=== PATIENT | female | born 1965 | race Caucasian/White ===

== ENCOUNTER 2021-03-10 02:05 | Inpatient (IN) | payer MEDICARE, MEDICAID, SELFPAY ==
[2021-03-10 02:11] VITALS: BP 147/102; PULSE 117; RESP 16; TEMP 36.8; O2SAT 97; BMI 32.8
[2021-03-10 03:00] LABS: Glucose Urine UA NEG (NEG); Leukocyte Esterase Urine NEG (NEG); Nitrite Urine NEG (NEG); Specific Gravity - Urine 1.025 (1.005-1.025); Urine Blood NEG (NEG); Urine Ketones NEG (NEG); Urine Protein NEG (NEG-TRACE)
[2021-03-10 03:03] LABS: Appearance Urine CLEAR; Color Urine YELLOW
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
[2021-03-10 03:09] LABS: Bacteria Urine 2+ /LPF; RBC Urine 0-2 /HPF (0); Squamous Epithelial Cell Urine 1+ /LPF; WBC Urine 0-2 /HPF (0-4)
[2021-03-10 03:16] LABS: COVID-19 Test Negative (Negative); IDNOW Serial# 9DD0AD1C
[2021-03-10 03:27] LABS: Amphetamine Screen Urine Not Detected (Not Detect); Barbiturates, Urine Not Detected (Not Detect); Benzodiazepines Screen Urine Not Detected (Not Detect); Cannabinoid Screen Urine Not Detected (Not Detect); Cocaine Screen Urine Not Detected (Not Detect); Opiate Screen Urine Not Detected (Not Detect); Phencyclidine Screen Urine Not Detected (Not Detect)
[2021-03-10 05:52] VITALS: BP 147/84; PULSE 117; RESP 16; TEMP 36.8; O2SAT 97
--- NOTE | 2021-03-10 06:13 | PC.NURSE ---
Patient is currently in bed appears sleeping, patient struggled to fall sleep, patient was unable to provide any information regarding her admission to [facility], patient used walker to ambulate, unsteady gait without walker, patient is on one to one observation for high fall risk, med rec completed, no distress observed/reported at this time, patient's plan is to assess by care team in the morning to see whether patient needs crises consult. Patient is in good behavioral control, pending labs, UA negative, will continue to monitor.
--- NOTE | 2021-03-10 07:06 | PC.NURSE ---
patient was awake upon arrival asking for hygiene products appropriately patient appears in no distress
[2021-03-10 07:59] LABS: Basophils Absolute Auto 0.1 X10*3/uL (0.0-0.2); Basophils Percent Auto 0.7 % (0-2); Eosinophils Absolute Auto 0.1 X10*3/uL (0.0-0.4); Eosinophils Percent Auto 0.9 % (0-4); Hematocrit 40.6 % (37-47); Hemoglobin 13.9 g/dl (12.0-16.0); Imm Gran Abs Auto 0.02 X10*3/uL (0.00-0.03); Imm Gran Pct Auto 0.3 % (0.0-0.4); Lymphocytes Absolute Auto 2.5 X10*3/uL (1.2-4.9); Lymphocytes Percent Auto 33.4 % (20-40); MANUAL DIFF FLAG NO; Mean Corpuscular HGB Conc 34.2 g/dl (31.0-35.0); Mean Corpuscular Hemoglobin 32.9 pg (27.0-33.0); Mean Platelet Volume 9.9 fL (9.4-12.3); Monocytes Absolute Auto 0.6 X10*3/uL (0.1-1.2); Monocytes Percent Auto 8.2 % (2-11); Neutrophils Absolute Auto 4.2 X10*3/uL (2.0-8.3); Neutrophils Percent Auto 56.5 % (45-73); Platelet Count 280 X10*3/uL (160-400); Red Blood Count 4.23 X10*6/uL (4.20-5.50); Red Cell Distribution Width 11.3 % (11.0-16.0); White Blood Count 7.4 X10*3/uL (4.8-10.8)
[2021-03-10 08:23] LABS: Ethanol < 10 mg/dL
[2021-03-10 08:26] LABS: Alanine Aminotransferase 36 U/L (0-31); Albumin Level 4.2 g/dL (3.5-5.0); Alkaline Phosphatase 94 U/L (39-117); Anion Gap 13 (12-20); Aspartate Amino Transferase 37 U/L (5-31); Bilirubin Total 0.9 mg/dL (0.0-1.0); Blood Urea Nitrogen 17 mg/dL (9-16); Carbon Dioxide 26 mmol/L (22-29); Chloride 104 mmol/L (96-108); Estimated Glomerular Filt Rate > 60; Glucose Random 97 mg/dL (60-115); Potassium 3.7 mmol/L (3.3-5.1); Sodium 139 mmol/L (135-145); Total Protein 7.8 g/dL (6.5-8.0)
[2021-03-10 08:46] VITALS: BP 175/94; PULSE 93; RESP 15; TEMP 37.6; O2SAT 96
[2021-03-10] MEDS: Omeprazole 20 MG CAPSULE.DR PO (09:38)
[2021-03-10] MEDS: ARIPiprazole 15 MG TABLET PO (09:38)
[2021-03-10] MEDS: Nicotine 21 MG PATCH.TD24 TRANSDERMA (09:38)
[2021-03-10] MEDS: Furosemide 20 MG TABLET PO (10:00)
[2021-03-10] MEDS: Ibuprofen 200 MG TABLET PO (11:10)
[2021-03-10] MEDS: LORazepam 1 MG TABLET 2 MG PO ×2 (11:40→19:17)
[2021-03-10] MEDS: Haloperidol Lactate 5 MG/ML VIAL IM (12:46)
[2021-03-10] MEDS: LORazepam 2 MG/ML VIAL IM (12:46)
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
--- NOTE | 2021-03-10 15:41 | PC.NURSE ---
care team came to speak with patient, attempted to wake patient to speak with her, pt sleeping/snoring, would not respond to care teams requests to talk
--- NOTE | 2021-03-10 15:52 | MHC.CARE ---
Pt has an ACCS Team through [facility]- Team B
[2021-03-10 16:25] VITALS: RESP 16
--- NOTE | 2021-03-10 17:14 | PC.NURSE ---
care team notified patient is now awake, patient ambulating to bathroom with walker and tech
[2021-03-10 19:14] VITALS: BP 123/75; PULSE 81; TEMP 36; O2SAT 97
[2021-03-10] MEDS: Ibuprofen 600 MG TABLET PO (19:17)
--- NOTE | 2021-03-10 19:17 | PC.NURSE ---
patient c/o generalized pain and anxiety requesting medications for both, notified provider and obtained order, pt medicated for pain and anxiety per order, pt currently in room watching tv, will continue to monitor.
[2021-03-10 23:45] VITALS: BP 120/80; PULSE 89; RESP 17; TEMP 36.7; O2SAT 96
--- NOTE | 2021-03-11 07:09 | PC.NURSE ---
Patient slept through the night, OOR x 2 for bathroom use and back, no behavioral concerns at this time, disposition section 12 inpatient bed search, will continue to monitor.
--- NOTE | 2021-03-11 07:17 | PC.NURSE ---
patient appears to remain at rest at present with even unlabored breaths patient appears in no distress
[2021-03-11] MEDS: Ibuprofen 200 MG TABLET PO (08:41)
[2021-03-11] MEDS: Nicotine 21 MG PATCH.TD24 TRANSDERMA (08:41)
[2021-03-11] MEDS: Furosemide 20 MG TABLET PO (08:41)
[2021-03-11] MEDS: Omeprazole 20 MG CAPSULE.DR PO (08:42)
[2021-03-11] MEDS: ARIPiprazole 15 MG TABLET PO (08:42)
[2021-03-11 09:04] VITALS: BP 126/98; PULSE 92; RESP 17; TEMP 36.5; O2SAT 100
[2021-03-11] MEDS: LORazepam 1 MG TABLET 2 MG PO (10:41)
--- NOTE | 2021-03-11 10:57 | MHC.CARE ---
Pts bed search is exhausted for the day. CARE Team attempting to obtain collateral information from [facility]- its reported Pt was discharged from [facility] on the .
--- NOTE | 2021-03-11 11:23 | PC.NURSE ---
patient had informed this freelance writer this morning that shes a client at a methadone program in [place] this freelance writer attempted to call habit opco times 2 so far this am
[2021-03-11 16:57] VITALS: BP 127/87; RESP 16; TEMP 36.5; O2SAT 97
[2021-03-11 22:34] VITALS: BP 116/82; PULSE 95; RESP 18; TEMP 36.2; O2SAT 97
[2021-03-12 01:19] VITALS: BP 117/80; PULSE 95; RESP 17; TEMP 36.5; O2SAT 96
--- NOTE | 2021-03-12 05:58 | PC.NURSE ---
Patient slept most part of the night, up few times for bathroom use and back, behavior appropriate, at time disorganized, no distress observed/reported, disposition section 12 inpatient bed search, VSS, med compliant, will continue to monitor.
--- NOTE | 2021-03-12 07:05 | PC.NURSE ---
patient appaears to remain at rest at present appears in no distress
[2021-03-12] MEDS: Nicotine 21 MG PATCH.TD24 TRANSDERMA (08:59)
[2021-03-12] MEDS: ARIPiprazole 15 MG TABLET PO (08:59)
[2021-03-12] MEDS: Omeprazole 20 MG CAPSULE.DR PO (08:59)
[2021-03-12] MEDS: Furosemide 20 MG TABLET PO (08:59)
[2021-03-12 09:19] VITALS: BP 143/74; PULSE 85; RESP 18; TEMP 36.1; O2SAT 95
[2021-03-12] MEDS: Nicotine Polacrilex 2 MG GUM BUCCAL ×2 (09:26→19:38)
[2021-03-12] MEDS: LORazepam 1 MG TABLET PO (10:20)
[2021-03-12] MEDS: Ibuprofen 400 MG TABLET PO (19:37)
--- NOTE | 2021-03-12 20:45 | MHC.CARE ---
Bedsearch Note: State wide search- 1 female bed available. Low acuity only.
[2021-03-13] MEDS: Acetaminophen 325 MG TABLET PO (02:26)
[2021-03-13 05:48] VITALS: BP 132/76; PULSE 88; RESP 16; TEMP 36.6; O2SAT 95
--- NOTE | 2021-03-13 06:37 | PC.NURSE ---
Patient slept through the night, no distress observed/reported, compliant with her medication, behavior appropriate, disposition is section 12 inpatient bed search, will continue to monitor.
--- NOTE | 2021-03-13 07:42 | PC.NURSE ---
pt sitting in community area eating breakfast and watching TV. No apparent distress noted. will continue to monitor
[2021-03-13 07:43] VITALS: BP 131/88; PULSE 88; RESP 15; TEMP 36.2; O2SAT 97
[2021-03-13] MEDS: Omeprazole 20 MG CAPSULE.DR PO (09:01)
[2021-03-13] MEDS: Nicotine 21 MG PATCH.TD24 TRANSDERMA (09:01)
[2021-03-13] MEDS: Furosemide 20 MG TABLET PO (09:01)
[2021-03-13] MEDS: ARIPiprazole 15 MG TABLET PO (09:01)
--- NOTE | 2021-03-13 17:52 | PC.NURSE ---
Patient escorted to m3 via nurse and security room number 308-2. This nurse unable to document admission worksheet at this time
[2021-03-13] MEDS: hydrOXYzine HCL 25 MG TABLET PO (19:41)
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
[2021-03-14] MEDS: traZODone HCL 50 MG TABLET PO (03:03)
[2021-03-14 06:00] VITALS: BP 128/72; PULSE 78; RESP 18; TEMP 36.6; O2SAT 97
[2021-03-14] MEDS: Ibuprofen 400 MG TABLET PO (06:56)
[2021-03-14] MEDS: Furosemide 20 MG TABLET PO (09:06)
[2021-03-14] MEDS: Omeprazole 20 MG CAPSULE.DR PO (09:06)
[2021-03-14] MEDS: Nicotine 21 MG PATCH.TD24 TRANSDERMA (09:06)
[2021-03-14] MEDS: ARIPiprazole 15 MG TABLET PO ×2 (09:06→16:14)
[2021-03-14 10:12] LABS: Estimated Average Glucose 100 mg/dL; Hemoglobin A1c % 5.1 %
[2021-03-14 10:16] LABS: Cholesterol 155 mg/dL; HDL Cholesterol 51 mg/dL; LDL Cholesterol Calculated 92 mg/dl; Triglycerides 63 mg/dL
[2021-03-14 10:37] LABS: Thyroid Stimulating Hormone 1.07 uIU/mL (0.32-4.0)
[2021-03-14] MEDS: Nicotine Polacrilex 2 MG GUM BUCCAL (14:43)
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
[2021-03-14 17:15] VITALS: BP 134/70; PULSE 74; RESP 18; TEMP 36.7; O2SAT 97
[2021-03-14] MEDS: hydrOXYzine HCL 25 MG TABLET PO (20:37)
[2021-03-14] MEDS: Acetaminophen 325 MG TABLET PO (20:37)
[2021-03-14 21:46] VITALS: BP 134/70; PULSE 74
[2021-03-14] MEDS: Prazosin HCL 1 MG CAPSULE PO (21:46)
[2021-03-15] MEDS: traZODone HCL 50 MG TABLET PO (01:46)
[2021-03-15] MEDS: Ibuprofen 400 MG TABLET PO ×2 (01:46→10:04)
[2021-03-15] MEDS: Acetaminophen 325 MG TABLET 650 MG PO (07:38)
[2021-03-15 08:30] VITALS: BP 123/79; PULSE 106; RESP 16; TEMP 35.9; O2SAT 97
[2021-03-15] MEDS: Omeprazole 20 MG CAPSULE.DR PO (08:33)
[2021-03-15] MEDS: ARIPiprazole 30 MG TABLET PO (08:33)
[2021-03-15] MEDS: Nicotine 21 MG PATCH.TD24 TRANSDERMA (08:34)
[2021-03-15] MEDS: Furosemide 20 MG TABLET PO (08:47)
[2021-03-15] MEDS: Nicotine Polacrilex 2 MG GUM BUCCAL (10:06)
--- NOTE | 2021-03-15 12:22 | P.PNPSI_ITS ---
Subjective Subjective Date of Service: 03/15/21 Reason For Visit: Gabriela Interim History: pt reports she did not sleep well, agreeable to increase prazosin. focused on getting PT consult and concerns about her housing. remains disorganized and mildly pressured. redirectable. per staff, afraid to go home. anx 6, dep 9. attending groups. suspicious, fearful. observed to have slept from 0130 on. had trazodone at 0130. BP 123/79 and P 106 this morning. Mental Status Exam Mental Status Exam Narrative: appropriately dressed and groomed, perhaps a tad disheveled. less PMA of rocking back and forth in her seat, some hand-wringing and fidgetiness. cooperative. speech nml in rate, increased in amount, nml in loudness, nml in tone, decreased in latency. thoughts a bit disorganized and tangential. delusions and paranoia not expressed. affect full range, normo-intense, min-la bile. no SI/HI/AVH expressed. Diagnostics Vital Signs (24Hr): Vital Signs - 24 hr 03/14/21 17:15 03/14/21 21:46 03/15/21 08:30 Temperature 98.1 F 96.7 F L Pulse Rate 74 74 106 H Respiratory Rate 18 16 Blood Pressure 134/70 134/70 123/79 Pulse Oximetry 97 97 Body Mass Index 32.8 Labs Results: 03/10/21 07:53 03/10/21 07:53 Labs: Laboratory Results - last 48 hr 03/14/21 03/14/21 09:39 09:39 Estimat Average Glucose 100 Hemoglobin A1c % 5.1 Triglycerides 63 Cholesterol 155 LDL Cholesterol, Calc 92 HDL Cholesterol 51 TSH 1.07 Medications Medications Current Medications Generic Name Dose Route Start Last Admin Trade Name Freq PRN Reason Stop Dose Admin Acetaminophen 325 mg 03/11/21 09:34 03/14/21 20:37 Acetaminophen 325 Mg Tablet PO 325 mg Q4H PRN Administration Pain, Mild (Pain Scale 1-3) Acetaminophen 650 mg 03/13/21 17:10 03/15/21 07:38 Acetaminophen 325 Mg Tablet PO 650 mg Q6H PRN Administration Headache/Pain Mild Scale (1-3) Al Hydroxide/Mg Hydroxide 30 ml 03/13/21 17:10 Magnesium Hydrox/Alum Hydrox 30 Ml Oral.Susp PO Q6H PRN Heartburn/Nausea Aripiprazole 30 mg 03/15/21 09:00 03/15/21 08:33 Aripiprazole 30 Mg Tablet PO 30 mg DAILY NIR Administration Furosemide 20 mg 03/10/21 09:30 03/15/21 08:47 Furosemide 20 Mg Tablet PO 20 mg DAILY NIR Administration Protocol Hydroxyzine HCl 25 mg 03/13/21 17:10 03/14/21 20:37 Hydroxyzine Hcl 25 Mg Tablet PO 25 mg BEDTIME PRN Administration Anxiety Ibuprofen 400 mg 03/11/21 09:34 03/15/21 10:04 Ibuprofen 400 Mg Tablet PO 400 mg Q8H PRN Administration pain Magnesium Hydroxide 30 ml 03/13/21 17:10 Milk Of Magnesia 30 Ml Oral.Susp PO DAILY PRN Constipation Methadone HCl 50 mg 03/11/21 12:30 03/15/21 08:34 Methadone Hcl 1 Mg/0.1 Ml Oral.Conc PO 50 mg DAILY NIR Administration Nicotine 21 mg 03/10/21 09:30 03/15/21 08:34 Nicotine 21 Mg Patch.Td24 TRANSDERMA 21 mg DAILY NIR Administration Nicotine Polacrilex 2 mg 03/12/21 09:11 03/15/21 10:06 Nicotine Polacrilex 2 Mg Gum BUCCAL 2 mg Q2H PRN Administration nicotine cravings Omeprazole 20 mg 03/10/21 09:30 03/15/21 08:33 Omeprazole 20 Mg Capsule.Dr PO 20 mg DAILY NIR Administration Trazodone HCl 50 mg 03/13/21 17:10 03/15/21 01:46 Trazodone Hcl 50 Mg Tablet PO 50 mg BEDTIME PRN Administration Insomnia Allergies Allergies Allergy/AdvReac Type Severity Reaction Status Date / Time amoxicillin [Amoxicillin] Allergy Mild RASH & Verified 03/13/21 05:35 DIZZINESS, Dizziness Assessment & Plan Assessment & Plan (1) Gabriela: Status: Acute Code(s): F30.9 - Manic episode, unspecified Assessment and Plan: increased abilify to 30 mg daily as of 03/14, per pt request. (2) PTSD (post-traumatic stress disorder): Status: Acute Code(s): F43.10 - Post-traumatic stress disorder, unspecified Assessment and Plan: started prazosin 1 mg at bedtime 03/15, increased to 2 mg QHS as of 03/15. BP WNL, mild tachycardia. follow VS. titrate as indicated. (3) Opioid use disorder: Status: Acute Code(s): F11.99 - Opioid use, unspecified with unspecified opioid-induced disorder Assessment and Plan: methadone 50 mg daily Greater than 50% of the session was spent on counseling and/or coordination of care Reason for contiued inpatient stay Substantial Risk for: harm to self, inability to function and rapid deco mpensation
[2021-03-15 14:10] VITALS: BP 123/79; PULSE 106; O2SAT 97
[2021-03-15 15:18] LABS: Folate 13.5 ng/mL (> or = 4.0); Vitamin B12 564 pg/mL (200-900)
[2021-03-15 18:00] VITALS: BP 109/69; PULSE 64; RESP 16; TEMP 36.5; O2SAT 96
[2021-03-15 20:25] VITALS: BP 124/95; PULSE 84
[2021-03-15] MEDS: Prazosin HCL 1 MG CAPSULE 2 MG PO (20:25)
[2021-03-16] MEDS: Ibuprofen 400 MG TABLET PO ×2 (03:31→15:21)
[2021-03-16] MEDS: traZODone HCL 50 MG TABLET PO (03:31)
[2021-03-16 06:00] VITALS: BP 131/79; PULSE 114; RESP 16; TEMP 35.7; O2SAT 97
[2021-03-16] MEDS: Furosemide 20 MG TABLET PO (08:35)
[2021-03-16] MEDS: ARIPiprazole 30 MG TABLET PO (08:35)
[2021-03-16] MEDS: Omeprazole 20 MG CAPSULE.DR PO (08:35)
[2021-03-16] MEDS: Nicotine 21 MG PATCH.TD24 TRANSDERMA (08:35)
--- NOTE | 2021-03-16 13:04 | HO.PSYCHPN ---
Subjective Subjective Date of Service: 03/16/21 Reason For Visit: Gabriela Interim History: pt reports she is feeling better more relaxed less scared and less anxious every day. asks for omeprazole, which she had been prescribed recently for GERD and stomach ulcers. still some difficulty sleeping, agrees to increase prazosin at HS to 3 mg. reports a flash of SI yesterday but nothing since. suggests the interview room has a camera in it (it does not), but less disorganized and pressured. per staff, disorganized. attending groups. believes showers have cameras. had trazodone for sleep last night. Mental Status Exam Mental Status Exam Narrative: appropriately dressed and groomed, perhaps a tad disheveled. no PMA/PMR. cooperative. speech nml in rate, increased in amount, nml in loudness, nml in tone, decreased in latency. thoughts a bit disorganized. paranoid delusion expressed. affect full range, hyper-intense, non-labile. no SI/HI/AVH expressed. Diagnostics Vital Signs (24Hr): Vital Signs - 24 hr 03/15/21 14:10 03/15/21 18:00 03/15/21 20:25 Temperature 97.7 F Pulse Rate 106 H 64 84 Respiratory Rate 16 Blood Pressure 123/79 109/69 124/95 H Pulse Oximetry 97 96 03/16/21 06:00 Temperature 96.3 F L Pulse Rate 114 H Respiratory Rate 16 Blood Pressure 131/79 Pulse Oximetry 97 Body Mass Index 32.8 Labs Results: 03/10/21 07:53 03/10/21 07:53 Labs: Laboratory Results - last 48 hr 03/14/21 09:39 Vitamin B12 564 Folate 13.5 Medications Medications Current Medications Generic Name Dose Route Start Last Admin Trade Name Freq PRN Reason Stop Dose Admin Acetaminophen 325 mg 03/11/21 09:34 03/14/21 20:37 Acetaminophen 325 Mg Tablet PO 325 mg Q4H PRN Administration Pain, Mild (Pain Scale 1-3) Acetaminophen 650 mg 03/13/21 17:10 03/15/21 07:38 Acetaminophen 325 Mg Tablet PO 650 mg Q6H PRN Administration Headache/Pain Mild Scale (1-3) Al Hydroxide/Mg Hydroxide 30 ml 03/13/21 17:10 Magnesium Hydrox/Alum Hydrox 30 Ml Oral.Susp PO Q6H PRN Heartburn/Nausea Aripiprazole 30 mg 03/15/21 09:00 03/16/21 08:35 Aripiprazole 30 Mg Tablet PO 30 mg DAILY NIR Administration Furosemide 20 mg 03/10/21 09:30 03/16/21 08:35 Furosemide 20 Mg Tablet PO 20 mg DAILY NIR Administration Protocol Hydroxyzine HCl 25 mg 03/13/21 17:10 03/14/21 20:37 Hydroxyzine Hcl 25 Mg Tablet PO 25 mg BEDTIME PRN Administration Anxiety Ibuprofen 400 mg 03/11/21 09:34 03/16/21 03:31 Ibuprofen 400 Mg Tablet PO 400 mg Q8H PRN Administration pain Magnesium Hydroxide 30 ml 03/13/21 17:10 Milk Of Magnesia 30 Ml Oral.Susp PO DAILY PRN Constipation Methadone HCl 50 mg 03/11/21 12:30 03/16/21 08:35 Methadone Hcl 1 Mg/0.1 Ml Oral.Conc PO 50 mg DAILY NIR Administration Nicotine 21 mg 03/10/21 09:30 03/16/21 08:35 Nicotine 21 Mg Patch.Td24 TRANSDERMA 21 mg DAILY NIR Administration Nicotine Polacrilex 2 mg 03/12/21 09:11 03/15/21 10:06 Nicotine Polacrilex 2 Mg Gum BUCCAL 2 mg Q2H PRN Administration nicotine cravings Omeprazole 20 mg 03/10/21 09:30 03/16/21 08:35 Omeprazole 20 Mg Capsule.Dr PO 20 mg DAILY NIR Administration Prazosin HCl 2 mg 03/15/21 21:00 03/15/21 20:25 Prazosin Hcl 1 Mg Capsule PO 2 mg BEDTIME NIR Administration Protocol Trazodone HCl 50 mg 03/13/21 17:10 03/16/21 03:31 Trazodone Hcl 50 Mg Tablet PO 50 mg BEDTIME PRN Administration Insomnia Allergies Allergies Allergy/AdvReac Type Severity Reaction Status Date / Time amoxicillin [Amoxicillin] Allergy Mild RASH & Verified 03/13/21 05:35 DIZZINESS, Dizziness Assessment & Plan Assessment & Plan (1) Gabriela: Status: Acute Code(s): F30.9 - Manic episode, unspecified Assessment and Plan: increased abilify to 30 mg daily as of 03/14, per pt request. (2) PTSD (post-traumatic stress disorder): Status: Acute Code(s): F43.10 - Post-traumatic stress disorder, unspecified Assessment and Plan: started prazosin 1 mg at bedtime 03/15, increased to 2 mg QHS as of 03/15, 3 mg as of 03/16. BP WNL, mild tachycardia. follow VS. titrate as indicated. (3) Opioid use disorder: Status: Acute Code(s): F11.99 - Opioid use, unspecified with unspecified opioid-induced disorder Assessment and Plan: methadone 50 mg daily (4) GERD (gastroesophageal reflux disease): Status: Acute Code(s): K21.9 - Gastro-esophageal reflux disease without esophagitis Assessment and Plan: start omeprazole per pt request Greater than 50% of the session was spent on counseling and/or coordination of care Reason for contiued inpatient stay Substantial Risk for: inability to function and rapid decompensation
[2021-03-16] MEDS: hydrOXYzine HCL 25 MG TABLET PO (16:01)
[2021-03-16 21:51] VITALS: BP 148/78; PULSE 89; TEMP 36.6; O2SAT 95
[2021-03-16 21:52] VITALS: BP 148/89; PULSE 89
[2021-03-16] MEDS: Prazosin HCL 1 MG CAPSULE 3 MG PO (21:52)
[2021-03-17] MEDS: traZODone HCL 50 MG TABLET PO ×2 (01:53→21:28)
[2021-03-17] MEDS: hydrOXYzine HCL 25 MG TABLET PO ×3 (01:53→21:28)
[2021-03-17 06:00] VITALS: BP 126/68; PULSE 85; RESP 16; TEMP 36.6; O2SAT 99
[2021-03-17] MEDS: Ibuprofen 400 MG TABLET PO ×2 (06:51→18:15)
[2021-03-17] MEDS: Furosemide 20 MG TABLET PO (08:55)
[2021-03-17] MEDS: Nicotine 21 MG PATCH.TD24 TRANSDERMA (08:55)
[2021-03-17] MEDS: ARIPiprazole 30 MG TABLET PO (08:55)
[2021-03-17] MEDS: Omeprazole 20 MG CAPSULE.DR PO (08:56)
--- NOTE | 2021-03-17 12:19 | P.PNPSI_ITS ---
Subjective Subjective Date of Service: 03/17/21 Reason For Visit: Gabriela Interim History: pt requesting to leave today, but MD convinces her she needs a bit more time. thoughts a bit more organized and speech a bit less pressured, but talks of her inability to remember which medications she is supposed to take when in a very concerning way. VNA may be necessary for any reasonable med co mpliance. describes her mood as a little bit anxious and angry. her h/o anger and violence when agitated is discussed, and the inadequacy of abilify to adequately control her gabriela entertained. she is agreeable to starting tegretol, which she stated she has been on in the past and felt worked for her. she declines VPA noting it made her gain weight. no other requests or complaints. per staff, isolative on eves, c/o worsened depression on eves. reported to staff she is sleeping well. Mental Status Exam Mental Status Exam Narrative: disheveled, in hospital [facility]. no PMA/PMR. cooperative. speech nml in rate, increased in amount, nml in loudness, nml in tone, decreased in latency. thoughts increasingly organized but I/J impaired. no paranoid delusions expressed. affect constricted, normo-intense, non-labile. no SI/HI/AVH expressed. Diagnostics Vital Signs (24Hr): Vital Signs - 24 hr 03/16/21 21:51 03/16/21 21:52 03/17/21 06:00 Temperature 97.8 F 97.9 F Pulse Rate 89 89 85 Respiratory Rate 16 Blood Pressure 148/78 H 148/89 H 126/68 Pulse Oximetry 95 99 Body Mass Index 32.8 Labs Results: 03/10/21 07:53 03/10/21 07:53 Labs: Laboratory Results - last 48 hr 03/14/21 09:39 Vitamin B12 564 Folate 13.5 Medications Medications Current Medications Generic Name Dose Route Start Last Admin Trade Name Freq PRN Reason Stop Dose Admin Acetaminophen 325 mg 03/11/21 09:34 03/14/21 20:37 Acetaminophen 325 Mg Tablet PO 325 mg Q4H PRN Administration Pain, Mild (Pain Scale 1-3) Acetaminophen 650 mg 03/13/21 17:10 03/15/21 07:38 Acetaminophen 325 Mg Tablet PO 650 mg Q6H PRN Administration Headache/Pain Mild Scale (1-3) Al Hydroxide/Mg Hydroxide 30 ml 03/13/21 17:10 Magnesium Hydrox/Alum Hydrox 30 Ml Oral.Susp PO Q6H PRN Heartburn/Nausea Aripiprazole 30 mg 03/15/21 09:00 03/17/21 08:55 Aripiprazole 30 Mg Tablet PO 30 mg DAILY NIR Administration Furosemide 20 mg 03/10/21 09:30 03/17/21 08:55 Furosemide 20 Mg Tablet PO 20 mg DAILY NIR Administration Protocol Hydroxyzine HCl 25 mg 03/13/21 17:10 03/17/21 01:53 Hydroxyzine Hcl 25 Mg Tablet PO 25 mg BEDTIME PRN Administration Anxiety Hydroxyzine HCl 25 mg 03/16/21 15:50 03/16/21 16:01 Hydroxyzine Hcl 25 Mg Tablet PO 25 mg Q4H PRN Administration Anxiety Ibuprofen 400 mg 03/11/21 09:34 03/17/21 06:51 Ibuprofen 400 Mg Tablet PO 400 mg Q8H PRN Administration pain Magnesium Hydroxide 30 ml 03/13/21 17:10 Milk Of Magnesia 30 Ml Oral.Susp PO DAILY PRN Constipation Methadone HCl 50 mg 03/11/21 12:30 03/17/21 08:55 Methadone Hcl 1 Mg/0.1 Ml Oral.Conc PO 50 mg DAILY NIR Administration Nicotine 21 mg 03/10/21 09:30 03/17/21 08:55 Nicotine 21 Mg Patch.Td24 TRANSDERMA 21 mg DAILY COUNTS INCLUDE 234 BEDS AT THE [facility] Administration Nicotine Polacrilex 2 mg 03/12/21 09:11 03/15/21 10:06 Nicotine Polacrilex 2 Mg Gum BUCCAL 2 mg Q2H PRN Administration nicotine cravings Nystatin 1 appl 03/17/21 10:45 Nystatin Powder 15 Gm Bottle TOPICAL BID COUNTS INCLUDE 234 BEDS AT THE [facility] Protocol Omeprazole 20 mg 03/10/21 09:30 03/17/21 08:56 Omeprazole 20 Mg Capsule.Dr PO 20 mg DAILY NIR Administration Trazodone HCl 50 mg 03/13/21 17:10 03/17/21 01:53 Trazodone Hcl 50 Mg Tablet PO 50 mg BEDTIME PRN Administration Insomnia Allergies Allergies Allergy/AdvReac Type Severity Reaction Status Date / Time amoxicillin [Amoxicillin] Allergy Mild RASH & Verified 03/13/21 05:35 DIZZINESS, Dizziness Assessment & Plan Assessment & Plan (1) Gabriela: Status: Acute Code(s): F30.9 - Manic episode, unspecified Assessment and Plan: increased abilify to 30 mg daily as of 03/14, per pt request. started tegretol 200 mg BID as of 03/17 for inadequate resolution of manic Sx with abilify monotherapy. (2) PTSD (post-traumatic stress disorder): Status: Acute Code(s): F43.10 - Post-traumatic stress disorder, unspecified Assessment and Plan: started prazosin 1 mg at bedtime 03/15, increased to 2 mg QHS as of 03/15, 3 mg as of 03/16, 4 mg as of 03/17. BP WNL, mild tachycardia. follow VS. titrate as indicated. (3) Opioid use disorder: Status: Acute Code(s): F11.99 - Opioid use, unspecified with unspecified opioid-induced disorder Assessment and Plan: methadone 50 mg daily (4) GERD (gastroesophageal reflux disease): Status: Acute Code(s): K21.9 - Gastro-esophageal reflux disease without esophagitis Assessment and Plan: started omeprazole per pt request Greater than 50% of the session was spent on counseling and/or coordination of care Reason for contiued inpatient stay Substantial Risk for: inability to function and rapid decompensation
[2021-03-17] MEDS: carBAMazepine ER 200 MG TAB.ER.12H PO ×2 (13:02→21:28)
[2021-03-17] MEDS: Nicotine Polacrilex 2 MG GUM BUCCAL (14:26)
[2021-03-17] MEDS: Nystatin Powder 15 GM BOTTLE 1 APPL TOPICAL (18:34)
[2021-03-17] MEDS: Magnesium Hydrox/Alum Hydrox 30 ML ORAL.SUSP PO (18:34)
[2021-03-17 21:28] VITALS: BP 127/71; PULSE 84
[2021-03-17] MEDS: Prazosin HCL 1 MG CAPSULE 4 MG PO (21:28)
[2021-03-17] MEDS: Acetaminophen 325 MG TABLET 650 MG PO (21:28)
[2021-03-17 21:32] VITALS: TEMP 36.4
--- NOTE | 2021-03-18 04:37 | HO.PSYCHPN ---
Subjective Subjective Date of Service: 03/20/21 Reason For Visit: Gabriela Interim History: Pt pleasant on approach. She reports feeling somewhat anxious. She reports feeling better. She is hyper verbal but conversation mostly appropriate. She reports sleeping and eating well. 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 She is taking medications as prescribed. No behavioral concerns. Review of Systems Review of Systems Pertinent positives and negatives as stated in HPI 10 point review of systems is otherwise negative. 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 Diagnostics Vital Signs (24Hr): Vital Signs - 24 hr 03/19/21 06:00 03/19/21 21:53 03/19/21 21:56 Temperature 97.2 F 97.6 F Pulse Rate 84 86 86 Respiratory Rate 16 16 Blood Pressure 123/87 123/64 123/64 Pulse Oximetry 96 97 Body Mass Index 32.8 Labs Results: 03/10/21 07:53 03/10/21 07:53 Medications Medications Current Medications Generic Name Dose Route Start Last Admin Trade Name Freq PRN Reason Stop Dose Admin Acetaminophen 325 mg 03/11/21 09:34 03/14/21 20:37 Acetaminophen 325 Mg Tablet PO 325 mg Q4H PRN Administration Pain, Mild (Pain Scale 1-3) Acetaminophen 650 mg 03/13/21 17:10 03/19/21 03:59 Acetaminophen 325 Mg Tablet PO 650 mg Q6H PRN Administration Headache/Pain Mild Scale (1-3) Al Hydroxide/Mg Hydroxide 30 ml 03/13/21 17:10 03/17/21 18:34 Magnesium Hydrox/Alum Hydrox 30 Ml Oral.Susp PO 30 ml Q6H PRN Administration Heartburn/Nausea Aripiprazole 30 mg 03/15/21 09:00 03/19/21 08:31 Aripiprazole 30 Mg Tablet PO 30 mg DAILY NIR Administration Carbamazepine 200 mg 03/17/21 12:30 03/19/21 21:56 Carbamazepine Er 200 Mg Tab.Er.12h PO 200 mg BID NIR Administration Furosemide 20 mg 03/10/21 09:30 03/19/21 08:31 Furosemide 20 Mg Tablet PO 20 mg DAILY NIR Administration Protocol Hydroxyzine HCl 25 mg 03/13/21 17:10 03/19/21 21:57 Hydroxyzine Hcl 25 Mg Tablet PO 25 mg BEDTIME PRN Administration Anxiety Hydroxyzine HCl 25 mg 03/16/21 15:50 03/20/21 04:13 Hydroxyzine Hcl 25 Mg Tablet PO 25 mg Q4H PRN Administration Anxiety Ibuprofen 400 mg 03/11/21 09:34 03/20/21 04:13 Ibuprofen 400 Mg Tablet PO 400 mg Q8H PRN Administration pain Magnesium Hydroxide 30 ml 03/13/21 17:10 Milk Of Magnesia 30 Ml Oral.Susp PO DAILY PRN Constipation Methadone HCl 50 mg 03/11/21 12:30 03/19/21 08:30 Methadone Hcl 1 Mg/0.1 Ml Oral.Conc PO 50 mg DAILY NIR Administration Nicotine 21 mg 03/10/21 09:30 03/19/21 08:30 Nicotine 21 Mg Patch.Td24 TRANSDERMA 21 mg DAILY NIR Administration Nicotine Polacrilex 2 mg 03/12/21 09:11 03/19/21 14:38 Nicotine Polacrilex 2 Mg Gum BUCCAL 2 mg Q2H PRN Administration nicotine cravings Nystatin 1 appl 03/17/21 10:45 03/19/21 22:01 Nystatin Powder 15 Gm Bottle TOPICAL 1 appl BID NIR Administration Protocol Omeprazole 20 mg 03/10/21 09:30 03/19/21 08:32 Omeprazole 20 Mg Capsule.Dr PO 20 mg DAILY NIR Administration Prazosin HCl 4 mg 03/17/21 21:00 03/19/21 21:56 Prazosin Hcl 1 Mg Capsule PO 4 mg BEDTIME NIR Administration Protocol Trazodone HCl 50 mg 03/13/21 17:10 03/19/21 21:57 Trazodone Hcl 50 Mg Tablet PO 50 mg BEDTIME PRN Administration Insomnia Allergies Allergies Allergy/AdvReac Type Severity Reaction Status Date / Time amoxicillin [Amoxicillin] Allergy Mild RASH & Verified 03/13/21 05:35 DIZZINESS, Dizziness Assessment & Plan Assessment & Plan (1) Gabriela: Status: Acute Code(s): F30.9 - Manic episode, unspecified Assessment and Plan: increased abilify to 30 mg daily as of 03/14, per pt request. started tegretol 200 mg BID as of 03/17 for inadequate resolution of manic Sx with abilify monotherapy. (2) PTSD (post-traumatic stress disorder): Status: Acute Code(s): F43.10 - Post-traumatic stress disorder, unspecified Assessment and Plan: started prazosin 1 mg at bedtime 03/15, increased to 2 mg QHS as of 03/15, 3 mg as of 03/16, 4 mg as of 03/17. BP WNL, mild tachycardia. follow VS. titrate as indicated. (3) Opioid use disorder: Status: Acute Code(s): F11.99 - Opioid use, unspecified with unspecified opioid-induced disorder Assessment and Plan: methadone 50 mg daily (4) GERD (gastroesophageal reflux disease): Status: Acute Code(s): K21.9 - Gastro-esophageal reflux disease without esophagitis Assessment and Plan: started omeprazole per pt request Greater than 50% of the session was spent on counseling and/or coordination of care Reason for contiued inpatient stay Substantial Risk for: inability to function
[2021-03-18 06:00] VITALS: BP 140/77; PULSE 81; RESP 20; TEMP 36.6; O2SAT 99
[2021-03-18] MEDS: Nicotine 21 MG PATCH.TD24 TRANSDERMA (09:07)
[2021-03-18] MEDS: Furosemide 20 MG TABLET PO (09:08)
[2021-03-18] MEDS: Omeprazole 20 MG CAPSULE.DR PO (09:08)
[2021-03-18] MEDS: ARIPiprazole 30 MG TABLET PO (09:08)
[2021-03-18] MEDS: carBAMazepine ER 200 MG TAB.ER.12H PO ×2 (09:08→22:41)
[2021-03-18] MEDS: Nystatin Powder 15 GM BOTTLE 1 APPL TOPICAL (11:32)
[2021-03-18] MEDS: hydrOXYzine HCL 25 MG TABLET PO ×2 (16:47→22:40)
[2021-03-18] MEDS: Ibuprofen 400 MG TABLET PO (22:40)
[2021-03-18 22:41] VITALS: BP 131/69; PULSE 77
[2021-03-18] MEDS: traZODone HCL 50 MG TABLET PO (22:41)
[2021-03-18] MEDS: Prazosin HCL 1 MG CAPSULE 4 MG PO (22:41)
[2021-03-18 22:45] VITALS: TEMP 36.3
[2021-03-19] MEDS: Acetaminophen 325 MG TABLET 650 MG PO (03:59)
[2021-03-19] MEDS: hydrOXYzine HCL 25 MG TABLET PO ×2 (03:59→21:57)
[2021-03-19 06:00] VITALS: BP 123/87; PULSE 84; RESP 16; TEMP 36.2; O2SAT 96
[2021-03-19] MEDS: Nicotine 21 MG PATCH.TD24 TRANSDERMA (08:30)
[2021-03-19] MEDS: Furosemide 20 MG TABLET PO (08:31)
[2021-03-19] MEDS: carBAMazepine ER 200 MG TAB.ER.12H PO ×2 (08:31→21:56)
[2021-03-19] MEDS: ARIPiprazole 30 MG TABLET PO (08:31)
[2021-03-19] MEDS: Omeprazole 20 MG CAPSULE.DR PO (08:32)
[2021-03-19] MEDS: Nystatin Powder 15 GM BOTTLE 1 APPL TOPICAL ×2 (11:47→22:01)
[2021-03-19] MEDS: Nicotine Polacrilex 2 MG GUM BUCCAL (14:38)
[2021-03-19] MEDS: Ibuprofen 400 MG TABLET PO (16:57)
[2021-03-19 21:53] VITALS: BP 123/64; PULSE 86; RESP 16; TEMP 36.4; O2SAT 97
[2021-03-19 21:56] VITALS: BP 123/64; PULSE 86
[2021-03-19] MEDS: Prazosin HCL 1 MG CAPSULE 4 MG PO (21:56)
[2021-03-19] MEDS: traZODone HCL 50 MG TABLET PO (21:57)
[2021-03-20] MEDS: Ibuprofen 400 MG TABLET PO ×2 (04:13→16:56)
[2021-03-20] MEDS: hydrOXYzine HCL 25 MG TABLET PO ×2 (04:13→15:51)
[2021-03-20 06:00] VITALS: BP 129/80; PULSE 81; RESP 20; TEMP 36.7; O2SAT 100
[2021-03-20] MEDS: Omeprazole 20 MG CAPSULE.DR PO (08:09)
[2021-03-20] MEDS: ARIPiprazole 30 MG TABLET PO (08:09)
[2021-03-20] MEDS: carBAMazepine ER 200 MG TAB.ER.12H PO (08:09)
[2021-03-20] MEDS: Furosemide 20 MG TABLET PO (08:09)
[2021-03-20] MEDS: Nystatin Powder 15 GM BOTTLE 1 APPL TOPICAL ×2 (08:35→22:23)
[2021-03-20] MEDS: Nicotine 21 MG PATCH.TD24 TRANSDERMA (08:35)
--- NOTE | 2021-03-20 11:04 | HO.PSYCHPN ---
Subjective Subjective Date of Service: 03/20/21 Reason For Visit: Gabriela Interim History: pt reports she is feeling more herself and would like discharge. she is informed perhaps tomorrow as VNA and outpt appointments need to be arranged. states she was so messed up when she came in here that she thought the TV and radio were talking to her. she then becomes quite teary describing being given a cup of coffee by covering provider over the weekend. she c/o feeling as if lice were crawling on her scalp and body and asks for shampoo for it. also states she continues to not sleep very well at night. MD expresses concern about her state and that perhaps she is trying to leave too early again. MD suggests increasing tegretol, to which patient agrees, and she is open to MD's assertion that she has a bipolar disorder and remains in a hypomanic state. nevertheless, she continues to want to discharge tomorrow. agrees to take it one day at a time for the moment. per staff, pt was visible on the unit, tending to ADLs, social, attending groups over the weekend. expressing anxiety about what her family thinks about her. asking for klonopin - upset her roommate gets it but she doesn't. Mental Status Exam Mental Status Exam Narrative: appropriately dressed and groomed. no PMA/PMR. cooperative. speech incr in rate, increased in amount, nml in loudness, nml in tone, decreased in latency. thoughts increasingly organized but I/J impaired. likely delusions of lice. affect full range, normo-intense, non-labile. no SI/HI/AVH expressed. possibly formication. Diagnostics Vital Signs (24Hr): Vital Signs - 24 hr 03/19/21 21:53 03/19/21 21:56 03/20/21 06:00 Temperature 97.6 F 98.1 F Pulse Rate 86 86 81 Respiratory Rate 16 20 Blood Pressure 123/64 123/64 129/80 Pulse Oximetry 97 100 Body Mass Index 32.8 Labs Results: 03/10/21 07:53 03/10/21 07:53 Medications Medications Current Medications Generic Name Dose Route Start Last Admin Trade Name Freq PRN Reason Stop Dose Admin Acetaminophen 325 mg 03/11/21 09:34 03/14/21 20:37 Acetaminophen 325 Mg Tablet PO 325 mg Q4H PRN Administration Pain, Mild (Pain Scale 1-3) Acetaminophen 650 mg 03/13/21 17:10 03/19/21 03:59 Acetaminophen 325 Mg Tablet PO 650 mg Q6H PRN Administration Headache/Pain Mild Scale (1-3) Al Hydroxide/Mg Hydroxide 30 ml 03/13/21 17:10 03/17/21 18:34 Magnesium Hydrox/Alum Hydrox 30 Ml Oral.Susp PO 30 ml Q6H PRN Administration Heartburn/Nausea Aripiprazole 30 mg 03/15/21 09:00 03/20/21 08:09 Aripiprazole 30 Mg Tablet PO 30 mg DAILY NIR Administration Carbamazepine 300 mg 03/20/21 21:00 Carbamazepine Er 100 Mg Tab.Er.12h PO BID NIR Furosemide 20 mg 03/10/21 09:30 03/20/21 08:09 Furosemide 20 Mg Tablet PO 20 mg DAILY NIR Administration Protocol Hydroxyzine HCl 25 mg 03/13/21 17:10 03/19/21 21:57 Hydroxyzine Hcl 25 Mg Tablet PO 25 mg BEDTIME PRN Administration Anxiety Hydroxyzine HCl 25 mg 03/16/21 15:50 03/20/21 04:13 Hydroxyzine Hcl 25 Mg Tablet PO 25 mg Q4H PRN Administration Anxiety Ibuprofen 400 mg 03/11/21 09:34 03/20/21 04:13 Ibuprofen 400 Mg Tablet PO 400 mg Q8H PRN Administration pain Magnesium Hydroxide 30 ml 03/13/21 17:10 Milk Of Magnesia 30 Ml Oral.Susp PO DAILY PRN Constipation Methadone HCl 50 mg 03/11/21 12:30 03/20/21 08:09 Methadone Hcl 1 Mg/0.1 Ml Oral.Conc PO 50 mg DAILY NIR Administration Nicotine 21 mg 03/10/21 09:30 03/20/21 08:35 Nicotine 21 Mg Patch.Td24 TRANSDERMA 21 mg DAILY NIR Administration Nicotine Polacrilex 2 mg 03/12/21 09:11 03/19/21 14:38 Nicotine Polacrilex 2 Mg Gum BUCCAL 2 mg Q2H PRN Administration nicotine cravings Nystatin 1 appl 03/17/21 10:45 03/20/21 08:35 Nystatin Powder 15 Gm Bottle TOPICAL 1 appl BID NIR Administration Protocol Omeprazole 20 mg 03/10/21 09:30 03/20/21 08:09 Omeprazole 20 Mg Capsule.Dr PO 20 mg DAILY NRI Administration Prazosin HCl 4 mg 03/17/21 21:00 03/19/21 21:56 Prazosin Hcl 1 Mg Capsule PO 4 mg BEDTIME NIR Administration Protocol Trazodone HCl 50 mg 03/13/21 17:10 03/19/21 21:57 Trazodone Hcl 50 Mg Tablet PO 50 mg BEDTIME PRN Administration Insomnia Allergies Allergies Allergy/AdvReac Type Severity Reaction Status Date / Time amoxicillin [Amoxicillin] Allergy Mild RASH & Verified 03/13/21 05:35 DIZZINESS, Dizziness Assessment & Plan Assessment & Plan (1) Gabriela: Status: Acute Code(s): F30.9 - Manic episode, unspecified Assessment and Plan: increased abilify to 30 mg daily as of 03/14, per pt request. started tegretol 200 mg BID as of 03/17 for inadequate resolution of manic Sx with abilify monotherapy. tegretol dosing increased to 300 BID as of 03/20 due to continued manic Sx. (2) PTSD (post-traumatic stress disorder): Status: Acute Code(s): F43.10 - Post-traumatic stress disorder, unspecified Assessment and Plan: started prazosin 1 mg at bedtime 03/15, increased to 2 mg QHS as of 03/15, 3 mg as of 03/16, 4 mg as of 03/17, 5 mg as of 03/20. BP/P WNL. follow VS. titrate as indicated. (3) Opioid use disorder: Status: Acute Code(s): F11.99 - Opioid use, unspecified with unspecified opioid-induced disorder Assessment and Plan: methadone 50 mg daily (4) GERD (gastroesophageal reflux disease): Status: Acute Code(s): K21.9 - Gastro-esophageal reflux disease without esophagitis Assessment and Plan: started omeprazole per pt request Greater than 50% of the session was spent on counseling and/or coordination of care Reason for contiued inpatient stay Substantial Risk for: inability to function and rapid decompensation
[2021-03-20] MEDS: carBAMazepine ER 100 MG TAB.ER.12H PO (11:13)
[2021-03-20] MEDS: Nicotine Polacrilex 2 MG GUM BUCCAL (16:57)
[2021-03-20 18:00] VITALS: BP 139/68; PULSE 77; RESP 18; TEMP 36.6; O2SAT 98
[2021-03-20] MEDS: Magnesium Hydrox/Alum Hydrox 30 ML ORAL.SUSP PO (18:21)
[2021-03-20 22:22] VITALS: BP 106/58; PULSE 64
[2021-03-20] MEDS: carBAMazepine ER 100 MG TAB.ER.12H 300 MG PO (22:22)
[2021-03-20] MEDS: traZODone HCL 50 MG TABLET PO (22:22)
[2021-03-20] MEDS: Prazosin HCL 1 MG CAPSULE 5 MG PO (22:22)
[2021-03-21] MEDS: Ibuprofen 400 MG TABLET PO (00:56)
[2021-03-21] MEDS: traZODone HCL 50 MG TABLET PO (00:56)
[2021-03-21 06:00] VITALS: BP 114/70; PULSE 105; RESP 16; TEMP 36.5; O2SAT 99
[2021-03-21] MEDS: Omeprazole 20 MG CAPSULE.DR PO (08:20)
[2021-03-21] MEDS: carBAMazepine ER 100 MG TAB.ER.12H 300 MG PO (08:21)
[2021-03-21] MEDS: Furosemide 20 MG TABLET PO (08:21)
[2021-03-21] MEDS: ARIPiprazole 30 MG TABLET PO (08:21)
[2021-03-21] MEDS: Nystatin Powder 15 GM BOTTLE 1 APPL TOPICAL (08:27)
[2021-03-21 09:04] LABS: MANUAL DIFF FLAG NO
[2021-03-21 09:08] LABS: Basophils Percent Auto 0.6 % (0-2); Eosinophils Absolute Auto 0.1 X10*3/uL (0.0-0.4); Eosinophils Percent Auto 1.6 % (0-4); Hematocrit 40.4 % (37-47); Hemoglobin 14.2 g/dl (12.0-16.0); Imm Gran Abs Auto 0.08 X10*3/uL (0.00-0.03); Imm Gran Pct Auto 1.1 % (0.0-0.4); Lymphocytes Absolute Auto 2.1 X10*3/uL (1.2-4.9); Lymphocytes Percent Auto 30.4 % (20-40); Mean Corpuscular HGB Conc 35.1 g/dl (31.0-35.0); Mean Corpuscular Hemoglobin 32.7 pg (27.0-33.0); Mean Corpuscular Volume 93.1 fL (80-98); Mean Platelet Volume 10.7 fL (9.4-12.3); Monocytes Absolute Auto 0.5 X10*3/uL (0.1-1.2); Monocytes Percent Auto 7.7 % (2-11); Neutrophils Absolute Auto 4.1 X10*3/uL (2.0-8.3); Neutrophils Percent Auto 58.6 % (45-73); Platelet Count 258 X10*3/uL (160-400); Red Blood Count 4.34 X10*6/uL (4.20-5.50); Red Cell Distribution Width 10.8 % (11.0-16.0); White Blood Count 7.1 X10*3/uL (4.8-10.8)
[2021-03-21 09:40] LABS: Alanine Aminotransferase 33 U/L (0-31); Albumin Level 3.8 g/dL (3.5-5.0); Alkaline Phosphatase 92 U/L (39-117); Anion Gap 17 (12-20); Aspartate Amino Transferase 35 U/L (5-31); Bilirubin Direct < 0.2 mg/dL (0.0-0.5); Bilirubin Total 0.2 mg/dL (0.0-1.0); Blood Urea Nitrogen 21 mg/dL (9-16); Calcium 9.5 mg/dL (8.4-10.2); Carbon Dioxide 22 mmol/L (22-29); Chloride 102 mmol/L (96-108); Creatinine Clr Calc Pharmacy 110.8; Estimated Glomerular Filt Rate > 60; Glucose Random 104 mg/dL (60-115); Sodium 136 mmol/L (135-145); Total Protein 7.4 g/dL (6.5-8.0)
[2021-03-21 09:45] LABS: Carbamazepine Tegretol 7.5 mcg/mL (5.0-12.0)
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
[2021-03-21] MEDS: Nicotine 21 MG PATCH.TD24 TRANSDERMA (11:27)
== END 2021-03-21 13:05 | disposition home or self-care (01) | DRG 885 ==
LOC: HO.ED 03-13 16:17 → HO.PADLT16 03-13 17:23
PROVIDERS: Social Worker; Admitting Provider Psychiatry & Neurology Psychiatry; Emergency Provider Student in an Organized Health Care Education/Training Program; Visit Provider Psychiatry & Neurology Psychiatry
DX: F30.9 Manic episode, unspecified (principal); R45.851 Suicidal ideations; F11.20 Opioid dependence, uncomplicated; F43.10 Post-traumatic stress disorder, unspecified; K21.9 Gastro-esophageal reflux disease without esophagitis; F17.210 Nicotine dependence, cigarettes, uncomplicated; Z71.6 Tobacco abuse counseling; Z20.822 Contact with and (suspected) exposure to COVID-19; Z88.0 Allergy status to penicillin; Z79.1 Long term (current) use of non-steroidal anti-inflammatories (NSAID); Z79.899 Other long term (current) drug therapy
CPT/HCPCS: 36415; 80048; 80053; 80061; 80076; 80156; 80307; 81001; 82077; 82607; 82746; 83036; 84443; 85025; 87635; 97161; 99285; J2060

== ENCOUNTER 2021-06-02 08:56 | Outpatient (REF) | payer MEDICARE, MEDICAID, SELFPAY ==
--- NOTE | ~2021-06-02 | XR_ITS ---
EXAMINATION: XR PELVIS CLINICAL INFORMATION: Hip pain. COMPARISON: AP pelvis 12/26/2017 TECHNIQUE: AP view of the pelvis. FINDINGS: There is normal symmetry of bilateral SI joints. There is loss of left hip joint with erosion of the left supralateral femoral head and the adjacent acetabulum from degenerative osteoarthritis. Underlying AVN is not excluded. The right hip joint space is normal. No fracture or dislocation. XR/XR pelvis 1-2V IMPRESSION: Severe degenerative arthritic changes with erosive changes of the superolateral femoral head and the adjoining acetabulum.
== END 2021-06-02 08:57 | disposition home or self-care (01) ==
LOC: HO.HOSX 08:56
PROVIDERS: Visit Provider Orthopaedic Surgery
DX: M16.12 Unilateral primary osteoarthritis, left hip (principal); F17.210 Nicotine dependence, cigarettes, uncomplicated; Z79.899 Other long term (current) drug therapy
CPT/HCPCS: 72170; 99212

== ENCOUNTER → 2021-11-03 11:42 | Outpatient (BNVA) | payer MEDICARE, MEDICAID, SELFPAY | PROVIDERS: Visit Provider Orthopaedic Surgery | DX: M16.52 Unilateral post-traumatic osteoarthritis, left hip (principal) | CPT/HCPCS: 99212 ==

== ENCOUNTER → 2022-05-10 10:34 | Outpatient (BNVA) | payer MEDICARE, MEDICAID, SELFPAY | PROVIDERS: PCP Internal Medicine; Visit Provider Orthopaedic Surgery | DX: M16.52 Unilateral post-traumatic osteoarthritis, left hip (principal); M79.89 Other specified soft tissue disorders | CPT/HCPCS: 99212 ==

== ENCOUNTER 2022-05-25 23:30 | Emergency (ER) | payer MEDICARE, MEDICAID, SELFPAY ==
[2022-05-25 23:32] VITALS: BP 150/92; PULSE 104; O2SAT 100
[2022-05-26 00:43] VITALS: BP 125/78; PULSE 95; RESP 18; TEMP 36.6; O2SAT 100; BMI 31.3
[2022-05-26 02:08] VITALS: BP 147/83; PULSE 95; RESP 14; TEMP 36.5; O2SAT 97
--- NOTE | 2022-05-26 02:19 | PC.NURSE ---
Patient arrives to ED room 2 and care assumed now. Patient presents endorsing bilateral lower leg/foot pain in the setting of worsening edema. She refuses to change into a hospital gown for full assessment, but states edema has been increasing over the past two weeks. +redness and 3+ pitting edema to bilateral legs noted. Patient also falling asleep mid-sentence and states it's because she hasn't slept in days. Patient denies taking any diuretic at home and states she's too tired to state her full medical history at this time.
--- OUTSIDE RECORDS SUMMARY | 2022-05-26 02:29 | XMS_ITS | Continuity of Care Document ---
:1965 Author Organization [facility] Address [address] [place] [address]- Care Team Providers Name Role Phone Raj Ramírez DO Primary Care Physician [phone] Encounter [facility] Date(s): 03/02/21 - 05/06/21 [facility] [address] [place], [place] [address] Attending Physician: Moon Santana MD Admitting Physician: Esther SALEEM, Moon Referring Physician: Raj Ramírez DO Allergies, Adverse Reactions, Alerts Substance Reaction Severity Status Amoxil Active cloNIDine Active Immunizations Not Given Vaccine Date Status Refusal Reason tetanus/diphtheria/pertussis, acel(Tdap) 03/02/18 Not Giv en Patient Refuses Medications Abilify 15 mg oral tablet 15 mg, 1, tablet, By Mouth, Daily, # 30 tablet, Refills 0, Tot. Refills 0, Maintenance, 03/08/21 7:38:00 EDT, Route to Pharmacy Electronically, [id number], Partial fill upon patient request if the prescription is for a schedule II opi... Start Date: 03/08/21 Status: Orderedfurosemide 20 mg oral tablet 20 mg, 1, tablet, By Mouth, Daily, Refills 0, Maintenance, 03/02/21 16:10:00 EDT, Partial fill upon patient request if the prescription is for a schedule II opioid drug. Start Date: 03/02/21 Status: Orderedmethadone 10 mg oral tablet 5 tablet = 50 mg, By Mouth, Daily, 0 Refills, Maintenance, 03/08/21 7:39:00 EDT, Tablet, Partial fill upon patient request if the prescription is for a schedule II opioid drug. Start Date: 03/08/21 Status: Orderednicotine 21 mg/24 hr transdermal film, extended release 1 patch, Topically, Daily, # 30 patch, 0 Refills, Maintenance, 03/08/21 10:02:00 EDT, Patch, [id number], Partial fill upon patient request if the prescription is for a schedule II opioid drug., 1 patch Topically Daily, 170.8, cm, 02/23... Start Date: 03/08/21 Status: Ordered Problem List Condition Effective Dates Status Health Status Informant Alcohol dependence(Confirmed) Active Bipolar disorder(Confirmed) Active Cellulitis of hand, left(Confirmed) Active Cocaine abuse(Confirmed) Active Dissociative disorder(Confirmed) Active Hepatitis C(Confirmed) Active Nicotine dependence(Confirmed) Active Opiate dependence(Confirmed) Active Social History Social History Type Response Smoking Status Current every day smoker; Ty pe: Cigarettes; Previous treatment: Nicotine replacement; Interested in cessation: No; Tobacco use times per day: 1 pack a day; Number of years: 38; entered on: 05/06/14 Sex
--- OUTSIDE RECORDS SUMMARY | 2022-05-26 02:29 | XMS_ITS | Continuity of Care Document ---
:1965 Author Organization [facility] Address [address] [place] [address]- Care Team Providers Name Role Phone Shanita SALEEM, Williams Primary Care Physician Encounter [facility] Date(s): 02/14/20 - 02/14/[address] [address]- [facility] Discharge Disposition: A-D/C Walkout Attending Physician: Not on Staff, Attending MD Admitting Physician: Not on Staff, Admitting MD Referring Physician: Not on Staff, Referring MD Allergies, Adverse Reactions, Alerts Substance Reaction Severity Status Amoxil Active cloNIDine Active Immunizations Not Given Vaccine Date Status Refusal Reason tetanus/diphtheria/pertussis, acel(Tdap) 03/02/18 Not Giv en Patient Refuses Medications Compression Stockings See Instructions, # 1 pair, Maintenance, surgical, calf length 20-30 mm Hg, 03/02/18 9:45:06 EDT, Compound Start Date: 03/02/18 Status: Orderedgabapentin 300 mg oral capsule 300 mg, 1, capsule, By Mouth, 3 times a day, for mood, # 90 capsule, Refills 0, Tot. Refills 0, Maintenance, 01/14/18 14:54:28 EDT, Route to Pharmacy Electronically, [id number], [facility]/pharmacy #[id number] Start Date: 01/14/18 Stop Date: 02/13/18 Status: Orderedomeprazole 20 mg oral enteric coated capsule 1 capsule = 20 mg, By Mouth, Daily, # 30 capsule, 0 Refills, Maintenance, 12/18/17 11:27:38 EDT, EC Capsule Start Date: 12/18/17 Stop Date: 01/17/18 Status: OrderedtraZODone 100 mg oral tablet 100 mg, 1, tablet, By Mouth, Daily at bedtime, PRN, for insomnia, # 30 tablet, Refills 0, Tot. Refills 0, Maintenance, Sleep, 01/14/18 14:54:39 EDT, Route to Pharmacy Electronically, [id number], [facility]/pharmacy #[id number] Start Date: 01/14/18 Stop Date: 02/13/18 Status: OrderedTrileptal 300 mg oral tablet 300 mg, 1, tablet, By Mouth, 2 times a day, Refills 0, Maintenance, 03/02/18 3:33:47 EDT Start Date: 03/02/18 Status: OrderedTrileptal 600 mg oral tablet 1 tablet = 600 mg, By Mouth, 2 times a day, # 180 tablet, 0 Refills, Maintenance, 03/02/18 3:33:33 EDT, Tablet Start Date: 03/02/18 Status: Ordered Problem List Condition Effective Dates Status Health Status Informant Alcohol dependence(Confirmed) Active Bipolar disorder(Confirmed) Active Cellulitis of hand, left(Confirmed) Active Cocaine abuse(Confirmed) Active Dissociative disorder(Confirmed) Active Hepatitis C(Confirmed) Active Nicotine dependence(Confirmed) Active Opiate dependence(Confirmed) Active Vital Signs Most recent to oldest [Reference Range]: 1 2 Weight 96.5 kg 96.5 kg (02/14/20 8:48 AM) (02/14/20 8:46 AM) Oxygen Saturation [94-100 %] 97 % 98 % (02/14/20 1:11 PM) (02/14/20 8:46 AM) Pulse Rate [55-90 bpm] 66 bpm 85 bpm (02/14/20 1:11 PM) (02/14/20 8:46 AM) Blood Pressure [90-138/55-84 mm Hg] 116/66 mm Hg 108/ 64 mm Hg (02/14/20 1:11 PM) (02/14/20 8:46 AM) Respiratory Rate [16-30 br/min] 18 br/min 17 br/mi n (02/14/20 1:11 PM) (02/14/20 8:46 AM) Temperature [96.8-100.4 DegF] 97.9 DegF 97.5 DegF (02/14/20 1:11 PM) (02/14/20 8:46 AM) Mode of Delivery (Oxygen) Room air room air (02/14/20 1:11 PM) (02/14/20 8:46 AM) Blood pressure sites Arm, right Arm, right (02/14/20 1:11 PM) (02/14/20 8:46 AM) Temperature Route Oral Oral (02/14/20 1:11 PM) (02/14/20 8:46 AM) Dry Weight 96.5 kg (02/14/20 8:46 AM) Weight Obtained Via Patient/family stated (02/14/20 8:48 AM) Social History Social History Type Response Smoking Status Current every day smoker; Ty pe: Cigarettes; Previous treatment: Nicotine replacement; Interested in cessation: No; Tobacco use times per day: 1 pack a day; Number of years: 38; entered on: 05/06/14 Sex
--- OUTSIDE RECORDS SUMMARY | 2022-05-26 02:29 | XMS_ITS | Continuity of Care Document ---
:1965 Author Organization [facility] Address [address] [place] [address]- Care Team Providers Name Role Phone Shanita SALEEM, Williams Primary Care Physician Encounter [facility] Date(s): 02/11/20 - 02/12/[address] [address]- [facility] Discharge Disposition: A-D/C Walkout Attending Physician: Not on Staff, Attending MD Admitting Physician: Not on Staff, Admitting MD Referring Physician: Not on Staff, Referring MD Allergies, Adverse Reactions, Alerts Substance Reaction Severity Status cloNIDine Active Immunizations Not Given Vaccine Date [...] 01/14/18 14:54:28 EDT, Route to Pharmacy Electronically, [id number], [facility]/pharmacy #[id number] Start Date: 01/14/18 Stop Date: [...] 01/14/18 14:54:39 EDT, Route to Pharmacy Electronically, [id number], [facility]/pharmacy #[id number] Start Date: 01/14/18 Stop Date: [...] Most recent to oldest [Reference Range]: 1 Weight 96.3 kg (02/11/20 8:49 PM) Oxygen Saturation [94-100 %] 97 % (02/11/20 8:49 PM) Pulse Rate [55-90 bpm] 95 bpm *H* (02/11/20 8:49 PM) Blood Pressure [90-138/55-84 mm Hg] 104/61 mm Hg (02/11/20 8:49 PM) Respiratory Rate [16-30 br/min] 22 br/min (02/11/20 8:49 PM) Temperature [96.8-100.4 DegF] 98.4 DegF (02/11/20 8:49 PM) Mode of Delivery (Oxygen) Room air (02/11/20 8:49 PM) Temperature Route Oral (02/11/20 8:49 PM) Dry Weight 96.3 kg (02/11/20 8:49 PM) Social History Social History Type Response Smoking Status Current every day smoker; Ty pe: Cigarettes; Previous treatment: Nicotine replacement; Interested in cessation: No; Tobacco use times per day: 1 pack a day; Number of years: 38; entered on: 05/06/14 Sex
--- OUTSIDE RECORDS SUMMARY | 2022-05-26 02:29 | XMS_ITS | Continuity of Care Document ---
:1965 Author Organization [facility] Address [address] [place] [address]- Care Team Providers Name Role Phone Raj Ramírez DO Primary Care Physician Encounter [facility] Date(s): 04/12/21 - 05/12/21 [facility] [address] [place], [place] [address] Attending Physician: Becki Valenzuela Admitting Physician: AdmtrBecki Referring Physician: Admtr, Ar8 Allergies, Adverse Reactions, Alerts Substance Reaction Severity Status Amoxil Active cloNIDine Active Immunizations Not Given Vaccine Date Status Refusal Reason tetanus/diphtheria/pertussis, acel(Tdap) 03/02/18 Not Giv en Patient Refuses Medications Abilify 15 mg oral tablet 15 mg, 1, tablet, By Mouth, Daily, # 30 tablet, Refills 0, Tot. Refills 0, Maintenance, 03/08/21 7:38:00 EDT, Route to Pharmacy Electronically, [facility] #[id number], Partial fill upon patient request if the [...] 0 Refills, Maintenance, 03/08/21 10:02:00 EDT, Patch, [facility] #[id number], Partial fill upon patient request if the [...]
--- OUTSIDE RECORDS SUMMARY | 2022-05-26 02:29 | XMS_ITS | Continuity of Care Document ---
:1965 Author Organization [facility] Address [address] [place] [address]- Care Team Providers Name Role Phone Shanita SALEEM, Williams Primary Care Physician Encounter [facility] Date(s): 10/12/19 - 10/12/[address] [address]- [facility] Encounter Diagnosis Cocaine abuse (Final) - 10/12/19 Heroin abuse (Final) - 10/12/19 Discharge Disposition: A-D/C Home Attending Physician: Vincenzo Wei MD Admitting Physician: Vincenzo Wei MD Referring Physician: Not on Staff, Referring [...] 01/14/18 14:54:28 EDT, Route to Pharmacy Electronically, [id number], [facility]/pharmacy #[id number] Start Date: 01/14/18 Stop Date: [...] 01/14/18 14:54:39 EDT, Route to Pharmacy Electronically, [id number], [facility]/pharmacy #[id number] Start Date: 01/14/18 Stop Date: [...] recent to oldest [Reference Range]: 1 2 Oxygen Saturation [94-100 %] 98 % 97 % (10/12/19 10:55 AM) (10/12/19 9:20 AM) Pulse Rate [55-90 bpm] 90 bpm 106 bpm (10/12/19 10:55 AM) *H* (10/12/19 9:20 AM) Blood Pressure [90-138/55-84 mm Hg] 120/67 mm Hg 124/ 71 mm Hg (10/12/19 10:55 AM) (10/12/19 9:20 AM) Respiratory Rate [16-30 br/min] 18 br/min 17 br/mi n (10/12/19 10:55 AM) (10/12/19 9:20 AM) Temperature [96.8-100.4 DegF] 98.4 DegF (10/12/19 9:20 AM) Mode of Delivery (Oxygen) Room air 106 (10/12/19 10:55 AM) (10/12/19 9:20 AM) Temperature Route Oral (10/12/19 9:20 AM) Social History Social History Type Response Smoking Status Current every day smoker; Ty pe: Cigarettes; Previous treatment: Nicotine replacement; Interested in cessation: No; Tobacco use times per day: 1 pack a day; Number of years: 38; entered on: 05/06/14 Sex
--- OUTSIDE RECORDS SUMMARY | 2022-05-26 02:29 | XMS_ITS | Continuity of Care Document ---
:1965 Author Organization [facility] Address [address] [place] [id number]- Care Team Providers Name Role Phone Shanita SALEEM, Williams Primary Care Physician Encounter [facility] [place] Date(s): 02/13/20 - 02/13/[address] [address]- [facility] Discharge Disposition: A-D/C Walkout Attending [...] 01/14/18 14:54:28 EDT, Route to Pharmacy Electronically, [id number], [facility]/pharmacy #[id number] Start Date: 01/14/18 Stop Date: 02/13/18 [...] 01/14/18 14:54:39 EDT, Route to Pharmacy Electronically, [id number], [facility]/pharmacy #[id number] Start Date: 01/14/18 Stop Date: 02/13/18 [...] recent to oldest [Reference Range]: 1 2 Height 170 cm (02/13/20 10:30 AM) Weight 96.5 kg (02/13/20 10:30 AM) Oxygen Saturation [94-100 %] 99 % 98 % (02/13/20 10:30 AM) (02/13/20 10:24 AM) Pulse Rate [55-90 bpm] 75 bpm 88 bpm (02/13/20 10:30 AM) (02/13/20 10:24 AM) Body Mass Index [18.5-24.99] 33.39 *>HHI* (02/13/20 10:30 AM) Blood Pressure [90-138/55-84 mm Hg] 123/81 mm Hg (02/13/20 10:30 AM) Respiratory Rate [16-30 br/min] 18 br/min (02/13/20 10:30 AM) Temperature [96.8-100.4 DegF] 97.9 DegF (02/13/20 10:30 AM) Mode of Delivery (Oxygen) Room air Room air (02/13/20 10:30 AM) (02/13/20 10:24 AM) Blood pressure sites Arm, right (02/13/20 10:30 AM) Temperature Route Oral (02/13/20 10:30 AM) Dry Weight 96.5 kg (02/13/20 10:30 AM) Weight Obtained Via Patient/family stated (02/13/20 10:30 AM) Dry Weight Obtained Via Patient/family stated (02/13/20 10:30 AM) Social History Social History Type Response Smoking Status Current every day smoker; Ty pe: Cigarettes; Previous treatment: Nicotine replacement; Interested in cessation: No; Tobacco use times per day: 1 pack a day; Number of years: 38; entered on: 05/06/14 Sex
--- OUTSIDE RECORDS SUMMARY | 2022-05-26 02:29 | XMS_ITS | Continuity of Care Document ---
:1965 Author Organization [facility] Address [address] [place] [address]- Care Team Providers Name Role Phone Raj Ramírez DO Primary Care Physician Encounter [facility] Date(s): 03/03/22 - 03/03/[address] [address]- Encounter Diagnosis Leg swelling (Final) - 03/03/22 Heroin use (Final) - 03/03/22 Discharge Disposition: A-D/C Home Attending Physician: Brian Clarke MD Admitting Physician: Brian Clarke MD Referring Physician: Not on Staff, Referring [...] 03/08/21 7:38:00 EDT, Route to Pharmacy Electronically, [facility] #[id number], Partial fill upon patient request if the [...] 0 Refills, Maintenance, 03/08/21 10:02:00 EDT, Patch, [facility] #[id number], Partial fill upon patient request if the prescription is for a schedule II opioid drug., 1 patch Topically Daily, 170.8, cm, 02/23... Start Date: 03/08/21 Status: Ordered Problem List Condition Effective Dates Status Health Status Informant Alcohol dependence(Confirmed) Active Bipolar disorder(Confirmed) Active Cellulitis of hand, left(Confirmed) Active Cocaine abuse(Confirmed) Active Dissociative disorder(Confirmed) Active Hepatitis C(Confirmed) Active Nicotine dependence(Confirmed) Active Opiate dependence(Confirmed) Active Results Radiology Reports Exam Date Time Procedure Performing Provider Status 03/03/22 7:33 PM Chest 2 Views Frontal and Lat Kirstin Alvarado; Auth (Verified) Notes:(Chest 2 Views Frontal and Lat) Reason For Exam: Shortness of Breath RESULT: Chest 2 Views Frontal and Lat Examination: Chest performed on 03/03/2022. History: Weakness and edema. Shortness of breath. Findings: Frontal and lateral views of the chest are compared to a prior study dated 03/02/2018. The cardiac and mediastinal silhouettes are within normal limits. The lungs are clear. The osseous and soft tissue structures are unremarkable. Impression: There is no acute cardiopulmonary disease. WSN: [id number] Ordering Physician: Tessa Rodrigez Dictated By: Soumya Quiroz MD Dictated Date/Time: 03/03/22 7:39 pm Reviewed By: Soumya Quiroz MD Signed By: Soumya Quiroz MD Signed Date/Time: 03/03/22 7:39 pm Transcribed By: ROMAN Transcribed Date/Time: 03/03/22 7:39 pm Vital Signs Most recent to oldest [Reference Range]: 1 Oxygen Saturation [94-100 %] 93 % *L* (03/03/22 5:25 PM) Pulse Rate [55-90 bpm] 100 bpm *H* (03/03/22 5:25 PM) Blood Pressure [90-138/55-84 mm Hg] 122/86 mm Hg (03/03/22 5:25 PM) Respiratory Rate [16-30 br/min] 15 br/min *L* (03/03/22 5:25 PM) Temperature [96.8-100.4 DegF] 98.1 DegF (03/03/22 5:25 PM) Mode of Delivery (Oxygen) Room air (03/03/22 5:25 PM) Temperature Route Oral (03/03/22 5:25 PM) Social History Social History Type Response Smoking Status Current every day smoker; Ty pe: Cigarettes; Previous treatment: Nicotine replacement; Interested in cessation: No; Tobacco use times per day: 1 pack a day; Number of years: 38; entered on: 05/06/14 Sex
--- OUTSIDE RECORDS SUMMARY | 2022-05-26 02:29 | XMS_ITS | Continuity of Care Document ---
:1965 Author Organization [facility] Address [address] [place] [address]- Care Team Providers Name Role Phone Shanita SALEEM, Williams Primary Care Physician Encounter [facility] [place] Date(s): 02/13/20 - 02/13/[address] [address]- [facility] Discharge Disposition: A-D/C Walkout Attending Physician: [...] 01/14/18 14:54:28 EDT, Route to Pharmacy Electronically, [id number], [facility]/pharmacy #[id number] Start Date: 01/14/18 Stop Date: 02/13/18 [...] 01/14/18 14:54:39 EDT, Route to Pharmacy Electronically, [id number], [facility]/pharmacy #[id number] Start Date: 01/14/18 Stop Date: 02/13/18 [...]
--- OUTSIDE RECORDS SUMMARY | 2022-05-26 02:29 | XMS_ITS | Continuity of Care Document ---
:1965 Author Organization [facility] Address [address] [place] [address]- Care Team Providers Name Role Phone Raj Ramírez DO Primary Care Physician [phone] Encounter [facility] [place] Date(s): 04/07/21 - 05/07/21 [facility] [address] [place], [place] [address] Allergies, Adverse Reactions, Alerts Substance Reaction Severity Status Amoxil Active cloNIDine Active Immunizations Not Given Vaccine Date Status Refusal Reason tetanus/diphtheria/pertussis, acel(Tdap) 03/02/18 Not Giv en Patient Refuses Medications Abilify 15 mg oral tablet 15 mg, 1, tablet, By Mouth, Daily, # 30 tablet, Refills 0, Tot. Refills 0, Maintenance, 03/08/21 7:38:00 EDT, Route to Pharmacy Electronically, [facility] #[id number], Partial fill upon patient request if the [...] 0 Refills, Maintenance, 03/08/21 10:02:00 EDT, Patch, [facility] #[id number], Partial fill upon patient request if the [...]
--- OUTSIDE RECORDS SUMMARY | 2022-05-26 02:29 | XMS_ITS | Continuity of Care Document ---
:1965 Author Organization [facility] Address [address] [place] [address]- Care Team Providers Name Role Phone Shanita SALEEM, Williams Primary Care Physician Encounter [facility] [place] Date(s): 01/24/20 - 01/27/[address] [address]- [facility] Discharge Disposition: Transfer to [facility] Attending Physician: Jamie Man MD Admitting Physician: Jamie Man MD Referring Physician: Not on Staff, Referring [...] 01/14/18 14:54:28 EDT, Route to Pharmacy Electronically, [id number], [facility]/pharmacy #[id number] Start Date: 01/14/18 Stop Date: [...] 01/14/18 14:54:39 EDT, Route to Pharmacy Electronically, [id number], [facility]/pharmacy #[id number] Start Date: 01/14/18 Stop Date: [...] Vital Signs Most recent to oldest [Reference 1 2 3 Range]: Oxygen Saturation [94-100 %] 99 % 97 % 98 % (01/27/20 2:13 PM) (01/27/20 5:59 AM) (01/26/20 9:50 P M) Pulse Rate [55-90 bpm] 87 bpm 105 bpm 82 bpm (01/27/20 2:13 PM) *H* (01/26/20 9:50 PM ) (01/27/20 5:59 AM) Blood Pressure [90-138/55-84 mm 120/89 mm Hg 134/96 mm Hg 136/82 mm Hg Hg] (01/27/20 2:13 PM) (01/27/20 5:59 AM) (01/26/20 9:50 P M) Respiratory Rate [16-30 br/min] 20 br/min 16 br/min 20 br/min (01/27/20 2:48 PM) (01/27/20 2:13 PM) (01/27/20 11:24 AM) Temperature [96.8-100.4 DegF] 98.5 DegF 98.0 DegF 98 .3 DegF (01/27/20 2:13 PM) (01/27/20 5:59 AM) (01/26/20 9:50 P M) Mode of Delivery (Oxygen) Room air Room air Room a ir (01/27/20 2:13 PM) (01/27/20 5:59 AM) (01/26/20 9:50 P M) Blood pressure sites Arm, right Arm, right Arm, right (01/27/20 2:13 PM) (01/27/20 5:59 AM) (01/26/20 9:50 P M) Temperature Route Oral Oral Oral (01/27/20 2:13 PM) (01/27/20 5:59 AM) (01/26/20 9:50 P M) Social History Social History Type Response Smoking Status Current every day smoker; Ty pe: Cigarettes; Previous treatment: Nicotine replacement; Interested in cessation: No; Tobacco use times per day: 1 pack a day; Number of years: 38; entered on: 05/06/14 Sex
[2022-05-26 02:42] LABS: MANUAL DIFF FLAG NO
[2022-05-26 02:44] LABS: Basophils Absolute Auto 0.1 X10*3/uL (0.0-0.2); Basophils Percent Auto 0.8 % (0-2); Eosinophils Absolute Auto 0.2 X10*3/uL (0.0-0.4); Hematocrit 40.1 % (37.0-47.0); Hemoglobin 13.6 g/dl (12.0-16.0); Imm Gran Abs Auto 0.01 X10*3/uL (0.00-0.03); Imm Gran Pct Auto 0.2 % (0.0-0.4); Lymphocytes Absolute Auto 1.7 X10*3/uL (1.2-4.9); Lymphocytes Percent Auto 27.1 % (20-40); Mean Corpuscular HGB Conc 33.9 g/dl (31.0-35.0); Mean Corpuscular Hemoglobin 33.3 pg (27.0-33.0); Mean Corpuscular Volume 98.3 fL (80.0-98.0); Mean Platelet Volume 9.6 fL (9.4-12.3); Monocytes Absolute Auto 0.6 X10*3/uL (0.1-1.2); Monocytes Percent Auto 10.3 % (2-11); Neutrophils Absolute Auto 3.7 x10*3/uL (2.0-8.3); Neutrophils Percent Auto 58.6 % (45-73); Platelet Count 215 X10*3/uL (160-400); Red Blood Count 4.08 X10*6/uL (4.20-5.50); Red Cell Distribution Width 12.6 % (11.0-16.0); White Blood Count 6.2 X10*3/uL (4.8-10.8)
[2022-05-26 03:06] LABS: Alanine Aminotransferase 49 U/L (0-31); Albumin Level 3.5 g/dL (3.5-5.0); Alkaline Phosphatase 93 U/L (39-117); Anion Gap 17 (12-20); Aspartate Amino Transferase 107 U/L (5-31); B Type Natriuretic Peptide 24 pg/mL (<100); Bilirubin Total 0.7 mg/dL (0.0-1.0); Blood Urea Nitrogen 13 mg/dL (9-16); Calcium 9.4 mg/dL (8.4-10.2); Carbon Dioxide 25 mmol/L (22-29); Chloride 99 mmol/L (96-108); Creatinine Clr Calc Pharmacy 100.8; Estimated Glomerular Filt Rate > 60; Glucose Random 99 mg/dL (60-115); Potassium 4.1 mmol/L (3.3-5.1); Sodium 137 mmol/L (135-145); Total Protein 7.6 g/dL (6.5-8.0)
--- NOTE | 2022-05-26 04:01 | ED.EXTPRO ---
HPI - Extremity Problem General Chief complaint: Extremity Problem Stated complaint: bilat leg swelling Time Seen by Provider: 05/26/22 04:01 Source: patient Mode of arrival: ambulatory History of Present Illness HPI Narrative: 57-year-old female with history of IVDA presents with worsening swelling in bilateral lower extremities with associated redness and pain. Patient was seen at the healthcare clinic today and has been prescribed some Lasix. She denies any fevers or chills. Related Data Home Medications Medication Instructions Recorded Confirmed furosemide 20 mg tablet 1 tab PO DAILY 03/10/21 03/10/21 ibuprofen 200 mg tablet (IBU-200) 1 tab PO Q8H PRN pain 03/10/21 03/10/21 nicotine 21 mg/24 hr daily 1 patch topical DAILY 03/10/21 03/10/21 transdermal patch omeprazole 20 mg capsule,delayed 1 cap PO DAILY 03/10/21 03/10/21 release Previous Rx's Medication Instructions Recorded aripiprazole 30 mg tablet (Abilify) 30 mg PO DAILY 30 days #30 tabs 03/21/21 carbamazepine 100 mg 300 mg PO BID 30 days #180 tabs 03/21/21 tablet,extended release,12 hr (Tegretol XR) methadone 10 mg/mL oral 50 mg (5 mL) PO DAILY #30 mL 03/21/21 concentrate (Methadose) nicotine (polacrilex) 2 mg gum 2 mg buccal Q2H PRN nicotine 03/21/21 cravings 30 days #396 ea prazosin 1 mg capsule 5 mg PO BEDTIME 30 days #150 caps 03/21/21 sock aid #1 ea 05/10/22 cefdinir 300 mg capsule 300 mg PO BID 7 days #14 caps 05/26/22 doxycycline hyclate 100 mg tablet 100 mg PO BID 7 days #14 tabs 05/26/22 Allergies Allergy/AdvReac Type Severity Reaction Status Date / Time amoxicillin [Amoxicillin] Allergy Mild RASH & Verified 05/10/22 10:46 DIZZINESS, Dizziness Review of Systems Review of Systems: Pertinent positives and negatives as stated in HPI 10 point review of systems is otherwise negative. PMFSH Past Medical History Source: nursing notes reviewed Medical History Acute post-traumatic stress disorder Social History Social History Unable to assess alcohol history related to: Unknown Alcohol intake: never Patient Tobacco Use Status: Current everyday Tobacco user Tobacco use type: Cigarette e-Cigarette/Vaping Use: Currently Using Second Hand Smoke Exposure: No Advance Directives: No Advance Directives Information Provided: Yes service: No Sexual orientation: Don't Know Physical Exam Vital Signs: Vital Signs: Last Vital Signs Temp 97.7 F 05/26/22 02:08 Pulse 95 05/26/22 02:08 Resp 14 05/26/22 02:08 BP 147/83 H 05/26/22 02:08 Pulse Ox 97 05/26/22 02:08 O2 Del Method 05/26/22 02:08 BMI result Body Mass Index 31.3 VITAL SIGNS: Reviewed. GENERAL: Well developed, well nourished, in no acute distress. HEAD: Normocephalic/atraumatic EYES: PERRLA, EOMI EARS: Ext canals without abnormality NOSE: Nares patent bilateral OROPHARYNX: no oral lesions noted, posterior pharynx clear NECK: Supple, no adenopathy LUNGS: Normal breath sounds. No adventitious sounds or accessory muscle use. SpO2<97> CARDIOVASCULAR: Regular rate and rhythm without noted murmurs, no JVD but significant bilateral lower edema that is nonpitting ABDOMEN: Soft, non-tender, non-distended with bowel sounds. MUSCULOSKELETAL: No tenderness, deformities, or effusions noted on gross inspection. EXTREMITIES: No cyanosis, clubbing or edema; BILATERAL LOWER EXTREMITIES: Significant swelling, erythema and warmth on tactile evaluation. SKIN: Inspection of the skin reveals no rashes NEUROLOGIC: Alert and oriented x 4. Strength and sensation to light touch were grossly intact x 4. Course Course Course Narrative: 57-year-old female with history and clinical presentation consistent with chronic IVDA use, legs appear to have mild cellulitis and patient is refusing to stay any longer and on review of lab work there is no evidence of leukocytosis or left shift. Patient received initial antibiotics here in the emergency room as well as having Pancho wraps applied to bilateral lower extremities to help assist with some of the pain associated with pressure. Patient states that she is feeling much better and understands that antibiotics will be sent to her pharmacy and she should start these in the morning. MDM - Extremity (Nontraumatic) Lab Data Result diagrams: 05/26/22 02:36 05/26/22 02:36 Labs: Lab Results 05/26/22 05/26/22 05/26/22 Range/Units 02:36 02:36 02:36 WBC 6.2 (4.8-10.8) X10*3/uL RBC 4.08 L (4.20-5.50) X10*6/uL Hgb 13.6 (12.0-16.0) g/dl Hct 40.1 (37.0-47.0) % MCV 98.3 H (80.0-98.0) fL MCH 33.3 H (27.0-33.0) pg MCHC 33.9 (31.0-35.0) g/dl RDW 12.6 (11.0-16.0) % Plt Count 215 (160-400) X10*3/uL MPV 9.6 (9.4-12.3) fL Immature Gran % (Auto) 0.2 (0.0-0.4) % Neut % (Auto) 58.6 (45-73) % Lymph % (Auto) 27.1 (20-40) % Armstrong % (Auto) 10.3 (2-11) % Eos % (Auto) 3.0 (0-4) % Baso % (Auto) 0.8 (0-2) % Lymph # (Auto) 1.7 (1.2-4.9) X10*3/uL Armstrong # (Auto) 0.6 (0.1-1.2) X10*3/uL Eos # (Auto) 0.2 (0.0-0.4) X10*3/uL Baso # (Auto) 0.1 (0.0-0.2) X10*3/uL Abs Immat Gran (auto) 0.01 (0.00-0.03) X10*3/uL Absolute Neuts (auto) 3.7 (2.0-8.3) x10*3/uL Absolute Nucleated RBC 0.000 (0.0-0.012) X10*3/uL Nucleated RBC % (auto) 0.0 (0.0-0.2) /100WBC Sodium 137 (135-145) mmol/L Potassium 4.1 (3.3-5.1) mmol/L Chloride 99 (96-108) mmol/L Carbon Dioxide 25 (22-29) mmol/L Anion Gap 17 (12-20) BUN 13 (9-16) mg/dL Creatinine 0.72 (0.5-1.4) mg/dL Estim Creat Clear Calc 100.8 Estimated GFR > 60 Random Glucose 99 (60-115) mg/dL Calcium 9.4 (8.4-10.2) mg/dL Total Bilirubin 0.7 (0.0-1.0) mg/dL AST 107 H (5-31) U/L ALT 49 H (0-31) U/L Alkaline Phosphatase 93 (39-117) U/L B-Natriuretic Peptide 24 (<100) pg/mL Total Protein 7.6 (6.5-8.0) g/dL Albumin 3.5 (3.5-5.0) g/dL Discharge Plan Discharge Clinical Impression: Cellulitis Patient Disposition: Home, Self-Care Instructions: Cellulitis (ED) Additional Instructions: 1. Resume all home medications as prescribed 2. Complete the entire course of antibiotics. Keep both lower legs elevated when possible. Keep Pancho wraps in place for 24 hours and then reapply each day prior to getting up and walking. 3. Please follow-up with primary care provider in the next 1-2 days. Return to the ER for worsening symptoms. Prescriptions: New doxycycline hyclate 100 mg tablet 100 mg PO BID 7 Days Qty: 14 0RF cefdinir 300 mg capsule 300 mg PO BID 7 Days Qty: 14 0RF No Action nicotine 21 mg/24 hr patch 24 hour 1 patch topical DAILY ibuprofen [IBU-200] 200 mg tablet 1 tab PO Q8H PRN (Reason: pain) omeprazole 20 mg capsule,delayed release(DR/EC) 1 cap PO DAILY furosemide 20 mg tablet 1 tab PO DAILY nicotine (polacrilex) 2 mg Gum 2 mg buccal Q2H PRN (Reason: nicotine cravings) 30 Days Qty: 396 0RF prazosin 1 mg Capsule 5 mg PO BEDTIME 30 Days Qty: 150 0RF Protocol: Hold for SBP< HOLD for SBP < : 90 aripiprazole [Abilify] 30 mg Tablet 30 mg PO DAILY 30 Days Qty: 30 0RF carbamazepine [Tegretol XR] 100 mg Tablet Extended Release 12 Hr 300 mg PO BID 30 Days Qty: 180 0RF methadone [Methadose] 10 mg/mL Concentrate 50 mg PO DAILY Qty: 30 0RF (DME) sock aid See Rx Instructions .Route .MEDSUPPLY Qty: 1 0RF Rx Instructions: As directed
== END 2022-05-26 04:10 | disposition home or self-care (01) ==
PROVIDERS: Emergency Provider Student in an Organized Health Care Education/Training Program
DX: L03.116 Cellulitis of left lower limb (principal); L03.115 Cellulitis of right lower limb; R60.0 Localized edema; F19.10 Other psychoactive substance abuse, uncomplicated; M79.605 Pain in left leg; M79.604 Pain in right leg; F11.20 Opioid dependence, uncomplicated; F17.210 Nicotine dependence, cigarettes, uncomplicated; Z71.6 Tobacco abuse counseling
CPT/HCPCS: 36415; 80053; 83880; 85025; 99283; 99284

== ENCOUNTER 2022-09-10 08:38 | Inpatient (IN) | payer MEDICARE, MEDICAID, SELFPAY ==
--- NOTE | ~2022-09-10 | US_ITS ---
EXAMINATION: US VENOUS ULTRASOUND WITH DOPPLER LOWER EXTREMITY, BILATERAL CLINICAL INFORMATION: Edema and pain COMPARISON: None TECHNIQUE: Ultrasound of the deep veins is performed from the hip to the calf with compression sonography and color and pulse Doppler assessment. Spectral analysis with color-flow imaging is performed. FINDINGS: RIGHT: There is normal venous compression and respiratory variation and augmented flow. The visualized common femoral vein, superficial femoral vein, profunda femoral vein, popliteal vein, and the trifurcation region shows no evidence of deep venous thrombosis. There is no significant popliteal fossa cyst. Subcutaneous edema. LEFT: There is normal venous compression and respiratory variation and augmented flow. The visualized common femoral vein, superficial femoral vein, profunda femoral vein, popliteal vein, and the trifurcation region shows no evidence of deep venous thrombosis. There is no significant popliteal fossa cyst. Subcutaneous edema. If the patient's symptoms persist, followup ultrasound in 5 days 7 days might be of value to exclude proximal propagation from a non-visualized calf vein. US/US venous duplex LE BI IMPRESSION: No DVT demonstrated in the bilateral lower extremity.
[2022-09-10 08:52] VITALS: BP 137/88; BP 146/90; PULSE 70; PULSE 93; RESP 20; TEMP 36.9; O2SAT 97; BMI 31.3
[2022-09-10 09:25] LABS: Appearance Urine Clear; Color Urine Yellow; Glucose Urine UA Negative (Negative); Leukocyte Esterase Urine Negative (Negative); Nitrite Urine Negative (Negative); PH 5.5 (5.0-9.0); Urine Blood Negative (Negative); Urine Ketones Negative (Negative); Urine Protein Negative (Neg-Trace)
[2022-09-10 09:35] LABS: Amphetamine Screen Urine Not Detected (Not Detect); Barbiturates, Urine Not Detected (Not Detect); Benzodiazepines Screen Urine POSITIVE (Not Detect); Cannabinoid Screen Urine Not Detected (Not Detect); Cocaine Screen Urine Not Detected (Not Detect); Fentanyl, urine POSITIVE (Not Detect); Opiate Screen Urine Not Detected (Not Detect); Phencyclidine Screen Urine Not Detected (Not Detect)
--- NOTE | 2022-09-10 09:35 | ED.GENADULT ---
HPI - General Adult General Chief complaint: Altered Mental Status Stated complaint: AMS PER EMS Time Seen by Provider: 09/10/22 09:00 Source: patient, EMS and old records reviewed Mode of arrival: ambulatory Limitations: no limitations History of Present Illness HPI narrative: 57-year-old female brought in by EMS after patient found to be wandering and driving to [place] [employer] patient stated that she lives home alone painting her house and felt like she wanted to drive to the [employer] for no good reason, patient declined using any recreational drugs only took her 60 mg of methadone that she is scheduled for it daily, patient had similar presentation in the past require inpatient mental hospitalization. Patient declined any SI or HI, no auditory hallucination at the moment. No headache, no fever, no chills, no sore throat, no CP, no SOB, no coughing, no abdominal pain, no nausea, no vomiting. Related Data Home Medications Medication Instructions Recorded Confirmed furosemide 20 mg tablet 1 tab PO DAILY 03/10/21 03/10/21 ibuprofen 200 mg tablet (IBU-200) 1 tab PO Q8H PRN pain 03/10/21 03/10/21 nicotine 21 mg/24 hr daily 1 patch topical DAILY 03/10/21 03/10/21 transdermal patch omeprazole 20 mg capsule,delayed 1 cap PO DAILY 03/10/21 03/10/21 release Previous Rx's Medication Instructions Recorded aripiprazole 30 mg tablet (Abilify) 30 mg PO DAILY 30 days #30 tabs 03/21/21 carbamazepine 100 mg 300 mg PO BID 30 days #180 tabs 03/21/21 tablet,extended release,12 hr (Tegretol XR) methadone 10 mg/mL oral 50 mg (5 mL) PO DAILY #30 mL 03/21/21 concentrate (Methadose) nicotine (polacrilex) 2 mg gum 2 mg buccal Q2H PRN nicotine 03/21/21 cravings 30 days #396 ea prazosin 1 mg capsule 5 mg PO BEDTIME 30 days #150 caps 03/21/21 sock aid #1 ea 05/10/22 cefdinir 300 mg capsule 300 mg PO BID 7 days #14 caps 05/26/22 doxycycline hyclate 100 mg tablet 100 mg PO BID 7 days #14 tabs 05/26/22 Allergies Allergy/AdvReac Type Severity Reaction Status Date / Time amoxicillin [Amoxicillin] Allergy Mild RASH & Verified 05/10/22 10:46 DIZZINESS, Dizziness Review of Systems Review of Systems: All other systems are reviewed and are negative Constitutional: Reports as per HPI and Reports no additional constitutional complaints Eyes: Reports as per HPI and Reports no additional eye complaints Reports system reviewed and no additional complaints, except as documented Cardiovascular: Reports as per HPI and Reports no additional cardiovascular complaints Respiratory: Reports as per HPI and Reports no additional respiratory complaints Gastrointestinal: Reports as per HPI and Reports no additional gastrointestinal complaints Genitourinary: Reports no additional female genitourinary complaints Musculoskeletal: Reports no additional musculoskeletal complaints Skin/Breast: Reports system reviewed and no additional complaints, except as docu Psychiatric: Reports no additional psychiatric complaints Endocrine: Reports no additional endocrine complaints Hematologic/Lymphatic: Reports no additional hematologic/lymphatic complaints Allergic/Immunologic: Reports no additional allergic/immunologic complaints Reports system reviewed and no additional complaints, except as documented and Reports Abnormal speech present [facility] Past Medical History Medical History Acute post-traumatic stress disorder Social History Social History Unable to assess alcohol history related to: Unknown Alcohol intake: never Patient Tobacco Use Status: Current everyday Tobacco user Tobacco use type: Cigarette Smoked in Last 30 Days: No e-Cigarette/Vaping Use: Currently Using Second Hand Smoke Exposure: No Use of substances other than those prescribed or required for medical reasons: Refusing to respond Advance Directives: No Advance Directives Information Provided: No Patient : No service: No Sexual orientation: Don't Know Physical Exam ED Vital Signs: Vital Signs - 24 hr 09/10/22 08:52 09/10/22 12:44 Temperature 98.4 F 98.5 F Pulse Rate 93 85 Respiratory Rate 20 18 Blood Pressure 137/88 136/93 H Pulse Oximetry 97 98 Oxygen Delivery Method Room Air Room Air BMI result Body Mass Index 31.3 All other systems are reviewed and are negative Constitutional: Reports as per HPI and Reports no additional constitutional complaints Eyes: Reports as per HPI and Reports no additional eye complaints Reports system reviewed and no additional complaints, except as documented Cardiovascular: Reports as per HPI and Reports no additional cardiovascular complaints Respiratory: Reports as per HPI and Reports no additional respiratory complaints Gastrointestinal: Reports as per HPI and Reports no additional gastrointestinal complaints Genitourinary: Reports no additional female genitourinary complaints Musculoskeletal: Reports no additional musculoskeletal complaints Skin/Breast: Reports system reviewed and no additional complaints, except as docu Psychiatric: Reports no additional psychiatric complaints Endocrine: Reports no additional endocrine complaints Hematologic/Lymphatic: Reports no additional hematologic/lymphatic complaints Allergic/Immunologic: Reports no additional allergic/immunologic complaints Reports system reviewed and no additional complaints, except as documented and Reports Abnormal speech present Patient Orientation: Person, Place, Time and Situation, okay hygiene and grooming. Fair eye contact, attentive, no tics or tremors. Level of Consciousness: Awake, Appropriate and Alert Patient Behavior: Appropriate, Guarded, Cooperative and Anxious Mood Description: Constricted, Blunted and Apprehensive Affect Description: Constricted, Blunted and Apprehensive Patient Cognition Impaired: No Ability to Follow Directions: Excellent Speech Pattern: Clear, Appropriate and Spontaneous Speech, nonpressured, spontaneous with regular rate and rhythm, normal volume and prosody. No dysarthria. Memory Description: Intact, Immediate Intact and Short Term Intact Hallucinations: None Delusions: Not Present Thought Process: Intact Thought Content: positive for Intact, positive for Logical, denies Suicidal Ideation and denies Homicidal Ideation. Depressive Symptoms: Not present. Judgement and Insight: Limited but adequate. Course Reevaluation(s) Reevaluation #1: 57-year-old female brought in after patient showed an erratic behavior and possible priscila. Will start the patient on physician observation awaiting for care team evaluation. Time: 11:10 Reevaluation #2: Patient witnessed by ED staff ripping the blanket and rolling ropes, when was confronted patient stated that it is for her privacy which she thought to be a strange answer. patient was placed under Section 12 until further evaluation, one-to-one observation was ordered.. When patient was asked are you planning to hang yourself patient still declined SI. Time: 13:50 Medications Administered Discontinued Medications Generic Name Dose Route Start Last Admin Trade Name Freq PRN Reason Stop Dose Admin Ibuprofen 600 mg 09/10/22 15:10 09/10/22 15:33 Ibuprofen 600 Mg Tablet PO 09/10/22 15:11 600 mg ONCE ONE Administration Medical Decision Making Differential Diagnosis Differential Diagnoses: The differential diagnosis associated with the presentation includes (Delusional disorder, acute psychosis, substance abuse, metabolic encephalopathy.) Lab Data 09/10/22 10:03 09/10/22 10:03 Labs: Lab Results 09/10/22 09/10/22 09/10/22 Range/Units 09:15 09:15 10:03 WBC 6.6 (4.8-10.8) X10*3/uL RBC 4.05 L (4.20-5.50) X10*6/uL Hgb 13.1 (12.0-16.0) g/dl Hct 37.7 (37.0-47.0) % MCV 93.1 (80.0-98.0) fL MCH 32.3 (27.0-33.0) pg MCHC 34.7 (31.0-35.0) g/dl RDW 12.5 (11.0-16.0) % Plt Count 230 (160-400) X10*3/uL MPV 9.9 (9.4-12.3) fL Immature Gran % (Auto) 0.3 (0.0-0.4) % Neut % (Auto) 62.4 (45-73) % Lymph % (Auto) 26.3 (20-40) % [place] % (Auto) 8.4 (2-11) % Eos % (Auto) 2.0 (0-4) % Baso % (Auto) 0.6 (0-2) % Lymph # (Auto) 1.7 (1.2-4.9) X10*3/uL [place] # (Auto) 0.6 (0.1-1.2) X10*3/uL Eos # (Auto) 0.1 (0.0-0.4) X10*3/uL Baso # (Auto) 0.0 (0.0-0.2) X10*3/uL Abs Immat Gran (auto) 0.02 (0.00-0.03) X10*3/uL Absolute Neuts (auto) 4.1 (2.0-8.3) x10*3/uL Absolute Nucleated RBC 0.000 (0.0-0.012) X10*3/uL Nucleated RBC % (auto) 0.0 (0.0-0.2) /100WBC Sodium (135-145) mmol/L Potassium (3.3-5.1) mmol/L Chloride (96-108) mmol/L Carbon Dioxide (22-29) mmol/L Anion Gap (12-20) BUN (9-16) mg/dL Creatinine (0.5-1.4) mg/dL Estim Creat Clear Calc Estimated GFR Random Glucose (60-115) mg/dL Calcium (8.4-10.2) mg/dL Total Bilirubin (0.0-1.0) mg/dL Direct Bilirubin (0.0-0.5) mg/dL AST (5-31) U/L ALT (0-31) U/L Alkaline Phosphatase (39-117) U/L Total Protein (6.5-8.0) g/dL Albumin (3.5-5.0) g/dL Lipase (8-78) U/L TSH (0.32-4.0) uIU/mL Urine Color Yellow Urine Appearance Clear Urine pH 5.5 (5.0-9.0) Ur Specific Bim 1.020 (1.005-1.025) Urine Protein Negative (Neg-Trace) mg/dL Urine Glucose (UA) Negative (Negative) mg/dL Urine Ketones Negative (Negative) mg/dL Urine Blood Negative (Negative) Urine Nitrite Negative (Negative) Ur Leukocyte Esterase Negative (Negative) Urine Opiates Screen Not Detected (Not Detect) Urine Fentanyl Screen POSITIVE H (Not Detect) Ur Barbiturates Screen Not Detected (Not Detect) Ur Phencyclidine Scrn Not Detected (Not Detect) Ur Amphetamines Screen Not Detected (Not Detect) U Benzodiazepines Scrn POSITIVE H (Not Detect) Urine Cocaine Screen Not Detected (Not Detect) U Marijuana (THC) Screen Not Detected (Not Detect) 09/10/22 Range/Units 10:03 WBC (4.8-10.8) X10*3/uL RBC (4.20-5.50) X10*6/uL Hgb (12.0-16.0) g/dl Hct (37.0-47.0) % MCV (80.0-98.0) fL MCH (27.0-33.0) pg MCHC (31.0-35.0) g/dl RDW (11.0-16.0) % Plt Count (160-400) X10*3/uL MPV (9.4-12.3) fL Immature Gran % (Auto) (0.0-0.4) % Neut % (Auto) (45-73) % Lymph % (Auto) (20-40) % [place] % (Auto) (2-11) % Eos % (Auto) (0-4) % Baso % (Auto) (0-2) % Lymph # (Auto) (1.2-4.9) X10*3/uL [place] # (Auto) (0.1-1.2) X10*3/uL Eos # (Auto) (0.0-0.4) X10*3/uL Baso # (Auto) (0.0-0.2) X10*3/uL Abs Immat Gran (auto) (0.00-0.03) X10*3/uL Absolute Neuts (auto) (2.0-8.3) x10*3/uL Absolute Nucleated RBC (0.0-0.012) X10*3/uL Nucleated RBC % (auto) (0.0-0.2) /100WBC Sodium 135 (135-145) mmol/L Potassium 3.8 (3.3-5.1) mmol/L Chloride 102 (96-108) mmol/L Carbon Dioxide 25 (22-29) mmol/L Anion Gap 12 (12-20) BUN 23 H (9-16) mg/dL Creatinine 0.85 (0.5-1.4) mg/dL Estim Creat Clear Calc 85.4 Estimated GFR > 60 Random Glucose 91 (60-115) mg/dL Calcium 9.8 (8.4-10.2) mg/dL Total Bilirubin 0.8 (0.0-1.0) mg/dL Direct Bilirubin 0.4 (0.0-0.5) mg/dL AST 52 H (5-31) U/L ALT 29 (0-31) U/L Alkaline Phosphatase 91 (39-117) U/L Total Protein 8.1 H (6.5-8.0) g/dL Albumin 4.1 (3.5-5.0) g/dL Lipase 20 (8-78) U/L TSH 1.40 (0.32-4.0) uIU/mL Urine Color Urine Appearance Urine pH (5.0-9.0) Ur Specific Bim (1.005-1.025) Urine Protein (Neg-Trace) mg/dL Urine Glucose (UA) (Negative) mg/dL Urine Ketones (Negative) mg/dL Urine Blood (Negative) Urine Nitrite (Negative) Ur Leukocyte Esterase (Negative) Urine Opiates Screen (Not Detect) Urine Fentanyl Screen (Not Detect) Ur Barbiturates Screen (Not Detect) Ur Phencyclidine Scrn (Not Detect) Ur Amphetamines Screen (Not Detect) U Benzodiazepines Scrn (Not Detect) Urine Cocaine Screen (Not Detect) U Marijuana (THC) Screen (Not Detect) Discharge Plan Discharge Clinical Impression: Altered mental status, Acute psychosis Patient Disposition: Admitted As Inpatient
[2022-09-10 10:16] LABS: MANUAL DIFF FLAG NO
[2022-09-10 10:18] LABS: Basophils Percent Auto 0.6 % (0-2); Eosinophils Absolute Auto 0.1 X10*3/uL (0.0-0.4); Hematocrit 37.7 % (37.0-47.0); Hemoglobin 13.1 g/dl (12.0-16.0); Imm Gran Abs Auto 0.02 X10*3/uL (0.00-0.03); Imm Gran Pct Auto 0.3 % (0.0-0.4); Lymphocytes Absolute Auto 1.7 X10*3/uL (1.2-4.9); Lymphocytes Percent Auto 26.3 % (20-40); Mean Corpuscular HGB Conc 34.7 g/dl (31.0-35.0); Mean Corpuscular Hemoglobin 32.3 pg (27.0-33.0); Mean Corpuscular Volume 93.1 fL (80.0-98.0); Mean Platelet Volume 9.9 fL (9.4-12.3); Monocytes Absolute Auto 0.6 X10*3/uL (0.1-1.2); Monocytes Percent Auto 8.4 % (2-11); Neutrophils Absolute Auto 4.1 x10*3/uL (2.0-8.3); Neutrophils Percent Auto 62.4 % (45-73); Platelet Count 230 X10*3/uL (160-400); Red Blood Count 4.05 X10*6/uL (4.20-5.50); Red Cell Distribution Width 12.5 % (11.0-16.0); White Blood Count 6.6 X10*3/uL (4.8-10.8)
[2022-09-10 10:41] LABS: Alanine Aminotransferase 29 U/L (0-31); Albumin Level 4.1 g/dL (3.5-5.0); Alkaline Phosphatase 91 U/L (39-117); Anion Gap 12 (12-20); Aspartate Amino Transferase 52 U/L (5-31); Bilirubin Direct 0.4 mg/dL (0.0-0.5); Bilirubin Total 0.8 mg/dL (0.0-1.0); Blood Urea Nitrogen 23 mg/dL (9-16); Calcium 9.8 mg/dL (8.4-10.2); Carbon Dioxide 25 mmol/L (22-29); Chloride 102 mmol/L (96-108); Creatinine Clr Calc Pharmacy 85.4; Estimated Glomerular Filt Rate > 60; Glucose Random 91 mg/dL (60-115); Lipase 20 U/L (8-78); Potassium 3.8 mmol/L (3.3-5.1); Sodium 135 mmol/L (135-145); Total Protein 8.1 g/dL (6.5-8.0)
--- NOTE | 2022-09-10 12:19 | PC.NURSE ---
pt requesting food at this time. offered jello, pudding and string cheese. pt reported just no crackers, string cheese please . when t/w brought pt the string cheese she stated oh honey I dont want that I dont like string cheese . pt at this time requesting crackers.
[2022-09-10 12:44] VITALS: BP 136/93; PULSE 85; RESP 18; TEMP 36.9; O2SAT 98
--- NOTE | 2022-09-10 13:29 | MHC.EDTECH ---
Pt was talking a lap around the ED. Staff walked into the pt's room and found 3 pieces of a blanket ripped and rolled up. Provider and nurse notified. linens were removed due to ligature risk.
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
--- NOTE | 2022-09-10 14:12 | PC.NURSE ---
Pt received to the pod from the main ED. Pending crisis eval at this time. Sitter with pt due to her having a walker.
[2022-09-10] MEDS: Ibuprofen 600 MG TABLET PO (15:33)
--- NOTE | 2022-09-10 16:32 | PC.NURSE ---
Pt refusing EKG at this time, will re-attempt shortly.
[2022-09-10 17:07] LABS: Influenza A PCR NEGATIVE (Negative); Influenza B PCR NEGATIVE (Negative); Resp Syncy Virus RNA Qual PCR NEGATIVE (Negative); SARS COV2 PCR INHOUSE NEGATIVE (Negative)
--- NOTE | 2022-09-10 17:37 | PC.NURSE ---
Pt continues to refuse EKG at this time, states she does not want anyone touching her, irritable, asking for sleep meds.
[2022-09-10 20:00] VITALS: BP 111/66; PULSE 75; TEMP 36.3
[2022-09-10] MEDS: Acetaminophen 325 MG TABLET 650 MG PO (20:19)
[2022-09-10] MEDS: Acamprosate Calcium 333 MG TABLET.DR 666 MG PO (20:20)
[2022-09-10] MEDS: risperiDONE 2 MG TABLET PO (20:20)
[2022-09-10] MEDS: traZODone HCL 100 MG TABLET PO (20:20)
[2022-09-10] MEDS: Propranolol HCL 10 MG TABLET PO (20:21)
[2022-09-10] MEDS: OLANZapine 10 MG VIAL IM (23:50)
[2022-09-10] MEDS: LORazepam 2 MG/ML VIAL IM (23:51)
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
[2022-09-11] MEDS: Omeprazole 20 MG CAPSULE.DR PO (07:06)
[2022-09-11] MEDS: Acamprosate Calcium 333 MG TABLET.DR 666 MG PO ×3 (08:23→21:46)
--- NOTE | 2022-09-11 09:00 | ECG_ITS ---
Test Reason : substance use Blood Pressure : / mmHG Vent. Rate : 069 BPM Atrial Rate : 069 BPM P-R Int : 126 ms QRS Dur : 078 ms QT Int : 440 ms P-R-T Axes : 059 063 042 degrees QTc Int : 471 ms Normal sinus rhythm Normal ECG When compared with ECG of 19-MAY-2010 13:57, No significant change was found Referred By: Katt Roca Electronically Signed By:WILFREDO GOMEZ MD
[2022-09-11 09:55] VITALS: BP 132/87; PULSE 77; RESP 16; TEMP 36.2; O2SAT 98
[2022-09-11] MEDS: LORazepam 1 MG TABLET PO (11:30)
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
--- NOTE | 2022-09-11 15:48 | HE.PHANOTE ---
RE: methadone Called [facility] verified last dose of 60mg on 09/10/22 @[id number]
[2022-09-11] MEDS: methADONE HCl 20 MG/2 ML ORAL.CONC 60 MG PO (17:08)
[2022-09-11 18:00] VITALS: BP 128/63; PULSE 91; TEMP 36.5; O2SAT 97
[2022-09-11] MEDS: Furosemide 40 MG TABLET PO (18:37)
[2022-09-11] MEDS: Acetaminophen 325 MG TABLET 650 MG PO (21:46)
[2022-09-11] MEDS: Ibuprofen 600 MG TABLET PO (21:46)
[2022-09-11] MEDS: traZODone HCL 100 MG TABLET PO (21:46)
[2022-09-11] MEDS: carBAMazepine ER 100 MG TAB.ER.12H 300 MG PO (21:47)
[2022-09-11] MEDS: Propranolol HCL 10 MG TABLET PO (21:47)
[2022-09-11] MEDS: Gabapentin 100 MG CAPSULE PO (21:47)
[2022-09-11] MEDS: OLANZapine 7.5 MG TABLET 15 MG PO (21:47)
[2022-09-12 09:40] VITALS: BP 115/68; PULSE 76; RESP 16; TEMP 36.9; O2SAT 99
[2022-09-12] MEDS: Acamprosate Calcium 333 MG TABLET.DR 666 MG PO ×3 (09:40→21:16)
[2022-09-12] MEDS: Omeprazole 20 MG CAPSULE.DR PO (09:41)
[2022-09-12] MEDS: hydrOXYzine HCL 25 MG TABLET PO ×2 (09:41→15:52)
[2022-09-12] MEDS: methADONE HCl 20 MG/2 ML ORAL.CONC 60 MG PO (09:41)
[2022-09-12] MEDS: Furosemide 40 MG TABLET PO ×2 (09:41→17:21)
[2022-09-12] MEDS: carBAMazepine ER 100 MG TAB.ER.12H 300 MG PO (09:41)
[2022-09-12] MEDS: Gabapentin 100 MG CAPSULE PO (09:41)
[2022-09-12] MEDS: Ibuprofen 600 MG TABLET PO (09:41)
[2022-09-12 17:20] VITALS: BP 146/69; PULSE 77
[2022-09-12 18:00] VITALS: BP 133/84; PULSE 87; TEMP 36.4; O2SAT 98
--- NOTE | 2022-09-12 18:35 | HO.PSYCHPN ---
Subjective Subjective Date of Service: 09/12/22 Reason For Visit: Bipolar w/ psychosis, PTSD, Polysubstance use d/o Subjective Notes: Conditional Voluntary Healthcare Proxy: No Guardianship: No Medical Problems Affecting Mental Status: No Interim History: Tolerating Olanzapine. Call to [facility]-we are still attempting to get pt's med list from recent discharge. Met with pt and Dajuan DIAZ. Pt discussed losses, anger, DID diagnosis and resulting sx. Uncomfortable with the anger she feels at times-gave an example of this occurring last evening. Discussion of services that could be put in place to assist her in transition and stability in community. Medication Compliance: Yes Side effects from medications: No Attending Groups: Yes Review of Systems Acute medical concerns: No Medical Review of Systems: unchanged Mental Status Exam Mental Status Exam Patient Appearance: Fatigued and Appropriate Patient Orientation: Person, Place, Time and Situation Level of Consciousness: Alert Patient Behavior: Appropriate, Talkative, Cooperative and Good Eye Contact Mood Description: Apprehensive Affect Description: Anxious Patient Cognition Impaired: No Ability to Follow Directions: Good Speech Pattern: Clear, Perseverating, Appropriate, Spontaneous Speech and Pressured (mild pressure) Memory Description: Episodic Impaired Hallucinations: None Delusions: Paranoid Ideation Thought Process: Racing (intermittent, mild), Rumination and Goal Oriented Thought Content: positive for Racing (mild), positive for Suicidal Ideation (denies) and positive for Homicidal Ideation (denies) Depressive Symptoms: Increased Anxiety, Diff. Making Decisions, Increased Irritability, Thoughts of /Suicide (denies) and Difficulty Concentrating Judgement: Fair Diagnostics Vital Signs (24Hr): Vital Signs - 24 hr 09/12/22 09:40 09/12/22 17:20 Temperature 98.4 F Pulse Rate 76 77 Respiratory Rate 16 Blood Pressure 115/68 146/69 H Pulse Oximetry 99 Oxygen Delivery Method Room Air BMI result Body Mass Index 31.3 Labs 09/10/22 10:03 09/10/22 10:03 Medications Medications Current Medications Acamprosate (Acamprosate Calcium 333 Mg Tablet.) 666 mg PO TID [facility] Last Admin: 09/12/22 15:46 Dose: 666 mg Acetaminophen (Acetaminophen 325 Mg Tablet) 650 mg PO Q6H PRN PRN Reason: Headache/Pain Mild Scale (1-3) Last Admin: 09/11/22 21:46 Dose: 650 mg Al Hydroxide/Mg Hydroxide (Magnesium Hydrox/Alum Hydrox 30 Ml Oral.Susp) 30 ml PO Q6H PRN PRN Reason: Heartburn/Nausea Carbamazepine (Carbamazepine Er 100 Mg Tab.Er.12h) 300 mg PO BID [facility] Last Admin: 09/12/22 09:41 Dose: 300 mg Furosemide (Furosemide 40 Mg Tablet) 40 mg PO BID@0900,1800 [facility]; Protocol Last Admin: 09/12/22 17:21 Dose: 40 mg Hydroxyzine HCl (Hydroxyzine Hcl 25 Mg Tablet) 25 mg PO Q6H PRN PRN Reason: Anxiety Last Admin: 09/12/22 15:52 Dose: 25 mg Ibuprofen (Ibuprofen 600 Mg Tablet) 600 mg PO DAILY PRN PRN Reason: Pain, Mild (Pain Scale 1-3) Last Admin: 09/12/22 09:41 Dose: 600 mg Magnesium Hydroxide (Milk Of Magnesia 30 Ml Oral.Susp) 30 ml PO DAILY PRN PRN Reason: Constipation Methadone HCl (Methadone Hcl 20 Mg/2 Ml Oral.Conc) 60 mg PO DAILY [facility] Last Admin: 09/12/22 09:41 Dose: 60 mg Nicotine (Nicotine 21 Mg Patch.Td24) 21 mg TRANSDERMA DAILY [facility] Last Admin: 09/12/22 15:55 Dose: Not Given Nicotine Polacrilex (Nicotine Polacrilex 2 Mg Gum) 2 mg BUCCAL Q2H PRN PRN Reason: Nicotine Cravings Olanzapine (Olanzapine 7.5 Mg Tablet) 15 mg PO BEDTIME [facility] Last Admin: 09/11/22 21:47 Dose: 15 mg Omeprazole (Omeprazole 20 Mg Capsule.Dr) 20 mg PO DAILY@0630 [facility] Last Admin: 09/12/22 09:41 Dose: 20 mg Propranolol HCl (Propranolol Hcl 10 Mg Tablet) 10 mg PO BEDTIME [facility]; Protocol Last Admin: 09/11/22 21:47 Dose: 10 mg Trazodone HCl (Trazodone Hcl 100 Mg Tablet) 100 mg PO BEDTIME [facility] Last Admin: 09/11/22 21:46 Dose: 100 mg Allergies Allergies Allergy/AdvReac Type Severity Reaction Status Date / Time amoxicillin [Amoxicillin] Allergy Mild RASH & Verified 05/10/22 10:46 DIZZINESS, Dizziness Assessment & Plan Assessment & Plan (1) Bipolar I disorder with priscila: Status: Acute Code(s): F31.10 - Bipolar disorder, current episode manic without psychotic features, unspecified (2) Acute psychosis: Status: Acute Code(s): F23 - Brief psychotic disorder (3) PTSD (post-traumatic stress disorder): Status: Acute Code(s): F43.10 - Post-traumatic stress disorder, unspecified (4) Opioid use disorder: Status: Acute Code(s): F11.99 - Opioid use, unspecified with unspecified opioid-induced disorder (5) Polysubstance use disorder: Status: Acute Code(s): F19.90 - Other psychoactive substance use, unspecified, uncomplicated Plan 57 yo female, recent discharge from [facility], hx of Bipolar disorder, manic, opiate and polysubstance use disorders, PTSD. Pt found driving at [place], telling team she felt unsafe and [place] [employer] [place]. Agitated and aggressive on admission, pt requesting IM medications which she took and were helpful. Presentation appears manic. Plan: Med reconcilliation with [facility] Collateral contact as needed Continue Olanzapine Discontinue Risperdal Labs when pt will allow. Discharge planning. 09/12/22: PT consult for wheelchair affirms need. One to one ordered. AFO for R Foot Drop-[facility] does not have a supply of these for pt use Wheelchair gloves, [employer] [facility] does not have a supply of these for pt use Continue current regime Await input from [facility] med list from recent admit Continues to report she prefers Olanzapine. Patient educated on: therapeutic strategies Informed Consent: further education needed Reason for contiued inpatient stay Substantial Risk for: inability to function and rapid decompensation Time Spent With Patient Time: Total time managing care of this patient today __25__ minutes.
[2022-09-12] MEDS: Acetaminophen 325 MG TABLET 650 MG PO (21:16)
[2022-09-12] MEDS: Propranolol HCL 10 MG TABLET PO (21:16)
[2022-09-13] MEDS: Acetaminophen 325 MG TABLET 650 MG PO (02:57)
[2022-09-13 08:45] VITALS: BP 108/55; PULSE 86; RESP 16; TEMP 36.4; O2SAT 99
[2022-09-13] MEDS: methADONE HCl 20 MG/2 ML ORAL.CONC 60 MG PO (08:46)
[2022-09-13] MEDS: Furosemide 40 MG TABLET PO ×2 (08:46→19:05)
[2022-09-13] MEDS: Omeprazole 20 MG CAPSULE.DR PO (08:46)
[2022-09-13] MEDS: carBAMazepine ER 100 MG TAB.ER.12H 300 MG PO (08:46)
[2022-09-13] MEDS: Acamprosate Calcium 333 MG TABLET.DR 666 MG PO ×3 (08:46→22:28)
[2022-09-13] MEDS: Ibuprofen 600 MG TABLET PO (14:40)
[2022-09-13] MEDS: hydrOXYzine HCL 25 MG TABLET PO (14:49)
--- NOTE | 2022-09-13 17:00 | HO.PSYCHPN ---
Subjective Subjective Date of Service: 09/13/22 Reason For Visit: Bipolar w/ psychosis, PTSD, Polysubstance use d/o Subjective Notes: Conditional Voluntary Healthcare Proxy: No Guardianship: No Medical Problems Affecting Mental Status: No Interim History: Pt reports feeling ready to return home. She reports all services are in place and [facility]. Tolerating medications, without SE. Still no communication from [facility] regarding regime so we will keep Olanzapine in place as pt stabilized quickly and mood is much less labile at this time. Pt not feeling continued in patient admission will have any further benefit. She is forward thinking, planning, problem solving regarding return of her vehicle and upcoming appointments and tasks ahead with her VNA for her medical issues. Plans hip surgery with Dr. Renee, fitting for ACO splint with VNA for foot drop to improve ambulation-she is organizing responsibilities. Medication Compliance: Yes Side effects from medications: No Attending Groups: Yes Review of Systems Acute medical concerns: No Medical Review of Systems: unchanged Mental Status Exam Mental Status Exam Patient Appearance: Appropriate (experiencing hip pain) Patient Orientation: Person, Place, Time and Situation Level of Consciousness: Alert Patient Behavior: Appropriate, Talkative and Cooperative Mood Description: Appropriate Affect Description: Appropriate Patient Cognition Impaired: No Ability to Follow Directions: Good Speech Pattern: Spontaneous Speech Memory Description: Intact Hallucinations: None Delusions: Not Present Thought Process: Intact and Goal Oriented Thought Content: positive for Intact, positive for Goal Oriented and positive for Suicidal Ideation (denies) Depressive Symptoms: Increased Anxiety Abnormal Motor Activity Signs and Symptoms: Restlessness Judgement: Good Diagnostics Vital Signs (24Hr): Vital Signs - 24 hr 09/12/22 17:20 09/12/22 18:00 09/13/22 08:45 Temperature 97.6 F 97.6 F Pulse Rate 77 87 86 Respiratory Rate 16 Blood Pressure 146/69 H 133/84 108/55 L Pulse Oximetry 98 99 Oxygen Delivery Method Room Air Room Air BMI result Body Mass Index 31.3 Labs 09/10/22 10:03 09/10/22 10:03 Medications Medications Current Medications Acamprosate (Acamprosate Calcium 333 Mg Tablet.) 666 mg PO TID [facility] Last Admin: 09/13/22 14:41 Dose: 666 mg Acetaminophen (Acetaminophen 325 Mg Tablet) 650 mg PO Q6H PRN PRN Reason: Headache/Pain Mild Scale (1-3) Last Admin: 09/13/22 02:57 Dose: 650 mg Al Hydroxide/Mg Hydroxide (Magnesium Hydrox/Alum Hydrox 30 Ml Oral.Susp) 30 ml PO Q6H PRN PRN Reason: Heartburn/Nausea Carbamazepine (Carbamazepine Er 100 Mg Tab.Er.12h) 300 mg PO BID [facility] Last Admin: 09/13/22 08:46 Dose: 300 mg Furosemide (Furosemide 40 Mg Tablet) 40 mg PO BID@0900,1800 [facility]; Protocol Last Admin: 09/13/22 08:46 Dose: 40 mg Hydroxyzine HCl (Hydroxyzine Hcl 25 Mg Tablet) 25 mg PO Q6H PRN PRN Reason: Anxiety Last Admin: 09/13/22 14:49 Dose: 25 mg Ibuprofen (Ibuprofen 600 Mg Tablet) 600 mg PO DAILY PRN PRN Reason: Pain, Mild (Pain Scale 1-3) Last Admin: 09/13/22 14:40 Dose: 600 mg Magnesium Hydroxide (Milk Of Magnesia 30 Ml Oral.Susp) 30 ml PO DAILY PRN PRN Reason: Constipation Methadone HCl (Methadone Hcl 20 Mg/2 Ml Oral.Conc) 60 mg PO DAILY [facility] Last Admin: 09/13/22 08:46 Dose: 60 mg Nicotine (Nicotine 21 Mg Patch.Td24) 21 mg TRANSDERMA DAILY [facility] Last Admin: 09/13/22 10:45 Dose: Not Given Nicotine Polacrilex (Nicotine Polacrilex 2 Mg Gum) 2 mg BUCCAL Q2H PRN PRN Reason: Nicotine Cravings Olanzapine (Olanzapine 7.5 Mg Tablet) 15 mg PO BEDTIME [facility] Last Admin: 09/12/22 21:19 Dose: Not Given Omeprazole (Omeprazole 20 Mg Capsule.Dr) 20 mg PO DAILY@0630 [facility] Last Admin: 09/13/22 08:46 Dose: 20 mg Propranolol HCl (Propranolol Hcl 10 Mg Tablet) 10 mg PO BEDTIME [facility]; Protocol Last Admin: 09/12/22 21:16 Dose: 10 mg Trazodone HCl (Trazodone Hcl 100 Mg Tablet) 100 mg PO BEDTIME [facility] Last Admin: 09/13/22 00:00 Dose: 100 mg Allergies Allergies Allergy/AdvReac Type Severity Reaction Status Date / Time amoxicillin [Amoxicillin] Allergy Mild RASH & Verified 05/10/22 10:46 DIZZINESS, Dizziness Assessment & Plan Assessment & Plan (1) Bipolar I disorder with priscila: Status: Acute Code(s): F31.10 - Bipolar disorder, current episode manic without psychotic features, unspecified (2) Acute psychosis: Status: Acute Code(s): F23 - Brief psychotic disorder (3) PTSD (post-traumatic stress disorder): Status: Acute Code(s): F43.10 - Post-traumatic stress disorder, unspecified (4) Opioid use disorder: Status: Acute Code(s): F11.99 - Opioid use, unspecified with unspecified opioid-induced disorder (5) Polysubstance use disorder: Status: Acute Code(s): F19.90 - Other psychoactive substance use, unspecified, uncomplicated Plan 57 yo female, recent discharge from [facility], hx of Bipolar disorder, manic, opiate and polysubstance use disorders, PTSD. Pt found driving at [place], telling team she felt unsafe and [place] [employer] [place]. Agitated and aggressive on admission, pt requesting IM medications which she took and were helpful. Presentation appears manic. Plan: Med reconcilliation with [facility] Collateral contact as needed Continue Olanzapine Discontinue Risperdal Labs when pt will allow. Discharge planning. 09/12/22: PT consult for wheelchair affirms need. One to one ordered. AFO for R Foot Drop-[facility] does not have a supply of these for pt use Wheelchair gloves, [employer] [facility] does not have a supply of these for pt use Continue current regime Await input from [facility] med list from recent admit Continues to report she prefers Olanzapine. 09/13/22 Discharge 09/14/22 to return to out patient supports. Patient educated on: medication risk/benefits and therapeutic strategies Informed Consent: understands Reason for contiued inpatient stay Substantial Risk for: med/psych decompensation Time Spent With Patient Time: Total time managing care of this patient today __40__ minutes.
[2022-09-13 18:00] VITALS: BP 116/62; PULSE 80; TEMP 36.4; O2SAT 99
[2022-09-13] MEDS: LORazepam 1 MG TABLET PO (22:27)
[2022-09-13] MEDS: Propranolol HCL 10 MG TABLET PO (22:28)
[2022-09-13] MEDS: traZODone HCL 100 MG TABLET PO ×2 (22:28)
[2022-09-14] MEDS: hydrOXYzine HCL 25 MG TABLET PO ×2 (00:05→06:15)
[2022-09-14] MEDS: Ibuprofen 600 MG TABLET PO (01:45)
[2022-09-14] MEDS: Acetaminophen 325 MG TABLET 650 MG PO (04:26)
[2022-09-14] MEDS: methADONE HCl 20 MG/2 ML ORAL.CONC 60 MG PO (06:15)
[2022-09-14] MEDS: Furosemide 40 MG TABLET PO (06:15)
[2022-09-14] MEDS: Omeprazole 20 MG CAPSULE.DR PO (06:26)
[2022-09-14] MEDS: Nicotine 21 MG PATCH.TD24 TRANSDERMA (08:12)
[2022-09-14] MEDS: carBAMazepine ER 100 MG TAB.ER.12H 300 MG PO (08:12)
[2022-09-14] MEDS: Acamprosate Calcium 333 MG TABLET.DR 666 MG PO (08:12)
[2022-09-14 08:16] VITALS: BP 131/68; PULSE 76; RESP 18; TEMP 36.8; O2SAT 97
--- NOTE | 2022-09-14 14:59 | P.DS_ITS ---
DS: Providers Provider Date of Service: 09/14/22 Date of admission: 09/10/22 17:50 Date of discharge: 09/14/22 Primary care physician: Unknown Physician Admitting clinician: Katt Roca Attending physician on admission: Toi Hazel Attending physician on discharge: Toi Hazel Discharging clinician: Katt Roca DS: Diagnosis Discharge Diagnosis (1) Bipolar I disorder with priscila: Status: Acute (2) Acute psychosis: Status: Acute (3) PTSD (post-traumatic stress disorder): Status: Acute (4) Opioid use disorder: Status: Acute (5) Polysubstance use disorder: Status: Acute DS: Medications Discharge Medications Home Medications: Home Medications Medication Instructions Recorded Confirmed ibuprofen 200 mg tablet (IBU-200) 1 tab PO Q8H PRN pain 03/10/21 09/10/22 nicotine 21 mg/24 hr daily 1 patch topical DAILY 03/10/21 03/10/21 transdermal patch omeprazole 20 mg capsule,delayed 1 cap PO DAILY 03/10/21 09/10/22 release acamprosate 333 mg tablet,delayed 2 tab PO TID 09/10/22 09/10/22 release propranolol 10 mg tablet 1 tab PO BEDTIME 09/10/22 09/10/22 trazodone 100 mg tablet 1 tab PO BEDTIME 09/10/22 09/10/22 Previous Rx's Medication Instructions Recorded nicotine (polacrilex) 2 mg gum 2 mg buccal Q2H PRN nicotine 03/21/21 cravings 30 days #396 ea sock aid #1 ea 05/10/22 acetaminophen 325 mg tablet 650 mg PO Q6H PRN Headache/Pain 09/13/22 Mild Scale (1-3) #0 tabs carbamazepine 100 mg 300 mg PO DAILY #15 tabs 09/13/22 tablet,extended release,12 hr (Tegretol XR) furosemide 40 mg tablet 40 mg PO BID@0900,1800 #0 tabs 09/13/22 olanzapine 15 mg tablet 15 mg PO BEDTIME #30 tabs 09/13/22 Mental Status Exam Mental Status Exam Patient Appearance: Appropriate (experiencing hip pain) Patient Orientation: Person, Place, Time and Situation Level of Consciousness: Alert Patient Behavior: Appropriate, Talkative and Cooperative Mood Description: Appropriate Affect Description: Appropriate Patient Cognition Impaired: No Ability to Follow Directions: Good Speech Pattern: Spontaneous Speech Memory Description: Intact Hallucinations: None Delusions: Not Present Thought Process: Intact and Goal Oriented Thought Content: positive for Intact, positive for Goal Oriented and positive for Suicidal Ideation (denies) Depressive Symptoms: Increased Anxiety Abnormal Motor Activity Signs and Symptoms: Restlessness Judgement: Good Data Data Completed and Pending Completed studies during hospitalization [Text1]: 09/10/22 09/10/22 09/10/22 09:15 09:15 10:03 WBC 6.6 RBC 4.05 L Hgb 13.1 Hct 37.7 MCV 93.1 MCH 32.3 MCHC 34.7 RDW 12.5 Plt Count 230 MPV 9.9 Immature Gran % (Auto) 0.3 Neut % (Auto) 62.4 Lymph % (Auto) 26.3 [place] % (Auto) 8.4 Eos % (Auto) 2.0 Baso % (Auto) 0.6 Lymph # (Auto) 1.7 [place] # (Auto) 0.6 Eos # (Auto) 0.1 Baso # (Auto) 0.0 Abs Immat Gran (auto) 0.02 Absolute Neuts (auto) 4.1 Absolute Nucleated RBC 0.000 Nucleated RBC % (auto) 0.0 Sodium Potassium Chloride Carbon Dioxide Anion Gap BUN Creatinine Estim Creat Clear Calc Estimated GFR Random Glucose Calcium Total Bilirubin Direct Bilirubin AST ALT Alkaline Phosphatase Total Protein Albumin Lipase TSH Urine Color Yellow Urine Appearance Clear Urine pH 5.5 Ur Specific [place] 1.020 Urine Protein Negative Urine Glucose (UA) Negative Urine Ketones Negative Urine Blood Negative Urine Nitrite Negative Ur Leukocyte Esterase Negative Urine Opiates Screen Not Detected Urine Fentanyl Screen POSITIVE H Ur Barbiturates Screen Not Detected Ur Phencyclidine Scrn Not Detected Ur Amphetamines Screen Not Detected U Benzodiazepines Scrn POSITIVE H Urine Cocaine Screen Not Detected U Marijuana (THC) Screen Not Detected Influenza Type A (PCR) Influenza Type B (PCR) RSV RNA Qual (PCR) SARS-CoV-2 RNA (RT-PCR) 09/10/22 09/10/22 10:03 16:11 WBC RBC Hgb Hct MCV MCH MCHC RDW Plt Count MPV Immature Gran % (Auto) Neut % (Auto) Lymph % (Auto) [place] % (Auto) Eos % (Auto) Baso % (Auto) Lymph # (Auto) [place] # (Auto) Eos # (Auto) Baso # (Auto) Abs Immat Gran (auto) Absolute Neuts (auto) Absolute Nucleated RBC Nucleated RBC % (auto) Sodium 135 Potassium 3.8 Chloride 102 Carbon Dioxide 25 Anion Gap 12 BUN 23 H Creatinine 0.85 Estim Creat Clear Calc 85.4 Estimated GFR > 60 Random Glucose 91 Calcium 9.8 Total Bilirubin 0.8 Direct Bilirubin 0.4 AST 52 H ALT 29 Alkaline Phosphatase 91 Total Protein 8.1 H Albumin 4.1 Lipase 20 TSH 1.40 Urine Color Urine Appearance Urine pH Ur Specific [place] Urine Protein Urine Glucose (UA) Urine Ketones Urine Blood Urine Nitrite Ur Leukocyte Esterase Urine Opiates Screen Urine Fentanyl Screen Ur Barbiturates Screen Ur Phencyclidine Scrn Ur Amphetamines Screen U Benzodiazepines Scrn Urine Cocaine Screen U Marijuana (THC) Screen Influenza Type A (PCR) NEGATIVE Influenza Type B (PCR) NEGATIVE RSV RNA Qual (PCR) NEGATIVE SARS-CoV-2 RNA (RT-PCR) NEGATIVE Imaging Diagnostic Imaging Impressions Venous Duplex 09/13/22 19:50 IMPRESSION: No DVT demonstrated in the bilateral lower extremity. DS: Summary Hospital Course Hospital Course: Admission to adult psychiatry for exacerbation of symptoms of bipolar disorder, PTSD, polysubstance use disorder. Risperdal was discontinued. Olanzapine was initiated. Pt reported a recent discharge from [facility], however we were unable to retrieve any information from them due to lack of response from their medical r ecord department. Pt recompensated quickly and will return to begin [facility] IOP which was scheduled during her [facility] admission. Time spent discussing smoking cessation with patient: 3 to 10 minutes Status at Discharge Functional status at discharge: uses cane/walker Overall status at discharge: patient is progressing back to baseline Time Spent with Patient Time attestation: Total time managing care of this patient today ___40_ minutes. Time spent: Greater than 30 minutes Discharge Plan Discharge Anticipated Discharge Date/Time: 09/14/22 11:36 Patient Disposition: Home, Self-Care Discharge Diagnosis: Bipolar Disorder PTSD Opioid Use Disorder-Methadone Maintenance Polysubstance use disorder Referrals: [facility] [Other] - 1 Week (fax- [phone] [facility] services to resume at D/C/ ) [facility] [Other] - 1 Week (LEFT MESSAGE FOR A CALL BACK FOR A D/C F/U) [facility] Intensive Outpatient Program (IOP) [Other] - Tomorrow (Intensive Outpatient Patient Program for substance abuse treatment Check your email tomorrow after discharge for communication of when to begin IOP program. Should you have any questions reach out to [facility] and speak with your clinician, Delfina.) Discharge Medications: New acetaminophen 325 mg Tablet 650 mg PO Q6H PRN (Reason: Headache/Pain Mild Scale (1-3)) Qty: 0 0RF furosemide 40 mg Tablet 40 mg PO BID@0900,1800 Qty: 0 0RF Protocol: Hold for SBP< HOLD for SBP < : 90 olanzapine 15 mg tablet 15 mg PO BEDTIME Qty: 30 0RF carbamazepine [Tegretol XR] 100 mg tablet extended release 12 hr 300 mg PO DAILY Qty: 15 0RF Rx Instructions: Take 3 tabs daily for 5 days then discontinue. Continued nicotine 21 mg/24 hr patch 24 hour 1 patch topical DAILY ibuprofen [IBU-200] 200 mg tablet 1 tab PO Q8H PRN (Reason: pain) omeprazole 20 mg capsule,delayed release(DR/EC) 1 cap PO DAILY nicotine (polacrilex) 2 mg Gum 2 mg buccal Q2H PRN (Reason: nicotine cravings) 30 Days Qty: 396 0RF propranolol 10 mg tablet 1 tab PO BEDTIME trazodone 100 mg tablet 1 tab PO BEDTIME acamprosate 333 mg tablet,delayed release (DR/EC) 2 tab PO TID Discontinued prazosin 1 mg Capsule 5 mg PO BEDTIME 30 Days Qty: 150 0RF Protocol: Hold for SBP< HOLD for SBP < : 90 carbamazepine [Tegretol XR] 100 mg Tablet Extended Release 12 Hr 300 mg PO BID 30 Days Qty: 180 0RF methadone [Methadose] 10 mg/mL Concentrate 50 mg PO DAILY Qty: 30 0RF risperidone 2 mg tablet 1 tab PO BEDTIME No Action (DME) sock aid See Rx Instructions .Route .MEDSUPPLY Qty: 1 0RF Rx Instructions: As directed Discharge Orders: Discharge Order (Routine); Ordered 09/14/22 Ordered By: Katt Roca Diet: Advance to usual diet Activity on Discharge: As tolerated Stand Alone Forms: Patient Portal Discharge page, Community Support Care Plan Goals: Maintain mood and safe behaviors Take medications as directed Health Concerns: Stable mood and behaviors Plan of Treatment: Connect with out patient providers Take medications as directed Call/Return as needed Assessment: non manic non psychotic non suicidal non homicidal Discharge Date/Time: 09/14/22 11:29
== END 2022-09-14 11:29 | disposition home or self-care (01) | DRG 885 ==
LOC: HO.ED 15:40 → HO.PM5 17:53
PROVIDERS: Admitting Provider Psychiatry & Neurology Psychiatry; Emergency Provider Emergency Medicine; Visit Provider Clinical Nurse Specialist Psychiatric/Mental Health, Adult
DX: F31.10 Bipolar disorder, current episode manic without psychotic features, unspecified (principal); F11.20 Opioid dependence, uncomplicated; F43.10 Post-traumatic stress disorder, unspecified; F17.210 Nicotine dependence, cigarettes, uncomplicated; Z20.822 Contact with and (suspected) exposure to COVID-19; Z71.6 Tobacco abuse counseling; Z88.0 Allergy status to penicillin; Z79.899 Other long term (current) drug therapy
CPT/HCPCS: 0241U; 36415; 80048; 80076; 80307; 81003; 83690; 84443; 85025; 93005; 93970; 97162; 99285; J2060

== ENCOUNTER 2022-12-12 06:08 | Inpatient (IN) | payer MEDICARE, MEDICAID, SELFPAY ==
--- NOTE | 2022-12-12 06:12 | ECG_ITS ---
Test Reason : med clearance Blood Pressure : / mmHG Vent. Rate : 072 BPM Atrial Rate : 072 BPM P-R Int : 142 ms QRS Dur : 084 ms QT Int : 402 ms P-R-T Axes : 076 077 054 degrees QTc Int : 440 ms Artifact in tracing Normal sinus rhythm Normal ECG When compared with ECG of 11-SEP-2022 10:12, No significant change was found Referred By: Katy Sepulveda Electronically Signed By:HOWARD SORTO
[2022-12-12 06:18] VITALS: BP 144/97; PULSE 80; RESP 17; TEMP 37; O2SAT 98; BMI 28.1
--- NOTE | 2022-12-12 06:22 | ED.PSYCH ---
HPI - Psych General Chief Complaint: Psychiatric Symptoms Stated Complaint: AMS Time Seen by Provider: 12/12/22 06:22 Source: patient and EMS Mode of arrival: EMS History of Present Illness HPI Narrative: 57F with a history of Bipolar, substance use, brought in by EMS for being found outside with erratic behavior and disorganized thoughts. Related Data Home Medications Medication Instructions Recorded Confirmed nicotine 21 mg/24 hr daily 1 patch topical DAILY 03/10/21 12/12/22 transdermal patch folic acid 1 mg tablet 1 mg PO DAILY 12/12/22 12/12/22 gabapentin 100 mg capsule 100 mg PO TID 12/12/22 12/12/22 hydroxyzine HCl 50 mg tablet 50 mg PO BID 12/12/22 12/12/22 omeprazole 20 mg capsule,delayed 20 mg PO DAILY 12/12/22 12/12/22 release trazodone 50 mg tablet 100 mg PO BEDTIME 12/12/22 12/12/22 Previous Rx's Medication Instructions Recorded acetaminophen 325 mg tablet 650 mg PO Q6H PRN Headache/Pain 09/13/22 Mild Scale (1-3) #0 tabs furosemide 40 mg tablet 40 mg PO BID@0900,1800 #0 tabs 09/13/22 olanzapine 15 mg tablet 15 mg PO BEDTIME #30 tabs 09/13/22 Allergies Allergy/AdvReac Type Severity Reaction Status Date / Time amoxicillin [Amoxicillin] Allergy Mild RASH & Verified 05/10/22 10:46 DIZZINESS, Dizziness Review of Systems Review of Systems: Pertinent positives and negatives as stated in the HPI PMFSH Past Medical History Source: nursing notes reviewed Medical History Acute post-traumatic stress disorder Bipolar I disorder with priscila Polysubstance use disorder Social History Social History Household Members: Unknown / Unable to assess Housing: Unknown / Unable to assess Do you presently have visiting nurse or other home services: No (Unknown. Pt unable to participate due to mental status.) Unable to assess alcohol history related to: Unknown Alcohol intake: never Patient Tobacco Use Status: Current everyday Tobacco user Tobacco use type: Cigarette e-Cigarette/Vaping Use: Currently Using Substance Use Type: Opiates and Other service: No Sexual orientation: Straight/Heterosexual Physical Exam Vital Signs: Vital Signs: Last Vital Signs Temp 98.6 F 12/12/22 06:18 Pulse 80 12/12/22 06:18 Resp 17 12/12/22 06:18 BP 144/97 H 12/12/22 06:18 Pulse Ox 98 12/12/22 06:18 O2 Del Method Room Air 12/12/22 06:18 BMI result Body Mass Index 28.1 VITAL SIGNS: Reviewed. GENERAL: Well developed, well nourished, in no acute distress. HEAD: Normocephalic/atraumatic EYES: PERRLA, EOMI EARS: Ext canals without abnormality OROPHARYNX: no oral lesions noted, posterior pharynx clear LUNGS: Normal breath sounds. No adventitious sounds or accessory muscle use. CARDIOVASCULAR: Regular rate and rhythm without noted murmurs ABDOMEN: Soft, non-tender, non-distended with bowel sounds. MUSCULOSKELETAL: No tenderness, deformities, or effusions noted on gross inspection. EXTREMITIES: No cyanosis, clubbing or edema. SKIN: Inspection of the skin reveals no rashes NEUROLOGIC: Alert and oriented x 3. Strength and sensation to light touch were grossly intact x 4, cranial nerves 2-12 are grossly intact. Medical Decision Making Medical Decision Making MDM Narrative: 57-year-old female with questionable psychosis/altered mental status but also has very strong history of acute psychosis as well as substance use disorder. - labs, UDS, BAL, UA Signed out to Dr Henderson Lab Data Labs: Lab Results 12/12/22 Range/Units 06:44 COVID-19 ([facility]EN) Negative (Negative) COVID-19 Clin Com See Note Discharge Plan Discharge Clinical Impression: Behavior concern in adult, Polysubstance use disorder Patient Disposition: Still a Patient Prescriptions: No Action nicotine 21 mg/24 hr patch 24 hour 1 patch topical DAILY acetaminophen 325 mg Tablet 650 mg PO Q6H PRN (Reason: Headache/Pain Mild Scale (1-3)) Qty: 0 0RF furosemide 40 mg Tablet 40 mg PO BID@0900,1800 Qty: 0 0RF Protocol: Hold for SBP< HOLD for SBP < : 90 olanzapine 15 mg tablet 15 mg PO BEDTIME Qty: 30 0RF trazodone 50 mg tablet 100 mg PO BEDTIME hydroxyzine HCl 50 mg tablet 50 mg PO BID omeprazole 20 mg capsule,delayed release(DR/EC) 20 mg PO DAILY gabapentin 100 mg capsule 100 mg PO TID folic acid 1 mg tablet 1 mg PO DAILY Interventions: [place]-Suicide Risk Severity Scale Last Done: 12/12/22 06:22
[2022-12-12 07:15] LABS: COVID-19 Test Negative (Negative); IDNOW Serial# 08D9AD1C
--- NOTE | 2022-12-12 09:35 | PC.NURSE ---
MHT reports Pt with hyper-sexual behaviors trying to get into another room.
--- NOTE | 2022-12-12 10:28 | PC.NURSE ---
Spoke with Pt. Pt dosed today at [facility]. She reports, I need more . Denies SI,HI,AH,VH. Wants to go home.
[2022-12-12 12:04] LABS: MANUAL DIFF FLAG NO
[2022-12-12 12:05] LABS: Basophils Percent Auto 0.6 % (0-2); Eosinophils Absolute Auto 0.1 X10*3/uL (0.0-0.4); Eosinophils Percent Auto 1.2 % (0-4); Hemoglobin 13.5 g/dl (12.0-16.0); Imm Gran Abs Auto 0.02 X10*3/uL (0.00-0.03); Imm Gran Pct Auto 0.3 % (0.0-0.4); Lymphocytes Absolute Auto 2.4 X10*3/uL (1.2-4.9); Lymphocytes Percent Auto 34.7 % (20-40); Mean Corpuscular HGB Conc 35.5 g/dl (31.0-35.0); Mean Corpuscular Hemoglobin 31.5 pg (27.0-33.0); Mean Corpuscular Volume 88.6 fL (80.0-98.0); Monocytes Absolute Auto 0.4 X10*3/uL (0.1-1.2); Monocytes Percent Auto 6.1 % (2-11); Neutrophils Absolute Auto 3.9 x10*3/uL (2.0-8.3); Neutrophils Percent Auto 57.1 % (45-73); Platelet Count 224 X10*3/uL (160-400); Red Blood Count 4.29 X10*6/uL (4.20-5.50); Red Cell Distribution Width 12.2 % (11.0-16.0); White Blood Count 6.9 X10*3/uL (4.8-10.8)
[2022-12-12 12:25] LABS: Alanine Aminotransferase 25 U/L (0-31); Albumin Level 4.2 g/dL (3.5-5.0); Alkaline Phosphatase 100 U/L (39-117); Anion Gap 11 (12-20); Aspartate Amino Transferase 40 U/L (5-31); Bilirubin Total 1.3 mg/dL (0.0-1.0); Blood Urea Nitrogen 14 mg/dL (9-16); Carbon Dioxide 27 mmol/L (22-29); Chloride 102 mmol/L (96-108); Creatinine Clr Calc Pharmacy 93.2; Estimated Glomerular Filt Rate > 60; Ethanol < 10 mg/dL; Glucose Random 107 mg/dL (60-115); Potassium 3.4 mmol/L (3.3-5.1); Sodium 137 mmol/L (135-145); Total Protein 7.6 g/dL (6.5-8.0)
--- NOTE | 2022-12-12 12:33 | PC.NURSE ---
Pt refusing to sign a release of information to obtain Methadone dosing.
[2022-12-12] MEDS: Folic Acid 1 MG TABLET PO (12:44)
[2022-12-12] MEDS: Omeprazole 20 MG CAPSULE.DR PO (12:44)
[2022-12-12] MEDS: hydrOXYzine HCL 50 MG TABLET PO ×2 (12:44→22:10)
[2022-12-12] MEDS: Gabapentin 100 MG CAPSULE PO ×2 (15:21→22:10)
--- NOTE | 2022-12-12 16:26 | MHC.CARE ---
CARE Team unable to reach disposition for patient today, waiting for call back from collateral contacts, she be reassessed tomorrow. ED provider Dr. Henderson and paperhanger supervisor Nelda Resendiz [facility] updated with plan of care.
[2022-12-12] MEDS: Furosemide 40 MG TABLET PO (18:06)
[2022-12-12 18:14] VITALS: BP 131/87; PULSE 69; RESP 18; O2SAT 98
--- NOTE | 2022-12-12 18:54 | MHC.EDTECH ---
pt refusing EKG, RN MADE AWARE
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
[2022-12-12] MEDS: OLANZapine 7.5 MG TABLET 15 MG PO (22:10)
[2022-12-12] MEDS: traZODone HCL 100 MG TABLET PO (22:10)
[2022-12-13] VITALS (8 sets, daily range): BP systolic 123–130; BP diastolic 76–84; PULSE 64–90; RESP 16–20; TEMP 36.4–37.1; O2SAT 96–99
[2022-12-13] MEDS: LORazepam 1 MG TABLET 2 MG PO (01:48)
[2022-12-13] MEDS: Acetaminophen 325 MG TABLET 975 MG PO (03:48)
[2022-12-13] MEDS: LORazepam 2 MG/ML VIAL IM (04:40)
[2022-12-13] MEDS: diphenhydrAMINE HCL 50 MG/ML VIAL IM (04:40)
[2022-12-13] MEDS: OLANZapine 10 MG VIAL 5 MG IM (04:40)
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
[2022-12-13] MEDS: Omeprazole 20 MG CAPSULE.DR PO (05:07)
[2022-12-13 05:24] LABS: Appearance Urine Clear; Color Urine Yellow; Glucose Urine UA Negative (Negative); Leukocyte Esterase Urine Negative (Negative); Nitrite Urine Negative (Negative); PH 5.5 (5.0-9.0); Specific Gravity - Urine <= 1.005 (1.005-1.025); Urine Blood Negative (Negative); Urine Ketones Negative (Negative); Urine Protein Negative (Neg-Trace)
[2022-12-13 05:39] LABS: Amphetamine Screen Urine Not Detected (Not Detect); Barbiturates, Urine Not Detected (Not Detect); Benzodiazepines Screen Urine Not Detected (Not Detect); Cannabinoid Screen Urine POSITIVE (Not Detect); Cocaine Screen Urine Not Detected (Not Detect); Fentanyl, urine POSITIVE (Not Detect); Opiate Screen Urine Not Detected (Not Detect); Phencyclidine Screen Urine Not Detected (Not Detect)
--- NOTE | 2022-12-13 06:35 | HE.PHANOTE ---
METHADONE CONFIRMATION FORM RECEIVED 65 MG LAST RECEIVED 12/11
[2022-12-13] MEDS: methADONE HCl 20 MG/2 ML ORAL.CONC 65 MG PO (06:45)
--- NOTE | 2022-12-13 06:45 | PC.NURSE ---
Methadone dose verified/approved by the provider/verification completed foam faxed to pharmacy/65 mg administered as ordered, continue to monitor the patient.
--- NOTE | 2022-12-13 09:12 | PC.NURSE ---
patient sleeping, respirations equal and unlabored. no signs of distress noted. will CTM
--- NOTE | 2022-12-13 12:52 | PC.NURSE ---
patient confused, not answering questions appropriately. having erratic behaviors. verbally redirectable at this time. will CTM
[2022-12-13] MEDS: Gabapentin 100 MG CAPSULE PO ×2 (16:43→23:14)
[2022-12-13] MEDS: Furosemide 40 MG TABLET PO (16:43)
--- NOTE | 2022-12-13 18:24 | PC.NURSE ---
Patient arrived to the unit, using walker to ambulate. Patient irritable on arrival, declined tour of unit, declined to have weight obtained. Patient stated 'if they had just left me alone, instead of watching me and following me around I could have stayed sober. But they didn't, and now I don't think I will.
--- NOTE | 2022-12-13 18:56 | PC.NURSE ---
Patient arrived from [facility] [place] [place] on a CV with a diagnosis of Bipolar Disorder, PTSD, Opiate use disorder. On arrival, pt declined to participate in assessment, and chose instead to go to her room and go to bed. Per crisis assessment patient was brought to [facility] [place] via ambulance with report of 'erratic behavior and disorganized thoughts.' Per report, patient has had a hx multiple psychiatric inpatient hospitalized and was last on M5 in August of 2023. Pt ambulates with a walker. Was tangential, disorganized in the ED per report. Unable to assess patient further, patient requested to sleep.
[2022-12-13] MEDS: traZODone HCL 100 MG TABLET PO (23:14)
[2022-12-13] MEDS: Acetaminophen 325 MG TABLET 650 MG PO (23:14)
[2022-12-14] MEDS: Omeprazole 20 MG CAPSULE.DR PO (06:44)
[2022-12-14 08:10] VITALS: BP 121/84; PULSE 105; RESP 18; TEMP 36.7; O2SAT 98
[2022-12-14] MEDS: Folic Acid 1 MG TABLET PO (08:37)
[2022-12-14] MEDS: Gabapentin 100 MG CAPSULE PO ×3 (08:38→21:33)
[2022-12-14] MEDS: methADONE HCl 20 MG/2 ML ORAL.CONC 65 MG PO (08:39)
[2022-12-14] MEDS: Furosemide 40 MG TABLET PO ×2 (08:40→19:46)
[2022-12-14] MEDS: Nicotine 21 MG PATCH.TD24 TRANSDERMA (08:40)
[2022-12-14 09:02] LABS: Estimated Average Glucose 94 mg/dL; Hemoglobin A1c % 4.9 %
[2022-12-14 09:10] LABS: Cholesterol 163 mg/dL; HDL Cholesterol 41 mg/dL; LDL Cholesterol Calculated 111 mg/dl; Magnesium 1.6 mg/dL (1.6-2.6); Triglycerides 59 mg/dL
[2022-12-14 09:38] LABS: Folate 16.7 ng/mL (> or = 4.0); Free T4 (Free Thyroxine) 1.23 ng/dL (0.71-1.85); Thyroid Stimulating Hormone 1.87 uIU/mL (0.32-4.0); Vitamin B12 564 pg/mL (200-900)
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
[2022-12-14] MEDS: carBAMazepine 200 MG TABLET PO ×2 (12:32→21:33)
[2022-12-14] MEDS: Nicotine Polacrilex 2 MG GUM BUCCAL ×2 (14:23→21:33)
[2022-12-14] MEDS: Acetaminophen 325 MG TABLET 650 MG PO (18:59)
[2022-12-14 19:49] VITALS: BP 132/85; PULSE 95; RESP 16; TEMP 36.8; O2SAT 100
[2022-12-14] MEDS: traZODone HCL 100 MG TABLET PO (21:33)
[2022-12-14] MEDS: Magnesium Hydrox/Alum Hydrox 30 ML ORAL.SUSP PO (21:33)
[2022-12-14] MEDS: ARIPiprazole 10 MG TABLET PO (21:34)
[2022-12-15] MEDS: Omeprazole 20 MG CAPSULE.DR PO ×2 (05:14→06:15)
[2022-12-15] MEDS: Acetaminophen 325 MG TABLET 650 MG PO ×2 (05:14→23:24)
[2022-12-15 08:51] VITALS: BP 126/74; PULSE 120; RESP 18; TEMP 36.3; O2SAT 96
[2022-12-15] MEDS: Nicotine 21 MG PATCH.TD24 TRANSDERMA (09:02)
[2022-12-15] MEDS: methADONE HCl 20 MG/2 ML ORAL.CONC 65 MG PO (09:02)
[2022-12-15] MEDS: Gabapentin 100 MG CAPSULE PO ×3 (09:03→21:27)
[2022-12-15] MEDS: Folic Acid 1 MG TABLET PO (09:03)
[2022-12-15] MEDS: Furosemide 40 MG TABLET PO ×2 (09:03→17:13)
[2022-12-15] MEDS: carBAMazepine 200 MG TABLET PO ×2 (09:03→21:27)
--- NOTE | 2022-12-15 10:31 | PC.NURSE ---
Patient is alert and oriented to person, place, and date (month and year). Patient showered with her tank top on. This RN asked patient if she needed assistance in shower on multiple attempts patient refused. Patient appeared confused, grabbing at things that aren't there and wandering aimlessly in shower. Patient Placed towel over drain on the floor requiring redirection to remove.
--- NOTE | 2022-12-15 12:57 | P.PNPSI_ITS ---
Subjective Subjective Date of Service: 12/15/22 Reason For Visit: PTSD, bipolar d/o, priscila, opiate use d/o, polysub Subjective Notes: Conditional Voluntary Interim History: The nursing staff reported the patient had been confused, with racing thoughts, nonsensical at times. She had been fully compliant with treatment and at times she looks delirious. She slept poorly she woke up at 03:00 o'clock in the morning. On interview the patient was very irritable refused to engage in conversation and denied any symptoms at this moment. Mental Status Exam Mental Status Exam Patient Appearance: Well Grooomed and Appropriate Patient Orientation: Person and Situation Level of Consciousness: Awake and Appropriate Patient Behavior: Guarded and Passive Mood Description: Calm Affect Description: Constricted Patient Cognition Impaired: Yes Ability to Follow Directions: Good Speech Pattern: Clear Hallucinations: None Delusions: Not Present Thought Process: Distracted and Evasive Thought Content: positive for Cabins and positive for Poverty of Content Judgement: Fair Diagnostics Vital Signs (24Hr): Vital Signs - 24 hr 12/14/22 19:49 12/15/22 08:51 Temperature 98.2 F 97.4 F Pulse Rate 95 120 H Respiratory Rate 16 18 Blood Pressure 132/85 126/74 Pulse Oximetry 100 96 Oxygen Delivery Method Room Air Room Air BMI result Body Mass Index 28.1 Labs 12/12/22 11:59 12/12/22 11:59 Labs: Laboratory Results - last 48 hr 12/14/22 12/14/22 08:30 08:30 Estimat Average Glucose 94 Hemoglobin A1c % 4.9 Magnesium 1.6 Triglycerides 59 Cholesterol 163 LDL Cholesterol, Calc 111 HDL Cholesterol 41 Vitamin B12 564 Folate 16.7 TSH 1.87 Free T4 1.23 Medications Medications Current Medications Acetaminophen (Acetaminophen 325 Mg Tablet) 650 mg PO Q6H PRN PRN Reason: Headache/Pain Mild Scale (1-3) Last Admin: 12/15/22 05:14 Dose: 650 mg Al Hydroxide/Mg Hydroxide (Magnesium Hydrox/Alum Hydrox 30 Ml Oral.Susp) 30 ml PO Q6H PRN PRN Reason: Heartburn/Nausea Last Admin: 12/14/22 21:33 Dose: 30 ml Aripiprazole (Aripiprazole 10 Mg Tablet) 10 mg PO BEDTIME NIR Last Admin: 12/14/22 21:34 Dose: 10 mg Carbamazepine (Carbamazepine 200 Mg Tablet) 200 mg PO BID NIR Last Admin: 12/15/22 09:03 Dose: 200 mg Folic Acid (Folic Acid 1 Mg Tablet) 1 mg PO DAILY [facility] Last Admin: 12/15/22 09:03 Dose: 1 mg Furosemide (Furosemide 40 Mg Tablet) 40 mg PO BID@0900,1800 [facility]; Protocol Last Admin: 12/15/22 09:03 Dose: 40 mg Gabapentin (Gabapentin 100 Mg Capsule) 100 mg PO TID [facility] Last Admin: 12/15/22 09:03 Dose: 100 mg Hydroxyzine HCl (Hydroxyzine Hcl 25 Mg Tablet) 25 mg PO Q6H PRN PRN Reason: Anxiety Hydroxyzine HCl (Hydroxyzine Hcl 50 Mg Tablet) 50 mg PO BID PRN PRN Reason: anxiety Magnesium Hydroxide (Milk Of Magnesia 30 Ml Oral.Susp) 30 ml PO DAILY PRN PRN Reason: Constipation Methadone HCl (Methadone Hcl 20 Mg/2 Ml Oral.Conc) 65 mg PO DAILY [facility] Last Admin: 12/15/22 09:02 Dose: 65 mg Nicotine (Nicotine 21 Mg Patch.Td24) 21 mg TRANSDERMA DAILY [facility] Last Admin: 12/15/22 09:02 Dose: 21 mg Nicotine Polacrilex (Nicotine Polacrilex 2 Mg Gum) 2 mg BUCCAL Q2H PRN PRN Reason: Nicotine Cravings Last Admin: 12/14/22 21:33 Dose: 2 mg Olanzapine (Olanzapine Odt 10 Mg Tab.Rapdis) 10 mg TRANSLINGU Q6H PRN PRN Reason: agitation Omeprazole (Omeprazole 20 Mg Capsule.Dr) 20 mg PO DAILY@0600 [facility] Last Admin: 12/15/22 06:15 Dose: 20 mg Trazodone HCl (Trazodone Hcl 100 Mg Tablet) 100 mg PO BEDTIME [facility] Last Admin: 12/14/22 21:33 Dose: 100 mg Allergies Allergies Allergy/AdvReac Type Severity Reaction Status Date / Time amoxicillin [Amoxicillin] Allergy Mild RASH & Verified 05/10/22 10:46 DIZZINESS, Dizziness Assessment & Plan Assessment & Plan (1) Bipolar I disorder with priscila: Status: Acute Code(s): F31.10 - Bipolar disorder, current episode manic without psychotic features, unspecified Plan Mrs. Larsen is a 57 year-old woman with hx of Bipolar Disorder who was brought on a sect 12 by [employer] police due to erratic and disorganized behaviors (not clear extend of situation). However, in the ED, pt presents with paranoid delusions, avoiding to answer questions and disorganized speech which is not her baseline. Utox positive for cannabinoids and fentanyl. Pt reports started to use cannabinoids for severe hip pain- which is well documented by ortho as severe osteo arthritis pending surgery. PLAN 1. Admit to M3, CV, 15 minutes checks for safety. 2. Pt agrees to restart carbamazepine (note that it can decrease methadone level s as it induces its metabolism), abilify. 3. obtain collateral information 4. Aftercare planning. Reason for continued inpatient stay Substantial Risk for: inability to function, rapid decompensation and med/psych decompensation Time Spent With Patient Time: Total time managing care of this patient today _20___ minutes.
[2022-12-15 17:12] VITALS: BP 127/68; PULSE 86
[2022-12-15] MEDS: traZODone HCL 100 MG TABLET PO (21:27)
[2022-12-15] MEDS: ARIPiprazole 10 MG TABLET PO (21:28)
[2022-12-15 21:35] VITALS: BP 103/62; PULSE 91; TEMP 36.4; O2SAT 97
[2022-12-15] MEDS: hydrOXYzine HCL 50 MG TABLET PO (23:24)
[2022-12-16] MEDS: OLANZapine ODT 10 MG TAB.RAPDIS TRANSLINGU (06:55)
[2022-12-16] MEDS: Acetaminophen 325 MG TABLET 650 MG PO ×3 (06:55→20:56)
[2022-12-16] MEDS: methADONE HCl 20 MG/2 ML ORAL.CONC 65 MG PO (08:39)
[2022-12-16] MEDS: Nicotine 21 MG PATCH.TD24 TRANSDERMA (08:39)
[2022-12-16 08:40] VITALS: BP 170/91; PULSE 130; RESP 18; TEMP 36.2; O2SAT 98
[2022-12-16] MEDS: Gabapentin 100 MG CAPSULE PO ×3 (08:40→20:55)
[2022-12-16] MEDS: Furosemide 40 MG TABLET PO (08:40)
[2022-12-16] MEDS: Folic Acid 1 MG TABLET PO (08:40)
[2022-12-16] MEDS: Omeprazole 20 MG CAPSULE.DR PO (08:41)
--- NOTE | 2022-12-16 10:45 | HO.PSYCHPN ---
Subjective Subjective Date of Service: 12/16/22 Reason For Visit: PTSD, bipolar d/o, priscila, opiate use d/o, polysub Subjective Notes: Conditional Voluntary Interim History: Nursing staff reported the patient had been compliant with treatment she had poor sleep woke up in the night. On interview the patient denies new symptoms she looks disengaged Mental Status Exam Mental Status Exam Patient Appearance: Appropriate Patient Orientation: Person and Situation Level of Consciousness: Awake Patient Behavior: Guarded and Passive Mood Description: Withdrawn Affect Description: Constricted Patient Cognition Impaired: Yes Ability to Follow Directions: Fair Speech Pattern: Clear Hallucinations: None Delusions: Paranoid Ideation Thought Process: Distracted and Evasive Thought Content: positive for Mason and positive for Circumstantial Judgement: Poor Diagnostics Vital Signs (24Hr): Vital Signs - 24 hr 12/15/22 17:12 12/15/22 21:35 12/16/22 08:40 Temperature 97.6 F 97.2 F Pulse Rate 86 91 130 H Respiratory Rate 18 Blood Pressure 127/68 103/62 170/91 H Pulse Oximetry 97 98 Oxygen Delivery Method Room Air Room Air BMI result Body Mass Index 28.1 Labs 12/12/22 11:59 12/12/22 11:59 Medications Medications Current Medications Acetaminophen (Acetaminophen 325 Mg Tablet) 650 mg PO Q6H PRN PRN Reason: Headache/Pain Mild Scale (1-3) Last Admin: 12/16/22 06:55 Dose: 650 mg Al Hydroxide/Mg Hydroxide (Magnesium Hydrox/Alum Hydrox 30 Ml Oral.Susp) 30 ml PO Q6H PRN PRN Reason: Heartburn/Nausea Last Admin: 12/14/22 21:33 Dose: 30 ml Aripiprazole (Aripiprazole 10 Mg Tablet) 10 mg PO BEDTIME [facility] Last Admin: 12/15/22 21:28 Dose: 10 mg Carbamazepine (Carbamazepine 200 Mg Tablet) 200 mg PO BID [facility] Last Admin: 12/16/22 08:43 Dose: Not Given Folic Acid (Folic Acid 1 Mg Tablet) 1 mg PO DAILY [facility] Last Admin: 12/16/22 08:40 Dose: 1 mg Furosemide (Furosemide 40 Mg Tablet) 40 mg PO BID@0900,1800 [facility]; Protocol Last Admin: 12/16/22 08:40 Dose: 40 mg Gabapentin (Gabapentin 100 Mg Capsule) 100 mg PO TID [facility] Last Admin: 12/16/22 08:40 Dose: 100 mg Hydroxyzine HCl (Hydroxyzine Hcl 25 Mg Tablet) 25 mg PO Q6H PRN PRN Reason: Anxiety Hydroxyzine HCl (Hydroxyzine Hcl 50 Mg Tablet) 50 mg PO BID PRN PRN Reason: anxiety Last Admin: 12/15/22 23:24 Dose: 50 mg Magnesium Hydroxide (Milk Of Magnesia 30 Ml Oral.Susp) 30 ml PO DAILY PRN PRN Reason: Constipation Methadone HCl (Methadone Hcl 20 Mg/2 Ml Oral.Conc) 65 mg PO DAILY [facility] Last Admin: 12/16/22 08:39 Dose: 65 mg Nicotine (Nicotine 21 Mg Patch.Td24) 21 mg TRANSDERMA DAILY [facility] Last Admin: 12/16/22 08:39 Dose: 21 mg Nicotine Polacrilex (Nicotine Polacrilex 2 Mg Gum) 2 mg BUCCAL Q2H PRN PRN Reason: Nicotine Cravings Last Admin: 12/14/22 21:33 Dose: 2 mg Olanzapine (Olanzapine Odt 10 Mg Tab.Rapdis) 10 mg TRANSLINGU Q6H PRN PRN Reason: agitation Last Admin: 12/16/22 06:55 Dose: 10 mg Omeprazole (Omeprazole 20 Mg Capsule.Dr) 20 mg PO DAILY@0600 [facility] Last Admin: 12/16/22 08:41 Dose: 20 mg Trazodone HCl (Trazodone Hcl 100 Mg Tablet) 100 mg PO BEDTIME [facility] Last Admin: 12/15/22 21:27 Dose: 100 mg Allergies Allergies Allergy/AdvReac Type Severity Reaction Status Date / Time amoxicillin [Amoxicillin] Allergy Mild RASH & Verified 05/10/22 10:46 DIZZINESS, Dizziness Assessment & Plan Assessment & Plan (1) Bipolar I disorder with priscila: Status: Acute Code(s): F31.10 - Bipolar disorder, current episode manic without psychotic features, unspecified Plan Mrs. Larsen is a 57 year-old woman with hx of Bipolar Disorder who was brought on a sect 12 by [employer] police due to erratic and disorganized behaviors (not clear extend of situation). However, in the ED, pt presents with paranoid delusions, avoiding to answer questions and disorganized speech which is not her baseline. Utox positive for cannabinoids and fentanyl. Pt reports started to use cannabinoids for severe hip pain- which is well documented by ortho as severe osteo arthritis pending surgery. PLAN 1. Admit to M3, CV, 15 minutes checks for safety. 2. Pt agrees to restart carbamazepine (note that it can decrease methadone levels as it induces its metabolism), abilify. 3. obtain collateral information 4. Aftercare planning. Reason for continued inpatient stay Substantial Risk for: inability to function, rapid decompensation and med/psych decompensation Time Spent With Patient Time: Total time managing care of this patient today __20__ minutes.
[2022-12-16 20:20] VITALS: BP 114/56; PULSE 75; RESP 18; TEMP 36.7; O2SAT 97
[2022-12-16] MEDS: ARIPiprazole 10 MG TABLET PO (20:55)
[2022-12-16] MEDS: traZODone HCL 100 MG TABLET PO (20:55)
--- NOTE | 2022-12-16 22:03 | PC.NURSE ---
Pt was not administered scheduled 1800 lasix 40 mg by previous shift. Per pharmacy, pt able to take dose late with HS meds if she chose to. Pt declined to take lasix with HS meds, as it could cause increased urination throughout the night.
[2022-12-17] MEDS: hydrOXYzine HCL 50 MG TABLET PO ×2 (04:36→18:35)
[2022-12-17 06:00] VITALS: BP 110/72; PULSE 80; O2SAT 97
[2022-12-17] MEDS: methADONE HCl 20 MG/2 ML ORAL.CONC 65 MG PO (08:33)
[2022-12-17] MEDS: Gabapentin 100 MG CAPSULE PO ×3 (08:35→20:16)
[2022-12-17] MEDS: Furosemide 40 MG TABLET PO ×2 (08:35→18:35)
[2022-12-17] MEDS: Folic Acid 1 MG TABLET PO (08:35)
[2022-12-17] MEDS: Omeprazole 20 MG CAPSULE.DR PO (08:36)
--- NOTE | 2022-12-17 13:26 | PC.NURSE ---
pt is a smoker, nicotine replacement & smoking cessation consult ordered
[2022-12-17] MEDS: Nicotine 21 MG PATCH.TD24 TRANSDERMA (14:26)
--- NOTE | 2022-12-17 14:48 | P.PNPSI_ITS ---
Subjective Subjective Date of Service: 12/17/22 Reason For Visit: PTSD, bipolar d/o, priscila, opiate use d/o, polysub Subjective Notes: Conditional Voluntary Interim History: Pt presents as paranoid and suspicious. She does note that she is not sure who she can trust. At times pt states why they do that to people, why are they hurting them? When asked who she was referring to pt, declines to elaborate. She states I don't know if I can trust you. She denies SI/HI. She does state that she is not well and not safe to return home. She reports jerk-like moveme nt of upper extremities with carbamazepine. She agrees to increase abilify. Per nursing, pt did not sleep well last night. Medication Compliance: Yes Mental Status Exam Mental Status Exam Narrative: Appearance: casually clothing, fair hygiene, in NAD Behavior: pt recognizes this card writer hand, calmer after PSychomotor: no agitation or retardation noted Speech: clear, some delayed at times, spontaneous TP: disorganized, difficult to follow TC: paranoid ideas of people (not sure who) trying to take her apartment Mood: upset Affect: somewhat guarded SI: denies HI: none VH/AH: appears internally preoccupied Delusions: paranoid ideas Insight/judgment: limited x 2. Memory/cog: alert, oriented x 3. not fully to situation Diagnostics Vital Signs (24Hr): Vital Signs - 24 hr 12/16/22 20:20 12/17/22 06:00 Temperature 98.1 F Pulse Rate 75 80 Respiratory Rate 18 Blood Pressure 114/56 L 110/72 Pulse Oximetry 97 97 Oxygen Delivery Method Room Air BMI result Body Mass Index 28.1 Labs 12/12/22 11:59 12/12/22 11:59 Medications Medications Current Medications Acetaminophen (Acetaminophen 325 Mg Tablet) 650 mg PO Q6H PRN PRN Reason: Headache/Pain Mild Scale (1-3) Last Admin: 12/16/22 20:56 Dose: 650 mg Al Hydroxide/Mg Hydroxide (Magnesium Hydrox/Alum Hydrox 30 Ml Oral.Susp) 30 ml PO Q6H PRN PRN Reason: Heartburn/Nausea Last Admin: 12/14/22 21:33 Dose: 30 ml Aripiprazole (Aripiprazole 20 Mg Tablet) 20 mg PO BEDTIME NIR Folic Acid (Folic Acid 1 Mg Tablet) 1 mg PO DAILY INR Last Admin: 12/17/22 08:35 Dose: 1 mg Furosemide (Furosemide 40 Mg Tablet) 40 mg PO BID@0900,1800 [facility]; Protocol Last Admin: 12/17/22 08:35 Dose: 40 mg Gabapentin (Gabapentin 100 Mg Capsule) 100 mg PO TID [facility] Last Admin: 12/17/22 14:25 Dose: 100 mg Hydroxyzine HCl (Hydroxyzine Hcl 25 Mg Tablet) 25 mg PO Q6H PRN PRN Reason: Anxiety Hydroxyzine HCl (Hydroxyzine Hcl 50 Mg Tablet) 50 mg PO BID PRN PRN Reason: anxiety Last Admin: 12/17/22 04:36 Dose: 50 mg Magnesium Hydroxide (Milk Of Magnesia 30 Ml Oral.Susp) 30 ml PO DAILY PRN PRN Reason: Constipation Methadone HCl (Methadone Hcl 20 Mg/2 Ml Oral.Conc) 65 mg PO DAILY [facility] Last Admin: 12/17/22 08:33 Dose: 65 mg Nicotine (Nicotine 21 Mg Patch.Td24) 21 mg TRANSDERMA DAILY [facility] Last Admin: 12/17/22 14:26 Dose: 21 mg Nicotine Polacrilex (Nicotine Polacrilex 2 Mg Gum) 2 mg BUCCAL Q2H PRN PRN Reason: Nicotine Cravings Last Admin: 12/14/22 21:33 Dose: 2 mg Olanzapine (Olanzapine Odt 10 Mg Tab.Rapdis) 10 mg TRANSLINGU Q6H PRN PRN Reason: agitation Last Admin: 12/16/22 06:55 Dose: 10 mg Omeprazole (Omeprazole 20 Mg Capsule.Dr) 20 mg PO DAILY@0600 [facility] Last Admin: 12/17/22 08:36 Dose: 20 mg Trazodone HCl (Trazodone Hcl 100 Mg Tablet) 100 mg PO BEDTIME [facility] Last Admin: 12/16/22 20:55 Dose: 100 mg Allergies Allergies Allergy/AdvReac Type Severity Reaction Status Date / Time amoxicillin [Amoxicillin] Allergy Mild RASH & Verified 05/10/22 10:46 DIZZINESS, Dizziness Assessment & Plan Assessment & Plan (1) Bipolar I disorder with priscila: Status: Acute Code(s): F31.10 - Bipolar disorder, current episode manic without psychotic features, unspecified Plan Mrs. Larsen is a 57 year-old woman with hx of Bipolar Disorder who was brought on a sect 12 by [employer] police due to erratic and disorganized behaviors (not clear extend of situation). However, in the ED, pt presents with paranoid delusions, avoiding to answer questions and disorganized speech which is not her baseline. Utox positive for cannabinoids and fentanyl. Pt reports started to use cannabinoids for severe hip pain- which is well documented by ortho as severe osteo arthritis pending surgery. PLAN 1. Admit to M3, CV, 15 minutes checks for safety. 12/17 d/c carbamazepine per pt request (reports jerk-like movement of upper extremities), increase abilify 20mg po qhs. Reason for continued inpatient stay Substantial Risk for: inability to function Time Spent With Patient Time: Total time managing care of this patient today ____ minutes.
[2022-12-17] MEDS: Nicotine Polacrilex 2 MG GUM BUCCAL ×2 (15:33→18:39)
[2022-12-17] MEDS: LORazepam 0.5 MG TABLET PO (15:34)
[2022-12-17 18:00] VITALS: BP 123/63; PULSE 94
[2022-12-17] MEDS: Acetaminophen 325 MG TABLET 650 MG PO (20:14)
[2022-12-17] MEDS: ARIPiprazole 20 MG TABLET PO (20:15)
[2022-12-17] MEDS: traZODone HCL 50 MG TABLET 150 MG PO (21:25)
[2022-12-18] MEDS: Acetaminophen 325 MG TABLET 650 MG PO (05:58)
[2022-12-18] MEDS: Omeprazole 20 MG CAPSULE.DR PO (05:58)
[2022-12-18] MEDS: hydrOXYzine HCL 50 MG TABLET PO ×2 (05:58→20:08)
[2022-12-18 08:00] VITALS: BP 140/82; PULSE 84; RESP 18; TEMP 36.6; O2SAT 98
[2022-12-18] MEDS: Furosemide 40 MG TABLET PO ×2 (09:21→17:57)
[2022-12-18] MEDS: Folic Acid 1 MG TABLET PO (09:21)
[2022-12-18] MEDS: Nicotine 21 MG PATCH.TD24 TRANSDERMA (09:22)
[2022-12-18] MEDS: Gabapentin 100 MG CAPSULE PO ×3 (09:22→21:32)
[2022-12-18] MEDS: methADONE HCl 20 MG/2 ML ORAL.CONC 65 MG PO (09:23)
--- NOTE | 2022-12-18 15:08 | P.PNPSI_ITS ---
Subjective Subjective Date of Service: 12/18/22 Reason For Visit: PTSD, bipolar d/o, priscila, opiate use d/o, polysub Subjective Notes: Conditional Voluntary Interim History: Pt continues to present as confused at times. She is supicious and states she does not know who she can trust or not. She has been more visible on the unit. She denies SI/HI. She slept through the night. No behavioral concerns. Medication Compliance: Yes Side effects from medications: No Review of Systems Review of Systems Hip pain Left, uses walker No SOB, no cough No chest pain No diarrhea, no constipation Mental Status Exam Mental Status Exam Narrative: Appearance: casually clothing, fair hygiene, in NAD Behavior: pt recognizes this music writer, calmer after PSychomotor: no agitation or retardation noted Speech: clear, some delayed at times, spontaneous TP: disorganized, difficult to follow TC: paranoid ideas of people (not sure who) trying to take her apartment Mood: upset Affect: somewhat guarded SI: denies HI: none VH/AH: appears internally preoccupied Delusions: paranoid ideas Insight/judgment: limited x 2. Memory/cog: alert, oriented x 3. not fully to situation Diagnostics Vital Signs (24Hr): Vital Signs - 24 hr 12/17/22 18:00 12/18/22 08:00 Temperature 97.9 F Pulse Rate 94 84 Respiratory Rate 18 Blood Pressure 123/63 140/82 H Pulse Oximetry 98 Oxygen Delivery Method Room Air BMI result Body Mass Index 28.1 Labs 12/12/22 11:59 12/12/22 11:59 Medications Medications Current Medications Acetaminophen (Acetaminophen 325 Mg Tablet) 650 mg PO Q6H PRN PRN Reason: Headache/Pain Mild Scale (1-3) Last Admin: 12/18/22 05:58 Dose: 650 mg Al Hydroxide/Mg Hydroxide (Magnesium Hydrox/Alum Hydrox 30 Ml Oral.Susp) 30 ml PO Q6H PRN PRN Reason: Heartburn/Nausea Last Admin: 12/14/22 21:33 Dose: 30 ml Aripiprazole (Aripiprazole 20 Mg Tablet) 20 mg PO BEDTIME NIR Last Admin: 12/17/22 20:15 Dose: 20 mg Folic Acid (Folic Acid 1 Mg Tablet) 1 mg PO DAILY NIR Last Admin: 12/18/22 09:21 Dose: 1 mg Furosemide (Furosemide 40 Mg Tablet) 40 mg PO BID@0900,1800 [facility]; Protocol Last Admin: 12/18/22 09:21 Dose: 40 mg Gabapentin (Gabapentin 100 Mg Capsule) 100 mg PO TID [facility] Last Admin: 12/18/22 14:34 Dose: 100 mg Hydroxyzine HCl (Hydroxyzine Hcl 25 Mg Tablet) 25 mg PO Q6H PRN PRN Reason: Anxiety Hydroxyzine HCl (Hydroxyzine Hcl 50 Mg Tablet) 50 mg PO BID PRN PRN Reason: anxiety Last Admin: 12/18/22 05:58 Dose: 50 mg Ibuprofen (Ibuprofen 800 Mg Tablet) 800 mg PO TIDWM [facility] Magnesium Hydroxide (Milk Of Magnesia 30 Ml Oral.Susp) 30 ml PO DAILY PRN PRN Reason: Constipation Methadone HCl (Methadone Hcl 20 Mg/2 Ml Oral.Conc) 65 mg PO DAILY [facility] Last Admin: 12/18/22 09:23 Dose: 65 mg Nicotine (Nicotine 21 Mg Patch.Td24) 21 mg TRANSDERMA DAILY [facility] Last Admin: 12/18/22 09:22 Dose: 21 mg Nicotine Polacrilex (Nicotine Polacrilex 2 Mg Gum) 2 mg BUCCAL Q2H PRN PRN Reason: Nicotine Cravings Last Admin: 12/17/22 18:39 Dose: 2 mg Olanzapine (Olanzapine Odt 10 Mg Tab.Rapdis) 10 mg TRANSLINGU Q6H PRN PRN Reason: agitation Last Admin: 12/16/22 06:55 Dose: 10 mg Omeprazole (Omeprazole 20 Mg Capsule.Dr) 20 mg PO DAILY@0600 [facility] Last Admin: 12/18/22 05:58 Dose: 20 mg Trazodone HCl (Trazodone Hcl 50 Mg Tablet) 150 mg PO BEDTIME [facility] Last Admin: 12/17/22 21:25 Dose: 150 mg Allergies Allergies Allergy/AdvReac Type Severity Reaction Status Date / Time amoxicillin [Amoxicillin] Allergy Mild RASH & Verified 05/10/22 10:46 DIZZINESS, Dizziness Assessment & Plan Assessment & Plan (1) Bipolar I disorder with priscila: Status: Acute Code(s): F31.10 - Bipolar disorder, current episode manic without psychotic features, unspecified Plan Mrs. Larsen is a 57 year-old woman with hx of Bipolar Disorder who was brought on a sect 12 by [employer] police due to erratic and disorganized behaviors (not clear extend of situation). However, in the ED, pt presents with paranoid delusions, avoiding to answer questions and disorganized speech which is not her baseline. Utox positive for cannabinoids and fentanyl. Pt reports started to use cannabinoids for severe hip pain- which is well documented by ortho as severe osteo arthritis pending surgery. PLAN 1. Admit to M3, CV, 15 minutes checks for safety. 12/17 d/c carbamazepine per pt request (reports jerk-like movement of upper extremities), increase abilify 20mg po qhs. 12/18 continue tx. Reason for continued inpatient stay Substantial Risk for: inability to function Time Spent With Patient Time: Total time managing care of this patient today ____ minutes.
[2022-12-18 18:00] VITALS: BP 140/79; PULSE 92; RESP 20; O2SAT 98
[2022-12-18] MEDS: Ibuprofen 800 MG TABLET PO (18:00)
[2022-12-18] MEDS: traZODone HCL 50 MG TABLET 150 MG PO (21:32)
[2022-12-18] MEDS: ARIPiprazole 20 MG TABLET PO (21:32)
[2022-12-19] MEDS: Acetaminophen 325 MG TABLET 650 MG PO (03:25)
[2022-12-19] MEDS: hydrOXYzine HCL 50 MG TABLET PO (03:25)
[2022-12-19] MEDS: OLANZapine ODT 10 MG TAB.RAPDIS TRANSLINGU (03:25)
--- NOTE | 2022-12-19 03:28 | PC.NURSE ---
Pt approached nurse's station at 0315 and stated I'm in withdrawal . When asked to elaborate pt stated she was withdrawing from heroin, which she uses IV, but has not used since right before admission. Utox +fentanyl but no detox protocol has been followed thus far. Pt was given prns for anxiety and body aches. Will notify provider in AM.
[2022-12-19 07:58] VITALS: BP 133/73; PULSE 92; TEMP 36.8; O2SAT 100
[2022-12-19] MEDS: methADONE HCl 20 MG/2 ML ORAL.CONC 65 MG PO (08:12)
[2022-12-19] MEDS: Furosemide 40 MG TABLET PO (08:14)
[2022-12-19] MEDS: Folic Acid 1 MG TABLET PO (08:15)
[2022-12-19] MEDS: Gabapentin 100 MG CAPSULE PO ×3 (08:16→22:51)
[2022-12-19] MEDS: Ibuprofen 800 MG TABLET PO ×3 (08:16→16:43)
[2022-12-19] MEDS: Omeprazole 20 MG CAPSULE.DR PO (08:17)
[2022-12-19] MEDS: methADONE HCl 20 MG/2 ML ORAL.CONC 5 MG PO (11:37)
[2022-12-19] MEDS: Multivitamin TABLET 1 TAB PO (11:38)
[2022-12-19] MEDS: Nicotine Polacrilex 2 MG GUM BUCCAL (14:35)
--- NOTE | 2022-12-19 14:46 | HO.PSYCHPN ---
Subjective Subjective Date of Service: 12/19/22 Reason For Visit: PTSD, bipolar d/o, priscila, opiate use d/o, polysub Interim History: pt calm and cooperative. asking for campral to be restarted, states she was taking it prior to admission. also asks for MVI, folate, and methadone increase. pt appears to have impaired concentration/attention, impairing her memory. quite a redundant and circular conversation, but the upshot is that MVI was started, campral was started, and methadone was increased to 70 mg daily. per staff, Q5 min checks. pleasant, using walker. paranoid, poor memory. at 0300 up and c/o heroin withdrawal, asking for more methadone. Mental Status Exam Mental Status Exam Narrative: Appearance: hospital clothing, fair hygiene, in NAD Behavior: calm, cooperative PSychomotor: no agitation or retardation noted Speech: clear, some delayed at times, spontaneous TP: disorganized, difficult to follow TC: on meds she needs Mood: not assessed Affect: somewhat guarded, irritable, min-labile SI: none expressed HI: none expressed VH/AH: none expressed Insight/judgment: limited x 2. Memory/cog: alert, oriented x 3. not fully to situation Diagnostics Vital Signs (24Hr): Vital Signs - 24 hr 12/18/22 18:00 12/19/22 07:58 Temperature 98.2 F Pulse Rate 92 92 Respiratory Rate 20 Blood Pressure 140/79 H 133/73 Pulse Oximetry 98 100 Oxygen Delivery Method Room Air Room Air BMI result Body Mass Index 28.1 Labs 12/12/22 11:59 12/12/22 11:59 Medications Medications Current Medications Acamprosate (Acamprosate Calcium 333 Mg Tablet.) 666 mg PO TID [facility] Acetaminophen (Acetaminophen 325 Mg Tablet) 650 mg PO Q6H PRN PRN Reason: Headache/Pain Mild Scale (1-3) Last Admin: 12/19/22 03:25 Dose: 650 mg Al Hydroxide/Mg Hydroxide (Magnesium Hydrox/Alum Hydrox 30 Ml Oral.Susp) 30 ml PO Q6H PRN PRN Reason: Heartburn/Nausea Last Admin: 12/14/22 21:33 Dose: 30 ml Aripiprazole (Aripiprazole 20 Mg Tablet) 20 mg PO BEDTIME NIR Last Admin: 12/18/22 21:32 Dose: 20 mg Folic Acid (Folic Acid 1 Mg Tablet) 1 mg PO DAILY [facility] Last Admin: 12/19/22 08:15 Dose: 1 mg Furosemide (Furosemide 40 Mg Tablet) 40 mg PO BID@0900,1800 [facility]; Protocol Last Admin: 12/19/22 08:14 Dose: 40 mg Gabapentin (Gabapentin 100 Mg Capsule) 100 mg PO TID [facility] Last Admin: 12/19/22 08:16 Dose: 100 mg Hydroxyzine HCl (Hydroxyzine Hcl 25 Mg Tablet) 25 mg PO Q6H PRN PRN Reason: Anxiety Hydroxyzine HCl (Hydroxyzine Hcl 50 Mg Tablet) 50 mg PO BID PRN PRN Reason: anxiety Last Admin: 12/19/22 03:25 Dose: 50 mg Ibuprofen (Ibuprofen 800 Mg Tablet) 800 mg PO TIDWM [facility] Last Admin: 12/19/22 12:47 Dose: 800 mg Magnesium Hydroxide (Milk Of Magnesia 30 Ml Oral.Susp) 30 ml PO DAILY PRN PRN Reason: Constipation Methadone HCl (Methadone Hcl 20 Mg/2 Ml Oral.Conc) 70 mg PO DAILY [facility] Multivitamins/Vitamin C (Multivitamin Tablet) 1 tab PO DAILY [facility] Last Admin: 12/19/22 11:38 Dose: 1 tab Nicotine (Nicotine 21 Mg Patch.Td24) 21 mg TRANSDERMA DAILY [facility] Last Admin: 12/19/22 10:52 Dose: Not Given Nicotine Polacrilex (Nicotine Polacrilex 2 Mg Gum) 2 mg BUCCAL Q2H PRN PRN Reason: Nicotine Cravings Last Admin: 12/19/22 14:35 Dose: 2 mg Olanzapine (Olanzapine Odt 10 Mg Tab.Rapdis) 10 mg TRANSLINGU Q6H PRN PRN Reason: agitation Last Admin: 12/19/22 03:25 Dose: 10 mg Omeprazole (Omeprazole 20 Mg Capsule.Dr) 20 mg PO DAILY@0600 [facility] Last Admin: 12/19/22 08:17 Dose: 20 mg Trazodone HCl (Trazodone Hcl 50 Mg Tablet) 150 mg PO BEDTIME [facility] Last Admin: 12/18/22 21:32 Dose: 150 mg Allergies Allergies Allergy/AdvReac Type Severity Reaction Status Date / Time amoxicillin [Amoxicillin] Allergy Mild RASH & Verified 05/10/22 10:46 DIZZINESS, Dizziness Assessment & Plan Assessment & Plan (1) Bipolar I disorder with priscila: Status: Acute Code(s): F31.10 - Bipolar disorder, current episode manic without psychotic features, unspecified Plan Mrs. Larsen is a 57 year-old woman with hx of Bipolar Disorder who was brought on a sect 12 by [employer] police due to erratic and disorganized behaviors (not clear extend of situation). However, in the ED, pt presents with paranoid delusions, avoiding to answer questions and disorganized speech which is not her baseline. Utox positive for cannabinoids and fentanyl. Pt reports started to use cannabinoids for severe hip pain- which is well documented by ortho as severe osteo arthritis pending surgery. PLAN 1. Admit to M3, CV, 15 minutes checks for safety. 12/17 d/c carbamazepine per pt request (reports jerk-like movement of upper extremities), increase abilify 20mg po qhs. 12/18 continue tx. 12/19: restart campral, MVI. increase methadone to 70 mg daily per pt request and c/o withdrawal. Reason for continued inpatient stay Substantial Risk for: inability to function and rapid decompensation Time Spent With Patient Time: Total time managing care of this patient today __25__ minutes.
[2022-12-19] MEDS: Acamprosate Calcium 333 MG TABLET.DR 666 MG PO ×2 (16:41→22:50)
[2022-12-19 18:00] VITALS: BP 102/58; PULSE 99; O2SAT 100
[2022-12-19 20:10] VITALS: BP 104/62; PULSE 91; RESP 18; TEMP 36.2; O2SAT 96
[2022-12-19] MEDS: ARIPiprazole 20 MG TABLET PO (22:50)
[2022-12-19] MEDS: traZODone HCL 50 MG TABLET 150 MG PO (22:51)
--- NOTE | 2022-12-20 00:34 | PC.NURSE ---
Cristina was noted to be visible in the day room throughout the evening. she was alert and oriented X'4, ambulating with her walker c/o pain 5/10 but stateds that this is her baseline pain level and did not request pain medication. she endorses moderate depression and anxiety but denies all other psychiatric symptoms. monitor for safety, continue Plan of Care
[2022-12-20] MEDS: Acetaminophen 325 MG TABLET 650 MG PO ×2 (03:09→20:33)
[2022-12-20] MEDS: OLANZapine ODT 10 MG TAB.RAPDIS TRANSLINGU (03:33)
[2022-12-20] MEDS: Omeprazole 20 MG CAPSULE.DR PO (06:26)
[2022-12-20 07:00] VITALS: BMI 31.0
[2022-12-20 08:00] VITALS: BP 118/69; PULSE 91; RESP 18; TEMP 36.6; O2SAT 98
[2022-12-20] MEDS: Acamprosate Calcium 333 MG TABLET.DR 666 MG PO ×3 (08:35→22:50)
[2022-12-20] MEDS: Folic Acid 1 MG TABLET PO (08:35)
[2022-12-20] MEDS: Ibuprofen 800 MG TABLET PO ×3 (08:36→16:59)
[2022-12-20] MEDS: Nicotine 21 MG PATCH.TD24 TRANSDERMA (08:36)
[2022-12-20] MEDS: methADONE HCl 20 MG/2 ML ORAL.CONC 70 MG PO (08:38)
[2022-12-20] MEDS: Gabapentin 100 MG CAPSULE PO ×3 (08:40→22:51)
[2022-12-20] MEDS: Multivitamin TABLET 1 TAB PO (08:40)
[2022-12-20] MEDS: Furosemide 40 MG TABLET PO ×2 (08:40→16:59)
[2022-12-20 18:00] VITALS: BP 120/66; PULSE 92; RESP 18; TEMP 36.6; O2SAT 97
--- NOTE | 2022-12-20 22:11 | P.PNPSI_ITS ---
Subjective Subjective Date of Service: 12/20/22 Reason For Visit: PTSD, bipolar d/o, priscila, opiate use d/o, polysub Subjective Notes: Conditional Voluntary Interim History: Pt reports hip pain getting worse due to mattress and fact that her room is too cold. Pt continues to present with some paranoia, and suspiciousness. She reports she is willing to stay until Saturday when 3 day is up but not longer. She denies SI/HI. She reports poor sleep- up to 3 hrs last night which was confirmed with nurisng. Medication Compliance: Yes Diagnostics Vital Signs (24Hr): Vital Signs - 24 hr 12/20/22 08:00 12/20/22 18:00 Temperature 97.9 F 97.8 F Pulse Rate 91 92 Respiratory Rate 18 18 Blood Pressure 118/69 120/66 Pulse Oximetry 98 97 Oxygen Delivery Method Room Air Room Air BMI result Body Mass Index 31.0 Labs 12/12/22 11:59 12/12/22 11:59 Medications Medications Current Medications Acamprosate (Acamprosate Calcium 333 Mg Tablet.) 666 mg PO TID [facility] Last Admin: 12/20/22 14:33 Dose: 666 mg Acetaminophen (Acetaminophen 325 Mg Tablet) 650 mg PO Q6H PRN PRN Reason: Headache/Pain Mild Scale (1-3) Last Admin: 12/20/22 20:33 Dose: 650 mg Al Hydroxide/Mg Hydroxide (Magnesium Hydrox/Alum Hydrox 30 Ml Oral.Susp) 30 ml PO Q6H PRN PRN Reason: Heartburn/Nausea Last Admin: 12/14/22 21:33 Dose: 30 ml Aripiprazole (Aripiprazole 20 Mg Tablet) 20 mg PO BEDTIME [facility] Last Admin: 12/19/22 22:50 Dose: 20 mg Folic Acid (Folic Acid 1 Mg Tablet) 1 mg PO DAILY [facility] Last Admin: 12/20/22 08:35 Dose: 1 mg Furosemide (Furosemide 40 Mg Tablet) 40 mg PO BID@0900,1800 [facility]; Protocol Last Admin: 12/20/22 16:59 Dose: 40 mg Gabapentin (Gabapentin 100 Mg Capsule) 100 mg PO TID [facility] Last Admin: 12/20/22 14:34 Dose: 100 mg Hydroxyzine HCl (Hydroxyzine Hcl 25 Mg Tablet) 25 mg PO Q6H PRN PRN Reason: Anxiety Hydroxyzine HCl (Hydroxyzine Hcl 50 Mg Tablet) 50 mg PO BID PRN PRN Reason: anxiety Last Admin: 12/19/22 03:25 Dose: 50 mg Ibuprofen (Ibuprofen 800 Mg Tablet) 800 mg PO TIDWM [facility] Last Admin: 12/20/22 16:59 Dose: 800 mg Magnesium Hydroxide (Milk Of Magnesia 30 Ml Oral.Susp) 30 ml PO DAILY PRN PRN Reason: Constipation Methadone HCl (Methadone Hcl 20 Mg/2 Ml Oral.Conc) 70 mg PO DAILY [facility] Last Admin: 12/20/22 08:38 Dose: 70 mg Multivitamins/Vitamin C (Multivitamin Tablet) 1 tab PO DAILY [facility] Last Admin: 12/20/22 08:40 Dose: 1 tab Nicotine (Nicotine 21 Mg Patch.Td24) 21 mg TRANSDERMA DAILY [facility] Last Admin: 12/20/22 08:36 Dose: 21 mg Nicotine Polacrilex (Nicotine Polacrilex 2 Mg Gum) 2 mg BUCCAL Q2H PRN PRN Reason: Nicotine Cravings Last Admin: 12/19/22 14:35 Dose: 2 mg Olanzapine (Olanzapine Odt 10 Mg Tab.Rapdis) 10 mg TRANSLINGU Q6H PRN PRN Reason: agitation Last Admin: 12/20/22 03:33 Dose: 10 mg Omeprazole (Omeprazole 20 Mg Capsule.Dr) 20 mg PO DAILY@0600 [facility] Last Admin: 12/20/22 06:26 Dose: 20 mg Trazodone HCl (Trazodone Hcl 50 Mg Tablet) 150 mg PO BEDTIME [facility] Last Admin: 12/19/22 22:51 Dose: 150 mg Allergies Allergies Allergy/AdvReac Type Severity Reaction Status Date / Time amoxicillin [Amoxicillin] Allergy Mild RASH & Verified 05/10/22 10:46 DIZZINESS, Dizziness Assessment & Plan Assessment & Plan (1) Bipolar I disorder with priscila: Status: Acute Code(s): F31.10 - Bipolar disorder, current episode manic without psychotic features, unspecified Plan Mrs. Larsen is a 57 year-old woman with hx of Bipolar Disorder who was brought on a sect 12 by [employer] police due to erratic and disorganized behaviors (not clear extend of situation). However, in the ED, pt presents with paranoid delusions, avoiding to answer questions and disorganized speech which is not her baseline. Utox positive for cannabinoids and fentanyl. Pt reports started to use cannabinoids for severe hip pain- which is well documented by ortho as severe osteo arthritis pending surgery. PLAN 1. Admit to M3, CV, 15 minutes checks for safety. 12/17 d/c carbamazepine per pt request (reports jerk-like movement of upper extremities), increase abilify 20mg po qhs. 12/18 continue tx. 12/19: restart campral, MVI. increase methadone to 70 mg daily per pt request and c/o withdrawal. 12/20 continue tx. Reason for continued inpatient stay Substantial Risk for: inability to function Time Spent With Patient Time: Total time managing care of this patient today ____ minutes.
--- NOTE | 2022-12-20 22:38 | PC.NURSE ---
Cristina is noted to be alert and oriented with this literary writer, no periods of confusion noted thus far this evening. c/o pain 10/10 positive effect from PRN Tylenol. no behavioral concerns, monitor for safety, continue Plan of Care
[2022-12-20] MEDS: ARIPiprazole 20 MG TABLET PO (22:50)
[2022-12-20] MEDS: traZODone HCL 50 MG TABLET 150 MG PO (22:51)
[2022-12-21] MEDS: Acetaminophen 325 MG TABLET 650 MG PO (04:20)
[2022-12-21] MEDS: hydrOXYzine HCL 50 MG TABLET PO (04:24)
--- NOTE | 2022-12-21 06:02 | PC.NURSE ---
Cristina awoke at 0345 demanding her Methadone, she was yelling and swearing at staff. she was verbally aggressive with peer KT she intruded on his personal space make derogatory comments about him but did not assault him. she threw her walker across the day room. she took her Tylenol and Atarax but refused Zyprexa. she went back to bed by 0530
[2022-12-21] MEDS: Omeprazole 20 MG CAPSULE.DR PO (06:36)
[2022-12-21 08:00] VITALS: BP 136/61; PULSE 96; TEMP 36.6; O2SAT 98
[2022-12-21] MEDS: Acamprosate Calcium 333 MG TABLET.DR 666 MG PO ×3 (08:11→22:06)
[2022-12-21] MEDS: Ibuprofen 800 MG TABLET PO ×3 (08:11→17:32)
[2022-12-21] MEDS: Folic Acid 1 MG TABLET PO (08:12)
[2022-12-21] MEDS: Multivitamin TABLET 1 TAB PO (08:13)
[2022-12-21] MEDS: Furosemide 40 MG TABLET PO ×2 (08:13→17:33)
[2022-12-21] MEDS: Gabapentin 100 MG CAPSULE PO ×2 (08:13→14:04)
[2022-12-21] MEDS: methADONE HCl 20 MG/2 ML ORAL.CONC 70 MG PO (08:14)
[2022-12-21] MEDS: Nicotine 21 MG PATCH.TD24 TRANSDERMA (08:14)
[2022-12-21] MEDS: Nicotine Polacrilex 2 MG GUM BUCCAL ×2 (14:05→19:36)
[2022-12-21] MEDS: LORazepam 1 MG TABLET PO (15:39)
[2022-12-21] MEDS: Gabapentin 300 MG CAPSULE PO ×2 (15:39→22:06)
[2022-12-21 20:05] VITALS: BP 110/70; PULSE 97; RESP 18; TEMP 36.6; O2SAT 97
--- NOTE | 2022-12-21 21:06 | P.PNPSI_ITS ---
Subjective Subjective Date of Service: 12/21/22 Reason For Visit: PTSD, bipolar d/o, priscila, opiate use d/o, polysub Subjective Notes: Conditional Voluntary and 3 Day Interim History: Pt presents with some paranoia, less than when she first came in. Her speech is more linear and logical. But she does continue to present with some confusion- in that she is not able at times to remember which one is her room. She still reports not feeling able to trust as she worries someone may be trying to hurt her. No behavioral concerns. Sleep continues to be problematic, increase gabapentin and trazodone. Continue abilify- monitor for akathisia. Medication Compliance: Yes Review of Systems Review of Systems Hip pain Left, uses walker No SOB, no cough No chest pain No diarrhea, no constipation Mental Status Exam Mental Status Exam Narrative: Appearance: hospital clothing, fair hygiene, in NAD Behavior: calm, cooperative PSychomotor: no agitation or retardation noted Speech: clear, some delayed at times, spontaneous TP: disorganized, difficult to follow TC: on meds she needs Mood: not assessed Affect: somewhat guarded, irritable, min-labile SI: none expressed HI: none expressed VH/AH: none expressed Insight/judgment: limited x 2. Memory/cog: alert, oriented x 3. not fully to situation Diagnostics Vital Signs (24Hr): Vital Signs - 24 hr 12/21/22 08:00 Temperature 97.8 F Pulse Rate 96 Blood Pressure 136/61 Pulse Oximetry 98 Oxygen Delivery Method Room Air BMI result Body Mass Index 31.0 Labs 12/12/22 11:59 12/12/22 11:59 Medications Medications Current Medications Acamprosate (Acamprosate Calcium 333 Mg Tablet.) 666 mg PO TID [facility] Last Admin: 12/21/22 14:04 Dose: 666 mg Acetaminophen (Acetaminophen 325 Mg Tablet) 650 mg PO Q6H PRN PRN Reason: Headache/Pain Mild Scale (1-3) Last Admin: 12/21/22 04:20 Dose: 650 mg Al Hydroxide/Mg Hydroxide (Magnesium Hydrox/Alum Hydrox 30 Ml Oral.Susp) 30 ml PO Q6H PRN PRN Reason: Heartburn/Nausea Last Admin: 12/14/22 21:33 Dose: 30 ml Aripiprazole (Aripiprazole 20 Mg Tablet) 20 mg PO BEDTIME [facility] Last Admin: 12/20/22 22:50 Dose: 20 mg Folic Acid (Folic Acid 1 Mg Tablet) 1 mg PO DAILY [facility] Last Admin: 12/21/22 08:12 Dose: 1 mg Furosemide (Furosemide 40 Mg Tablet) 40 mg PO BID@0900,1800 [facility]; Protocol Last Admin: 12/21/22 17:33 Dose: 40 mg Gabapentin (Gabapentin 300 Mg Capsule) 300 mg PO TID [facility] Last Admin: 12/21/22 15:39 Dose: 300 mg Hydroxyzine HCl (Hydroxyzine Hcl 25 Mg Tablet) 25 mg PO Q6H PRN PRN Reason: Anxiety Hydroxyzine HCl (Hydroxyzine Hcl 50 Mg Tablet) 50 mg PO BID PRN PRN Reason: anxiety Last Admin: 12/21/22 04:24 Dose: 50 mg Ibuprofen (Ibuprofen 800 Mg Tablet) 800 mg PO TIDWM [facility] Last Admin: 12/21/22 17:32 Dose: 800 mg Magnesium Hydroxide (Milk Of Magnesia 30 Ml Oral.Susp) 30 ml PO DAILY PRN PRN Reason: Constipation Methadone HCl (Methadone Hcl 20 Mg/2 Ml Oral.Conc) 70 mg PO DAILY [facility] Last Admin: 12/21/22 08:14 Dose: 70 mg Multivitamins/Vitamin C (Multivitamin Tablet) 1 tab PO DAILY [facility] Last Admin: 12/21/22 08:13 Dose: 1 tab Nicotine (Nicotine 21 Mg Patch.Td24) 21 mg TRANSDERMA DAILY [facility] Last Admin: 12/21/22 08:14 Dose: 21 mg Nicotine Polacrilex (Nicotine Polacrilex 2 Mg Gum) 2 mg BUCCAL Q2H PRN PRN Reason: Nicotine Cravings Last Admin: 12/21/22 19:36 Dose: 2 mg Olanzapine (Olanzapine Odt 10 Mg Tab.Rapdis) 10 mg TRANSLINGU Q6H PRN PRN Reason: agitation Last Admin: 12/20/22 03:33 Dose: 10 mg Omeprazole (Omeprazole 20 Mg Capsule.Dr) 20 mg PO DAILY@0600 [facility] Last Admin: 12/21/22 06:36 Dose: 20 mg Trazodone HCl (Trazodone Hcl 50 Mg Tablet) 150 mg PO BEDTIME [facility] Last Admin: 12/20/22 22:51 Dose: 150 mg Allergies Allergies Allergy/AdvReac Type Severity Reaction Status Date / Time amoxicillin [Amoxicillin] Allergy Mild RASH & Verified 05/10/22 10:46 DIZZINESS, Dizziness Assessment & Plan Assessment & Plan (1) Bipolar I disorder with priscila: Status: Acute Code(s): F31.10 - Bipolar disorder, current episode manic without psychotic features, unspecified Plan Mrs. Larsen is a 57 year-old woman with hx of Bipolar Disorder who was brought on a sect 12 by [employer] [place] police due to erratic and disorganized behaviors (not clear extend of situation). However, in the ED, pt presents with paranoid d elusions, avoiding to answer questions and disorganized speech which is not her baseline. Utox positive for cannabinoids and fentanyl. Pt reports started to use cannabinoids for severe hip pain- which is well documented by ortho as severe osteo arthritis pending surgery. PLAN 1. Admit to M3, CV, 15 minutes checks for safety. 12/17 d/c carbamazepine per pt request (reports jerk-like movement of upper extremities), increase abilify 20mg po qhs. 12/18 continue tx. 12/19: restart campral, MVI. increase methadone to 70 mg daily per pt request and c/o withdrawal. 12/20 continue tx. 12/21 increase gabapentin to 300mg po TID increase trazodone to 200mg po qhs. Reason for continued inpatient stay Substantial Risk for: inability to function Time Spent With Patient Time: Total time managing care of this patient today ____ minutes.
[2022-12-21] MEDS: traZODone HCL 50 MG TABLET 150 MG PO (22:05)
[2022-12-21] MEDS: ARIPiprazole 20 MG TABLET PO (22:06)
[2022-12-22 06:00] VITALS: BP 122/78; PULSE 96; RESP 18; TEMP 36.4; O2SAT 98
[2022-12-22] MEDS: Omeprazole 20 MG CAPSULE.DR PO (06:41)
[2022-12-22] MEDS: Acetaminophen 325 MG TABLET 650 MG PO ×2 (06:47→15:21)
[2022-12-22] MEDS: Magnesium Hydrox/Alum Hydrox 30 ML ORAL.SUSP PO ×2 (08:56→17:03)
[2022-12-22] MEDS: Nicotine 21 MG PATCH.TD24 TRANSDERMA (08:56)
[2022-12-22] MEDS: Ibuprofen 800 MG TABLET PO ×3 (08:57→17:03)
[2022-12-22] MEDS: Folic Acid 1 MG TABLET PO (08:57)
[2022-12-22] MEDS: Multivitamin TABLET 1 TAB PO (08:57)
[2022-12-22] MEDS: Acamprosate Calcium 333 MG TABLET.DR 666 MG PO ×3 (08:57→21:24)
[2022-12-22] MEDS: methADONE HCl 20 MG/2 ML ORAL.CONC 70 MG PO (08:58)
[2022-12-22] MEDS: Gabapentin 300 MG CAPSULE PO ×3 (08:58→21:25)
[2022-12-22] MEDS: Furosemide 40 MG TABLET PO ×2 (08:58→17:03)
[2022-12-22] MEDS: Nicotine Polacrilex 2 MG GUM BUCCAL ×2 (11:15→15:21)
--- NOTE | 2022-12-22 16:57 | HO.PSYCHPN ---
Subjective Subjective Date of Service: 12/22/22 Reason For Visit: PTSD, bipolar d/o, priscila, opiate use d/o, polysub Interim History: pt comes to interview room and declines to sit but rather stands near the door. she states, i don't need anything, turns, and exits the room. per staff, 3-day notice up 12/24. slept about 6 hours. less irritable today. moments of confusion. med and meal compliant. anx/dep 10. states sleep is poor. guarded. safe. Mental Status Exam Mental Status Exam Narrative: Appearance: hospital clothing, fair hygiene, in NAD Behavior: calm, cooperative PSychomotor: no agitation or retardation noted Speech: clear, some delayed at times, spontaneous TP: disorganized, difficult to follow TC: on meds she needs Mood: not assessed Affect: somewhat guarded, irritable, min-labile SI: none expressed HI: none expressed VH/AH: none expressed Insight/judgment: limited x 2. Memory/cog: alert, oriented x 3. not fully to situation Diagnostics Vital Signs (24Hr): Vital Signs - 24 hr 12/21/22 20:05 12/22/22 06:00 Temperature 97.8 F 97.6 F Pulse Rate 97 96 Respiratory Rate 18 18 Blood Pressure 110/70 122/78 Pulse Oximetry 97 98 Oxygen Delivery Method Room Air Room Air BMI result Body Mass Index 31.0 Labs 12/12/22 11:59 12/12/22 11:59 Medications Medications Current Medications Acamprosate (Acamprosate Calcium 333 Mg Tablet.) 666 mg PO TID [facility] Last Admin: 12/22/22 15:21 Dose: 666 mg Acetaminophen (Acetaminophen 325 Mg Tablet) 650 mg PO Q6H PRN PRN Reason: Headache/Pain Mild Scale (1-3) Last Admin: 12/22/22 15:21 Dose: 650 mg Al Hydroxide/Mg Hydroxide (Magnesium Hydrox/Alum Hydrox 30 Ml Oral.Susp) 30 ml PO Q6H PRN PRN Reason: Heartburn/Nausea Last Admin: 12/22/22 08:56 Dose: 30 ml Aripiprazole (Aripiprazole 20 Mg Tablet) 20 mg PO BEDTIME [facility] Last Admin: 12/21/22 22:06 Dose: 20 mg Folic Acid (Folic Acid 1 Mg Tablet) 1 mg PO DAILY [facility] Last Admin: 12/22/22 08:57 Dose: 1 mg Furosemide (Furosemide 40 Mg Tablet) 40 mg PO BID@0900,1800 [facility]; Protocol Last Admin: 12/22/22 08:58 Dose: 40 mg Gabapentin (Gabapentin 300 Mg Capsule) 300 mg PO TID [facility] Last Admin: 12/22/22 15:21 Dose: 300 mg Hydroxyzine HCl (Hydroxyzine Hcl 25 Mg Tablet) 25 mg PO Q6H PRN PRN Reason: Anxiety Hydroxyzine HCl (Hydroxyzine Hcl 50 Mg Tablet) 50 mg PO BID PRN PRN Reason: anxiety Last Admin: 12/21/22 04:24 Dose: 50 mg Ibuprofen (Ibuprofen 800 Mg Tablet) 800 mg PO TIDWM [facility] Last Admin: 12/22/22 11:15 Dose: 800 mg Magnesium Hydroxide (Milk Of Magnesia 30 Ml Oral.Susp) 30 ml PO DAILY PRN PRN Reason: Constipation Methadone HCl (Methadone Hcl 20 Mg/2 Ml Oral.Conc) 70 mg PO DAILY [facility] Last Admin: 12/22/22 08:58 Dose: 70 mg Multivitamins/Vitamin C (Multivitamin Tablet) 1 tab PO DAILY [facility] Last Admin: 12/22/22 08:57 Dose: 1 tab Nicotine (Nicotine 21 Mg Patch.Td24) 21 mg TRANSDERMA DAILY [facility] Last Admin: 12/22/22 08:56 Dose: 21 mg Nicotine Polacrilex (Nicotine Polacrilex 2 Mg Gum) 2 mg BUCCAL Q2H PRN PRN Reason: Nicotine Cravings Last Admin: 12/22/22 15:21 Dose: 2 mg Olanzapine (Olanzapine Odt 10 Mg Tab.Rapdis) 10 mg TRANSLINGU Q6H PRN PRN Reason: agitation Last Admin: 12/20/22 03:33 Dose: 10 mg Omeprazole (Omeprazole 20 Mg Capsule.Dr) 20 mg PO DAILY@0600 [facility] Last Admin: 12/22/22 06:41 Dose: 20 mg Trazodone HCl (Trazodone Hcl 50 Mg Tablet) 150 mg PO BEDTIME [facility] Last Admin: 12/21/22 22:05 Dose: 150 mg Allergies Allergies Allergy/AdvReac Type Severity Reaction Status Date / Time amoxicillin [Amoxicillin] Allergy Mild RASH & Verified 05/10/22 10:46 DIZZINESS, Dizziness Assessment & Plan Assessment & Plan (1) Bipolar I disorder with priscila: Status: Acute Code(s): F31.10 - Bipolar disorder, current episode manic without psychotic features, unspecified Plan Mrs. Larsen is a 57 year-old woman with hx of Bipolar Disorder who was brought on a sect 12 by [employer] police due to erratic and disorganized behaviors (not clear extend of situation). However, in the ED, pt presents with paranoid delusions, avoiding to answer questions and disorganized speech which is not her baseline. Utox positive for cannabinoids and fentanyl. Pt reports started to use cannabinoids for severe hip pain- which is well documented by ortho as severe osteo arthritis pending surgery. PLAN 1. Admit to M3, CV, 15 minutes checks for safety. 12/17 d/c carbamazepine per pt request (reports jerk-like movement of upper extremities), increase abilify 20mg po qhs. 12/18 continue tx. 12/19: restart campral, MVI. increase methadone to 70 mg daily per pt request and c/o withdrawal. 12/20 continue tx. 12/21 increase gabapentin to 300mg po TID increase trazodone to 200mg po qhs. 12/22: continue current mgmt. eli villnaueva presentation. Reason for continued inpatient stay Substantial Risk for: inability to function and rapid decompensation Time Spent With Patient Time: Total time managing care of this patient today ____ minutes.
[2022-12-22 18:00] VITALS: BP 124/70; PULSE 89; RESP 14; TEMP 36.3; O2SAT 96
[2022-12-22 21:00] VITALS: BP 123/70; PULSE 96
[2022-12-23] MEDS: traZODone HCL 50 MG TABLET 150 MG PO ×2 (00:04→23:01)
[2022-12-23] MEDS: Acetaminophen 325 MG TABLET 650 MG PO ×3 (00:06→15:49)
[2022-12-23] MEDS: ARIPiprazole 20 MG TABLET PO ×2 (00:06→23:01)
[2022-12-23 06:00] VITALS: BP 122/62; PULSE 90; RESP 16; TEMP 36.7; O2SAT 97
[2022-12-23] MEDS: Ibuprofen 800 MG TABLET PO ×3 (06:11→17:25)
[2022-12-23] MEDS: Omeprazole 20 MG CAPSULE.DR PO (06:15)
[2022-12-23] MEDS: Nicotine 21 MG PATCH.TD24 TRANSDERMA (08:13)
[2022-12-23] MEDS: Acamprosate Calcium 333 MG TABLET.DR 666 MG PO ×3 (08:14→23:01)
[2022-12-23] MEDS: Multivitamin TABLET 1 TAB PO (08:14)
[2022-12-23] MEDS: Folic Acid 1 MG TABLET PO (08:15)
[2022-12-23] MEDS: Gabapentin 300 MG CAPSULE PO ×3 (08:15→23:02)
[2022-12-23] MEDS: Furosemide 40 MG TABLET PO ×2 (08:15→17:25)
[2022-12-23] MEDS: methADONE HCl 20 MG/2 ML ORAL.CONC 70 MG PO (08:15)
[2022-12-23] MEDS: Nicotine Polacrilex 2 MG GUM BUCCAL (12:30)
[2022-12-23] MEDS: Magnesium Hydrox/Alum Hydrox 30 ML ORAL.SUSP PO (15:49)
[2022-12-23] MEDS: carBAMazepine ER 200 MG TAB.ER.12H PO ×2 (15:49→23:02)
--- NOTE | 2022-12-23 16:53 | P.PNPSI_ITS ---
Subjective Subjective Date of Service: 12/23/22 Reason For Visit: PTSD, bipolar d/o, priscila, opiate use d/o, polysub Interim History: pt asking for lamictal for racing thoughts and buspar for anxiety. educates pt about 3 evidence-based carly stabilizers. pt stats she has been on tegretol in the past and it seemed to work OK, asks to restart it. counseled to await tegretol results prior to adding anything for anxiety to see how tegretol changes anxiety. pt state she intends to take edibles after she leaves for her anxiety, anyway. planning to discharge tomorrow. per staff, 3-day up tomorrow. irritable late afternoon, eves. less confused in the afternoon. angry, isolat lavinia eves. slept about 3 hours overnight. Mental Status Exam Mental Status Exam Narrative: Appearance: hospital clothing, fair hygiene, in NAD Behavior: calm, cooperative PSychomotor: no agitation or retardation noted Speech: clear, spontaneous TP: more organized, easier to follow TC: on meds she needs Mood: not assessed Affect: calm, non-labile SI: none expressed HI: none expressed VH/AH: none expressed Insight/judgment: limited x 2. Memory/cog: alert, oriented x 3. not fully to situation Diagnostics Vital Signs (24Hr): Vital Signs - 24 hr 12/22/22 18:00 12/22/22 21:00 12/23/22 06:00 Temperature 97.3 F 98.1 F Pulse Rate 89 96 90 Respiratory Rate 14 16 Blood Pressure 124/70 123/70 122/62 Pulse Oximetry 96 97 Oxygen Delivery Method Room Air Room Air BMI result Body Mass Index 31.0 Labs 12/12/22 11:59 12/12/22 11:59 Medications Medications Current Medications Acamprosate (Acamprosate Calcium 333 Mg Tablet.) 666 mg PO TID [facility] Last Admin: 12/23/22 15:49 Dose: 666 mg Acetaminophen (Acetaminophen 325 Mg Tablet) 650 mg PO Q6H PRN PRN Reason: Headache/Pain Mild Scale (1-3) Last Admin: 12/23/22 15:49 Dose: 650 mg Al Hydroxide/Mg Hydroxide (Magnesium Hydrox/Alum Hydrox 30 Ml Oral.Susp) 30 ml PO Q6H PRN PRN Reason: Heartburn/Nausea Last Admin: 12/23/22 15:49 Dose: 30 ml Aripiprazole (Aripiprazole 20 Mg Tablet) 20 mg PO BEDTIME [facility] Last Admin: 12/23/22 00:06 Dose: 20 mg Carbamazepine (Carbamazepine Er 200 Mg Tab.Er.12h) 200 mg PO BID [facility] Last Admin: 12/23/22 15:49 Dose: 200 mg Folic Acid (Folic Acid 1 Mg Tablet) 1 mg PO DAILY [facility] Last Admin: 12/23/22 08:15 Dose: 1 mg Furosemide (Furosemide 40 Mg Tablet) 40 mg PO BID@0900,1800 [facility]; Protocol Last Admin: 12/23/22 08:15 Dose: 40 mg Gabapentin (Gabapentin 300 Mg Capsule) 300 mg PO TID [facility] Last Admin: 12/23/22 15:49 Dose: 300 mg Hydroxyzine HCl (Hydroxyzine Hcl 25 Mg Tablet) 25 mg PO Q6H PRN PRN Reason: Anxiety Hydroxyzine HCl (Hydroxyzine Hcl 50 Mg Tablet) 50 mg PO BID PRN PRN Reason: anxiety Last Admin: 12/21/22 04:24 Dose: 50 mg Ibuprofen (Ibuprofen 800 Mg Tablet) 800 mg PO TIDWM [facility] Last Admin: 12/23/22 12:07 Dose: 800 mg Magnesium Hydroxide (Milk Of Magnesia 30 Ml Oral.Susp) 30 ml PO DAILY PRN PRN Reason: Constipation Methadone HCl (Methadone Hcl 20 Mg/2 Ml Oral.Conc) 70 mg PO DAILY [facility] Last Admin: 12/23/22 08:15 Dose: 70 mg Multivitamins/Vitamin C (Multivitamin Tablet) 1 tab PO DAILY [facility] Last Admin: 12/23/22 08:14 Dose: 1 tab Nicotine (Nicotine 21 Mg Patch.Td24) 21 mg TRANSDERMA DAILY [facility] Last Admin: 12/23/22 08:13 Dose: 21 mg Nicotine Polacrilex (Nicotine Polacrilex 2 Mg Gum) 2 mg BUCCAL Q2H PRN PRN Reason: Nicotine Cravings Last Admin: 12/23/22 12:30 Dose: 2 mg Olanzapine (Olanzapine Odt 10 Mg Tab.Rapdis) 10 mg TRANSLINGU Q6H PRN PRN Reason: agitation Last Admin: 12/20/22 03:33 Dose: 10 mg Omeprazole (Omeprazole 20 Mg Capsule.Dr) 20 mg PO DAILY@0600 [facility] Last Admin: 12/23/22 06:15 Dose: 20 mg Trazodone HCl (Trazodone Hcl 50 Mg Tablet) 150 mg PO BEDTIME [facility] Last Admin: 12/23/22 00:04 Dose: 150 mg Allergies Allergies Allergy/AdvReac Type Severity Reaction Status Date / Time amoxicillin [Amoxicillin] Allergy Mild RASH & Verified 05/10/22 10:46 DIZZINESS, Dizziness Assessment & Plan Assessment & Plan (1) Bipolar I disorder with priscila: Status: Acute Code(s): F31.10 - Bipolar disorder, current episode manic without psychotic features, unspecified Plan Mrs. Larsen is a 57 year-old woman with hx of Bipolar Disorder who was brought on a sect 12 by [employer] police due to erratic and disorganized behaviors (not clear extend of situation). However, in the ED, pt presents with paranoid delusions, avoiding to answer questions and disorganized speech which is not her baseline. Utox positive for cannabinoids and fentanyl. Pt reports started to use cannabinoids for severe hip pain- which is well documented by ortho as severe osteo arthritis pending surgery. PLAN 1. Admit to M3, CV, 15 minutes checks for safety. 12/17 d/c carbamazepine per pt request (reports jerk-like movement of upper e xtremities), increase abilify 20mg po qhs. 12/18 continue tx. 12/19: restart campral, MVI. increase methadone to 70 mg daily per pt request and c/o withdrawal. 12/20 continue tx. 12/21 increase gabapentin to 300mg po TID increase trazodone to 200mg po qhs. 12/22: continue current mgmt. eli villanueva presentation. 12/23: more agreeable, asks to start tegretol. started at 200 BID. still planning to DC tomorrow. Reason for continued inpatient stay Substantial Risk for: inability to function and rapid decompensation Time Spent With Patient Time: Total time managing care of this patient today ____ minutes.
[2022-12-23 20:25] VITALS: BP 128/85; PULSE 91; RESP 18; TEMP 36.6; O2SAT 98
[2022-12-24] MEDS: Acetaminophen 325 MG TABLET 650 MG PO (01:49)
[2022-12-24] MEDS: Omeprazole 20 MG CAPSULE.DR PO (06:21)
[2022-12-24] MEDS: Acamprosate Calcium 333 MG TABLET.DR 666 MG PO (08:11)
[2022-12-24] MEDS: Furosemide 40 MG TABLET PO (08:11)
[2022-12-24] MEDS: Multivitamin TABLET 1 TAB PO (08:12)
[2022-12-24] MEDS: carBAMazepine ER 200 MG TAB.ER.12H PO (08:12)
[2022-12-24] MEDS: Ibuprofen 800 MG TABLET PO ×2 (08:13→11:52)
[2022-12-24] MEDS: Gabapentin 300 MG CAPSULE PO (08:13)
[2022-12-24] MEDS: Folic Acid 1 MG TABLET PO (08:14)
[2022-12-24] MEDS: methADONE HCl 20 MG/2 ML ORAL.CONC 70 MG PO (08:15)
[2022-12-24] MEDS: Nicotine 21 MG PATCH.TD24 TRANSDERMA (08:17)
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
== END 2022-12-24 13:43 | disposition home or self-care (01) | DRG 885 ==
LOC: HO.ED 07:25 → HO.PADLT16 12-13 17:47
PROVIDERS: Clinical Nurse Specialist Psychiatric/Mental Health, Adult; Student in an Organized Health Care Education/Training Program; Admitting Provider Psychiatry & Neurology Psychiatry; Emergency Provider Emergency Medicine Emergency Medical Services; PCP Family Medicine; Visit Provider Social Worker
DX: F31.10 Bipolar disorder, current episode manic without psychotic features, unspecified (principal); F11.20 Opioid dependence, uncomplicated; Z20.822 Contact with and (suspected) exposure to COVID-19; Z91.52 Personal history of nonsuicidal self-harm; Z88.0 Allergy status to penicillin; Z79.899 Other long term (current) drug therapy
CPT/HCPCS: 36415; 80053; 80061; 80307; 81003; 82077; 82607; 82746; 83036; 83735; 84439; 84443; 85025; 87635; 93005; 99285; J1200; J2060; S9485

== ENCOUNTER 2023-01-02 19:50 | Inpatient (IN) | payer MEDICARE, MEDICAID, SELFPAY ==
--- NOTE | ~2023-01-02 | XR_ITS ---
EXAMINATION: XR RIBS, BILATERAL CLINICAL INFORMATION: Pain COMPARISON: None available. TECHNIQUE: 3 views of the bilateral ribs were obtained. FINDINGS: Lungs are clear. No consolidation, pneumothorax, or pleural effusion. The cardiomediastinal silhouette and pulmonary vasculature are normal. No acute fracture. Old left fifth and sixth rib fractures. Degenerative changes of the thoracic spine and mild curvature to the right. XR/XR ribs BI min 4V w CXR1V IMPRESSION: No evidence for acute disease in the chest. No acute rib fracture.
--- NOTE | ~2023-01-02 | XR_ITS ---
EXAMINATION: XR SHOULDER, RIGHT CLINICAL INFORMATION: Pain. COMPARISON: None available. TECHNIQUE: Three views of the right shoulder. The patient apparently was unable to lift arm at the time of the imaging. FINDINGS: The bony alignment is intact. Mild diffuse osteopenia is noted involving all the visualized bones. The cortices are intact. Mild osteoarthrosis of the acromioclavicular joint. The soft tissues are unremarkable. XR/XR shoulder RT min 2V IMPRESSION: 1. Mild diffuse osteopenia. 2. Mild osteoarthrosis of the right acromioclavicular joint. 3. No radiographic evidence of any acute fracture, subluxation or dislocation.
[2023-01-02 21:14] VITALS: BP 131/81; PULSE 81; RESP 16; TEMP 36.6; O2SAT 98
[2023-01-02] MEDS: traZODone HCL 50 MG TABLET PO (22:11)
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
[2023-01-03] MEDS: Acetaminophen 325 MG TABLET 650 MG PO ×3 (01:46→23:49)
[2023-01-03] MEDS: hydrOXYzine HCL 25 MG TABLET PO (01:47)
[2023-01-03] MEDS: OLANZapine 10 MG VIAL IM (02:25)
[2023-01-03] MEDS: LORazepam 2 MG/ML VIAL IM (02:25)
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
--- NOTE | 2023-01-03 06:47 | PC.NURSE ---
RN ATTEMPTED TO VERIFY METHADONE DOSE WITH [facility] IN [place] AT 0620. CLINIC REPORTED THAT PT HAS NOT BEEN DOSED THERE SINCE OCTOBER OF 2020. RN ASKED PT IF SHE HAS BEEN DOSED ANYWHERE ELSE AND PT TOLD RN TO FUCK HERSELF AND FIGURE IT OUT . PT WAS MADE AWARE THAT SHE NEEDED METHADONE VERIFIED. MD EDDY MADE AWARE.
[2023-01-03 07:00] VITALS: BMI 29.7
[2023-01-03 08:05] VITALS: BP 113/70; PULSE 73; RESP 18; TEMP 36.3; O2SAT 97
[2023-01-03 09:09] LABS: Estimated Average Glucose 100 mg/dL; Hemoglobin A1c % 5.1 %
[2023-01-03 09:31] LABS: Alanine Aminotransferase 30 U/L (0-31); Albumin Level 3.2 g/dL (3.5-5.0); Alkaline Phosphatase 94 U/L (39-117); Anion Gap 9 (12-20); Aspartate Amino Transferase 40 U/L (5-31); Bilirubin Total 0.4 mg/dL (0.0-1.0); Blood Urea Nitrogen 16 mg/dL (9-16); Calcium 8.9 mg/dL (8.4-10.2); Carbon Dioxide 27 mmol/L (22-29); Chloride 97 mmol/L (96-108); Cholesterol 125 mg/dL; Estimated Glomerular Filt Rate > 60; Glucose Fasting 84 mg/dL (60-99); HDL Cholesterol 42 mg/dL; LDL Cholesterol Calculated 70 mg/dl; Magnesium 1.7 mg/dL (1.6-2.6); Potassium 4.8 mmol/L (3.3-5.1); Sodium 128 mmol/L (135-145); Total Protein 6.1 g/dL (6.5-8.0); Triglycerides 67 mg/dL
[2023-01-03 10:00] LABS: Folate 15.8 ng/mL (> or = 4.0); Free T4 (Free Thyroxine) 1.01 ng/dL (0.71-1.85); Thyroid Stimulating Hormone 1.63 uIU/mL (0.32-4.0); Vitamin B12 456 pg/mL (200-900)
--- NOTE | 2023-01-03 11:34 | P.CONHOSP_ITS ---
History of Present Illness Data of Consult Service Date: 01/03/23 Primary Care Provider: Unknown Physician HPI Reason for consult: Admission H&P Pt is a 57-year-old female with a PMH significant for bipolar disorder, opioid use disorder in remission on methadone, and PTSD who is admitted to [facility] psychiatry unit for medication noncompliance and erratic behavior with SI with a plan to hang or cut herself. Medical consult for admission H&P. ?Pt seen in isolation d/t disruptive and assaultive behavior toward staff. Patient declines both interview and exam. Labs reviewed, significant for sodium of 128. Review of Systems Review of Systems: Patient refused interview [facility] Medical History Acute post-traumatic stress disorder Bipolar I disorder with priscila Osteoarthritis Polysubstance use disorder Social History Household Members: None Housing: House Do you presently have visiting nurse or other home services: No Unable to assess alcohol history related to: Refusing to respond Alcohol intake: never Patient Tobacco Use Status: Refuse Tobacco use screen Tobacco use type: Cigarette Cigarette Packs Per Day: 1 Cigarettes Per Day: 20.0 Smoked in Last 30 Days: Yes e-Cigarette/Vaping Use: Currently Using Patient Interested in Nicotine Replacement: Yes Patient Given Instructions on How to Stop Smoking: Yes Date Education Initiated: 01/02/23 Second Hand Smoke Exposure: No Use of substances other than those prescribed or required for medical reasons: Yes Substance Use Type: Marijuana Substance Use Frequency: Daily Last Used Substance: Days (ago) Currently Displaying Signs/Symptoms of Drug Intoxication Withdrawal: No Any prior treatment program specific to substance use: No Have you been hit, kicked, punched, or otherwise hurt by someone within the past year? If so, by whom?: No Do you feel safe in your current relationship?: No Current Relationship Is there a partner from a previous relationship who is making you feel unsafe now?: No Are you made to feel afraid or neglected: No Spiritual Healthcare Practices: N/A Temple Healthcare Practices: N/A Cultural Healthcare Practices: N/A Advance Directives: No Advance Directives Information Provided: Yes Do you have thoughts of harming others: None Do you have a plan to hurt others: No Plan Recently lost weight without trying: No How much weight loss: Not applicable Eating poorly because of decreased appetite: No Nutrition screen score: 0 Nutrition Risks: No Nutritional Risk Patient : No : No Poor oral hygiene: No service: No Sexual orientation: Don't Know Meds Allergies Allergy/AdvReac Type Severity Reaction Status Date / Time amoxicillin [Amoxicillin] Allergy Mild RASH & Verified 05/10/22 10:46 DIZZINESS, Dizziness Active Medications: Current Medications Acetaminophen (Acetaminophen 325 Mg Tablet) 650 mg PO Q6H PRN PRN Reason: Headache/Pain Mild Scale (1-3) Last Admin: 01/03/23 01:46 Dose: 650 mg Al Hydroxide/Mg Hydroxide (Magnesium Hydrox/Alum Hydrox 30 Ml Oral.Susp) 30 ml PO Q6H PRN PRN Reason: Heartburn/Nausea Hydroxyzine HCl (Hydroxyzine Hcl 25 Mg Tablet) 25 mg PO Q6H PRN PRN Reason: Anxiety Last Admin: 01/03/23 01:47 Dose: 25 mg Magnesium Hydroxide (Milk Of Magnesia 30 Ml Oral.Susp) 30 ml PO DAILY PRN PRN Reason: Constipation Melatonin (Melatonin 3 Mg Tablet) 6 mg PO BEDTIME NIR Nicotine Polacrilex (Nicotine Polacrilex 2 Mg Gum) 2 mg BUCCAL Q2H PRN PRN Reason: cravings Trazodone HCl (Trazodone Hcl 100 Mg Tablet) 100 mg PO BEDTIME MRX1 PRN PRN Reason: Insomnia Physical Exam Vital Signs and Narrative: Vital Signs: Last Vital Signs Temp 97.4 F 01/03/23 08:05 Pulse 73 01/03/23 08:05 Resp 18 01/03/23 08:05 BP 113/70 01/03/23 08:05 Pulse Ox 97 01/03/23 08:05 O2 Del Method Room Air 01/03/23 08:05 Patient refused exam Results Labs 01/03/23 08:14 Labs: Laboratory Results - last 24 hr 01/03/23 01/03/23 08:14 08:14 Anion Gap 9 L Estim Creat Clear Calc TNP Estimated GFR > 60 Fasting Glucose 84 Estimat Average Glucose 100 Hemoglobin A1c % 5.1 Calcium 8.9 D Magnesium 1.7 Total Bilirubin 0.4 AST 40 H ALT 30 Alkaline Phosphatase 94 Total Protein 6.1 L Albumin 3.2 L Triglycerides 67 Cholesterol 125 LDL Cholesterol, Calc 70 HDL Cholesterol 42 Vitamin B12 456 Folate 15.8 TSH 1.63 Free T4 1.01 Assessment and Plan (1) Routine history and physical examination of adult: Status: Acute Plan Pt is a 57-year-old female with a PMH significant for bipolar disorder, opioid use disorder in remission on methadone, and PTSD who is admitted to [facility] psychiatry unit for medication noncompliance and erratic behavior with SI with a plan to hang or cut herself. Medical consult for admission H&P. ?Pt seen in isolation d/t disruptive and assaultive behavior toward staff. Patient declines both interview and exam. Labs reviewed, significant for sodium of 128. Mood disorder Plan as per Psychiatry Hyponatremia Patient's sodium 128 at time of admission Unclear etiology: Patient refused to provide HPI or ROS or physical exam Patient likely too disruptive/combative for IV axis or IVF at this time Will redraw labs tomorrow a.m. Opioid use disorder Continue methadone Alcohol use disorder Continue acamprosate GERD Continue omeprazole Insomnia Continue trazodone Thank you for allowing us to participate in the care of this patient. Will continue to follow for now, pending labs. Please let us know if there are any acute complaints or questions. Time Spent With Patient Time: Total time managing care of this patient today ____ minutes.
[2023-01-03] MEDS: LORazepam 1 MG TABLET 2 MG PO (13:33)
[2023-01-03] MEDS: OLANZapine 10 MG TABLET PO (13:33)
--- NOTE | 2023-01-03 13:44 | PC.NURSE ---
Pt was seen throwing walker and threatening staff members. Pt got one time PO dose of 2mg Ativan and 10 mg Zyprexa for agitation and anxiety per INCIDENT RESPONSE LEAD Jasmin Santana. Pt gave a verbal release to call [facility] to verify current dose.
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
--- NOTE | 2023-01-03 13:58 | PC.NURSE ---
Pt methadone dose verified with [facility] by Darci (clinical resource nurse) with this RN. FABRICIO Santana made aware.
[2023-01-03] MEDS: Ibuprofen 800 MG TABLET PO (15:38)
[2023-01-03 16:45] VITALS: BP 133/79; PULSE 88; RESP 18; TEMP 36.8; O2SAT 95
--- NOTE | 2023-01-03 17:33 | HE.PHANOTE ---
re methadone patient gets 75 mg from [facility], last dosed 01/01. provider aware still wants 50mg mally
[2023-01-03] MEDS: ARIPiprazole 20 MG TABLET PO (19:46)
[2023-01-03] MEDS: methADONE HCl 20 MG/2 ML ORAL.CONC PO (20:57)
--- NOTE | 2023-01-03 22:16 | PC.NURSE ---
Pt refused to take night time meds, refuses to take vitals. jute bag cutting machine operator provider made aware.
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
[2023-01-04] MEDS: Acetaminophen 325 MG TABLET 650 MG PO ×2 (05:28→16:31)
[2023-01-04] MEDS: LORazepam 1 MG TABLET PO ×3 (05:28→20:28)
[2023-01-04 06:00] VITALS: RESP 16
[2023-01-04] MEDS: methADONE HCl 20 MG/2 ML ORAL.CONC 50 MG PO (08:12)
--- NOTE | 2023-01-04 08:29 | PC.NURSE ---
PT refused labs to be drawn this morning.
[2023-01-04] MEDS: Ibuprofen 800 MG TABLET PO ×2 (10:30→15:55)
[2023-01-04] MEDS: Gabapentin 300 MG CAPSULE PO ×3 (10:31→20:26)
--- NOTE | 2023-01-04 11:51 | PM.EVENT ---
Event Note Date of Service: 01/04/23 Event Note: F/U for pt with hyponatremia of 128. Pt refused to have labs drawn this morning. Will draw and check labs when pt is amenable. Time Spent With Patient Time: Total time managing care of this patient today ____ minutes.
[2023-01-04] MEDS: Nicotine Polacrilex 2 MG GUM BUCCAL (13:22)
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
--- NOTE | 2023-01-04 13:37 | PC.NURSE ---
PT refused labs for the second time today after verbally agreeing.
--- NOTE | 2023-01-04 16:51 | PM.EVENT ---
Event Note Date of Service: 01/04/23 Event Note: Call from team, pt with severe agitation. Olanzapine 10 mg, Lorazepam 1 mg ordered. Time Spent With Patient Time: Total time managing care of this patient today ____ minutes.
[2023-01-04] MEDS: LORazepam 2 MG/ML VIAL 1 MG IM (17:00)
[2023-01-04] MEDS: OLANZapine 10 MG VIAL IM (17:01)
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
[2023-01-04 18:00] VITALS: RESP 18
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
[2023-01-04] MEDS: Divalproex Sodium ER 250 MG TAB.ER.24H PO (20:26)
[2023-01-04] MEDS: Melatonin 3 MG TABLET 6 MG PO (20:26)
[2023-01-04] MEDS: ARIPiprazole 20 MG TABLET PO (20:26)
[2023-01-05] MEDS: LORazepam 1 MG TABLET PO ×2 (01:40→21:25)
[2023-01-05] MEDS: traZODone HCL 100 MG TABLET PO ×2 (02:37→21:26)
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
[2023-01-05 08:46] VITALS: BP 151/91; PULSE 89; RESP 16; TEMP 36.7; O2SAT 96
[2023-01-05] MEDS: Nicotine 21 MG PATCH.TD24 TRANSDERMA (08:49)
[2023-01-05] MEDS: Ibuprofen 800 MG TABLET PO ×3 (08:50→17:49)
[2023-01-05] MEDS: Gabapentin 300 MG CAPSULE PO ×3 (08:50→21:25)
[2023-01-05] MEDS: methADONE HCl 20 MG/2 ML ORAL.CONC 60 MG PO ×2 (08:50→08:59)
[2023-01-05] MEDS: Furosemide 40 MG TABLET PO ×2 (09:00→17:50)
[2023-01-05] MEDS: methADONE HCl 20 MG/2 ML ORAL.CONC 15 MG PO (11:31)
--- NOTE | 2023-01-05 11:40 | P.PNPSI_ITS ---
Subjective Subjective Date of Service: 01/05/23 Reason For Visit: Bipolar disorder, PTSD, Opioid use Interim History: Patient seen and discussed. She reported she was on Methadone 75 mg at the clinic (verified) and she was requesting an increase. She continues on 1:1. She was described by staff as being irritable. She has been somatically preoccupied saying her bones hurt all over and that Methadone helps with that. Patient denies SI/VH/AH at this time. Rib and chest x ray no evidence of fractures. Review of Systems Review of Systems Patient refused interview Constitutional: Reports as per HPI Eyes: Reports as per HPI Reports as per HPI Cardiovascular: Reports as per HPI Respiratory: Reports as per HPI Gastrointestinal: Reports as per HPI Musculoskeletal: Reports as per HPI Skin/Breast: Reports as per HPI Reports as per HPI Psychiatric: Reports as per HPI Endocrine: Reports as per HPI Hematologic/Lymphatic: Reports as per HPI Allergic/Immunologic: Reports as per HPI Mental Status Exam Mental Status Exam Narrative: Pt is alert and oriented; behavior is uncooperative and irritable; dressed in hospital gown with unkempt hair but adequate hygiene; mood is described as fine and affect congruent; eye contact appropriate; Speech is normal rate, volume loud;using profanity towards staff and T/W, no psychomotor agitation/retardation present; Patients insight and judgment appear poor. Diagnostics Vital Signs (24Hr): Vital Signs - 24 hr 01/04/23 18:00 01/05/23 08:46 Temperature 98.1 F Pulse Rate 89 Respiratory Rate 18 16 Blood Pressure 151/91 H Pulse Oximetry 96 Oxygen Delivery Method Room Air BMI result Body Mass Index 29.7 Labs 01/03/23 08:14 Imaging Radiology Impressions: ITS Impressions Ribs w/Chest X-Ray 01/04/23 18:32 IMPRESSION: No evidence for acute disease in the chest. No acute rib fracture. Medications Medications Current Medications Acetaminophen (Acetaminophen 325 Mg Tablet) 650 mg PO Q6H PRN PRN Reason: Headache/Pain Mild Scale (1-3) Last Admin: 01/04/23 16:31 Dose: 650 mg Al Hydroxide/Mg Hydroxide (Magnesium Hydrox/Alum Hydrox 30 Ml Oral.Susp) 30 ml PO Q6H PRN PRN Reason: Heartburn/Nausea Aripiprazole (Aripiprazole 20 Mg Tablet) 20 mg PO BEDTIME NIR Last Admin: 01/04/23 20:26 Dose: 20 mg Divalproex Sodium (Divalproex Sodium Er 250 Mg Tab.Er.24h) 250 mg PO BID [facility] Last Admin: 01/05/23 08:59 Dose: Not Given Furosemide (Furosemide 40 Mg Tablet) 40 mg PO BID@0900,1800 [facility]; Protocol Last Admin: 01/05/23 09:00 Dose: 40 mg Gabapentin (Gabapentin 300 Mg Capsule) 300 mg PO TID [facility] Last Admin: 01/05/23 08:50 Dose: 300 mg Hydroxyzine HCl (Hydroxyzine Hcl 25 Mg Tablet) 25 mg PO Q6H PRN PRN Reason: Anxiety Last Admin: 01/03/23 01:47 Dose: 25 mg Ibuprofen (Ibuprofen 800 Mg Tablet) 800 mg PO TIDWM [facility] Last Admin: 01/05/23 08:50 Dose: 800 mg Lorazepam (Lorazepam 1 Mg Tablet) 1 mg PO Q4H PRN PRN Reason: agitation Last Admin: 01/05/23 01:40 Dose: 1 mg Magnesium Hydroxide (Milk Of Magnesia 30 Ml Oral.Susp) 30 ml PO DAILY PRN PRN Reason: Constipation Melatonin (Melatonin 3 Mg Tablet) 6 mg PO BEDTIME [facility] Last Admin: 01/04/23 20:26 Dose: 6 mg Methadone HCl (Methadone Hcl 20 Mg/2 Ml Oral.Conc) 75 mg PO DAILY [facility] Nicotine (Nicotine 21 Mg Patch.Td24) 21 mg TRANSDERMA DAILY [facility] Last Admin: 01/05/23 08:49 Dose: 21 mg Nicotine Polacrilex (Nicotine Polacrilex 2 Mg Gum) 2 mg BUCCAL Q2H PRN PRN Reason: cravings Last Admin: 01/04/23 13:22 Dose: 2 mg Olanzapine (Olanzapine 5 Mg Tablet) 5 mg PO Q4H PRN PRN Reason: agitation Omeprazole (Omeprazole 20 Mg Capsule.Dr) 20 mg PO DAILY@0600 [facility] Last Admin: 01/05/23 08:54 Dose: Not Given Trazodone HCl (Trazodone Hcl 100 Mg Tablet) 100 mg PO BEDTIME MRX1 PRN PRN Reason: Insomnia Last Admin: 01/05/23 02:37 Dose: 100 mg Allergies Allergies Allergy/AdvReac Type Severity Reaction Status Date / Time amoxicillin [Amoxicillin] Allergy Mild RASH & Verified 05/10/22 10:46 DIZZINESS, Dizziness Assessment & Plan Assessment & Plan (1) Routine history and physical examination of adult: Status: Acute Code(s): Z00.00 - Encounter for general adult medical examination without abnormal findings Plan Patient is a 57 year-old woman with hx of Bipolar Disorder, opioid use disorder in remission on methadone who is [place] [facility] [place] and is currently admitted due to medication non-compliance. CV 1:1 safety checks d/t wheelchair Continue: Abilify 20mg PO bedtime Lasix 40mg PO BID Neurontin 300mg PO TID Motrin 800mg PO TID Melatonin 6mg PO bedtime Ativan 1mg Q4hr PO PRN for agitation Zyprexa 5mg Q4hr PO PRN for agitation Dose increase: Methadone 60mg PO daily (will titrate up to 75mg PO daily) Started: Depakote ER 250mg PO BID (patient agreed to starting medication) 01/04: Patient continues to scream and use profanity towards T/W and staff. Patient refused labs this morning but states she will consider allowing them to take her blood later. Hospitalist consult order d/t pt c/o of right shoulder pain from restraint that occurred a few nights ago. 01/05: Calmer today. Continue current tx plan. Reason for continued inpatient stay Substantial Risk for: inability to function and rapid decompensation Time Spent With Patient Time: Total time managing care of this patient today ____ minutes.
[2023-01-05] MEDS: Acetaminophen 325 MG TABLET 650 MG PO (14:34)
[2023-01-05 18:00] VITALS: BP 124/86; PULSE 83; RESP 18; TEMP 36.6; O2SAT 97
[2023-01-05] MEDS: Divalproex Sodium ER 250 MG TAB.ER.24H PO (21:25)
[2023-01-05] MEDS: ARIPiprazole 20 MG TABLET PO (21:26)
[2023-01-05] MEDS: Melatonin 3 MG TABLET 6 MG PO (21:26)
[2023-01-06] MEDS: Acetaminophen 325 MG TABLET 650 MG PO ×2 (05:58→22:02)
[2023-01-06] MEDS: Omeprazole 20 MG CAPSULE.DR PO (05:59)
[2023-01-06 08:45] VITALS: BP 127/70; PULSE 98; RESP 16; TEMP 36.6; O2SAT 96
[2023-01-06] MEDS: Furosemide 40 MG TABLET PO (08:48)
[2023-01-06] MEDS: Gabapentin 300 MG CAPSULE PO ×3 (08:48→21:58)
[2023-01-06] MEDS: Divalproex Sodium ER 250 MG TAB.ER.24H PO ×2 (08:48→21:58)
[2023-01-06] MEDS: Ibuprofen 800 MG TABLET PO ×3 (08:48→17:33)
[2023-01-06] MEDS: Nicotine 21 MG PATCH.TD24 TRANSDERMA (08:51)
[2023-01-06] MEDS: methADONE HCl 20 MG/2 ML ORAL.CONC 75 MG PO (08:51)
[2023-01-06] MEDS: Nicotine Polacrilex 2 MG GUM BUCCAL (10:12)
[2023-01-06] MEDS: Nicotine 14 MG PATCH.TD24 TRANSDERMA (10:12)
--- NOTE | 2023-01-06 10:23 | P.PNPSI_ITS ---
Subjective Subjective Date of Service: 01/06/23 Reason For Visit: Bipolar disorder, PTSD, Opioid use Interim History: Patient seen and discussed. Initially said she feels better since admission. Patient got confrontational with this examiner when medications were discussed. She started demanding this technical publications writer Do your homework! while talking about her previous hospitalizations and demanding to be started on Topamax. She was irritable and disrespectful. She continues on 1:1. Patient denies SI/VH/AH at this time. Review of Systems Review of Systems Patient refused interview Constitutional: Reports as per HPI Eyes: Reports as per HPI Reports as per HPI Cardiovascular: Reports as per HPI Respiratory: Reports as per HPI Gastrointestinal: Reports as per HPI Musculoskeletal: Reports as per HPI Skin/Breast: Reports as per HPI Reports as per HPI Psychiatric: Reports as per HPI Endocrine: Reports as per HPI Hematologic/Lymphatic: Reports as per HPI Allergic/Immunologic: Reports as per HPI Mental Status Exam Mental Status Exam Narrative: Pt is alert and oriented; behavior is uncooperative and irritable; dressed in hospital gown with unkempt hair but adequate hygiene; mood is described as fine and affect congruent; eye contact appropriate; Speech is normal rate, volume loud;using profanity towards staff and T/W, no psychomotor agitatio n/retardation present; Patients insight and judgment appear poor. Diagnostics Vital Signs (24Hr): Vital Signs - 24 hr 01/05/23 18:00 01/06/23 08:45 Temperature 98 F 97.9 F Pulse Rate 83 98 Respiratory Rate 18 16 Blood Pressure 124/86 127/70 Pulse Oximetry 97 96 Oxygen Delivery Method Room Air Room Air BMI result Body Mass Index 29.7 Labs 01/03/23 08:14 Imaging Radiology Impressions: ITS Impressions Ribs w/Chest X-Ray 01/04/23 18:32 IMPRESSION: No evidence for acute disease in the chest. No acute rib fracture. Shoulder X-Ray 01/05/23 20:05 IMPRESSION: 1. Mild diffuse osteopenia. 2. Mild osteoarthrosis of the right acromioclavicular joint. 3. No radiographic evidence of any acute fracture, subluxation or dislocation. Medications Medications Current Medications Acetaminophen (Acetaminophen 325 Mg Tablet) 650 mg PO Q6H PRN PRN Reason: Headache/Pain Mild Scale (1-3) Last Admin: 01/06/23 05:58 Dose: 650 mg Al Hydroxide/Mg Hydroxide (Magnesium Hydrox/Alum Hydrox 30 Ml Oral.Susp) 30 ml PO Q6H PRN PRN Reason: Heartburn/Nausea Aripiprazole (Aripiprazole 20 Mg Tablet) 20 mg PO BEDTIME [facility] Last Admin: 01/05/23 21:26 Dose: 20 mg Divalproex Sodium (Divalproex Sodium Er 250 Mg Tab.Er.24h) 250 mg PO BID [facility] Last Admin: 01/06/23 08:48 Dose: 250 mg Furosemide (Furosemide 40 Mg Tablet) 40 mg PO BID@0900,1800 [facility]; Protocol Last Admin: 01/06/23 08:48 Dose: 40 mg Gabapentin (Gabapentin 300 Mg Capsule) 300 mg PO TID [facility] Last Admin: 01/06/23 08:48 Dose: 300 mg Hydroxyzine HCl (Hydroxyzine Hcl 25 Mg Tablet) 25 mg PO Q6H PRN PRN Reason: Anxiety Last Admin: 01/03/23 01:47 Dose: 25 mg Ibuprofen (Ibuprofen 800 Mg Tablet) 800 mg PO TIDWM [facility] Last Admin: 01/06/23 08:48 Dose: 800 mg Lorazepam (Lorazepam 1 Mg Tablet) 1 mg PO Q4H PRN PRN Reason: agitation Last Admin: 01/05/23 21:25 Dose: 1 mg Magnesium Hydroxide (Milk Of Magnesia 30 Ml Oral.Susp) 30 ml PO DAILY PRN PRN Reason: Constipation Melatonin (Melatonin 3 Mg Tablet) 6 mg PO BEDTIME [facility] Last Admin: 01/05/23 21:26 Dose: 6 mg Methadone HCl (Methadone Hcl 20 Mg/2 Ml Oral.Conc) 75 mg PO DAILY [facility] Last Admin: 01/06/23 08:51 Dose: 75 mg Nicotine (Nicotine 14 Mg Patch.Td24) 14 mg TRANSDERMA DAILY [facility] Last Admin: 01/06/23 10:12 Dose: 14 mg Nicotine Polacrilex (Nicotine Polacrilex 2 Mg Gum) 2 mg BUCCAL Q2H PRN PRN Reason: cravings Last Admin: 01/06/23 10:12 Dose: 2 mg Olanzapine (Olanzapine 5 Mg Tablet) 5 mg PO Q4H PRN PRN Reason: agitation Omeprazole (Omeprazole 20 Mg Capsule.Dr) 20 mg PO DAILY@0600 [facility] Last Admin: 01/06/23 05:59 Dose: 20 mg Trazodone HCl (Trazodone Hcl 100 Mg Tablet) 100 mg PO BEDTIME MRX1 PRN PRN Reason: Insomnia Last Admin: 01/05/23 21:26 Dose: 100 mg Allergies Allergies Allergy/AdvReac Type Severity Reaction Status Date / Time amoxicillin [Amoxicillin] Allergy Mild RASH & Verified 05/10/22 10:46 DIZZINESS, Dizziness Assessment & Plan Assessment & Plan (1) Routine history and physical examination of adult: Status: Acute Code(s): Z00.00 - Encounter for general adult medical examination without abnormal findings Plan Patient is a 57 year-old woman with hx of Bipolar Disorder, opioid use disorder in remission on methadone who [place] [facility] [place] and is currently admitted due to medication non-compliance. CV 1:1 safety checks d/t wheelchair Continue: Abilify 20mg PO bedtime Lasix 40mg PO BID Neurontin 300mg PO TID Motrin 800mg PO TID Melatonin 6mg PO bedtime Ativan 1mg Q4hr PO PRN for agitation Zyprexa 5mg Q4hr PO PRN for agitation Dose increase: Methadone 60mg PO daily (will titrate up to 75mg PO daily) Started: Depakote ER 250mg PO BID (patient agreed to starting medication) 01/04: Patient continues to scream and use profanity towards T/W and staff. Patient refused labs this morning but states she will consider allowing them to take her blood later. Hospitalist consult order d/t pt c/o of right shoulder pain from restraint that occurred a few nights ago. 01/05: Calmer today. Continue current tx plan. 01/06: Continue current regimen. Depakote level ordered for tomorrow. Reason for continued inpatient stay Substantial Risk for: inability to function and rapid decompensation Time Spent With Patient Time: Total time managing care of this patient today ____ minutes.
[2023-01-06] MEDS: Magnesium Hydrox/Alum Hydrox 30 ML ORAL.SUSP PO (13:06)
[2023-01-06] MEDS: ARIPiprazole 20 MG TABLET PO (21:58)
[2023-01-06] MEDS: Melatonin 3 MG TABLET 6 MG PO (21:58)
[2023-01-07] MEDS: hydrOXYzine HCL 25 MG TABLET PO (01:22)
[2023-01-07] MEDS: traZODone HCL 100 MG TABLET PO (01:22)
[2023-01-07] MEDS: Divalproex Sodium ER 250 MG TAB.ER.24H PO (08:28)
[2023-01-07] MEDS: Ibuprofen 800 MG TABLET PO ×3 (08:28→17:02)
[2023-01-07] MEDS: Gabapentin 300 MG CAPSULE PO ×3 (08:29→20:58)
[2023-01-07] MEDS: methADONE HCl 20 MG/2 ML ORAL.CONC 75 MG PO (08:29)
[2023-01-07] MEDS: Omeprazole 20 MG CAPSULE.DR PO (08:29)
[2023-01-07 08:30] VITALS: BP 120/74; PULSE 81; RESP 16; TEMP 36.6
[2023-01-07] MEDS: Nicotine Polacrilex 2 MG GUM BUCCAL (09:15)
[2023-01-07 10:32] LABS: Valproate 20.5 mcg/mL (50.0-100.0)
[2023-01-07 12:42] LABS: Alanine Aminotransferase 34 U/L (0-31); Albumin Level 3.6 g/dL (3.5-5.0); Alkaline Phosphatase 117 U/L (39-117); Anion Gap 12 (12-20); Aspartate Amino Transferase 42 U/L (5-31); Bilirubin Direct 0.2 mg/dL (0.0-0.5); Bilirubin Total 0.4 mg/dL (0.0-1.0); Carbon Dioxide 26 mmol/L (22-29); Chloride 99 mmol/L (96-108); Potassium 4.7 mmol/L (3.3-5.1); Sodium 132 mmol/L (135-145); Total Protein 6.9 g/dL (6.5-8.0)
[2023-01-07 12:55] LABS: TSH reflex Free T4 1.41 uIU/mL (0.32-4.0)
[2023-01-07] MEDS: Baclofen 10 MG TABLET PO (13:35)
[2023-01-07] MEDS: LORazepam 1 MG TABLET PO (13:40)
[2023-01-07 13:52] LABS: MANUAL DIFF FLAG NO
[2023-01-07 13:53] LABS: Basophils Percent Auto 0.6 % (0-2); Eosinophils Absolute Auto 0.1 X10*3/uL (0.0-0.4); Eosinophils Percent Auto 1.3 % (0-4); Hematocrit 34.8 % (37.0-47.0); Hemoglobin 12.2 g/dl (12.0-16.0); Imm Gran Abs Auto 0.05 X10*3/uL (0.00-0.03); Imm Gran Pct Auto 0.7 % (0.0-0.4); Lymphocytes Absolute Auto 1.6 X10*3/uL (1.2-4.9); Lymphocytes Percent Auto 23.7 % (20-40); Mean Corpuscular HGB Conc 35.1 g/dl (31.0-35.0); Mean Corpuscular Hemoglobin 31.8 pg (27.0-33.0); Mean Corpuscular Volume 90.6 fL (80.0-98.0); Mean Platelet Volume 9.3 fL (9.4-12.3); Monocytes Absolute Auto 0.7 X10*3/uL (0.1-1.2); Monocytes Percent Auto 9.9 % (2-11); Neutrophils Absolute Auto 4.4 x10*3/uL (2.0-8.3); Neutrophils Percent Auto 63.8 % (45-73); Platelet Count 261 X10*3/uL (160-400); Red Blood Count 3.84 X10*6/uL (4.20-5.50); Red Cell Distribution Width 12.5 % (11.0-16.0); White Blood Count 6.9 X10*3/uL (4.8-10.8)
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
[2023-01-07 17:00] VITALS: BP 109/63; PULSE 86; TEMP 36.4
[2023-01-07] MEDS: Divalproex Sodium ER 500 MG TAB.ER.24H PO (20:58)
[2023-01-07] MEDS: Melatonin 3 MG TABLET 6 MG PO (20:58)
[2023-01-07] MEDS: ARIPiprazole 20 MG TABLET PO (20:58)
[2023-01-07] MEDS: Acetaminophen 325 MG TABLET 650 MG PO (20:58)
[2023-01-08] MEDS: Omeprazole 20 MG CAPSULE.DR PO (05:50)
[2023-01-08] MEDS: Acetaminophen 325 MG TABLET 650 MG PO ×2 (05:54→22:49)
[2023-01-08] MEDS: Baclofen 10 MG TABLET PO ×3 (05:55→23:13)
[2023-01-08 08:46] VITALS: BP 142/59; PULSE 82; RESP 16; TEMP 36.6; O2SAT 95
[2023-01-08] MEDS: Nicotine 14 MG PATCH.TD24 TRANSDERMA (08:51)
[2023-01-08] MEDS: Ibuprofen 800 MG TABLET PO ×3 (08:52→17:50)
[2023-01-08] MEDS: Furosemide 40 MG TABLET PO ×2 (08:52→17:51)
[2023-01-08] MEDS: methADONE HCl 20 MG/2 ML ORAL.CONC 75 MG PO (08:52)
[2023-01-08] MEDS: Gabapentin 300 MG CAPSULE PO ×3 (08:52→20:14)
--- NOTE | 2023-01-08 11:07 | HO.PSYCHPN ---
Subjective Subjective Date of Service: 01/08/23 Reason For Visit: Bipolar disorder, PTSD, Opioid use Subjective Notes: Conditional Voluntary Interim History: Reviewed in team. Patient presented irritable with disorganized thoughts. Patient focused on pain in her right rotator cuff. Patient stated, I don't care about my depression right now. I don't want to talk about that . Patient kept 1:1 brief. Patient denies SI/HI/VH/AH at this time. Medication Compliance: Yes Attending Groups: Yes Review of Systems Review of Systems Patient refused interview Constitutional: Reports as per HPI Eyes: Reports as per HPI Reports as per HPI Cardiovascular: Reports as per HPI Respiratory: Reports as per HPI Gastrointestinal: Reports as per HPI Musculoskeletal: Reports as per HPI Skin/Breast: Reports as per HPI Reports as per HPI Psychiatric: Reports as per HPI Endocrine: Reports as per HPI Hematologic/Lymphatic: Reports as per HPI Allergic/Immunologic: Reports as per HPI Mental Status Exam Mental Status Exam Narrative: Pt is alert and oriented; behavior is cooperative; patient is not in distress; dressed in casual attire; mood is described as fine and affect labile; presents with irritable edge; eye contact appropriate; Speech is normal rate, volume and prosody and not pressured; no psychomotor agitation/retardation present; thought process is disorganized; Thought content is paranoid; denies any SI/HI. There is no evidence of perceptual disturbance. Patients insight and judgment appear poor. Diagnostics Vital Signs (24Hr): Vital Signs - 24 hr 01/07/23 17:00 01/08/23 08:46 Temperature 97.5 F 97.9 F Pulse Rate 86 82 Respiratory Rate 16 Blood Pressure 109/63 142/59 H Pulse Oximetry 95 Oxygen Delivery Method Room Air BMI result Body Mass Index 29.7 Labs 01/07/23 13:43 01/07/23 11:37 Labs: Laboratory Results - last 48 hr 01/07/23 01/07/23 01/07/23 09:06 11:37 13:43 WBC 6.9 RBC 3.84 L Hgb 12.2 Hct 34.8 L MCV 90.6 MCH 31.8 MCHC 35.1 H RDW 12.5 Plt Count 261 MPV 9.3 L Immature Gran % (Auto) 0.7 H Neut % (Auto) 63.8 Lymph % (Auto) 23.7 [place] % (Auto) 9.9 Eos % (Auto) 1.3 Baso % (Auto) 0.6 Lymph # (Auto) 1.6 [place] # (Auto) 0.7 Eos # (Auto) 0.1 Baso # (Auto) 0.0 Abs Immat Gran (auto) 0.05 H Absolute Neuts (auto) 4.4 Absolute Nucleated RBC 0.000 Nucleated RBC % (auto) 0.0 Sodium 132 L Potassium 4.7 Chloride 99 Carbon Dioxide 26 Anion Gap 12 Total Bilirubin 0.4 Direct Bilirubin 0.2 AST 42 H ALT 34 H Alkaline Phosphatase 117 Total Protein 6.9 Albumin 3.6 TSH 1.41 Valproic Acid 20.5 L Imaging Radiology Impressions: ITS Impressions Ribs w/Chest X-Ray 01/04/23 18:32 IMPRESSION: No evidence for acute disease in the chest. No acute rib fracture. Shoulder X-Ray 01/05/23 20:05 IMPRESSION: 1. Mild diffuse osteopenia. 2. Mild osteoarthrosis of the right acromioclavicular joint. 3. No radiographic evidence of any acute fracture, subluxation or dislocation. Medications Medications Current Medications Acetaminophen (Acetaminophen 325 Mg Tablet) 650 mg PO Q6H PRN PRN Reason: Headache/Pain Mild Scale (1-3) Last Admin: 01/08/23 05:54 Dose: 650 mg Al Hydroxide/Mg Hydroxide (Magnesium Hydrox/Alum Hydrox 30 Ml Oral.Susp) 30 ml PO Q6H PRN PRN Reason: Heartburn/Nausea Last Admin: 01/06/23 13:06 Dose: 30 ml Aripiprazole (Aripiprazole 20 Mg Tablet) 20 mg PO BEDTIME NIR Last Admin: 01/07/23 20:58 Dose: 20 mg Baclofen (Baclofen 10 Mg Tablet) 10 mg PO TID PRN PRN Reason: muscle pain Last Admin: 01/08/23 05:55 Dose: 10 mg Divalproex Sodium (Divalproex Sodium Er 250 Mg Tab.Er.24h) 750 mg PO BEDTIME NIR Furosemide (Furosemide 40 Mg Tablet) 40 mg PO BID@0900,1800 NIR; Protocol Last Admin: 01/08/23 08:52 Dose: 40 mg Gabapentin (Gabapentin 300 Mg Capsule) 300 mg PO TID NIR Last Admin: 01/08/23 08:52 Dose: 300 mg Hydroxyzine HCl (Hydroxyzine Hcl 25 Mg Tablet) 25 mg PO Q6H PRN PRN Reason: Anxiety Last Admin: 01/07/23 01:22 Dose: 25 mg Ibuprofen (Ibuprofen 800 Mg Tablet) 800 mg PO TIDWM [facility] Last Admin: 01/08/23 08:52 Dose: 800 mg Lorazepam (Lorazepam 1 Mg Tablet) 1 mg PO Q4H PRN PRN Reason: agitation Last Admin: 01/07/23 13:40 Dose: 1 mg Magnesium Hydroxide (Milk Of Magnesia 30 Ml Oral.Susp) 30 ml PO DAILY PRN PRN Reason: Constipation Melatonin (Melatonin 3 Mg Tablet) 6 mg PO BEDTIME [facility] Last Admin: 01/07/23 20:58 Dose: 6 mg Methadone HCl (Methadone Hcl 20 Mg/2 Ml Oral.Conc) 75 mg PO DAILY [facility] Last Admin: 01/08/23 08:52 Dose: 75 mg Nicotine (Nicotine 14 Mg Patch.Td24) 14 mg TRANSDERMA DAILY [facility] Last Admin: 01/08/23 08:51 Dose: 14 mg Nicotine Polacrilex (Nicotine Polacrilex 2 Mg Gum) 2 mg BUCCAL Q2H PRN PRN Reason: cravings Last Admin: 01/07/23 09:15 Dose: 2 mg Olanzapine (Olanzapine 5 Mg Tablet) 5 mg PO Q4H PRN PRN Reason: agitation Omeprazole (Omeprazole 20 Mg Capsule.Dr) 20 mg PO DAILY@0600 [facility] Last Admin: 01/08/23 05:50 Dose: 20 mg Trazodone HCl (Trazodone Hcl 100 Mg Tablet) 100 mg PO BEDTIME MRX1 PRN PRN Reason: Insomnia Last Admin: 01/07/23 01:22 Dose: 100 mg Allergies Allergies Allergy/AdvReac Type Severity Reaction Status Date / Time amoxicillin [Amoxicillin] Allergy Mild RASH & Verified 05/10/22 10:46 DIZZINESS, Dizziness Assessment & Plan Assessment & Plan (1) Bipolar I disorder with priscila: Status: Acute Code(s): F31.10 - Bipolar disorder, current episode manic without psychotic features, unspecified (2) Opioid use disorder: Status: Acute Code(s): F11.99 - Opioid use, unspecified with unspecified opioid-induced disorder Plan Patient is a 57 year-old woman with hx of Bipolar Disorder, opioid use disorder in remission on methadone who [place] [facility] and is currently admitted due to medication non-compliance. PLAN: CV 1:1 safety checks d/t wheelchair Continue: Abilify 20mg PO bedtime Lasix 40mg PO BID Neurontin 300mg PO TID Motrin 800mg PO TID Melatonin 6mg PO bedtime Ativan 1mg Q4hr PO PRN for agitation Zyprexa 5mg Q4hr PO PRN for agitation Methadone 75mg PO daily Depakote ER 750mg PO bedtime Baclofen 10mg PO TID PRN PT consult put in to assess possible right rotator cuff injury. Hospital course: 01/04: Patient continues to scream and use profanity towards T/W and staff. Patient refused labs this morning but states she will consider allowing them to take her blood later. Hospitalist consult order d/t pt c/o of right shoulder pain from restraint that occurred a few nights ago. 01/05: Calmer today. Continue current tx plan. 01/06: Continue current regimen. Depakote level ordered for tomorrow. 01/07: Patient continues irritable, paranoid and disorganized. Valporic acid level 20.5, Depakote ER dose increased to 750mg PO bedtime. 01/08: Patient continues irritable. Focused on right rotator cuff pain. PT consult entered, to be assessed. Continue medications as ordered. Patient educated on: medication risk/benefits Informed Consent: further education needed Reason for continued inpatient stay Substantial Risk for: inability to function and med/psych decompensation Time Spent With Patient Time: Total time managing care of this patient today ____ minutes.
[2023-01-08] MEDS: LORazepam 1 MG TABLET PO (13:55)
[2023-01-08 18:00] VITALS: BP 127/77; PULSE 90; RESP 20; TEMP 36.6; O2SAT 97
[2023-01-08] MEDS: traZODone HCL 100 MG TABLET PO ×2 (20:13→23:13)
[2023-01-08] MEDS: ARIPiprazole 20 MG TABLET PO (20:14)
[2023-01-08] MEDS: Divalproex Sodium ER 250 MG TAB.ER.24H 750 MG PO (20:14)
[2023-01-08] MEDS: Melatonin 3 MG TABLET 6 MG PO (20:14)
[2023-01-09] MEDS: Omeprazole 20 MG CAPSULE.DR PO (06:17)
[2023-01-09 08:07] VITALS: BP 127/69; PULSE 83; RESP 16; TEMP 36.4; O2SAT 97
[2023-01-09] MEDS: Ibuprofen 800 MG TABLET PO ×3 (08:08→17:24)
[2023-01-09] MEDS: Nicotine 14 MG PATCH.TD24 TRANSDERMA (08:08)
[2023-01-09] MEDS: Furosemide 40 MG TABLET PO ×2 (08:09→20:06)
[2023-01-09] MEDS: Gabapentin 300 MG CAPSULE PO ×3 (08:09→21:42)
[2023-01-09] MEDS: methADONE HCl 20 MG/2 ML ORAL.CONC 75 MG PO (08:09)
--- NOTE | 2023-01-09 11:32 | P.PNPSI_ITS ---
Subjective Subjective Date of Service: 01/09/23 Reason For Visit: Bipolar disorder, PTSD, Opioid use Subjective Notes: Conditional Voluntary Interim History: Reviewed in team. Patient presents less labile today with organized thoughts. Patient was able to express concern over possible weight gain with Depakote. Patient suggested starting on lamictal while continuing Depakote and slowly titrating off of Depakote once lamictal is at a therapeutic dose. Risks and benefits were reviewed with patient. Patient stated that she understood and would still like to start on lamictal. Patient is hoping to be discharged by the end of the week. Patient denies SI/HI/VH/AH at this time. Medication Compliance: Yes Side effects from medications: No Attending Groups: Yes Review of Systems Medical Review of Systems: unchanged Review of Systems Review of Systems Patient refused interview Constitutional: Reports as per HPI Eyes: Reports as per HPI Reports as per HPI Cardiovascular: Reports as per HPI Respiratory: Reports as per HPI Gastrointestinal: Reports as per HPI Musculoskeletal: Reports as per HPI Skin/Breast: Reports as per HPI Reports as per HPI Psychiatric: Reports as per HPI Endocrine: Reports as per HPI Hematologic/Lymphatic: Reports as per HPI Allergic/Immunologic: Reports as per HPI Mental Status Exam Mental Status Exam Narrative: Pt is alert and oriented; behavior is cooperative; patient is not in distress; dressed in casual attire; mood is described as fine and affect labile; presents with irritable edge; eye contact appropriate; Speech is normal rate, volume and prosody and not pressured; no psychomotor agitation/retardation present; thought process is more organized; Thought content is on tx; denies any SI/HI. There is no evidence of perceptual disturbance. Patients insight and judgment appear to be improving. Diagnostics Vital Signs (24Hr): Vital Signs - 24 hr 01/08/23 18:00 01/09/23 08:07 Temperature 97.8 F 97.6 F Pulse Rate 90 83 Respiratory Rate 20 16 Blood Pressure 127/77 127/69 Pulse Oximetry 97 97 Oxygen Delivery Method Room Air Room Air BMI result Body Mass Index 29.7 Labs 01/07/23 13:43 01/07/23 11:37 Labs: Laboratory Results - last 48 hr 01/07/23 01/07/23 11:37 13:43 WBC 6.9 RBC 3.84 L Hgb 12.2 Hct 34.8 L MCV 90.6 MCH 31.8 MCHC 35.1 H RDW 12.5 Plt Count 261 MPV 9.3 L Immature Gran % (Auto) 0.7 H Neut % (Auto) 63.8 Lymph % (Auto) 23.7 [place] % (Auto) 9.9 Eos % (Auto) 1.3 Baso % (Auto) 0.6 Lymph # (Auto) 1.6 [place] # (Auto) 0.7 Eos # (Auto) 0.1 Baso # (Auto) 0.0 Abs Immat Gran (auto) 0.05 H Absolute Neuts (auto) 4.4 Absolute Nucleated RBC 0.000 Nucleated RBC % (auto) 0.0 Sodium 132 L Potassium 4.7 Chloride 99 Carbon Dioxide 26 Anion Gap 12 Total Bilirubin 0.4 Direct Bilirubin 0.2 AST 42 H ALT 34 H Alkaline Phosphatase 117 Total Protein 6.9 Albumin 3.6 TSH 1.41 Imaging Radiology Impressions: ITS Impressions Ribs w/Chest X-Ray 01/04/23 18:32 IMPRESSION: No evidence for acute disease in the chest. No acute rib fracture. Shoulder X-Ray 01/05/23 20:05 IMPRESSION: 1. Mild diffuse osteopenia. 2. Mild osteoarthrosis of the right acromioclavicular joint. 3. No radiographic evidence of any acute fracture, subluxation or dislocation. Medications Medications Current Medications Acetaminophen (Acetaminophen 325 Mg Tablet) 650 mg PO Q6H PRN PRN Reason: Headache/Pain Mild Scale (1-3) Last Admin: 01/08/23 22:49 Dose: 650 mg Al Hydroxide/Mg Hydroxide (Magnesium Hydrox/Alum Hydrox 30 Ml Oral.Susp) 30 ml PO Q6H PRN PRN Reason: Heartburn/Nausea Last Admin: 01/06/23 13:06 Dose: 30 ml Aripiprazole (Aripiprazole 20 Mg Tablet) 20 mg PO BEDTIME NIR Last Admin: 01/08/23 20:14 Dose: 20 mg Baclofen (Baclofen 10 Mg Tablet) 10 mg PO TID PRN PRN Reason: muscle pain Last Admin: 01/08/23 23:13 Dose: 10 mg Divalproex Sodium (Divalproex Sodium Er 250 Mg Tab.Er.24h) 750 mg PO BEDTIME NIR Last Admin: 01/08/23 20:14 Dose: 750 mg Furosemide (Furosemide 40 Mg Tablet) 40 mg PO BID@0900,1800 NIR; Protocol Last Admin: 01/09/23 08:09 Dose: 40 mg Gabapentin (Gabapentin 300 Mg Capsule) 300 mg PO TID [facility] Last Admin: 01/09/23 08:09 Dose: 300 mg Hydroxyzine HCl (Hydroxyzine Hcl 25 Mg Tablet) 25 mg PO Q6H PRN PRN Reason: Anxiety Last Admin: 01/07/23 01:22 Dose: 25 mg Ibuprofen (Ibuprofen 800 Mg Tablet) 800 mg PO TIDWM [facility] Last Admin: 01/09/23 08:08 Dose: 800 mg Lamotrigine (Lamotrigine 25 Mg Tablet) 25 mg PO DAILY [facility] Magnesium Hydroxide (Milk Of Magnesia 30 Ml Oral.Susp) 30 ml PO DAILY PRN PRN Reason: Constipation Melatonin (Melatonin 3 Mg Tablet) 6 mg PO BEDTIME [facility] Last Admin: 01/08/23 20:14 Dose: 6 mg Methadone HCl (Methadone Hcl 20 Mg/2 Ml Oral.Conc) 75 mg PO DAILY [facility] Last Admin: 01/09/23 08:09 Dose: 75 mg Nicotine (Nicotine 14 Mg Patch.Td24) 14 mg TRANSDERMA DAILY [facility] Last Admin: 01/09/23 08:08 Dose: 14 mg Nicotine Polacrilex (Nicotine Polacrilex 2 Mg Gum) 2 mg BUCCAL Q2H PRN PRN Reason: cravings Last Admin: 01/07/23 09:15 Dose: 2 mg Omeprazole (Omeprazole 20 Mg Capsule.Dr) 20 mg PO DAILY@0600 [facility] Last Admin: 01/09/23 06:17 Dose: 20 mg Trazodone HCl (Trazodone Hcl 100 Mg Tablet) 100 mg PO BEDTIME MRX1 PRN PRN Reason: Insomnia Last Admin: 01/08/23 23:13 Dose: 100 mg Allergies Allergies Allergy/AdvReac Type Severity Reaction Status Date / Time amoxicillin [Amoxicillin] Allergy Mild RASH & Verified 05/10/22 10:46 DIZZINESS, Dizziness Assessment & Plan Assessment & Plan (1) Bipolar I disorder with priscila: Status: Acute Code(s): F31.10 - Bipolar disorder, current episode manic without psychotic features, unspecified (2) Opioid use disorder: Status: Acute Code(s): F11.99 - Opioid use, unspecified with unspecified opioid-induced disorder Plan Patient is a 57 year-old woman with hx of Bipolar Disorder, opioid use disorder in remission on methadone who is known [place] [facility] [place] and is currently admitted due to medication non-compliance. PLAN: CV 1:1 safety checks d/t wheelchair Continue: Abilify 20mg PO bedtime Lasix 40mg PO BID Neurontin 300mg PO TID Motrin 800mg PO TID Melatonin 6mg PO bedtime Ativan 1mg Q4hr PO PRN for agitation Zyprexa 5mg Q4hr PO PRN for agitation Methadone 75mg PO daily Depakote ER 750mg PO bedtime Baclofen 10mg PO TID PRN Start: lamictal 25mg PO daily DC: Zyprexa 5mg PO q4hr PRN (pt does not want this medication) Labs ordered for tomorrow morning: valproic acid, liver panel and ammonia. Hospital course: 01/04: Patient continues to scream and use profanity towards T/W and staff. Patient refused labs this morning but states she will consider allowing them to take her blood later. Hospitalist consult order d/t pt c/o of right shoulder pain from restraint that occurred a few nights ago. 01/05: Calmer today. Continue current tx plan. 01/06: Continue current regimen. Depakote level ordered for tomorrow. 15: Patient continues irritable, paranoid and disorganized. Valproic acid level 20.5, Depakote ER dose increased to 750mg PO bedtime. 16: Patient continues irritable. Focused on right rotator cuff pain. PT consult entered, to be assessed. Continue medications as ordered. 5:17: Patient continues to be labile but with improvement. Presents more organized regarding treatment. Labs ordered for tomorrow morning. Patient is hoping for discharge by the end of the week. Was seen by PT yesterday (see PT note). Patient educated on: medication risk/benefits Informed Consent: understands and further education needed Reason for continued inpatient stay Substantial Risk for: med/psych decompensation Time Spent With Patient Time: Total time managing care of this patient today ____ minutes.
[2023-01-09] MEDS: Acetaminophen 325 MG TABLET 650 MG PO (17:24)
[2023-01-09 19:55] VITALS: BP 138/79; PULSE 75; TEMP 36; O2SAT 97
[2023-01-09] MEDS: Melatonin 3 MG TABLET 6 MG PO (19:56)
[2023-01-09] MEDS: Baclofen 10 MG TABLET PO (20:02)
[2023-01-09] MEDS: Divalproex Sodium ER 250 MG TAB.ER.24H 750 MG PO (20:07)
[2023-01-09] MEDS: ARIPiprazole 20 MG TABLET PO (20:07)
[2023-01-10] MEDS: traZODone HCL 100 MG TABLET PO ×2 (03:17→22:38)
[2023-01-10] MEDS: Acetaminophen 325 MG TABLET 650 MG PO ×2 (04:15→22:36)
[2023-01-10] MEDS: Omeprazole 20 MG CAPSULE.DR PO (06:25)
[2023-01-10 08:19] VITALS: BP 135/78; PULSE 79; RESP 16; TEMP 36.7; O2SAT 100
[2023-01-10] MEDS: methADONE HCl 20 MG/2 ML ORAL.CONC 75 MG PO (08:24)
[2023-01-10] MEDS: Ibuprofen 800 MG TABLET PO ×3 (08:24→17:17)
[2023-01-10] MEDS: Furosemide 40 MG TABLET PO ×2 (08:24→17:16)
[2023-01-10] MEDS: Nicotine 14 MG PATCH.TD24 TRANSDERMA (08:24)
[2023-01-10] MEDS: Gabapentin 300 MG CAPSULE PO (08:25)
[2023-01-10] MEDS: lamoTRIgine 25 MG TABLET PO (08:25)
[2023-01-10 09:47] LABS: Ammonia 44 umol/L (13-55)
--- NOTE | 2023-01-10 09:59 | HO.PSYCHPN ---
Subjective Subjective Date of Service: 01/10/23 Reason For Visit: Bipolar disorder, PTSD, Opioid use Interim History: Met with patient; discussed with team Patient more organized able to interact in a pleasant and appropriate way. She restart all remains with paranoid ideations and talked about how there are agents he in her basement that are spying on her, different organizations that watch her. However she says that she is used to it and tolerates it. Patient showed lower legs which are positive for bilateral lower limb edema; she says this is chronic but has worsened on the unit. Production Repairer discussed gabapentin as a possible cause and patient said she would like to have it discontinued especially since it can be abused with Red Bull and says I do not need that thought in my mind. She also agrees to Omid shi Discussed getting her walker back. Patient said she will not throw it or use it to harm and is apologetic for past behavior. Mental Status Exam Mental Status Exam Narrative: Pt is alert and oriented; behavior is cooperative, more calm, more friendly; patient is not in distress; dressed in hospital attire, adequate hygiene; mood is described as okay and affect congruent, more calm; eye contact appropriate; Speech is normal rate, volume and prosody and not pressured; no psychomotor agitation/retardation present; thought process is mostly goal oriented though can be circumstantial; Thought content is on tx, aftercare but also with residual paranoid delusional thoughts; denies any SI/HI. There is no evidence of perceptual disturbance. Patients insight and judgment appear to be improving. Not sure patient's baseline Diagnostics Vital Signs (24Hr): Vital Signs - 24 hr 01/09/23 19:55 01/10/23 08:19 Temperature 96.8 F 98.0 F Pulse Rate 75 79 Respiratory Rate 16 Blood Pressure 138/79 135/78 Pulse Oximetry 97 100 Oxygen Delivery Method Room Air Room Air BMI result Body Mass Index 29.7 Labs 01/07/23 13:43 01/07/23 11:37 Labs: Laboratory Results - last 48 hr 01/10/23 09:17 Ammonia 44 Imaging Radiology Impressions: ITS Impressions Ribs w/Chest X-Ray 01/04/23 18:32 IMPRESSION: No evidence for acute disease in the chest. No acute rib fracture. Shoulder X-Ray 01/05/23 20:05 IMPRESSION: 1. Mild diffuse osteopenia. 2. Mild osteoarthrosis of the right acromioclavicular joint. 3. No radiographic evidence of any acute fracture, subluxation or dislocation. Medications Medications Current Medications Acetaminophen (Acetaminophen 325 Mg Tablet) 650 mg PO Q6H PRN PRN Reason: Headache/Pain Mild Scale (1-3) Last Admin: 01/10/23 04:15 Dose: 650 mg Al Hydroxide/Mg Hydroxide (Magnesium Hydrox/Alum Hydrox 30 Ml Oral.Susp) 30 ml PO Q6H PRN PRN Reason: Heartburn/Nausea Last Admin: 01/06/23 13:06 Dose: 30 ml Aripiprazole (Aripiprazole 20 Mg Tablet) 20 mg PO BEDTIME [facility] Last Admin: 01/09/23 20:07 Dose: 20 mg Baclofen (Baclofen 10 Mg Tablet) 10 mg PO TID PRN PRN Reason: muscle pain Last Admin: 01/09/23 20:02 Dose: 10 mg Divalproex Sodium (Divalproex Sodium Er 250 Mg Tab.Er.24h) 750 mg PO BEDTIME [facility] Last Admin: 01/09/23 20:07 Dose: 750 mg Furosemide (Furosemide 40 Mg Tablet) 40 mg PO BID@0900,1800 [facility]; Protocol Last Admin: 01/10/23 08:24 Dose: 40 mg Gabapentin (Gabapentin 300 Mg Capsule) 300 mg PO TID [facility] Last Admin: 01/10/23 08:25 Dose: 300 mg Hydroxyzine HCl (Hydroxyzine Hcl 25 Mg Tablet) 25 mg PO Q6H PRN PRN Reason: Anxiety Last Admin: 01/07/23 01:22 Dose: 25 mg Ibuprofen (Ibuprofen 800 Mg Tablet) 800 mg PO TIDWM [facility] Last Admin: 01/10/23 08:24 Dose: 800 mg Lamotrigine (Lamotrigine 25 Mg Tablet) 25 mg PO DAILY [facility] Last Admin: 01/10/23 08:25 Dose: 25 mg Magnesium Hydroxide (Milk Of Magnesia 30 Ml Oral.Susp) 30 ml PO DAILY PRN PRN Reason: Constipation Melatonin (Melatonin 3 Mg Tablet) 6 mg PO BEDTIME [facility] Last Admin: 01/09/23 19:56 Dose: 6 mg Methadone HCl (Methadone Hcl 20 Mg/2 Ml Oral.Conc) 75 mg PO DAILY [facility] Last Admin: 01/10/23 08:24 Dose: 75 mg Nicotine (Nicotine 14 Mg Patch.Td24) 14 mg TRANSDERMA DAILY [facility] Last Admin: 01/10/23 08:24 Dose: 14 mg Nicotine Polacrilex (Nicotine Polacrilex 2 Mg Gum) 2 mg BUCCAL Q2H PRN PRN Reason: cravings Last Admin: 01/07/23 09:15 Dose: 2 mg Omeprazole (Omeprazole 20 Mg Capsule.Dr) 20 mg PO DAILY@0600 [facility] Last Admin: 01/10/23 06:25 Dose: 20 mg Trazodone HCl (Trazodone Hcl 100 Mg Tablet) 100 mg PO BEDTIME MRX1 PRN PRN Reason: Insomnia Last Admin: 01/10/23 03:17 Dose: 100 mg Allergies Allergies Allergy/AdvReac Type Severity Reaction Status Date / Time amoxicillin [Amoxicillin] Allergy Mild RASH & Verified 05/10/22 10:46 DIZZINESS, Dizziness Assessment & Plan Assessment & Plan (1) Bipolar I disorder with priscila: Status: Acute Code(s): F31.10 - Bipolar disorder, current episode manic without psychotic features, unspecified (2) Opioid use disorder: Status: Acute Code(s): F11.99 - Opioid use, unspecified with unspecified opioid-induced disorder Plan Patient is a 57 year-old woman with hx of Bipolar Disorder, opioid use disorder in remission on methadone, CHF who is known to [facility] [place] previous [place] and is currently admitted due to medication non-compliance. PLAN: CV Change to q15 Can use walker Medications: Continue Abilify 20mg PO bedtime Continue Lasix 40mg PO BID DISCONTINUE Neurontin 300mg PO TID; patient endorses worsening bilateral lower limb edema Motrin 800mg PO TID Melatonin 6mg PO bedtime Ativan 1mg Q4hr PO PRN for agitation Zyprexa 5mg Q4hr PO PRN for agitation Methadone 75mg PO daily Continue Depakote ER 750mg PO bedtime Continue Baclofen 10mg PO TID PRN Continue lamictal 25mg PO daily Motrin 800mg PO TID Melatonin 6mg PO bedtime Ativan 1mg Q4hr PO PRN for agitation Zyprexa 5mg Q4hr PO PRN for agitation Methadone 75mg PO daily DC: Zyprexa 5mg PO q4hr PRN (pt does not want this medication) Reviewed labs from 01/10: valproic acid low but within therapeutic range; LFTs very mildly elevated; ammonia WNL Hospital course: 01/04: Patient continues to scream and use profanity towards T/W and staff. Patient refused labs this morning but states she will consider allowing them to take her blood later. Hospitalist consult order d/t pt c/o of right shoulder pain from restraint that occurred a few nights ago. 01/05: Calmer today. Continue current tx plan. 01/06: Continue current regimen. Depakote level ordered for tomorrow. 01/07: Patient continues irritable, paranoid and disorganized. Valproic acid level 20.5, Depakote ER dose increased to 750mg PO bedtime. 01/08: Patient continues irritable. Focused on right rotator cuff pain. PT consult entered, to be assessed. Continue medications as ordered. : Patient continues to be labile but with improvement. Presents more organized regarding treatment. Labs ordered for tomorrow morning. Patient is hoping for discharge by the end of the week. Was seen by PT yesterday -no treatment indicated 01/10: Patient more organized behavior and speech, easier to interact with and less irritable. Still with paranoid delusional thinking however it is unclear if this is part of her baseline; will need more collateral. Will discontinue gabapentin given bilateral lower limb swelling which she says has worsened; there is room to go up on Depakote as level is low normal, however will hold at current dose for now since patient seems to be improving Patient educated on: diagnosis, medication risk/benefits, substance abuse and medical condition Informed Consent: understands and further education needed Reason for continued inpatient stay Substantial Risk for: rapid decompensation Time Spent With Patient Time: Total time managing care of this patient today ____ minutes.
[2023-01-10 10:03] LABS: Alanine Aminotransferase 38 U/L (0-31); Albumin Level 3.7 g/dL (3.5-5.0); Alkaline Phosphatase 122 U/L (39-117); Aspartate Amino Transferase 51 U/L (5-31); Bilirubin Direct 0.2 mg/dL (0.0-0.5); Bilirubin Total 0.6 mg/dL (0.0-1.0); Total Protein 7.2 g/dL (6.5-8.0)
[2023-01-10 10:17] LABS: Valproate 54.9 mcg/mL (50.0-100.0)
--- NOTE | 2023-01-10 13:20 | PC.NURSE ---
pt utilizing walker and on 15 minute checks. pt was pleased to have walker back. states her mood is more stable.
[2023-01-10 17:15] VITALS: BP 119/66; PULSE 87; TEMP 36
[2023-01-10] MEDS: ARIPiprazole 20 MG TABLET PO (22:30)
[2023-01-10] MEDS: Divalproex Sodium ER 250 MG TAB.ER.24H 750 MG PO (22:30)
[2023-01-10] MEDS: Baclofen 10 MG TABLET PO (22:37)
[2023-01-10] MEDS: Melatonin 3 MG TABLET 6 MG PO (22:37)
[2023-01-11] MEDS: Omeprazole 20 MG CAPSULE.DR PO (05:24)
[2023-01-11] MEDS: Acetaminophen 325 MG TABLET 650 MG PO ×2 (05:24→19:20)
[2023-01-11] MEDS: Furosemide 40 MG TABLET PO ×2 (08:07→16:59)
[2023-01-11] MEDS: Gabapentin 300 MG CAPSULE PO (08:07)
[2023-01-11] MEDS: Ibuprofen 800 MG TABLET PO ×3 (08:07→16:59)
[2023-01-11] MEDS: methADONE HCl 20 MG/2 ML ORAL.CONC 75 MG PO (08:08)
[2023-01-11] MEDS: lamoTRIgine 25 MG TABLET PO (08:08)
[2023-01-11 08:20] VITALS: BP 141/87; PULSE 88; RESP 16; TEMP 36.3; O2SAT 99
--- NOTE | 2023-01-11 10:02 | HO.PSYCHPN ---
Subjective Subjective Date of Service: 01/11/23 Reason For Visit: Bipolar disorder, PTSD, Opioid use Interim History: Met with patient; discussed with team Patient remains in good behavioral and impulse control, appropriate with peers and staff. Patient apologized for past behaviors on the unit. She Complains of shoulder pain and agrees to try Aspercreme. Patient talked about her efforts to quit smoking cigarettes and magazine writer discussed Wellbutrin however patient and magazine writer agree that it is probably best not to add a new medication at this time. Patient did however ask for a camper said to be restarted since she said it helped considerably with alcohol cravings. Pt sleeping well. Mental Status Exam Mental Status Exam Narrative: Pt is alert and oriented; behavior is cooperative, calm, friendly; patient is not in distress; dressed in hospital attire, using walker, adequate hygiene; mood is described as okay and affect congruent, more calm; eye contact appropriate; Speech is normal rate, volume and prosody and not pressured; no psychomotor agitation/retardation present; thought process is mostly goal oriented though can be circumstantial; Thought content is on tx, aftercare but also with residual paranoid delusional thoughts; denies any SI/HI. There is no evidence of perceptual disturbance. Patients insight and judgment impaired but significantly improved, adequate and at baseline. Diagnostics Vital Signs (24Hr): Vital Signs - 24 hr 01/10/23 17:15 01/11/23 08:20 Temperature 96.8 F 97.3 F Pulse Rate 87 88 Respiratory Rate 16 Blood Pressure 119/66 141/87 H Pulse Oximetry 99 Oxygen Delivery Method Room Air BMI result Body Mass Index 29.7 Labs 01/07/23 13:43 01/07/23 11:37 Labs: Laboratory Results - last 48 hr 01/10/23 01/10/23 01/10/23 09:17 09:17 09:17 Total Bilirubin 0.6 Direct Bilirubin 0.2 AST 51 H ALT 38 H Alkaline Phosphatase 122 H Ammonia 44 Total Protein 7.2 Albumin 3.7 Valproic Acid 54.9 Imaging Radiology Impressions: ITS Impressions Ribs w/Chest X-Ray 01/04/23 18:32 IMPRESSION: No evidence for acute disease in the chest. No acute rib fracture. Shoulder X-Ray 01/05/23 20:05 IMPRESSION: 1. Mild diffuse osteopenia. 2. Mild osteoarthrosis of the right acromioclavicular joint. 3. No radiographic evidence of any acute fracture, subluxation or dislocation. Medications Medications Current Medications Acetaminophen (Acetaminophen 325 Mg Tablet) 650 mg PO Q6H PRN PRN Reason: Headache/Pain Mild Scale (1-3) Last Admin: 01/11/23 05:24 Dose: 650 mg Al Hydroxide/Mg Hydroxide (Magnesium Hydrox/Alum Hydrox 30 Ml Oral.Susp) 30 ml PO Q6H PRN PRN Reason: Heartburn/Nausea Last Admin: 01/06/23 13:06 Dose: 30 ml Aripiprazole (Aripiprazole 20 Mg Tablet) 20 mg PO BEDTIME [facility] Last Admin: 01/10/23 22:30 Dose: 20 mg Baclofen (Baclofen 10 Mg Tablet) 10 mg PO TID PRN PRN Reason: muscle pain Last Admin: 01/10/23 22:37 Dose: 10 mg Divalproex Sodium (Divalproex Sodium Er 250 Mg Tab.Er.24h) 750 mg PO BEDTIME [facility] Last Admin: 01/10/23 22:30 Dose: 750 mg Furosemide (Furosemide 40 Mg Tablet) 40 mg PO BID@0900,1800 [facility]; Protocol Last Admin: 01/11/23 08:07 Dose: 40 mg Gabapentin (Gabapentin 300 Mg Capsule) 300 mg PO DAILY [facility] Stop: 01/11/23 23:50 Last Admin: 01/11/23 08:07 Dose: 300 mg Hydroxyzine HCl (Hydroxyzine Hcl 25 Mg Tablet) 25 mg PO Q6H PRN PRN Reason: Anxiety Last Admin: 01/07/23 01:22 Dose: 25 mg Ibuprofen (Ibuprofen 800 Mg Tablet) 800 mg PO TIDWM [facility] Last Admin: 01/11/23 08:07 Dose: 800 mg Lamotrigine (Lamotrigine 25 Mg Tablet) 25 mg PO DAILY [facility] Last Admin: 01/11/23 08:08 Dose: 25 mg Magnesium Hydroxide (Milk Of Magnesia 30 Ml Oral.Susp) 30 ml PO DAILY PRN PRN Reason: Constipation Melatonin (Melatonin 3 Mg Tablet) 6 mg PO BEDTIME [facility] Last Admin: 01/10/23 22:37 Dose: 6 mg Methadone HCl (Methadone Hcl 20 Mg/2 Ml Oral.Conc) 75 mg PO DAILY [facility] Last Admin: 01/11/23 08:08 Dose: 75 mg Nicotine (Nicotine 14 Mg Patch.Td24) 14 mg TRANSDERMA DAILY [facility] Last Admin: 01/10/23 08:24 Dose: 14 mg Nicotine Polacrilex (Nicotine Polacrilex 2 Mg Gum) 2 mg BUCCAL Q2H PRN PRN Reason: cravings Last Admin: 01/07/23 09:15 Dose: 2 mg Omeprazole (Omeprazole 20 Mg Capsule.Dr) 20 mg PO DAILY@0600 [facility] Last Admin: 01/11/23 05:24 Dose: 20 mg Trazodone HCl (Trazodone Hcl 100 Mg Tablet) 100 mg PO BEDTIME MRX1 PRN PRN Reason: Insomnia Last Admin: 01/10/23 22:38 Dose: 100 mg Allergies Allergies Allergy/AdvReac Type Severity Reaction Status Date / Time amoxicillin [Amoxicillin] Allergy Mild RASH & Verified 05/10/22 10:46 DIZZINESS, Dizziness Assessment & Plan Assessment & Plan (1) Bipolar I disorder with priscila: Status: Acute Code(s): F31.10 - Bipolar disorder, current episode manic without psychotic features, unspecified (2) Opioid use disorder: Status: Acute Code(s): F11.99 - Opioid use, unspecified with unspecified opioid-induced disorder Plan Patient is a 57 year-old woman with hx of Bipolar Disorder, opioid use disorder in remission on methadone, CHF who [place] [facility] [place] and is currently admitted due to medication non-compliance. PLAN: CV Change to q15 Can use walker Medications: Continue Abilify 20mg PO bedtime Continue Lasix 40mg PO BID DISCONTINUE Neurontin 300mg PO TID; patient endorses worsening bilateral lower limb edema Motrin 800mg PO TID Melatonin 6mg PO bedtime Ativan 1mg Q4hr PO PRN for agitation Zyprexa 5mg Q4hr PO PRN for agitation Methadone 75mg PO daily Continue Depakote ER 750mg PO bedtime Continue Baclofen 10mg PO TID PRN Continue lamictal 25mg PO daily Motrin 800mg PO TID Melatonin 6mg PO bedtime Ativan 1mg Q4hr PO PRN for agitation Zyprexa 5mg Q4hr PO PRN for agitation Methadone 75mg PO daily DC: Zyprexa 5mg PO q4hr PRN (pt does not want this medication) Reviewed labs from 01/10: valproic acid low but within therapeutic range; LFTs very mildly elevated; ammonia WNL Hospital course: 01/04: Patient continues to scream and use profanity towards T/W and staff. Patient refused labs this morning but states she will consider allowing them to take her blood later. Hospitalist consult order d/t pt c/o of right shoulder pain from restraint that occurred a few nights ago. 01/05: Calmer today. Continue current tx plan. 01/06: Continue current regimen. Depakote level ordered for tomorrow. 01/07: Patient continues irritable, paranoid and disorganized. Valproic acid level 20.5, Depakote ER dose increased to 750mg PO bedtime. 01/08: Patient continues irritable. Focused on right rotator cuff pain. PT consult entered, to be assessed. Continue medications as ordered. : Patient continues to be labile but with improvement. Presents more organized regarding treatment. Labs ordered for tomorrow morning. Patient is hoping for discharge by the end of the week. Was seen by PT yesterday -no treatment indicated 01/10: Patient more organized behavior and speech, easier to interact with and less irritable. Still with paranoid delusional thinking however it is unclear if this is part of her baseline; will need more collateral. Will discontinue gabapentin given bilateral lower limb swelling which she says has worsened; there is room to go up on Depakote as level is low normal, however will hold at current dose for now since patient seems to be improving 01/11: Patient remains much improved, organized in speech behavior and with appropriate behaviors. Still some residual paranoia which is baseline. Started Aspercreme for shoulder pain Patient educated on: diagnosis, medication risk/benefits and therapeutic strategies Informed Consent: understands Reason for continued inpatient stay Substantial Risk for: med/psych decompensation Time Spent With Patient Time: Total time managing care of this patient today ____ minutes.
[2023-01-11] MEDS: Baclofen 10 MG TABLET PO (12:40)
[2023-01-11] MEDS: Trolamine Salicylate 10 % Cream 85 GM TUBE 1 APPL TOPICAL ×2 (14:07→19:22)
[2023-01-11] MEDS: Nicotine Polacrilex 2 MG GUM BUCCAL (16:47)
[2023-01-11 16:56] VITALS: BP 111/77; PULSE 81; RESP 16; TEMP 36.6; O2SAT 99
[2023-01-11 20:46] VITALS: BP 106/57; PULSE 86; TEMP 36.6
[2023-01-11] MEDS: Acamprosate Calcium 333 MG TABLET.DR PO (21:51)
[2023-01-11] MEDS: ARIPiprazole 20 MG TABLET PO (21:51)
[2023-01-11] MEDS: traZODone HCL 100 MG TABLET PO (21:51)
[2023-01-11] MEDS: Divalproex Sodium ER 250 MG TAB.ER.24H 750 MG PO (21:51)
[2023-01-11] MEDS: Melatonin 3 MG TABLET 6 MG PO (21:51)
[2023-01-12] MEDS: Acetaminophen 325 MG TABLET 650 MG PO ×2 (02:01→15:10)
[2023-01-12] MEDS: Baclofen 10 MG TABLET PO ×2 (05:11→22:42)
[2023-01-12] MEDS: Omeprazole 20 MG CAPSULE.DR PO (05:11)
[2023-01-12] MEDS: Trolamine Salicylate 10 % Cream 85 GM TUBE 1 APPL TOPICAL ×2 (05:22→15:11)
[2023-01-12 08:10] VITALS: BP 142/74; PULSE 89; RESP 16; TEMP 36.5; O2SAT 97
[2023-01-12] MEDS: Nicotine Polacrilex 2 MG GUM BUCCAL ×3 (08:12→19:06)
[2023-01-12] MEDS: Acamprosate Calcium 333 MG TABLET.DR PO ×3 (08:19→22:41)
[2023-01-12] MEDS: Ibuprofen 800 MG TABLET PO ×3 (08:19→18:01)
[2023-01-12] MEDS: Furosemide 40 MG TABLET PO ×2 (08:20→18:03)
[2023-01-12] MEDS: lamoTRIgine 25 MG TABLET PO (08:20)
[2023-01-12] MEDS: methADONE HCl 20 MG/2 ML ORAL.CONC 75 MG PO (08:22)
--- NOTE | 2023-01-12 08:56 | HO.PSYCHPN ---
Subjective Subjective Date of Service: 01/12/23 Reason For Visit: Bipolar disorder, PTSD, Opioid use Interim History: Pt seen and reviewed in team. She reports feeling well. She asked questions today regarding Prazosin and Propranolol and the differences between the two agents. Well engaged in this discussion. Medication Compliance: Yes Mental Status Exam Mental Status Exam Patient Appearance: Appropriate Patient Orientation: Person, Place, Time and Situation Level of Consciousness: Alert Patient Behavior: Appropriate, Talkative, Cooperative and Good Eye Contact Mood Description: Appropriate Affect Description: Appropriate Patient Cognition Impaired: No Ability to Follow Directions: Good Speech Pattern: Spontaneous Speech Memory Description: Episodic Impaired Hallucinations: None Delusions: Not Present Perceptual Disturbances: Depersonalization Thought Process: Goal Oriented Thought Content: positive for Goal Oriented Depressive Symptoms: Low Self Esteem Judgement: Good Diagnostics Vital Signs (24Hr): Vital Signs - 24 hr 01/11/23 16:56 01/11/23 20:46 01/12/23 08:10 Temperature 97.8 F 97.9 F 97.7 F Pulse Rate 81 86 89 Respiratory Rate 16 16 Blood Pressure 111/77 106/57 L 142/74 H Pulse Oximetry 99 97 Oxygen Delivery Method Room Air Room Air BMI result Body Mass Index 29.7 Labs 01/07/23 13:43 01/07/23 11:37 Labs: Laboratory Results - last 48 hr 01/10/23 01/10/23 01/10/23 09:17 09:17 09:17 Total Bilirubin 0.6 Direct Bilirubin 0.2 AST 51 H ALT 38 H Alkaline Phosphatase 122 H Ammonia 44 Total Protein 7.2 Albumin 3.7 Valproic Acid 54.9 Imaging Radiology Impressions: ITS Impressions Ribs w/Chest X-Ray 01/04/23 18:32 IMPRESSION: No evidence for acute disease in the chest. No acute rib fracture. Shoulder X-Ray 01/05/23 20:05 IMPRESSION: 1. Mild diffuse osteopenia. 2. Mild osteoarthrosis of the right acromioclavicular joint. 3. No radiographic evidence of any acute fracture, subluxation or dislocation. Medications Medications Current Medications Acamprosate (Acamprosate Calcium 333 Mg Tablet.) 333 mg PO TID NIR Last Admin: 01/12/23 08:19 Dose: 333 mg Acetaminophen (Acetaminophen 325 Mg Tablet) 650 mg PO Q6H PRN PRN Reason: Headache/Pain Mild Scale (1-3) Last Admin: 01/12/23 02:01 Dose: 650 mg Al Hydroxide/Mg Hydroxide (Magnesium Hydrox/Alum Hydrox 30 Ml Oral.Susp) 30 ml PO Q6H PRN PRN Reason: Heartburn/Nausea Last Admin: 01/06/23 13:06 Dose: 30 ml Aripiprazole (Aripiprazole 20 Mg Tablet) 20 mg PO BEDTIME [facility] Last Admin: 01/11/23 21:51 Dose: 20 mg Baclofen (Baclofen 10 Mg Tablet) 10 mg PO TID PRN PRN Reason: muscle pain Last Admin: 01/12/23 05:11 Dose: 10 mg Divalproex Sodium (Divalproex Sodium Er 250 Mg Tab.Er.24h) 750 mg PO BEDTIME [facility] Last Admin: 01/11/23 21:51 Dose: 750 mg Furosemide (Furosemide 40 Mg Tablet) 40 mg PO BID@0900,1800 [facility]; Protocol Last Admin: 01/12/23 08:20 Dose: 40 mg Hydroxyzine HCl (Hydroxyzine Hcl 25 Mg Tablet) 25 mg PO Q6H PRN PRN Reason: Anxiety Last Admin: 01/07/23 01:22 Dose: 25 mg Ibuprofen (Ibuprofen 800 Mg Tablet) 800 mg PO TIDWM [facility] Last Admin: 01/12/23 08:19 Dose: 800 mg Lamotrigine (Lamotrigine 25 Mg Tablet) 25 mg PO DAILY [facility] Last Admin: 01/12/23 08:20 Dose: 25 mg Magnesium Hydroxide (Milk Of Magnesia 30 Ml Oral.Susp) 30 ml PO DAILY PRN PRN Reason: Constipation Melatonin (Melatonin 3 Mg Tablet) 6 mg PO BEDTIME [facility] Last Admin: 01/11/23 21:51 Dose: 6 mg Methadone HCl (Methadone Hcl 20 Mg/2 Ml Oral.Conc) 75 mg PO DAILY [facility] Last Admin: 01/12/23 08:22 Dose: 75 mg Nicotine (Nicotine 14 Mg Patch.Td24) 14 mg TRANSDERMA DAILY [facility] Last Admin: 01/11/23 09:00 Dose: Not Given Nicotine Polacrilex (Nicotine Polacrilex 2 Mg Gum) 2 mg BUCCAL Q2H PRN PRN Reason: cravings Last Admin: 01/12/23 08:12 Dose: 2 mg Omeprazole (Omeprazole 20 Mg Capsule.Dr) 20 mg PO DAILY@0600 [facility] Last Admin: 01/12/23 05:11 Dose: 20 mg Trazodone HCl (Trazodone Hcl 100 Mg Tablet) 100 mg PO BEDTIME MRX1 PRN PRN Reason: Insomnia Last Admin: 01/11/23 21:51 Dose: 100 mg Trolamine Salicylate (Trolamine Salicylate 10 % Cream 85 Gm Tube) 1 appl TOPICAL BID PRN; Protocol PRN Reason: Pain, Mild (Pain Scale 1-3) Last Admin: 01/12/23 05:22 Dose: 1 appl Allergies Allergies Allergy/AdvReac Type Severity Reaction Status Date / Time amoxicillin [Amoxicillin] Allergy Mild RASH & Verified 05/10/22 10:46 DIZZINESS, Dizziness Assessment & Plan Assessment & Plan (1) Bipolar I disorder with priscila: Status: Acute Code(s): F31.10 - Bipolar disorder, current episode manic without psychotic features, unspecified (2) Opioid use disorder: Status: Acute Code(s): F11.99 - Opioid use, unspecified with unspecified opioid-induced disorder Plan Patient is a 57 year-old woman with hx of Bipolar Disorder, opioid use disorder in remission on methadone, CHF who is known to [facility] [place] previous [place] and is currently admitted due to medication non-compliance. PLAN: CV Change to q15 Can use walker Medications: Continue Abilify 20mg PO bedtime Continue Lasix 40mg PO BID DISCONTINUE Neurontin 300mg PO TID; patient endorses worsening bilateral lower limb edema Motrin 800mg PO TID Melatonin 6mg PO bedtime Ativan 1mg Q4hr PO PRN for agitation Zyprexa 5mg Q4hr PO PRN for agitation Methadone 75mg PO daily Continue Depakote ER 750mg PO bedtime Continue Baclofen 10mg PO TID PRN Continue lamictal 25mg PO daily Motrin 800mg PO TID Melatonin 6mg PO bedtime Ativan 1mg Q4hr PO PRN for agitation Zyprexa 5mg Q4hr PO PRN for agitation Methadone 75mg PO daily DC: Zyprexa 5mg PO q4hr PRN (pt does not want this medication) Reviewed labs from 01/10: valproic acid low but within therapeutic range; LFTs very mildly elevated; ammonia WNL Hospital course: 01/04: Patient continues to scream and use profanity towards T/W and staff. Patient refused labs this morning but states she will consider allowing them to take her blood later. Hospitalist consult order d/t pt c/o of right shoulder pain from restraint that occurred a few nights ago. 01/05: Calmer today. Continue current tx plan. 01/06: Continue current regimen. Depakote level ordered for tomorrow. 01/07: Patient continues irritable, paranoid and disorganized. Valproic acid level 20.5, Depakote ER dose increased to 750mg PO bedtime. 01/08: Patient continues irritable. Focused on right rotator cuff pain. PT consult entered, to be assessed. Continue medications as ordered. 5:: Patient continues to be labile but with improvement. Presents more organized regarding treatment. Labs ordered for tomorrow morning. Patient is hoping for discharge by the end of the week. Was seen by PT yesterday -no treatment indicated 01/10: Patient more organized behavior and speech, easier to interact with and less irritable. Still with paranoid delusional thinking however it is unclear if this is part of her baseline; will need more collateral. Will discontinue gabapentin given bilateral lower limb swelling which she says has worsened; there is room to go up on Depakote as level is low normal, however will hold at current dose for now since patient seems to be improving 01/11: Patient remains much improved, organized in speech behavior and with appropriate behaviors. Still some residual paranoia which is baseline. Started Aspercreme for shoulder pain 01/12/23- continue current regime. Patient educated on: medication risk/benefits Informed Consent: understands and further education needed Reason for continued inpatient stay Substantial Risk for: rapid decompensation Time Spent With Patient Time: Total time managing care of this patient today ____ minutes.
[2023-01-12] MEDS: Nicotine 14 MG PATCH.TD24 TRANSDERMA (13:12)
[2023-01-12 18:00] VITALS: BP 136/72; PULSE 82; RESP 18; TEMP 36.6; O2SAT 99
[2023-01-12] MEDS: Divalproex Sodium ER 250 MG TAB.ER.24H 750 MG PO (22:41)
[2023-01-12] MEDS: ARIPiprazole 20 MG TABLET PO (22:42)
[2023-01-12] MEDS: Melatonin 3 MG TABLET 6 MG PO (22:42)
[2023-01-12] MEDS: traZODone HCL 100 MG TABLET PO (22:42)
[2023-01-13] MEDS: Acetaminophen 325 MG TABLET 650 MG PO ×2 (02:19→21:10)
[2023-01-13] MEDS: Omeprazole 20 MG CAPSULE.DR PO (06:30)
[2023-01-13 08:00] VITALS: BP 146/77; PULSE 85; RESP 16; TEMP 36.2; O2SAT 100
[2023-01-13] MEDS: Ibuprofen 800 MG TABLET PO ×3 (08:00→17:07)
[2023-01-13] MEDS: Furosemide 40 MG TABLET PO ×2 (08:01→17:07)
[2023-01-13] MEDS: Acamprosate Calcium 333 MG TABLET.DR PO ×3 (08:01→21:10)
[2023-01-13] MEDS: lamoTRIgine 25 MG TABLET PO (08:01)
[2023-01-13] MEDS: methADONE HCl 20 MG/2 ML ORAL.CONC 75 MG PO (08:02)
[2023-01-13] MEDS: Nicotine 14 MG PATCH.TD24 TRANSDERMA (08:03)
[2023-01-13] MEDS: Trolamine Salicylate 10 % Cream 85 GM TUBE 1 APPL TOPICAL (09:32)
--- NOTE | 2023-01-13 16:48 | P.PNPSI_ITS ---
Subjective Subjective Date of Service: 01/13/23 Reason For Visit: Bipolar disorder, PTSD, Opioid use Interim History: Preparing for discharge on 01/14/23. Reviewed with team, pt seen. She reports feeling positive and excited to discharge. Today she talked about the benefit she has had from cannabis. Discussed getting her medical marijuana card. Discussed risks with current sx and regime. She verbalized understanding and consideration. Mental Status Exam Mental Status Exam Patient Appearance: Appropriate Patient Orientation: Person, Place, Time and Situation Level of Consciousness: Alert Patient Behavior: Appropriate, Talkative, Cooperative and Good Eye Contact Mood Description: Appropriate Affect Description: Appropriate Patient Cognition Impaired: No Ability to Follow Directions: Good Speech Pattern: Spontaneous Speech Memory Description: Episodic Impaired Hallucinations: None Delusions: Not Present Perceptual Disturbances: Depersonalization Thought Process: Goal Oriented Thought Content: positive for Goal Oriented Depressive Symptoms: Low Self Esteem Judgement: Good Diagnostics Vital Signs (24Hr): Vital Signs - 24 hr 01/12/23 18:00 01/13/23 08:00 Temperature 98 F 97.1 F Pulse Rate 82 85 Respiratory Rate 18 16 Blood Pressure 136/72 146/77 H Pulse Oximetry 99 100 Oxygen Delivery Method Room Air Room Air BMI result Body Mass Index 29.7 Labs 01/07/23 13:43 01/07/23 11:37 Imaging Radiology Impressions: ITS Impressions Ribs w/Chest X-Ray 01/04/23 18:32 IMPRESSION: No evidence for acute disease in the chest. No acute rib fracture. Shoulder X-Ray 01/05/23 20:05 IMPRESSION: 1. Mild diffuse osteopenia. 2. Mild osteoarthrosis of the right acromioclavicular joint. 3. No radiographic evidence of any acute fracture, subluxation or dislocation. Medications Medications Current Medications Acamprosate (Acamprosate Calcium 333 Mg Tablet.Dr) 333 mg PO TID NIR Last Admin: 01/13/23 14:15 Dose: 333 mg Acetaminophen (Acetaminophen 325 Mg Tablet) 650 mg PO Q6H PRN PRN Reason: Headache/Pain Mild Scale (1-3) Last Admin: 01/13/23 02:19 Dose: 650 mg Al Hydroxide/Mg Hydroxide (Magnesium Hydrox/Alum Hydrox 30 Ml Oral.Susp) 30 ml PO Q6H PRN PRN Reason: Heartburn/Nausea Last Admin: 01/06/23 13:06 Dose: 30 ml Aripiprazole (Aripiprazole 20 Mg Tablet) 20 mg PO BEDTIME [facility] Last Admin: 01/12/23 22:42 Dose: 20 mg Baclofen (Baclofen 10 Mg Tablet) 10 mg PO TID PRN PRN Reason: muscle pain Last Admin: 01/12/23 22:42 Dose: 10 mg Divalproex Sodium (Divalproex Sodium Er 250 Mg Tab.Er.24h) 750 mg PO BEDTIME [facility] Last Admin: 01/12/23 22:41 Dose: 750 mg Furosemide (Furosemide 40 Mg Tablet) 40 mg PO BID@0900,1800 [facility]; Protocol Last Admin: 01/13/23 08:01 Dose: 40 mg Hydroxyzine HCl (Hydroxyzine Hcl 25 Mg Tablet) 25 mg PO Q6H PRN PRN Reason: Anxiety Last Admin: 01/07/23 01:22 Dose: 25 mg Ibuprofen (Ibuprofen 800 Mg Tablet) 800 mg PO TIDWM [facility] Last Admin: 01/13/23 12:00 Dose: 800 mg Lamotrigine (Lamotrigine 25 Mg Tablet) 25 mg PO DAILY [facility] Last Admin: 01/13/23 08:01 Dose: 25 mg Magnesium Hydroxide (Milk Of Magnesia 30 Ml Oral.Susp) 30 ml PO DAILY PRN PRN Reason: Constipation Melatonin (Melatonin 3 Mg Tablet) 6 mg PO BEDTIME [facility] Last Admin: 01/12/23 22:42 Dose: 6 mg Methadone HCl (Methadone Hcl 20 Mg/2 Ml Oral.Conc) 75 mg PO DAILY [facility] Last Admin: 01/13/23 08:02 Dose: 75 mg Nicotine (Nicotine 14 Mg Patch.Td24) 14 mg TRANSDERMA DAILY [facility] Last Admin: 01/13/23 08:03 Dose: 14 mg Nicotine Polacrilex (Nicotine Polacrilex 2 Mg Gum) 2 mg BUCCAL Q2H PRN PRN Reason: cravings Last Admin: 01/12/23 19:06 Dose: 2 mg Omeprazole (Omeprazole 20 Mg Capsule.Dr) 20 mg PO DAILY@0600 [facility] Last Admin: 01/13/23 06:30 Dose: 20 mg Trazodone HCl (Trazodone Hcl 100 Mg Tablet) 100 mg PO BEDTIME MRX1 PRN PRN Reason: Insomnia Last Admin: 01/12/23 22:42 Dose: 100 mg Trolamine Salicylate (Trolamine Salicylate 10 % Cream 85 Gm Tube) 1 appl TOPICAL BID PRN; Protocol PRN Reason: Pain, Mild (Pain Scale 1-3) Last Admin: 01/13/23 09:32 Dose: 1 appl Allergies Allergies Allergy/AdvReac Type Severity Reaction Status Date / Time amoxicillin [Amoxicillin] Allergy Mild RASH & Verified 05/10/22 10:46 DIZZINESS, Dizziness Assessment & Plan Assessment & Plan (1) Bipolar I disorder with priscila: Status: Acute Code(s): F31.10 - Bipolar disorder, current episode manic without psychotic features, unspecified (2) Opioid use disorder: Status: Acute Code(s): F11.99 - Opioid use, unspecified with unspecified opioid-induced disorder Plan Patient is a 57 year-old woman with hx of Bipolar Disorder, opioid use disorder in remission on methadone, CHF who is known [place] [facility] [place] previous [place] and is currently admitted due to medication non-compliance. PLAN: CV Change to q15 Can use walker Medications: Continue Abilify 20mg PO bedtime Continue Lasix 40mg PO BID DISCONTINUE Neurontin 300mg PO TID; patient endorses worsening bilateral lower limb edema Motrin 800mg PO TID Melatonin 6mg PO bedtime Ativan 1mg Q4hr PO PRN for agitation Zyprexa 5mg Q4hr PO PRN for agitation Methadone 75mg PO daily Continue Depakote ER 750mg PO bedtime Continue Baclofen 10mg PO TID PRN Continue lamictal 25mg PO daily Motrin 800mg PO TID Melatonin 6mg PO bedtime Ativan 1mg Q4hr PO PRN for agitation Zyprexa 5mg Q4hr PO PRN for agitation Methadone 75mg PO daily DC: Zyprexa 5mg PO q4hr PRN (pt does not want this medication) Reviewed labs from 01/10: valproic acid low but within therapeutic range; LFTs very mildly elevated; ammonia WNL Hospital course: 01/04: Patient continues to scream and use profanity towards T/W and staff. Patient refused labs this morning but states she will consider allowing them to take her blood later. Hospitalist consult order d/t pt c/o of right shoulder pain from restraint that occurred a few nights ago. 01/05: Calmer today. Continue current tx plan. 01/06: Continue current regimen. Depakote level ordered for tomorrow. 01/07: Patient continues irritable, paranoid and disorganized. Valproic acid level 20.5, Depakote ER dose increased to 750mg PO bedtime. 01/08: Patient continues irritable. Focused on right rotator cuff pain. PT co nsult entered, to be assessed. Continue medications as ordered. 5:17: Patient continues to be labile but with improvement. Presents more organized regarding treatment. Labs ordered for tomorrow morning. Patient is hoping for discharge by the end of the week. Was seen by PT yesterday -no treatment indicated 01/10: Patient more organized behavior and speech, easier to interact with and less irritable. Still with paranoid delusional thinking however it is unclear if this is part of her baseline; will need more collateral. Will discontinue gabapentin given bilateral lower limb swelling which she says has worsened; there is room to go up on Depakote as level is low normal, however will hold at current dose for now since patient seems to be improving 01/11: Patient remains much improved, organized in speech behavior and with appropriate behaviors. Still some residual paranoia which is baseline. Started Aspercreme for shoulder pain 01/12/23- continue current regime. 01/13/23- continue current regime planning discharge for 01/14/23. Informed Consent: understands Reason for continued inpatient stay Substantial Risk for: rapid decompensation Time Spent With Patient Time: Total time managing care of this patient today ____ minutes.
[2023-01-13] MEDS: Baclofen 10 MG TABLET PO (17:07)
[2023-01-13 18:00] VITALS: BP 143/75; PULSE 81; RESP 20; TEMP 35.9; O2SAT 98
[2023-01-13] MEDS: traZODone HCL 100 MG TABLET PO (21:09)
[2023-01-13] MEDS: Divalproex Sodium ER 250 MG TAB.ER.24H 750 MG PO (21:09)
[2023-01-13] MEDS: Melatonin 3 MG TABLET 6 MG PO (21:09)
[2023-01-13] MEDS: hydrOXYzine HCL 25 MG TABLET PO (21:09)
[2023-01-13] MEDS: ARIPiprazole 20 MG TABLET PO (21:10)
[2023-01-14] MEDS: Trolamine Salicylate 10 % Cream 85 GM TUBE 1 APPL TOPICAL (01:06)
[2023-01-14] MEDS: traZODone HCL 100 MG TABLET PO (01:06)
[2023-01-14] MEDS: Omeprazole 20 MG CAPSULE.DR PO (05:53)
[2023-01-14 08:18] VITALS: BP 138/84; PULSE 77; RESP 16; TEMP 36.6; O2SAT 100
[2023-01-14] MEDS: lamoTRIgine 25 MG TABLET PO (08:57)
[2023-01-14] MEDS: Ibuprofen 800 MG TABLET PO (08:57)
[2023-01-14] MEDS: Baclofen 10 MG TABLET PO (08:57)
[2023-01-14] MEDS: Acamprosate Calcium 333 MG TABLET.DR PO (08:57)
[2023-01-14] MEDS: Furosemide 40 MG TABLET PO (08:57)
[2023-01-14] MEDS: Nicotine 14 MG PATCH.TD24 TRANSDERMA (08:58)
[2023-01-14] MEDS: methADONE HCl 20 MG/2 ML ORAL.CONC 75 MG PO (08:58)
--- NOTE | 2023-01-14 09:44 | P.DS_ITS ---
DS: Providers Provider Date of Service: 01/14/23 Date of admission: 01/02/23 19:50 Date of discharge: 01/14/23 Primary care physician: Unknown Physician Admitting clinician: Jasmin Santana Consults: 01/02/23 15:08 Consult to Hospitalist Routine Comment: Consulting Provider: Hospitalist Reason For Exam: Transfer from [facility] 01/04/23 13:15 Consult to Hospitalist Routine Comment: Consulting Provider: Hospitalist Reason For Exam: R shoulder,pt worried its sprained from restraint DS: Diagnosis Discharge Diagnosis (1) Bipolar I disorder with priscila: Status: Acute (2) Opioid use disorder: Status: Acute DS: Medications Discharge Medications Home Medications: Previous Rx's Medication Instructions Recorded acetaminophen 325 mg tablet 650 mg PO Q6H PRN Headache/Pain 09/13/22 Mild Scale (1-3) #0 tabs ibuprofen 800 mg tablet 800 mg PO TIDWM #90 tabs 12/24/22 acamprosate 333 mg tablet,delayed 666 mg PO TID 30 days #180 tabs 01/14/23 release aripiprazole 20 mg tablet (Abilify) 20 mg PO BEDTIME 30 days #30 tabs 01/14/23 baclofen 10 mg tablet 10 mg PO TID PRN muscle pain 30 01/14/23 days #90 tabs divalproex 250 mg tablet,extended 750 mg PO BEDTIME 30 days #90 tabs 01/14/23 release 24 hr folic acid 1 mg tablet 1 mg PO DAILY 30 days #30 tabs 01/14/23 furosemide 40 mg tablet 40 mg PO BID@0900,1800 30 days #60 01/14/23 tabs hydroxyzine HCl 25 mg tablet 25 mg PO Q6H PRN Anxiety 3 days 01/14/23 #60 tabs lamotrigine 25 mg tablet 25 mg PO DAILY 30 days #30 tabs 01/14/23 melatonin 5 mg tablet 5 mg PO BEDTIME PRN sleep 30 days 01/14/23 #30 tabs methadone 10 mg/mL oral 75 mg (7.5 mL) PO DAILY #0 mL 01/14/23 concentrate (Methadose) multivitamin (Daily-Alexis tablet) 1 tab PO DAILY 30 days #30 tabs 01/14/23 nicotine (polacrilex) 2 mg gum 2 mg buccal Q2H PRN cravings 30 01/14/23 days #100 ea nicotine 21 mg/24 hr daily 21 mg transdermal DAILY PRN 01/14/23 transdermal patch smoking cessation 28 days #28 ea omeprazole 20 mg capsule,delayed 20 mg PO DAILY 30 days #30 caps 01/14/23 release trazodone 100 mg tablet 100 mg PO BEDTIME PRN Insomnia 30 01/14/23 days #30 tabs trolamine salicylate 10 % topical 1 appl topical BID PRN Pain, Mild 01/14/23 cream (Arthricream) (Pain Scale 1-3) 30 days #35.4 grams Mental Status Exam Mental Status Exam Narrative: Pt is alert and oriented; behavior is cooperative, calm, friendly; patient is not in distress; appropriately dressed, adequate hygiene; mood is described as okay and affect congruent, calm; eye contact appropriate; Speech is normal rate, volume and prosody and not pressured; no psychomotor agitation/retardation present; thought process is goal oriented and organized; Thought content is on tx, aftercare; no SI/HI. There is no evidence of perceptual disturbance. Patients insight and judgment impaired but significantly improved, adequate and at baseline. Data Data Completed and Pending Completed studies during hospitalization [Text1]: 01/07/23 01/07/23 01/07/23 09:06 11:37 13:43 WBC 6.9 RBC 3.84 L Hgb 12.2 Hct 34.8 L MCV 90.6 MCH 31.8 MCHC 35.1 H RDW 12.5 Plt Count 261 MPV 9.3 L Immature Gran % (Auto) 0.7 H Neut % (Auto) 63.8 Lymph % (Auto) 23.7 [place] % (Auto) 9.9 Eos % (Auto) 1.3 Baso % (Auto) 0.6 Lymph # (Auto) 1.6 [place] # (Auto) 0.7 Eos # (Auto) 0.1 Baso # (Auto) 0.0 Abs Immat Gran (auto) 0.05 H Absolute Neuts (auto) 4.4 Absolute Nucleated RBC 0.000 Nucleated RBC % (auto) 0.0 Sodium 132 L Potassium 4.7 Chloride 99 Carbon Dioxide 26 Anion Gap 12 Total Bilirubin 0.4 Direct Bilirubin 0.2 AST 42 H ALT 34 H Alkaline Phosphatase 117 Ammonia Total Protein 6.9 Albumin 3.6 TSH 1.41 Valproic Acid 20.5 L 05/18/23 05/18/23 05/18/23 09:17 09:17 09:17 WBC RBC Hgb Hct MCV MCH MCHC RDW Plt Count MPV Immature Gran % (Auto) Neut % (Auto) Lymph % (Auto) [place] % (Auto) Eos % (Auto) Baso % (Auto) Lymph # (Auto) [place] # (Auto) Eos # (Auto) Baso # (Auto) Abs Immat Gran (auto) Absolute Neuts (auto) Absolute Nucleated RBC Nucleated RBC % (auto) Sodium Potassium Chloride Carbon Dioxide Anion Gap Total Bilirubin 0.6 Direct Bilirubin 0.2 AST 51 H ALT 38 H Alkaline Phosphatase 122 H Ammonia 44 Total Protein 7.2 Albumin 3.7 TSH Valproic Acid 54.9 Imaging Diagnostic Imaging Impressions Ribs w/Chest X-Ray 01/04/23 18:32 IMPRESSION: No evidence for acute disease in the chest. No acute rib fracture. Shoulder X-Ray 01/05/23 20:05 IMPRESSION: 1. Mild diffuse osteopenia. 2. Mild osteoarthrosis of the right acromioclavicular joint. 3. No radiographic evidence of any acute fracture, subluxation or dislocation. DS: Summary Hospital Course Hospital Course: Patient is a 57 year-old woman with hx of Bipolar Disorder, opioid use disorder in remission on methadone, CHF who is known to [facility] through previous admission and is currently admitted due to medication non-compliance. Hospital course: On admission, patient manic, highly irritable, frequently yelling, swearing at staff, refusing labs. Patient threw her walker; patient at 1 point did need to be chemically and physically restrained. Patient eventually agreed to getting back on medications including Depakote and Abilify. Over the next several days patient's labile and aggressive behavior started to subside. Eventually patient stabilized, return to being in a good mood and was both cooperative and friendly. She remained with some residual paranoid, delusional ideations about being watched by agencies residing in her basement however outpatient workers reported this is baseline. Patient asked to get started on Lamictal since she was hoping longer term to switch over from Depakote to Lamictal since she was concerned about weight gain on Depakote. Due to chronic bilateral lower leg edema, patient's gabapentin was tapered and discontinued (she also did not want to be triggered by gabapentins abuse potential). Once stabilized, Patient remained in good behavioral and impulse control, in a good mood and future oriented. She was eager to discharge home. Patient was tolerating medications well. She was able to be set up with a VNA and continues to have several outpatient supports in place. While she remains vulnerable to relapse and mood dysregulation, these are chronic issues that would not resolve with longer stay on inpatient unit. Patient was back to her baseline and she was not in imminent risk of harm to self or others. Her request for discharge honored. Time spent discussing smoking cessation with patient: 3 to 10 minutes Status at Discharge Functional status at discharge: uses cane/walker Overall status at discharge: patient is back to baseline Time Spent with Patient Time attestation: Total time managing care of this patient today ____ minutes. Time spent: Less than 30 minutes Discharge Plan Discharge Anticipated Discharge Date/Time: 01/14/23 11:30 Patient Disposition: Home, Self-Care Discharge Diagnosis: Schizoaffective disorder, bipolar type Referrals: GINA PATTERSON VISITING RN [Other] - 01/15/23 (Visiting RN service will start on 01/15/23. Visiting RN will come between 9am and 11am. ) [facility] Intake for Psyche and Therapy w/ Lilia Garrison [Other] - 01/16/23 2:00 pm [facility] Intake [Other] - 01/15/23 7:00 am (Please come with your last dose letter and your discharge packet. If the time for the intake does not work you can call them and pick a different time. They can see you for the intake between 6 and 11:30 am. ) Nini [facility]en [facility] [employer] In-home Visit [Other] - 01/15/23 12:00 pm (Nini will come to you for an in-person visit at your home. Her cell [phone].) [employer] [Other] - 1 Week (Left message to follow up w/ pt for post discharge appt) Discharge Medications: New nicotine (polacrilex) 2 mg Gum 2 mg buccal Q2H PRN (Reason: cravings) 30 Days Qty: 100 0RF lamotrigine 25 mg Tablet 25 mg PO DAILY 30 Days Qty: 30 0RF methadone [Methadose] 10 mg/mL Concentrate 75 mg PO DAILY Qty: 0 0RF Rx Instructions: Partial Fill upon patient request. divalproex 250 mg Tablet Extended Release 24 Hr 750 mg PO BEDTIME 30 Days Qty: 90 0RF hydroxyzine HCl 25 mg Tablet 25 mg PO Q6H PRN (Reason: Anxiety) 3 Days Qty: 60 0RF trazodone 100 mg Tablet 100 mg PO BEDTIME PRN (Reason: Insomnia) 30 Days Qty: 30 0RF trolamine salicylate [Arthricream] 10 % Cream 1 appl topical BID PRN (Reason: Pain, Mild (Pain Scale 1-3)) 30 Days Qty: 35.4 0RF Protocol: Apply to: Apply to: shoulder Rx Instructions: apply small amount to shoulder bid as needed melatonin 5 mg tablet 5 mg PO BEDTIME PRN (Reason: sleep) 30 Days Qty: 30 0RF Continued acetaminophen 325 mg Tablet 650 mg PO Q6H PRN (Reason: Headache/Pain Mild Scale (1-3)) Qty: 0 0RF ibuprofen 800 mg Tablet 800 mg PO TIDWM Qty: 90 0RF multivitamin [Daily-Alexis] Tablet 1 tab PO DAILY 30 Days Qty: 30 0RF furosemide 40 mg Tablet 40 mg PO BID@0900,1800 30 Days Qty: 60 0RF Protocol: Hold for SBP< HOLD for SBP < : 90 baclofen 10 mg tablet 10 mg PO TID PRN (Reason: muscle pain) 30 Days Qty: 90 0RF folic acid 1 mg Tablet 1 mg PO DAILY 30 Days Qty: 30 0RF aripiprazole [Abilify] 20 mg Tablet 20 mg PO BEDTIME 30 Days Qty: 30 0RF acamprosate 333 mg Tablet,Delayed Release (Dr/Ec) 666 mg PO TID 30 Days Qty: 180 0RF Changed nicotine 21 mg/24 hr Patch 24 Hour 21 mg transdermal DAILY PRN (Reason: smoking cessation) 28 Days Qty: 28 0RF omeprazole 20 mg Capsule,Delayed Release(Dr/Ec) 20 mg PO DAILY 30 Days Qty: 30 0RF Discontinued hydroxyzine HCl 50 mg Tablet 50 mg PO BID PRN (Reason: anxiety) Qty: 60 0RF gabapentin 300 mg Capsule 300 mg PO TID Qty: 90 0RF methadone [Methadose] 10 mg/mL Concentrate 70 mg PO DAILY Qty: 0 0RF Rx Instructions: Partial Fill upon patient request. trazodone 150 mg tablet 150 mg PO BEDTIME Qty: 30 0RF carbamazepine 200 mg Tablet Extended Release 12 Hr 200 mg PO BID Qty: 60 0RF Discharge Orders: Discharge Order (Routine); Ordered 01/14/23 Ordered By: Sincere Romero Diet: Regular diet Activity on Discharge: As tolerated Stand Alone Forms: Patient Portal Discharge page, Community Support Care Plan Goals: Maintain mood and safe behaviors Take medications as prescribed Continue to pursue sobriety Practice coping skills Continue with outpatient providers and reach out to them as needed Health Concerns: Mood stability and behaviors Sobriety B/L lower limb edema Chronic pain Plan of Treatment: Follow up with your PCP, psychiatric provider and other outpatient providers regarding above concerns Take medications as prescribed Assessment: Risk assessment at time of discharge:? Patient was interviewed prior to discharge and found to be fully oriented and without any SI or HI. Patient has insight and demonstrates good judgment in terms of wanting to pursue treatment. Patient is not in imminent risk of harm to self or others and has a safety plan that includes presenting to the closest ER or calling 911 if feeling unsafe.? Patient has been observed closely by nursing and unit staff throughout admission; patient has not engaged in any behaviors that suggest dangerousness to self or others and has demonstrated appropriate behaviors and impulse control Discharge Date/Time: 01/14/23 11:27
== END 2023-01-14 11:27 | disposition home or self-care (01) | DRG 885 ==
PROVIDERS: Clinical Nurse Specialist Psychiatric/Mental Health, Adult; Psychiatry & Neurology Psychiatry; Admitting Provider Psychiatry & Neurology Psychiatry; Visit Provider Registered Nurse
DX: F31.2 Bipolar disorder, current episode manic severe with psychotic features (principal); F11.20 Opioid dependence, uncomplicated; E87.1 Hypo-osmolality and hyponatremia; F43.10 Post-traumatic stress disorder, unspecified; K21.9 Gastro-esophageal reflux disease without esophagitis; F10.10 Alcohol abuse, uncomplicated; G47.00 Insomnia, unspecified; F17.210 Nicotine dependence, cigarettes, uncomplicated; Z71.6 Tobacco abuse counseling; Z88.0 Allergy status to penicillin; Z79.899 Other long term (current) drug therapy
CPT/HCPCS: 36415; 71111; 73030; 80051; 80053; 80061; 80076; 80164; 82140; 82607; 82746; 83036; 83735; 84439; 84443; 85025; 97162; J2060

== ENCOUNTER 2023-01-28 17:24 | Inpatient (IN) | payer MEDICARE, MEDICAID, SELFPAY ==
--- NOTE | 2023-01-28 | ECG_ITS ---
Test Reason : MEDICAL CLEARANCE Blood Pressure : / mmHG Vent. Rate : 074 BPM Atrial Rate : 074 BPM P-R Int : 118 ms QRS Dur : 082 ms QT Int : 420 ms P-R-T Axes : -26 140 134 degrees QTc Int : 466 ms Normal sinus rhythm Left posterior fascicular block Abnormal ECG When compared with ECG of 12-DEC-2022 20:30, No significant change was found Referred By: Zeus Villatoro Electronically Signed By:Julio Cesar Zuniga
--- NOTE | 2023-01-28 17:38 | MHC.CARE ---
[facility] co-response called and stated that the pt was seen but not evaluated in the community. [facility] stated that the pt has destroyed her apt and was sleeping on a urine soaked mattress. [facility] stated that they could not tell if the pt was acting out due to psychosis or drug use. The pt did get her methadone dose this morning. [facility] stated that the pt is easily distracted and that she is a [facility] client with no other providers. Pt came into [facility] voluntarily and not on a section 12.
[2023-01-28 17:48] VITALS: BP 116/80; BP 128/70; PULSE 90; PULSE 92; RESP 18; TEMP 36.8; O2SAT 95; O2SAT 96; BMI 32.2
--- NOTE | 2023-01-28 18:19 | ED_ITS ---
HPI - Psych General Chief Complaint: ETOH/Substance Use Stated Complaint: crisis Time Seen by Provider: 01/28/23 17:45 Source: patient Mode of arrival: ambulatory Limitations: no limitations History of Present Illness HPI Narrative: 58 yold female with pmh of Schizophrenia, substance abuse, bipolar disorder presents to the ED for decompensation due to psych or substance abuse. AT [facility][NOTE 3] her place positive for being dirty not clean, and patient bed full of urine and feces. patient admits to drug use. Related Data Home Medications Medication Instructions Recorded Confirmed acamprosate 333 mg tablet,delayed 666 mg PO TID 01/28/23 01/28/23 release aripiprazole 20 mg tablet 20 mg PO BEDTIME 01/28/23 01/28/23 baclofen 10 mg tablet 10 mg PO TID 01/28/23 01/28/23 carbamazepine 200 mg 200 mg PO BID 01/28/23 01/28/23 tablet,extended release,12 hr divalproex 250 mg tablet,extended 750 mg PO DAILY 01/28/23 01/28/23 release 24 hr (Depakote ER) folic acid 1 mg tablet 1 mg PO DAILY 01/28/23 01/28/23 hydroxyzine HCl 50 mg tablet 50 mg PO BID PRN anxiety 01/28/23 01/28/23 ibuprofen 800 mg tablet 800 mg PO TID 01/28/23 01/28/23 lamotrigine 25 mg tablet 25 mg PO DAILY 01/28/23 01/28/23 methadone 40 mg soluble tablet 75 mg PO DAILY 01/28/23 multivitamin with folic acid 400 1 tab PO DAILY 01/28/23 01/28/23 mcg tablet (Daily-Alexis (with folic acid)) omeprazole 20 mg capsule,delayed 20 mg PO DAILY 01/28/23 01/28/23 release trazodone 150 mg tablet 150 mg PO BEDTIME 01/28/23 01/28/23 Allergies Allergy/AdvReac Type Severity Reaction Status Date / Time amoxicillin [Amoxicillin] Allergy Mild RASH & Verified 05/10/22 10:46 DIZZINESS, Dizziness Review of Systems Review of Systems: pysch decompensation Yes all other systems are reviewed and are negative PMFSH Past Medical History Medical History (Updated 01/29/23 @ 01:32 by PIPER Andrade) Acute post-traumatic stress disorder Bipolar I disorder with priscila Osteoarthritis Polysubstance use disorder Schizoaffective disorder, bipolar type Social History Social History Household Members: None Housing: House Do you presently have visiting nurse or other home services: No Unable to assess alcohol history related to: Refusing to respond Alcohol intake: never Patient Tobacco Use Status: Current everyday Tobacco user Tobacco use type: Cigarette Cigarette Packs Per Day: 1 Cigarettes Per Day: 20.0 e-Cigarette/Vaping Use: Currently Using Second Hand Smoke Exposure: No Substance Use Type: Marijuana Advance Directives: No Advance Directives Information Provided: Yes service: No Sexual orientation: Straight/Heterosexual Physical Exam Vital Signs: Vital Signs: Last Vital Signs Temp 98.6 F 01/29/23 00:10 Pulse 73 01/29/23 00:10 Resp 16 01/29/23 00:10 BP 137/68 01/29/23 00:10 Pulse Ox 98 01/29/23 00:10 O2 Del Method Room Air 01/29/23 00:10 BMI result Body Mass Index 32.2 Const: General: cooperative, healthy appearing, comfortable, no acute distress and well developed Orientation/consciousness: oriented to person, oriented to place and oriented to time HEENT: Head: Yes normal to inspection, Yes No palpable skull fracture present, Yes normocephalic, Yes atraumatic and No abrasion Eyes: Other: pupils fixed General: appearance normal, both eyes and all related structures Neck: Neck: Yes normal visual inspection, Yes full ROM, Yes no lymphadenopathy and Yes no meningeal signs Chest: Chest palpation & inspection: normal inspection of the chest and normal palpation of entire chest wall Resp: Effort & Inspection: normal respiratory effort and able to speak in complete sentences Auscultation: clear to auscultation bilaterally Cardio: Jugular venous distension: no JVD Heart sounds: S1 normal heart so und present and S2 normal heart sound present GI: Inspection: Yes normal to inspection and No abdominal wall ecchymosis Palpation (GI): Soft to palpation, not firm, nontender, no guarding and not rigid : General: No CVA tenderness and Yes no CVA tenderness Back/Spine/Pelvis: Back: no CVA tenderness, No CVA tenderness and No back tenderness Skin: General skin exam: no rashes or lesions noted and elasticity normal Neuro: General: oriented to person, oriented to place, oriented to time, gait normal, tone normal, moves all extremities, Normal light touch and pain sensation, no meningeal signs, no focal motor deficits, CN's II-XI intact bilaterally and normal sensation to monofilament Extrem: General: Yes normal to inspection and Yes full ROM Psych: Thought process: Flight of ideas present and Word salad present (speech) Course Course Course Narrative: Patient will have medical evaluation. Most likely patient decompensated due to psych. Manic or psychosis schizophrenia. Care team consult Reevaluation(s) Reevaluation #1: Patient labs at baseline. Slightly hypokalemic. Potassium p.o. ordered. Urine drug screen positive for fentanyl marijuana. Waiting care team evaluation Time: 01:30 Medications Administered Discontinued Medications Generic Name Dose Route Start Last Admin Trade Name Deepakq PRN Reason Stop Dose Admin Diphenhydramine HCl 50 mg 01/28/23 23:05 01/28/23 23:10 Diphenhydramine Hcl 50 Mg/Ml Vial IM 01/28/23 23:06 50 mg ONCE ONE Administration Haloperidol Lactate 5 mg 01/28/23 23:05 01/28/23 23:10 Haloperidol Lactate 5 Mg/Ml Vial IM 01/28/23 23:06 5 mg STAT STA Administration Lorazepam 2 mg 01/28/23 23:05 01/28/23 23:10 Lorazepam 2 Mg/Ml Vial IM 01/28/23 23:06 2 mg STAT STA Administration Medical Decision Making Medical Decision Making [facility] Narrative: 58-year-old female history of sweats or for any bipolar presents to ED for drug use and not taking care of herself. Patient place is dirty and her bed had urine fee she has. Patient positive for marijuana fentanyl. Patient awaiting care team evaluation. Differential Diagnosis Differential Diagnoses: The differential diagnosis associated with the presentation includes (Psychosis, manic, depression, suicidal, UTI, substance abuse, alcohol intoxication) Admission/Observation Consideration of admission/observation: Escalation of care including admission/observation considered Lab Data [facility] Lab Attestation statement: I reviewed the patient's lab results. 01/28/23 18:33 01/28/23 18:33 Labs: Lab Results 01/28/23 01/28/23 01/28/23 Range/Units 18:06 18:33 18:33 WBC 7.0 (4.8-10.8) X10*3/uL RBC 4.03 L (4.20-5.50) X10*6/uL Hgb 12.5 (12.0-16.0) g/dl Hct 36.9 L (37.0-47.0) % MCV 91.6 (80.0-98.0) fL MCH 31.0 (27.0-33.0) pg MCHC 33.9 (31.0-35.0) g/dl RDW 11.9 (11.0-16.0) % Plt Count 289 (160-400) X10*3/uL MPV 9.9 (9.4-12.3) fL Immature Gran % (Auto) 1.3 H (0.0-0.4) % Neut % (Auto) 55.1 (45-73) % Lymph % (Auto) 32.2 (20-40) % [place] % (Auto) 8.4 (2-11) % Eos % (Auto) 2.1 (0-4) % Baso % (Auto) 0.9 (0-2) % Lymph # (Auto) 2.3 (1.2-4.9) X10*3/uL [place] # (Auto) 0.6 (0.1-1.2) X10*3/uL Eos # (Auto) 0.2 (0.0-0.4) X10*3/uL Baso # (Auto) 0.1 (0.0-0.2) X10*3/uL Abs Immat Gran (auto) 0.09 H (0.00-0.03) X10*3/uL Absolute Neuts (auto) 3.9 (2.0-8.3) x10*3/uL Absolute Nucleated RBC 0.000 (0.0-0.012) X10*3/uL Nucleated RBC % (auto) 0.0 (0.0-0.2) /100WBC Sodium 140 (135-145) mmol/L Potassium 3.1 L D (3.3-5.1) mmol/L Chloride 99 (96-108) mmol/L Carbon Dioxide 31 H (22-29) mmol/L Anion Gap 13 (12-20) BUN 21 H (9-16) mg/dL Creatinine 0.79 (0.5-1.4) mg/dL Estim Creat Clear Calc 71.0 Estimated GFR > 60 Random Glucose 117 H (60-115) mg/dL Calcium 9.9 D (8.4-10.2) mg/dL Total Bilirubin 0.9 (0.0-1.0) mg/dL AST 72 H (5-31) U/L ALT 54 H (0-31) U/L Alkaline Phosphatase 143 H (39-117) U/L Total Protein 9.0 H (6.5-8.0) g/dL Albumin 4.4 (3.5-5.0) g/dL Urine Color Urine Appearance Urine pH (5.0-9.0) Ur Specific [place] (1.005-1.025) Urine Protein (Neg-Trace) mg/dL Urine Glucose (UA) (Negative) mg/dL Urine Ketones (Negative) mg/dL Urine Blood (Negative) Urine Nitrite (Negative) Ur Leukocyte Esterase (Negative) Salicylates < 5.0 L (15-30) mg/dL Urine Opiates Screen (Not Detect) Urine Fentanyl Screen (Not Detect) Acetaminophen < 17 (<30) mcg/mL Ur Barbiturates Screen (Not Detect) Valproic Acid (50.0-100.0) mcg/mL Ur Phencyclidine Scrn (Not Detect) Ur Amphetamines Screen (Not Detect) U Benzodiazepines Scrn (Not Detect) Urine Cocaine Screen (Not Detect) U Marijuana (THC) Screen (Not Detect) Ethyl Alcohol < 10 mg/dL COVID-19 (KADEN) Negative (Negative) COVID-19 Clin Com See Note 01/28/23 01/28/23 01/28/23 Range/Units 19:33 19:33 20:55 WBC (4.8-10.8) X10*3/uL RBC (4.20-5.50) X10*6/uL Hgb (12.0-16.0) g/dl Hct (37.0-47.0) % MCV (80.0-98.0) fL MCH (27.0-33.0) pg MCHC (31.0-35.0) g/dl RDW (11.0-16.0) % Plt Count (160-400) X10*3/uL MPV (9.4-12.3) fL Immature Gran % (Auto) (0.0-0.4) % Neut % (Auto) (45-73) % Lymph % (Auto) (20-40) % [place] % (Auto) (2-11) % Eos % (Auto) (0-4) % Baso % (Auto) (0-2) % Lymph # (Auto) (1.2-4.9) X10*3/uL [place] # (Auto) (0.1-1.2) X10*3/uL Eos # (Auto) (0.0-0.4) X10*3/uL Baso # (Auto) (0.0-0.2) X10*3/uL Abs Immat Gran (auto) (0.00-0.03) X10*3/uL Absolute Neuts (auto) (2.0-8.3) x10*3/uL Absolute Nucleated RBC (0.0-0.012) X10*3/uL Nucleated RBC % (auto) (0.0-0.2) /100WBC Sodium (135-145) mmol/L Potassium (3.3-5.1) mmol/L Chloride (96-108) mmol/L Carbon Dioxide (22-29) mmol/L Anion Gap (12-20) BUN (9-16) mg/dL Creatinine (0.5-1.4) mg/dL Estim Creat Clear Calc Estimated GFR Random Glucose (60-115) mg/dL Calcium (8.4-10.2) mg/dL Total Bilirubin (0.0-1.0) mg/dL AST (5-31) U/L ALT (0-31) U/L Alkaline Phosphatase (39-117) U/L Total Protein (6.5-8.0) g/dL Albumin (3.5-5.0) g/dL Urine Color Yellow Urine Appearance Clear Urine pH 6.0 (5.0-9.0) Ur Specific [place] 1.010 (1.005-1.025) Urine Protein Negative (Neg-Trace) mg/dL Urine Glucose (UA) Negative (Negative) mg/dL Urine Ketones Negative (Negative) mg/dL Urine Blood Negative (Negative) Urine Nitrite Negative (Negative) Ur Leukocyte Esterase Negative (Negative) Salicylates (15-30) mg/dL Urine Opiates Screen Not Detected (Not Detect) Urine Fentanyl Screen POSITIVE H (Not Detect) Acetaminophen (<30) mcg/mL Ur Barbiturates Screen Not Detected (Not Detect) Valproic Acid 67.8 (50.0-100.0) mcg/mL Ur Phencyclidine Scrn Not Detected (Not Detect) Ur Amphetamines Screen Not Detected (Not Detect) U Benzodiazepines Scrn Not Detected (Not Detect) Urine Cocaine Screen Not Detected (Not Detect) U Marijuana (THC) Screen POSITIVE H (Not Detect) Ethyl Alcohol mg/dL COVID-19 ([facility]ADEN) (Negative) COVID-19 Clin Com Discharge Plan Discharge Clinical Impression: Polysubstance use disorder, Bipolar I disorder with priscila, Schizoaffective disorder, bipolar type Patient Disposition: Still a Patient Instructions: Bipolar Disorder (ED), Polysubstance Abuse (ED) Prescriptions: No Action ibuprofen 800 mg tablet 800 mg PO TID hydroxyzine HCl 50 mg tablet 50 mg PO BID PRN (Reason: anxiety) carbamazepine 200 mg tablet extended release 12 hr 200 mg PO BID trazodone 150 mg tablet 150 mg PO BEDTIME folic acid 1 mg tablet 1 mg PO DAILY aripiprazole 20 mg tablet 20 mg PO BEDTIME acamprosate 333 mg tablet,delayed release (DR/EC) 666 mg PO TID multivitamin with folic acid [Daily-Alexis (with folic acid)] 400 mcg tablet 1 tab PO DAILY lamotrigine 25 mg Tablet 25 mg PO DAILY baclofen 10 mg Tablet 10 mg PO TID omeprazole 20 mg Capsule,Delayed Release(Dr/Ec) 20 mg PO DAILY divalproex [Depakote ER] 250 mg Tablet Extended Release 24 Hr 750 mg PO DAILY methadone 40 mg Tablet,Soluble 75 mg PO DAILY Interventions: [place]-Suicide Risk Severity Scale Last Done: 01/28/23 17:54
[2023-01-28 18:34] LABS: COVID-19 Test Negative (Negative); IDNOW Serial# 08D9AD1C
[2023-01-28 18:37] LABS: MANUAL DIFF FLAG NO
[2023-01-28 19:00] LABS: Basophils Absolute Auto 0.1 X10*3/uL (0.0-0.2); Basophils Percent Auto 0.9 % (0-2); Eosinophils Absolute Auto 0.2 X10*3/uL (0.0-0.4); Eosinophils Percent Auto 2.1 % (0-4); Hematocrit 36.9 % (37.0-47.0); Hemoglobin 12.5 g/dl (12.0-16.0); Imm Gran Abs Auto 0.09 X10*3/uL (0.00-0.03); Imm Gran Pct Auto 1.3 % (0.0-0.4); Lymphocytes Absolute Auto 2.3 X10*3/uL (1.2-4.9); Lymphocytes Percent Auto 32.2 % (20-40); Mean Corpuscular HGB Conc 33.9 g/dl (31.0-35.0); Mean Corpuscular Volume 91.6 fL (80.0-98.0); Mean Platelet Volume 9.9 fL (9.4-12.3); Monocytes Absolute Auto 0.6 X10*3/uL (0.1-1.2); Monocytes Percent Auto 8.4 % (2-11); Neutrophils Absolute Auto 3.9 x10*3/uL (2.0-8.3); Neutrophils Percent Auto 55.1 % (45-73); Platelet Count 289 X10*3/uL (160-400); Red Blood Count 4.03 X10*6/uL (4.20-5.50); Red Cell Distribution Width 11.9 % (11.0-16.0)
[2023-01-28 19:07] LABS: Alanine Aminotransferase 54 U/L (0-31); Albumin Level 4.4 g/dL (3.5-5.0); Alkaline Phosphatase 143 U/L (39-117); Anion Gap 13 (12-20); Aspartate Amino Transferase 72 U/L (5-31); Bilirubin Total 0.9 mg/dL (0.0-1.0); Blood Urea Nitrogen 21 mg/dL (9-16); Calcium 9.9 mg/dL (8.4-10.2); Carbon Dioxide 31 mmol/L (22-29); Chloride 99 mmol/L (96-108); Estimated Glomerular Filt Rate > 60; Ethanol < 10 mg/dL; Glucose Random 117 mg/dL (60-115); Potassium 3.1 mmol/L (3.3-5.1); Sodium 140 mmol/L (135-145)
[2023-01-28 19:16] LABS: Acetaminophen LAB < 17 mcg/mL (<30); Salicylate < 5.0 mg/dL (15-30)
[2023-01-28 19:41] LABS: Appearance Urine Clear; Color Urine Yellow; Glucose Urine UA Negative (Negative); Leukocyte Esterase Urine Negative (Negative); Nitrite Urine Negative (Negative); Urine Blood Negative (Negative); Urine Ketones Negative (Negative); Urine Protein Negative (Neg-Trace)
[2023-01-28 19:52] LABS: Amphetamine Screen Urine Not Detected (Not Detect); Barbiturates, Urine Not Detected (Not Detect); Benzodiazepines Screen Urine Not Detected (Not Detect); Cannabinoid Screen Urine POSITIVE (Not Detect); Cocaine Screen Urine Not Detected (Not Detect); Fentanyl, urine POSITIVE (Not Detect); Opiate Screen Urine Not Detected (Not Detect); Phencyclidine Screen Urine Not Detected (Not Detect)
--- NOTE | 2023-01-28 20:31 | MHC.CARE ---
CARE Team attempted to initiate assessment. Pt appears under the influence. She was nodding off and unable to be assessed. CARE Team will attempt at a laer time.
[2023-01-28 21:23] LABS: Valproate 67.8 mcg/mL (50.0-100.0)
[2023-01-28 23:10] VITALS: RESP 17
[2023-01-28] MEDS: LORazepam 2 MG/ML VIAL IM (23:10)
[2023-01-28] MEDS: diphenhydrAMINE HCL 50 MG/ML VIAL IM (23:10)
[2023-01-28] MEDS: Haloperidol Lactate 5 MG/ML VIAL IM (23:10)
[2023-01-28 23:25] VITALS: RESP 16
[2023-01-28 23:40] VITALS: RESP 16
[2023-01-28 23:55] VITALS: RESP 16
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
[2023-01-29 00:10] VITALS: BP 137/68; PULSE 73; RESP 16; TEMP 37; O2SAT 98
[2023-01-29] MEDS: Potassium Chloride Packet 20 MEQ PACKET 40 MEQ PO (03:42)
[2023-01-29] MEDS: LORazepam 1 MG TABLET PO (03:42)
--- NOTE | 2023-01-29 05:18 | PC.NURSE ---
Ativan 1 mg PO and KCl 40 meq administered at 0342, patient compliant with meds, behavior continuos to unpredictable, gait unsteady with walker, asymptomatic of withdrawal, will continue to monitor.
--- NOTE | 2023-01-29 06:30 | PC.NURSE ---
Methadone dose verified/Faxed to Pharmacy, methadone verification paper in the chart, Med rec updated/pending provider approval,
--- NOTE | 2023-01-29 06:41 | HE.PHANOTE ---
Pharmacy has received patients methadone verification form. Dose confirmed by [facility]. Dose of 75 mg, last dose 01/28/23 with [facility]al/
[2023-01-29 09:07] VITALS: BP 122/65; PULSE 85; RESP 16; TEMP 37.1; O2SAT 100
[2023-01-29] MEDS: Acamprosate Calcium 333 MG TABLET.DR 666 MG PO ×3 (09:26→20:29)
[2023-01-29] MEDS: Divalproex Sodium ER 250 MG TAB.ER.24H 750 MG PO (09:27)
[2023-01-29] MEDS: lamoTRIgine 25 MG TABLET PO (09:27)
[2023-01-29] MEDS: Folic Acid 1 MG TABLET PO (09:27)
[2023-01-29] MEDS: Ibuprofen 800 MG TABLET PO ×3 (09:27→20:29)
[2023-01-29] MEDS: Multivitamin TABLET 1 TAB PO (09:28)
[2023-01-29] MEDS: Baclofen 10 MG TABLET PO ×3 (09:28→20:31)
[2023-01-29] MEDS: Omeprazole 20 MG CAPSULE.DR PO (09:28)
[2023-01-29] MEDS: methADONE HCl 20 MG/2 ML ORAL.CONC 75 MG PO (09:29)
[2023-01-29] MEDS: ARIPiprazole 20 MG TABLET PO (20:29)
[2023-01-29] MEDS: traZODone HCL 50 MG TABLET 150 MG PO (20:29)
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
[2023-01-30] MEDS: Omeprazole 20 MG CAPSULE.DR PO (05:51)
[2023-01-30] MEDS: Potassium Chloride Packet 20 MEQ PACKET 40 MEQ PO (05:51)
[2023-01-30] MEDS: Magnesium Hydrox/Alum Hydrox 30 ML ORAL.SUSP PO (05:51)
[2023-01-30] MEDS: Acamprosate Calcium 333 MG TABLET.DR 666 MG PO ×2 (08:04→21:05)
[2023-01-30] MEDS: Multivitamin TABLET 1 TAB PO (08:05)
[2023-01-30] MEDS: Folic Acid 1 MG TABLET PO (08:05)
[2023-01-30] MEDS: methADONE HCl 20 MG/2 ML ORAL.CONC 75 MG PO (08:13)
[2023-01-30 08:18] VITALS: BP 114/68; PULSE 85; RESP 16; TEMP 36.8; O2SAT 97
[2023-01-30] MEDS: lamoTRIgine 25 MG TABLET PO (09:24)
[2023-01-30] MEDS: Ibuprofen 800 MG TABLET PO ×3 (09:24→21:05)
[2023-01-30] MEDS: Divalproex Sodium ER 250 MG TAB.ER.24H 750 MG PO (09:24)
[2023-01-30 09:32] LABS: Alanine Aminotransferase 45 U/L (0-31); Albumin Level 3.6 g/dL (3.5-5.0); Alkaline Phosphatase 123 U/L (39-117); Aspartate Amino Transferase 65 U/L (5-31); Bilirubin Total 0.4 mg/dL (0.0-1.0); Blood Urea Nitrogen 22 mg/dL (9-16); Cholesterol 123 mg/dL; Creatinine Clr Calc Pharmacy 75.7; Estimated Glomerular Filt Rate > 60; Glucose Fasting 92 mg/dL (60-99); HDL Cholesterol 40 mg/dL; LDL Cholesterol Calculated 73 mg/dl; Total Protein 7.4 g/dL (6.5-8.0); Triglycerides 54 mg/dL
[2023-01-30 09:39] LABS: Anion Gap 15 (12-20); Carbon Dioxide 27 mmol/L (22-29); Chloride 101 mmol/L (96-108); Potassium 4.6 mmol/L (3.3-5.1); Sodium 138 mmol/L (135-145)
[2023-01-30 14:17] VITALS: BP 115/59; PULSE 71; O2SAT 99
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
[2023-01-30] MEDS: Loperamide HCl 2 MG CAPSULE 4 MG PO (18:55)
[2023-01-30 19:10] VITALS: BP 124/66; PULSE 64; TEMP 36.1; O2SAT 98
[2023-01-30] MEDS: traZODone HCL 50 MG TABLET 150 MG PO (21:05)
[2023-01-30] MEDS: Baclofen 10 MG TABLET PO (21:05)
--- NOTE | 2023-01-30 21:33 | PC.NURSE ---
Earlier in the shift patient c/o diarrhea (unwitnessed) and Dr. Slaughter was notified. PRN Imodium was ordered and given to patient with positive effect. At HS, patient refused Abilify.
[2023-01-31] MEDS: Magnesium Hydrox/Alum Hydrox 30 ML ORAL.SUSP PO (00:28)
[2023-01-31] MEDS: methADONE HCl 20 MG/2 ML ORAL.CONC 75 MG PO (08:42)
[2023-01-31] MEDS: Ibuprofen 800 MG TABLET PO ×2 (08:44→13:58)
[2023-01-31] MEDS: Divalproex Sodium ER 250 MG TAB.ER.24H 750 MG PO (08:45)
[2023-01-31] MEDS: Acamprosate Calcium 333 MG TABLET.DR 666 MG PO ×2 (08:45→13:58)
[2023-01-31] MEDS: Multivitamin TABLET 1 TAB PO (08:46)
[2023-01-31] MEDS: lamoTRIgine 25 MG TABLET PO (08:46)
[2023-01-31] MEDS: Baclofen 10 MG TABLET PO ×2 (08:46→13:58)
[2023-01-31] MEDS: Folic Acid 1 MG TABLET PO (08:46)
[2023-01-31 09:13] VITALS: BP 120/65; PULSE 80
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
[2023-02-01] MEDS: Omeprazole 20 MG CAPSULE.DR PO (05:09)
[2023-02-01] MEDS: Acetaminophen 325 MG TABLET 650 MG PO ×2 (06:04→15:50)
[2023-02-01 08:00] VITALS: BP 128/61; PULSE 76; RESP 18; TEMP 36.4; O2SAT 100
[2023-02-01] MEDS: Ibuprofen 800 MG TABLET PO ×3 (08:06→19:00)
[2023-02-01] MEDS: Acamprosate Calcium 333 MG TABLET.DR 666 MG PO ×3 (08:07→19:30)
[2023-02-01] MEDS: Folic Acid 1 MG TABLET PO (08:07)
[2023-02-01] MEDS: Multivitamin TABLET 1 TAB PO (08:07)
[2023-02-01] MEDS: Divalproex Sodium ER 250 MG TAB.ER.24H 750 MG PO (08:08)
[2023-02-01] MEDS: Baclofen 10 MG TABLET PO ×3 (08:08→19:30)
[2023-02-01] MEDS: lamoTRIgine 25 MG TABLET PO (08:09)
[2023-02-01] MEDS: methADONE HCl 20 MG/2 ML ORAL.CONC 75 MG PO (08:09)
[2023-02-01] MEDS: Nicotine 14 MG PATCH.TD24 TRANSDERMA (10:26)
[2023-02-01] MEDS: Magnesium Hydrox/Alum Hydrox 30 ML ORAL.SUSP PO (10:42)
[2023-02-01] MEDS: Nicotine Polacrilex 2 MG GUM BUCCAL ×4 (11:41→19:00)
[2023-02-01] MEDS: ARIPiprazole 20 MG TABLET PO ×2 (12:07→19:30)
--- NOTE | 2023-02-01 13:27 | P.PNPSI_ITS ---
Documented by User: Jasmin Santana NP 02/01/23 13:49 Subjective Subjective Date of Service: 02/01/23 Reason For Visit: manic psychosis Subjective Notes: Conditional Voluntary Interim History: Reviewed in team and with Dr. Romero. Patient tearful during 1:1 today. Patient stated, I've done a lot of bad things and have hurt people, I've lied. I'm having a hard time forgiving myself . Patient reports she is feeling hopeful about the future . Patient medication compliant with staff encouragement. If patient is able to remain in behavioral control and mediation compliant, plan will be to discharge on Saturday. Medication Compliance: Yes Side effects from medications: No Attending Groups: Intermittent Review of Systems Review of Systems pysch decompensation Yes all other systems are reviewed and are negative Constitutional: Reports as per HPI Eyes: Reports as per HPI Reports as per HPI Cardiovascular: Reports as per HPI Respiratory: Reports as per HPI Gastrointestinal: Reports as per HPI Genitourinary: Reports as per HPI Musculoskeletal: Reports as per HPI Skin/Breast: Reports as per HPI Reports as per HPI Psychiatric: Reports as per HPI Endocrine: Reports as per HPI Hematologic/Lymphatic: Reports as per HPI Allergic/Immunologic: Reports as per HPI Mental Status Exam Mental Status Exam Narrative: Pt is alert and oriented; behavior is cooperative; patient is not in distress; dressed in casual attire; mood is described as okay ; eye contact appropriate; Speech is normal rate, volume and prosody and not pressured; no psychomotor agitation/retardation present; thought process is organized; Thought content is on being discharged; some paranoid thoughts; denies any SI/HI. There is no evidence of perceptual disturbance. Patients insight and judgment is fair. Diagnostics Vital Signs (24Hr): Vital Signs - 24 hr 02/01/23 08:00 Temperature 97.6 F Pulse Rate 76 Respiratory Rate 18 Blood Pressure 128/61 Pulse Oximetry 100 Oxygen Delivery Method Room Air BMI result Body Mass Index 32.2 Labs 01/28/23 18:33 01/30/23 08:12 Medications Medications Current Medications Acamprosate (Acamprosate Calcium 333 Mg Tablet.) 666 mg PO TID [facility] Last Admin: 02/01/23 08:07 Dose: 666 mg Acetaminophen (Acetaminophen 325 Mg Tablet) 650 mg PO Q6H PRN PRN Reason: Headache/Pain Mild Scale (1-3) Last Admin: 02/01/23 06:04 Dose: 650 mg Al Hydroxide/Mg Hydroxide (Magnesium Hydrox/Alum Hydrox 30 Ml Oral.Susp) 30 ml PO Q6H PRN PRN Reason: Heartburn/Nausea Last Admin: 02/01/23 10:42 Dose: 30 ml Aripiprazole (Aripiprazole 20 Mg Tablet) 20 mg PO BEDTIME [facility] Last Admin: 02/01/23 12:07 Dose: 20 mg Baclofen (Baclofen 10 Mg Tablet) 10 mg PO TID [facility] Last Admin: 02/01/23 08:08 Dose: 10 mg Divalproex Sodium (Divalproex Sodium Er 250 Mg Tab.Er.24h) 750 mg PO DAILY [facility] Last Admin: 02/01/23 08:08 Dose: 750 mg Folic Acid (Folic Acid 1 Mg Tablet) 1 mg PO DAILY [facility] Last Admin: 02/01/23 08:07 Dose: 1 mg Hydroxyzine HCl (Hydroxyzine Hcl 50 Mg Tablet) 50 mg PO BID PRN PRN Reason: anxiety Ibuprofen (Ibuprofen 800 Mg Tablet) 800 mg PO TID [facility] Last Admin: 02/01/23 08:06 Dose: 800 mg Lamotrigine (Lamotrigine 25 Mg Tablet) 25 mg PO DAILY [facility] Last Admin: 02/01/23 08:09 Dose: 25 mg Loperamide HCl (Loperamide Hcl 2 Mg Capsule) 4 mg PO Q6H PRN PRN Reason: Diarrhea Last Admin: 01/30/23 18:55 Dose: 4 mg Magnesium Hydroxide (Milk Of Magnesia 30 Ml Oral.Susp) 30 ml PO DAILY PRN PRN Reason: Constipation Methadone HCl (Methadone Hcl 20 Mg/2 Ml Oral.Conc) 75 mg PO DAILY [facility] Last Admin: 02/01/23 08:09 Dose: 75 mg Multivitamins/Vitamin C (Multivitamin Tablet) 1 tab PO DAILY [facility] Last Admin: 02/01/23 08:07 Dose: 1 tab Nicotine (Nicotine 14 Mg Patch.Td24) 14 mg TRANSDERMA DAILY [facility] Last Admin: 02/01/23 10:26 Dose: 14 mg Nicotine Polacrilex (Nicotine Polacrilex 2 Mg Gum) 2 mg BUCCAL Q2H PRN PRN Reason: Nicotine Cravings Last Admin: 02/01/23 11:41 Dose: 2 mg Omeprazole (Omeprazole 20 Mg Capsule.Dr) 20 mg PO DAILY@0630 [facility] Last Admin: 02/01/23 05:09 Dose: 20 mg Potassium Chloride (Potassium Chloride Packet 20 Meq Packet) 40 meq PO 0600 [facility] Last Admin: 02/01/23 05:10 Dose: Not Given Trazodone HCl (Trazodone Hcl 50 Mg Tablet) 150 mg PO BEDTIME [facility] Last Admin: 01/31/23 22:04 Dose: Not Given Allergies Allergies Allergy/AdvReac Type Severity Reaction Status Date / Time amoxicillin [Amoxicillin] Allergy Mild RASH & Verified 05/10/22 10:46 DIZZINESS, Dizziness Assessment & Plan Assessment & Plan (1) Bipolar I disorder with priscila: Status: Acute Code(s): F31.10 - Bipolar disorder, current episode manic without psychotic features, unspecified (2) PTSD (post-traumatic stress disorder): Status: Acute Code(s): F43.10 - Post-traumatic stress disorder, unspecified (3) Opioid use disorder: Status: Acute Code(s): F11.99 - Opioid use, unspecified with unspecified opioid-induced disorder Plan Patient is a 57 year-old woman with hx of Bipolar Disorder, opioid use disorder in remission on methadone who is known to [facility] through previous admission, most recently 12/2022, and is currently admitted due to erratic behavior. Patient has been medication compliant through visiting nurses. Continue home medication regimen. Will continue to monitor patient for over sedation. Plan: CV 15 minute safety checks Continue home medications Obtain collateral Possibly refer to substance abuse program if patient is willing to obtain treatment 01/31: Patient presents alert today. Patient making some paranoid statements; believes phones are tapped here . Continue home medications. Patient is requesting to be discharged soon. Continue current medication regimen. 02/01: Patient reports feeling hopeful about the future today. Medication compliant with staff encouragement. If patient is able to remain in behavioral control and mediation compliant, plan will be to discharge on Saturday. Patient educated on: diagnosis, medication risk/benefits and therapeutic strategies Informed Consent: understands Reason for continued inpatient stay Substantial Risk for: med/psych decompensation Time Spent With Patient Time: Total time managing care of this patient today ____ minutes. Documented by User: Sincere Romero MD 02/09/23 12:20 Subjective Subjective Reason For Visit: manic psychosis Mental Status Exam Mental Status Exam Narrative: Pt is alert and oriented; behavior is cooperative; patient is not in distress; dressed in casual attire; mood is described as okay ; eye contact appropriate; Speech is normal rate, volume and prosody and not pressured; no psychomotor agitation/retardation present; thought process is organized; Thought content is on being discharged; some paranoid thoughts; denies any SI/HI. There is no ev idence of perceptual disturbance. Patients insight and judgment is impaired but improving. Diagnostics Labs 01/28/23 18:33 01/30/23 08:12 Assessment & Plan Assessment & Plan (1) Bipolar I disorder with priscila: Status: Acute Code(s): F31.10 - Bipolar disorder, current episode manic without psychotic features, unspecified (2) PTSD (post-traumatic stress disorder): Status: Acute Code(s): F43.10 - Post-traumatic stress disorder, unspecified (3) Opioid use disorder: Status: Acute Code(s): F11.99 - Opioid use, unspecified with unspecified opioid-induced disorder
[2023-02-01 18:00] VITALS: BP 132/82; PULSE 85; RESP 16; TEMP 36.4; O2SAT 99
[2023-02-01] MEDS: traZODone HCL 50 MG TABLET 150 MG PO (19:30)
[2023-02-02] MEDS: LORazepam 1 MG TABLET 2 MG PO (02:27)
--- NOTE | 2023-02-02 04:36 | PC.NURSE ---
Pt came out of room agitated at 0135. Started banging her walker against the shower door. Then proceeded to sit down on floor thumping the back of her head on the wall cursing and yelling. When asked if she would like a prn Hydroxyzine, the patient became increasingly agitated yelling, I keep telling you people I'm allergic to that! Give me a shot! Provider was called at 0149 and 2mg Ativan PO was ordered. Patient did take the medication, saying thank you. The patient was assisted to bed and appeared sleeping for the remainder of the shift.
[2023-02-02 06:00] VITALS: BP 132/81; PULSE 91; RESP 16; TEMP 36.3; O2SAT 96
[2023-02-02] MEDS: Omeprazole 20 MG CAPSULE.DR PO (08:23)
[2023-02-02] MEDS: Divalproex Sodium ER 250 MG TAB.ER.24H 750 MG PO (08:24)
[2023-02-02] MEDS: Acamprosate Calcium 333 MG TABLET.DR 666 MG PO ×3 (08:24→23:32)
[2023-02-02] MEDS: Folic Acid 1 MG TABLET PO (08:25)
[2023-02-02] MEDS: Baclofen 10 MG TABLET PO ×3 (08:25→23:32)
[2023-02-02] MEDS: Multivitamin TABLET 1 TAB PO (08:25)
[2023-02-02] MEDS: lamoTRIgine 25 MG TABLET PO (08:25)
[2023-02-02] MEDS: methADONE HCl 20 MG/2 ML ORAL.CONC 75 MG PO (08:25)
[2023-02-02] MEDS: Ibuprofen 800 MG TABLET PO ×3 (08:25→23:33)
--- NOTE | 2023-02-02 10:06 | P.PNPSI_ITS ---
Subjective Subjective Date of Service: 02/02/23 Reason For Visit: manic psychosis Interim History: Reviewed in team. Patient reported feeling OK . Continues with an irritable edge at times however in behavioral control. She is somewhat sedated. Denies SI. Review of Systems Review of Systems pysch decompensation Yes all other systems are reviewed and are negative Constitutional: Reports as per HPI Eyes: Reports as per HPI Reports as per HPI Cardiovascular: Reports as per HPI Respiratory: Reports as per HPI Gastrointestinal: Reports as per HPI Musculoskeletal: Reports as per HPI Skin/Breast: Reports as per HPI Reports as per HPI Psychiatric: Reports as per HPI Endocrine: Reports as per HPI Hematologic/Lymphatic: Reports as per HPI Allergic/Immunologic: Reports as per HPI Mental Status Exam Mental Status Exam Narrative: Pt is alert and oriented; behavior is cooperative; patient is not in distress; dressed in casual attire; mood is described as okay ; eye contact appropriate; Speech is normal rate, volume and prosody and not pressured; no psychomotor agitation/retardation present; thought process is organized; Thought content is on being discharged; some paranoid thoughts; denies any SI/HI. There is no evidence of perceptual disturbance. Patients insight and judgment is fair. Diagnostics Vital Signs (24Hr): Vital Signs - 24 hr 02/01/23 18:00 02/02/23 06:00 Temperature 97.6 F 97.3 F Pulse Rate 85 91 Respiratory Rate 16 16 Blood Pressure 132/82 132/81 Pulse Oximetry 99 96 Oxygen Delivery Method Room Air Room Air BMI result Body Mass Index 32.2 Labs 01/28/23 18:33 01/30/23 08:12 Medications Medications Current Medications Acamprosate (Acamprosate Calcium 333 Mg Tablet.) 666 mg PO TID [facility] Last Admin: 02/02/23 08:24 Dose: 666 mg Acetaminophen (Acetaminophen 325 Mg Tablet) 650 mg PO Q6H PRN PRN Reason: Headache/Pain Mild Scale (1-3) Last Admin: 02/01/23 15:50 Dose: 650 mg Al Hydroxide/Mg Hydroxide (Magnesium Hydrox/Alum Hydrox 30 Ml Oral.Susp) 30 ml PO Q6H PRN PRN Reason: Heartburn/Nausea Last Admin: 02/01/23 10:42 Dose: 30 ml Aripiprazole (Aripiprazole 20 Mg Tablet) 20 mg PO BEDTIME [facility] Last Admin: 02/01/23 19:30 Dose: 20 mg Baclofen (Baclofen 10 Mg Tablet) 10 mg PO TID [facility] Last Admin: 02/02/23 08:25 Dose: 10 mg Divalproex Sodium (Divalproex Sodium Er 250 Mg Tab.Er.24h) 750 mg PO DAILY [facility] Last Admin: 02/02/23 08:24 Dose: 750 mg Folic Acid (Folic Acid 1 Mg Tablet) 1 mg PO DAILY [facility] Last Admin: 02/02/23 08:25 Dose: 1 mg Hydroxyzine HCl (Hydroxyzine Hcl 50 Mg Tablet) 50 mg PO BID PRN PRN Reason: anxiety Ibuprofen (Ibuprofen 800 Mg Tablet) 800 mg PO TID [facility] Last Admin: 02/02/23 08:25 Dose: 800 mg Lamotrigine (Lamotrigine 25 Mg Tablet) 25 mg PO DAILY [facility] Last Admin: 02/02/23 08:25 Dose: 25 mg Loperamide HCl (Loperamide Hcl 2 Mg Capsule) 4 mg PO Q6H PRN PRN Reason: Diarrhea Last Admin: 01/30/23 18:55 Dose: 4 mg Magnesium Hydroxide (Milk Of Magnesia 30 Ml Oral.Susp) 30 ml PO DAILY PRN PRN Reason: Constipation Methadone HCl (Methadone Hcl 20 Mg/2 Ml Oral.Conc) 75 mg PO DAILY [facility] Last Admin: 02/02/23 08:25 Dose: 75 mg Multivitamins/Vitamin C (Multivitamin Tablet) 1 tab PO DAILY [facility] Last Admin: 02/02/23 08:25 Dose: 1 tab Nicotine (Nicotine 14 Mg Patch.Td24) 14 mg TRANSDERMA DAILY [facility] Last Admin: 02/02/23 08:30 Dose: Not Given Nicotine Polacrilex (Nicotine Polacrilex 2 Mg Gum) 2 mg BUCCAL Q2H PRN PRN Reason: Nicotine Cravings Last Admin: 02/01/23 19:00 Dose: 2 mg Omeprazole (Omeprazole 20 Mg Capsule.Dr) 20 mg PO DAILY@0630 [facility] Last Admin: 02/02/23 08:23 Dose: 20 mg Potassium Chloride (Potassium Chloride Packet 20 Meq Packet) 40 meq PO 0600 [facility] Last Admin: 02/02/23 06:06 Dose: Not Given Trazodone HCl (Trazodone Hcl 50 Mg Tablet) 150 mg PO BEDTIME [facility] Last Admin: 02/01/23 19:30 Dose: 150 mg Allergies Allergies Allergy/AdvReac Type Severity Reaction Status Date / Time amoxicillin [Amoxicillin] Allergy Mild RASH & Verified 05/10/22 10:46 DIZZINESS, Dizziness Assessment & Plan Assessment & Plan (1) Bipolar I disorder with priscila: Status: Acute Code(s): F31.10 - Bipolar disorder, current episode manic without psychotic features, unspecified (2) PTSD (post-traumatic stress disorder): Status: Acute Code(s): F43.10 - Post-traumatic stress disorder, unspecified (3) Opioid use disorder: Status: Acute Code(s): F11.99 - Opioid use, unspecified with unspecified opioid-induced disorder Plan Patient is a 57 year-old woman with hx of Bipolar Disorder, opioid use disorder in remission on methadone who is known to [facility] through previous admission, most recently 12/2022, and is currently admitted due to erratic behavior. Patient has been medication compliant through visiting nurses. Continue home medication regimen. Will continue to monitor patient for over sedation. Plan: CV 15 minute safety checks Continue home medications Obtain collateral Possibly refer to substance abuse program if patient is willing to obtain t reatment 01/31: Patient presents alert today. Patient making some paranoid statements; believes phones are tapped here . Continue home medications. Patient is requesting to be discharged soon. Continue current medication regimen. 02/01: Patient reports feeling hopeful about the future today. Medication compliant with staff encouragement. If patient is able to remain in behavioral control and mediation compliant, plan will be to discharge on Saturday. 02/02: Continue treatment plan. Reason for continued inpatient stay Substantial Risk for: harm to self, inability to function and rapid decompensation Time Spent With Patient Time: Total time managing care of this patient today ____ minutes.
[2023-02-02] MEDS: OLANZapine 10 MG VIAL IM (18:47)
[2023-02-02 18:50] VITALS: BP 116/56; PULSE 65; RESP 16; TEMP 36.2
[2023-02-02 19:20] VITALS: BP 130/75; PULSE 68; RESP 16; TEMP 36.5
[2023-02-02 19:35] VITALS: BP 142/69; PULSE 70; RESP 16; TEMP 36.3
--- NOTE | 2023-02-02 19:49 | PC.NURSE ---
At approximately 18:15 pt began to bang pt telephone, pt was verbally redirected to stop and pt became increasingly agitated. PT stood up and postured at staff with walker and walked down the walker where she attempted to throw the walker at staff. PT proceeded to group room where she spit at staff and again was verbally redirected. Security was called at this time. PT then spit at another patient. Soon after pt attempted to tie hospital pants around her neck in an attempt to strangle herself. Pants were removed from patients possession. Radha Davidson FLOUR TESTER was informed and Zyprexa 10mg IM was ordered. PT willingly accepted the IM at 18:45 with security present. No mechanical restraint was required. VS remained stable post injection. Hospitalist (Dr. Jackson) informed at 19:12 of need for post chemical restraint exam. PT in her room resting and in no apparent distress.
[2023-02-02] MEDS: traZODone HCL 50 MG TABLET 150 MG PO (23:32)
[2023-02-02] MEDS: ARIPiprazole 20 MG TABLET PO (23:32)
[2023-02-03] MEDS: Omeprazole 20 MG CAPSULE.DR PO (06:01)
[2023-02-03 08:15] VITALS: BP 145/67; PULSE 64; RESP 18; TEMP 36.6; O2SAT 94
[2023-02-03] MEDS: methADONE HCl 20 MG/2 ML ORAL.CONC 75 MG PO (08:27)
[2023-02-03] MEDS: Potassium Chloride Packet 20 MEQ PACKET 40 MEQ PO (08:28)
[2023-02-03] MEDS: Acamprosate Calcium 333 MG TABLET.DR 666 MG PO ×3 (08:28→20:20)
[2023-02-03] MEDS: Nicotine 14 MG PATCH.TD24 TRANSDERMA (08:28)
[2023-02-03] MEDS: lamoTRIgine 25 MG TABLET PO (08:28)
[2023-02-03] MEDS: Multivitamin TABLET 1 TAB PO (08:28)
[2023-02-03] MEDS: Baclofen 10 MG TABLET PO ×3 (08:29→20:20)
[2023-02-03] MEDS: Divalproex Sodium ER 250 MG TAB.ER.24H 750 MG PO (08:29)
[2023-02-03] MEDS: Ibuprofen 800 MG TABLET PO ×3 (08:29→20:21)
[2023-02-03] MEDS: Folic Acid 1 MG TABLET PO (08:29)
[2023-02-03] MEDS: Magnesium Hydrox/Alum Hydrox 30 ML ORAL.SUSP PO (09:24)
[2023-02-03 15:51] VITALS: BP 95/50; PULSE 75
--- NOTE | 2023-02-03 19:39 | HO.PSYCHPN ---
Subjective Subjective Date of Service: 02/03/23 Reason For Visit: manic psychosis Interim History: Reviewed in team. Patient was agitated yesterday after an interaction with another patient. She threw a walker at him and then proceeded to spit at him. She received Zyprexa. She is now not allowed to have a walker and is in a wheelchair on a 1:1. Today she was calmer with the 1:1 but appears sedated and difficult to engage. She dozes on and off during the interactions with staff. She was sleeping when this fiction and nonfiction writer prose went to meet with her. Review of Systems Review of Systems pysch decompensation Yes all other systems are reviewed and are negative Constitutional: Reports as per HPI Eyes: Reports as per HPI Reports as per HPI Cardiovascular: Reports as per HPI Respiratory: Reports as per HPI Gastrointestinal: Reports as per HPI Musculoskeletal: Reports as per HPI Skin/Breast: Reports as per HPI Reports as per HPI Psychiatric: Reports as per HPI Endocrine: Reports as per HPI Hematologic/Lymphatic: Reports as per HPI Allergic/Immunologic: Reports as per HPI Mental Status Exam Mental Status Exam Narrative: Pt is alert and oriented; behavior is cooperative; patient is not in distress; dressed in casual attire; mood is described as okay ; eye contact appropriate; Speech is normal rate, volume and prosody and not pressured; no psychomotor agitation/retardation present; thought process is organized; Thought content is on being discharged; some paranoid thoughts; denies any SI/HI. There is no evidence of perceptual disturbance. Patients insight and judgment is fair. Diagnostics Vital Signs (24Hr): Vital Signs - 24 hr 02/03/23 08:15 02/03/23 15:51 Temperature 97.9 F Pulse Rate 64 75 Respiratory Rate 18 Blood Pressure 145/67 H 95/50 L Pulse Oximetry 94 Oxygen Delivery Method Room Air BMI result Body Mass Index 32.2 Labs 01/28/23 18:33 01/30/23 08:12 Medications Medications Current Medications Acamprosate (Acamprosate Calcium 333 Mg Tablet.) 666 mg PO TID [facility] Last Admin: 02/03/23 14:18 Dose: 666 mg Acetaminophen (Acetaminophen 325 Mg Tablet) 650 mg PO Q6H PRN PRN Reason: Headache/Pain Mild Scale (1-3) Last Admin: 02/01/23 15:50 Dose: 650 mg Al Hydroxide/Mg Hydroxide (Magnesium Hydrox/Alum Hydrox 30 Ml Oral.Susp) 30 ml PO Q6H PRN PRN Reason: Heartburn/Nausea Last Admin: 02/03/23 09:24 Dose: 30 ml Aripiprazole (Aripiprazole 20 Mg Tablet) 20 mg PO BEDTIME [facility] Last Admin: 02/02/23 23:32 Dose: 20 mg Baclofen (Baclofen 10 Mg Tablet) 10 mg PO TID [facility] Last Admin: 02/03/23 14:18 Dose: 10 mg Divalproex Sodium (Divalproex Sodium Er 250 Mg Tab.Er.24h) 750 mg PO DAILY [facility] Last Admin: 02/03/23 08:29 Dose: 750 mg Folic Acid (Folic Acid 1 Mg Tablet) 1 mg PO DAILY [facility] Last Admin: 02/03/23 08:29 Dose: 1 mg Hydroxyzine HCl (Hydroxyzine Hcl 50 Mg Tablet) 50 mg PO BID PRN PRN Reason: anxiety Ibuprofen (Ibuprofen 800 Mg Tablet) 800 mg PO TID [facility] Last Admin: 02/03/23 14:18 Dose: 800 mg Lamotrigine (Lamotrigine 25 Mg Tablet) 25 mg PO DAILY [facility] Last Admin: 02/03/23 08:28 Dose: 25 mg Loperamide HCl (Loperamide Hcl 2 Mg Capsule) 4 mg PO Q6H PRN PRN Reason: Diarrhea Last Admin: 01/30/23 18:55 Dose: 4 mg Lorazepam (Lorazepam 1 Mg Tablet) 1 mg PO BID PRN PRN Reason: severe anxiety/agitation Stop: 02/03/23 23:59 Magnesium Hydroxide (Milk Of Magnesia 30 Ml Oral.Susp) 30 ml PO DAILY PRN PRN Reason: Constipation Methadone HCl (Methadone Hcl 20 Mg/2 Ml Oral.Conc) 75 mg PO DAILY [facility] Last Admin: 02/03/23 08:27 Dose: 75 mg Multivitamins/Vitamin C (Multivitamin Tablet) 1 tab PO DAILY [facility] Last Admin: 02/03/23 08:28 Dose: 1 tab Nicotine (Nicotine 14 Mg Patch.Td24) 14 mg TRANSDERMA DAILY [facility] Last Admin: 02/03/23 08:28 Dose: 14 mg Nicotine Polacrilex (Nicotine Polacrilex 2 Mg Gum) 2 mg BUCCAL Q2H PRN PRN Reason: Nicotine Cravings Last Admin: 02/01/23 19:00 Dose: 2 mg Olanzapine (Olanzapine Odt 10 Mg Tab.Rapdis) 10 mg TRANSLINGU Q6H PRN PRN Reason: agitation Omeprazole (Omeprazole 20 Mg Capsule.Dr) 20 mg PO DAILY@0630 [facility] Last Admin: 02/03/23 06:01 Dose: 20 mg Potassium Chloride (Potassium Chloride Packet 20 Meq Packet) 40 meq PO 0600 [facility] Last Admin: 02/03/23 08:28 Dose: 40 meq Trazodone HCl (Trazodone Hcl 50 Mg Tablet) 150 mg PO BEDTIME [facility] Last Admin: 02/02/23 23:32 Dose: 150 mg Allergies Allergies Allergy/AdvReac Type Severity Reaction Status Date / Time amoxicillin [Amoxicillin] Allergy Mild RASH & Verified 05/10/22 10:46 DIZZINESS, Dizziness Assessment & Plan Assessment & Plan (1) Bipolar I disorder with priscila: Status: Acute Code(s): F31.10 - Bipolar disorder, current episode manic without psychotic features, unspecified (2) PTSD (post-traumatic stress disorder): Status: Acute Code(s): F43.10 - Post-traumatic stress disorder, unspecified (3) Opioid use disorder: Status: Acute Code(s): F11.99 - Opioid use, unspecified with unspecified opioid-induced disorder Plan Patient is a 57 year-old woman with hx of Bipolar Disorder, opioid use disorder in remission on methadone who is known to [facility] through previous admission, most recently 12/2022, and is currently admitted due to erratic behavior. Patient has been medication compliant through visiting nurses. Continue home medication regimen. Will continue to monitor patient for over sedation. Plan: CV 15 minute safety checks Continue home medications Obtain collateral Possibly refer to substance abuse program if patient is willing to obtain treatment 01/31: Patient presents alert today. Patient making some paranoid statements; believes phones are tapped here . Continue home medications. Patient is requesting to be discharged soon. Continue current medication regimen. 02/01: Patient reports feeling hopeful about the future today. Medication compliant with staff encouragement. If patient is able to remain in behavioral control and mediation compliant, plan will be to discharge on Saturday. 02/02: Continue treatment plan. 02/03: Check labs in AM. Depakote level, Ammonia, CMP. If normal, consider decrease medications that are causing excessive sedation. Reason for continued inpatient stay Substantial Risk for: harm to self, harm to others, inability to function and med/psych decompensation Time Spent With Patient Time: Total time managing care of this patient today ____ minutes.
[2023-02-03] MEDS: ARIPiprazole 20 MG TABLET PO (20:21)
[2023-02-03] MEDS: traZODone HCL 50 MG TABLET 150 MG PO (20:21)
[2023-02-04] MEDS: Potassium Chloride Packet 20 MEQ PACKET 40 MEQ PO (05:48)
[2023-02-04] MEDS: Omeprazole 20 MG CAPSULE.DR PO (05:48)
[2023-02-04 06:00] VITALS: BP 121/59; PULSE 90; RESP 16; TEMP 36.5; O2SAT 95
[2023-02-04] MEDS: Magnesium Hydrox/Alum Hydrox 30 ML ORAL.SUSP PO (06:46)
[2023-02-04 07:51] LABS: Valproate 19.9 mcg/mL (50.0-100.0)
[2023-02-04 07:53] LABS: Ammonia 45 umol/L (13-55)
[2023-02-04 07:55] LABS: Alanine Aminotransferase 61 U/L (0-31); Albumin Level 3.5 g/dL (3.5-5.0); Alkaline Phosphatase 134 U/L (39-117); Anion Gap 12 (12-20); Aspartate Amino Transferase 74 U/L (5-31); Bilirubin Total 0.4 mg/dL (0.0-1.0); Blood Urea Nitrogen 22 mg/dL (9-16); Calcium 9.7 mg/dL (8.4-10.2); Carbon Dioxide 27 mmol/L (22-29); Chloride 102 mmol/L (96-108); Estimated Glomerular Filt Rate > 60; Glucose Random 103 mg/dL (60-115); Potassium 5.2 mmol/L (3.3-5.1); Sodium 136 mmol/L (135-145)
[2023-02-04] MEDS: Baclofen 10 MG TABLET PO ×3 (10:02→21:14)
[2023-02-04] MEDS: Ibuprofen 800 MG TABLET PO ×3 (10:02→21:13)
[2023-02-04] MEDS: Multivitamin TABLET 1 TAB PO (10:02)
[2023-02-04] MEDS: Acamprosate Calcium 333 MG TABLET.DR 666 MG PO ×3 (10:02→21:13)
[2023-02-04] MEDS: Folic Acid 1 MG TABLET PO (10:03)
[2023-02-04] MEDS: methADONE HCl 20 MG/2 ML ORAL.CONC 75 MG PO (10:04)
[2023-02-04] MEDS: Nicotine 14 MG PATCH.TD24 TRANSDERMA (10:06)
[2023-02-04] MEDS: Acetaminophen 325 MG TABLET 650 MG PO (12:37)
--- NOTE | 2023-02-04 12:47 | HO.PSYCHPN ---
Documented by User: Jasmin Santana NP 02/04/23 15:33 Subjective Subjective Date of Service: 02/04/23 Reason For Visit: manic psychosis Subjective Notes: Conditional Voluntary Interim History: Reviewed in team and with Dr. Romero. Patient alert during 1:1 interview. Patient reports feeling calm today. Patient stated feeling remorseful over how she acted over the weekend. Patient stated, I can't believe I acted that way and was spitting. That's awful. I was frustrated and shouldn't have acted that way. I wasn't trying to kill myself. I'm not ready to yet. I still have my nieces wedding to go to . Patient was taken off 1:1 observation and placed on 5 minute checks. Patient stated, I promise I won't throw my walker at anyone. I can't promise you that I won't use drugs anymore but I can promise you that I won't throw the walker . Medication Compliance: Yes Side effects from medications: No Attending Groups: Yes Review of Systems Review of Systems pysch decompensation Yes all other systems are reviewed and are negative Constitutional: Reports as per HPI Eyes: Reports as per HPI Reports as per HPI Cardiovascular: Reports as per HPI Respiratory: Reports as per HPI Gastrointestinal: Reports as per HPI Genitourinary: Reports as per HPI Musculoskeletal: Reports as per HPI Skin/Breast: Reports as per HPI Reports as per HPI Psychiatric: Reports as per HPI Endocrine: Reports as per HPI Hematologic/Lymphatic: Reports as per HPI Allergic/Immunologic: Reports as per HPI Mental Status Exam Mental Status Exam Narrative: Pt is alert and oriented; behavior is cooperative; patient is not in distress; dressed in casual attire; mood is described as okay ; eye contact appropriate; Speech is normal rate, volume and prosody and not pressured; no psychomotor agitation/retardation present; thought process is organized; Thought content is on being discharged; some paranoid thoughts; denies any SI/HI. There is no evidence of perceptual disturbance. Patients insight and judgment is fair. Diagnostics Vital Signs (24Hr): Vital Signs - 24 hr 02/03/23 15:51 02/04/23 06:00 Temperature 97.7 F Pulse Rate 75 90 Respiratory Rate 16 Blood Pressure 95/50 L 121/59 L Pulse Oximetry 95 Oxygen Delivery Method Room Air BMI result Body Mass Index 32.2 Labs 01/28/23 18:33 02/04/23 07:17 Labs: Laboratory Results - last 48 hr 02/04/23 02/04/23 02/04/23 07:17 07:17 07:17 Sodium 136 Potassium 5.2 H Chloride 102 Carbon Dioxide 27 Anion Gap 12 BUN 22 H Creatinine 0.71 Estim Creat Clear Calc 79.0 Estimated GFR > 60 Random Glucose 103 Calcium 9.7 Total Bilirubin 0.4 AST 74 H ALT 61 H Alkaline Phosphatase 134 H Ammonia 45 Total Protein 7.0 Albumin 3.5 Valproic Acid 19.9 L Medications Medications Current Medications Acamprosate (Acamprosate Calcium 333 Mg Tablet.Dr) 666 mg PO TID [facility] Last Admin: 02/04/23 10:02 Dose: 666 mg Acetaminophen (Acetaminophen 325 Mg Tablet) 650 mg PO Q6H PRN PRN Reason: Headache/Pain Mild Scale (1-3) Last Admin: 02/04/23 12:37 Dose: 650 mg Al Hydroxide/Mg Hydroxide (Magnesium Hydrox/Alum Hydrox 30 Ml Oral.Susp) 30 ml PO Q6H PRN PRN Reason: Heartburn/Nausea Last Admin: 02/04/23 06:46 Dose: 30 ml Aripiprazole (Aripiprazole 20 Mg Tablet) 20 mg PO BEDTIME [facility] Last Admin: 02/03/23 20:21 Dose: 20 mg Baclofen (Baclofen 10 Mg Tablet) 10 mg PO TID [facility] Last Admin: 02/04/23 10:02 Dose: 10 mg Divalproex Sodium (Divalproex Sodium Er 250 Mg Tab.Er.24h) 750 mg PO DAILY [facility] Last Admin: 02/04/23 10:09 Dose: Not Given Folic Acid (Folic Acid 1 Mg Tablet) 1 mg PO DAILY [facility] Last Admin: 02/04/23 10:03 Dose: 1 mg Hydroxyzine HCl (Hydroxyzine Hcl 50 Mg Tablet) 50 mg PO BID PRN PRN Reason: anxiety Ibuprofen (Ibuprofen 800 Mg Tablet) 800 mg PO TID [facility] Last Admin: 02/04/23 10:02 Dose: 800 mg Lamotrigine (Lamotrigine 25 Mg Tablet) 25 mg PO DAILY [facility] Last Admin: 02/04/23 10:09 Dose: Not Given Loperamide HCl (Loperamide Hcl 2 Mg Capsule) 4 mg PO Q6H PRN PRN Reason: Diarrhea Last Admin: 01/30/23 18:55 Dose: 4 mg Magnesium Hydroxide (Milk Of Magnesia 30 Ml Oral.Susp) 30 ml PO DAILY PRN PRN Reason: Constipation Methadone HCl (Methadone Hcl 20 Mg/2 Ml Oral.Conc) 75 mg PO DAILY [facility] Last Admin: 02/04/23 10:04 Dose: 75 mg Multivitamins/Vitamin C (Multivitamin Tablet) 1 tab PO DAILY [facility] Last Admin: 02/04/23 10:02 Dose: 1 tab Nicotine (Nicotine 14 Mg Patch.Td24) 14 mg TRANSDERMA DAILY [facility] Last Admin: 02/04/23 10:06 Dose: 14 mg Nicotine Polacrilex (Nicotine Polacrilex 2 Mg Gum) 2 mg BUCCAL Q2H PRN PRN Reason: Nicotine Cravings Last Admin: 02/01/23 19:00 Dose: 2 mg Olanzapine (Olanzapine Odt 10 Mg Tab.Rapdis) 10 mg TRANSLINGU Q6H PRN PRN Reason: agitation Omeprazole (Omeprazole 20 Mg Capsule.Dr) 20 mg PO DAILY@0630 [facility] Last Admin: 02/04/23 05:48 Dose: 20 mg Potassium Chloride (Potassium Chloride Packet 20 Meq Packet) 40 meq PO 0600 [facility] Last Admin: 02/04/23 05:48 Dose: 40 meq Trazodone HCl (Trazodone Hcl 50 Mg Tablet) 150 mg PO BEDTIME [facility] Last Admin: 02/03/23 20:21 Dose: 150 mg Allergies Allergies Allergy/AdvReac Type Severity Reaction Status Date / Time amoxicillin [Amoxicillin] Allergy Mild RASH & Verified 05/10/22 10:46 DIZZINESS, Dizziness Assessment & Plan Assessment & Plan (1) Bipolar I disorder with priscila: Status: Acute Code(s): F31.10 - Bipolar disorder, current episode manic without psychotic features, unspecified (2) PTSD (post-traumatic stress disorder): Status: Acute Code(s): F43.10 - Post-traumatic stress disorder, unspecified (3) Opioid use disorder: Status: Acute Code(s): F11.99 - Opioid use, unspecified with unspecified opioid-induced disorder Plan Patient is a 57 year-old woman with hx of Bipolar Disorder, opioid use disorder in remission on methadone who is known to [facility] through previous admission, most recently 12/2022, and is currently admitted due to erratic behavior. Patient has been medication compliant through visiting nurses. Continue home medication regimen. Will continue to monitor patient for over sedation. Plan: CV 5 minute safety checks Continue home medications Obtain collateral Possibly refer to substance abuse program if patient is willing to obtain treatment 01/31: Patient presents alert today. Patient making some paranoid statements; believes phones are tapped here . Continue home medications. Patient is requesting to be discharged soon. Continue current medication regimen. 02/01: Patient reports feeling hopeful about the future today. Medication compliant with staff encouragement. If patient is able to remain in behavioral control and mediation compliant, plan will be to discharge on Saturday. 02/02: Continue treatment plan. 02/03: Check labs in AM. Depakote level, Ammonia, CMP. If normal, consider decrease medications that are causing excessive sedation. 02/04: Patient reports feeling calm today. Remorseful about her behavior over the weekend. Pt was taken off 1:1 and placed on 5 minute checks; walker was returned to patient with the understanding that she will not throw it at staff or peers. Patient educated on: diagnosis, medication risk/benefits and therapeutic strategies Informed Consent: understands Reason for continued inpatient stay Substantial Risk for: med/psych decompensation Time Spent With Patient Time: Total time managing care of this patient today ____ minutes. Documented by User: Sincere Romero MD 02/09/23 12:20 Subjective Subjective Reason For Visit: manic psychosis Mental Status Exam Mental Status Exam Narrative: Pt is alert and oriented; behavior is cooperative; patient is not in distress; dressed in casual attire; mood is described as okay ; eye contact appropriate; Speech is normal rate, volume and prosody and not pressured; no psychomotor agitation/retardation present; thought process is organized; Thought content is on being discharged; some paranoid thoughts; denies any SI/HI. There is no evidence of perceptual disturbance. Patients insight and judgment is impaired but improving. Diagnostics Labs 01/28/23 18:33 02/04/23 07:17 Assessment & Plan Assessment & Plan (1) Bipolar I disorder with priscila: Status: Acute Code(s): F31.10 - Bipolar disorder, current episode manic without psychotic features, unspecified (2) PTSD (post-traumatic stress disorder): Status: Acute Code(s): F43.10 - Post-traumatic stress disorder, unspecified (3) Opioid use disorder: Status: Acute Code(s): F11.99 - Opioid use, unspecified with unspecified opioid-induced disorder
[2023-02-04 18:00] VITALS: BP 124/66; PULSE 76; RESP 18; TEMP 36; O2SAT 97
[2023-02-04] MEDS: Nicotine Polacrilex 2 MG GUM BUCCAL (19:47)
[2023-02-04] MEDS: traZODone HCL 50 MG TABLET 150 MG PO (21:12)
[2023-02-04] MEDS: ARIPiprazole 20 MG TABLET PO (21:14)
[2023-02-05] MEDS: Omeprazole 20 MG CAPSULE.DR PO (05:14)
[2023-02-05 06:00] VITALS: BP 128/74; PULSE 68; RESP 16; TEMP 36.2; O2SAT 98
[2023-02-05] MEDS: Acamprosate Calcium 333 MG TABLET.DR 666 MG PO ×3 (08:30→21:22)
[2023-02-05] MEDS: Folic Acid 1 MG TABLET PO (08:30)
[2023-02-05] MEDS: Nicotine 14 MG PATCH.TD24 TRANSDERMA (08:30)
[2023-02-05] MEDS: lamoTRIgine 25 MG TABLET PO (08:30)
[2023-02-05] MEDS: Baclofen 10 MG TABLET PO ×3 (08:30→21:22)
[2023-02-05] MEDS: methADONE HCl 20 MG/2 ML ORAL.CONC 75 MG PO (08:30)
[2023-02-05] MEDS: Multivitamin TABLET 1 TAB PO (08:30)
[2023-02-05] MEDS: Ibuprofen 800 MG TABLET PO ×3 (08:43→21:24)
--- NOTE | 2023-02-05 09:01 | P.PNPSI_ITS ---
Documented by User: Jasmin Santana NP 02/05/23 12:06 Subjective Subjective Date of Service: 02/05/23 Reason For Visit: manic psychosis Subjective Notes: Conditional Voluntary Interim History: Reviewed in team and with Dr. Romero. Patient reports feeling emotional today. Patient stated, I'm feeling sad and then happy. I'm just really missing my mother . Patient is requesting to have Depakote dose decreased d/t sedation. Patient stated, Can I have the lamictal go up and decrease the Depakote. I wasn't taking my medication every day so I know it's going to take awhile . Patient presents with some paranoid thought content. Patient stated, do I have to masturbate before you guys let me go? I think that's something I should do I home but I know [facility] wants me to do that here . Patient is hoping to be discharged this week. Medication Compliance: Yes Attending Groups: Intermittent Review of Systems Review of Systems pysch decompensation Yes all other systems are reviewed and are negative Constitutional: Reports as per HPI Eyes: Reports as per HPI Reports as per HPI Cardiovascular: Reports as per HPI Respiratory: Reports as per HPI Gastrointestinal: Reports as per HPI Genitourinary: Reports as per HPI Musculoskeletal: Reports as per HPI Skin/Breast: Reports as per HPI Reports as per HPI Psychiatric: Reports as per HPI Endocrine: Reports as per HPI Hematologic/Lymphatic: Reports as per HPI Allergic/Immunologic: Reports as per HPI Mental Status Exam Mental Status Exam Narrative: Pt is alert and oriented; behavior is cooperative; patient is not in distress; dressed in casual attire; mood is described as emotional ; eye contact appropriate; Speech is normal rate, volume and prosody and not pressured; no psychomotor agitation/retardation present; thought process is organized; Thought content is on being discharged; some paranoid thoughts; denies any SI/HI. There is no evidence of perceptual disturbance. Patients insight and judgment is fair. Diagnostics Vital Signs (24Hr): Vital Signs - 24 hr 02/04/23 18:00 Temperature 96.8 F Pulse Rate 76 Respiratory Rate 18 Blood Pressure 124/66 Pulse Oximetry 97 Oxygen Delivery Method Room Air BMI result Body Mass Index 32.2 Labs 01/28/23 18:33 02/04/23 07:17 Labs: Laboratory Results - last 48 hr 02/04/23 02/04/2302/04/23 07:17 07:17 07:17 Sodium 136 Potassium 5.2 H Chloride 102 Carbon Dioxide 27 Anion Gap 12 BUN 22 H Creatinine 0.71 Estim Creat Clear Calc 79.0 Estimated GFR > 60 Random Glucose 103 Calcium 9.7 Total Bilirubin 0.4 AST 74 H ALT 61 H Alkaline Phosphatase 134 H Ammonia 45 Total Protein 7.0 Albumin 3.5 Valproic Acid 19.9 L Medications Medications Current Medications Acamprosate (Acamprosate Calcium 333 Mg Tablet.Dr) 666 mg PO TID [facility] Last Admin: 02/05/23 08:30 Dose: 666 mg Acetaminophen (Acetaminophen 325 Mg Tablet) 650 mg PO Q6H PRN PRN Reason: Headache/Pain Mild Scale (1-3) Last Admin: 02/04/23 12:37 Dose: 650 mg Al Hydroxide/Mg Hydroxide (Magnesium Hydrox/Alum Hydrox 30 Ml Oral.Susp) 30 ml PO Q6H PRN PRN Reason: Heartburn/Nausea Last Admin: 02/04/23 06:46 Dose: 30 ml Aripiprazole (Aripiprazole 20 Mg Tablet) 20 mg PO BEDTIME [facility] Last Admin: 02/04/23 21:14 Dose: 20 mg Baclofen (Baclofen 10 Mg Tablet) 10 mg PO TID [facility] Last Admin: 02/05/23 08:30 Dose: 10 mg Divalproex Sodium (Divalproex Sodium Er 250 Mg Tab.Er.24h) 750 mg PO DAILY [facility] Last Admin: 02/05/23 08:38 Dose: Not Given Folic Acid (Folic Acid 1 Mg Tablet) 1 mg PO DAILY [facility] Last Admin: 02/05/23 08:30 Dose: 1 mg Hydroxyzine HCl (Hydroxyzine Hcl 50 Mg Tablet) 50 mg PO BID PRN PRN Reason: anxiety Ibuprofen (Ibuprofen 800 Mg Tablet) 800 mg PO TID [facility] Last Admin: 02/05/23 08:43 Dose: 800 mg Lamotrigine (Lamotrigine 25 Mg Tablet) 25 mg PO DAILY [facility] Last Admin: 02/05/23 08:30 Dose: 25 mg Loperamide HCl (Loperamide Hcl 2 Mg Capsule) 4 mg PO Q6H PRN PRN Reason: Diarrhea Last Admin: 01/30/23 18:55 Dose: 4 mg Magnesium Hydroxide (Milk Of Magnesia 30 Ml Oral.Susp) 30 ml PO DAILY PRN PRN Reason: Constipation Methadone HCl (Methadone Hcl 20 Mg/2 Ml Oral.Conc) 75 mg PO DAILY [facility] Last Admin: 02/05/23 08:30 Dose: 75 mg Multivitamins/Vitamin C (Multivitamin Tablet) 1 tab PO DAILY [facility] Last Admin: 02/05/23 08:30 Dose: 1 tab Nicotine (Nicotine 14 Mg Patch.Td24) 14 mg TRANSDERMA DAILY [facility] Last Admin: 02/05/23 08:30 Dose: 14 mg Nicotine Polacrilex (Nicotine Polacrilex 2 Mg Gum) 2 mg BUCCAL Q2H PRN PRN Reason: Nicotine Cravings Last Admin: 02/04/23 19:47 Dose: 2 mg Olanzapine (Olanzapine Odt 10 Mg Tab.Rapdis) 10 mg TRANSLINGU Q6H PRN PRN Reason: agitation Omeprazole (Omeprazole 20 Mg Capsule.Dr) 20 mg PO DAILY@0630 [facility] Last Admin: 02/05/23 05:14 Dose: 20 mg Potassium Chloride (Potassium Chloride Packet 20 Meq Packet) 40 meq PO 0600 [facility] Last Admin: 02/05/23 05:18 Dose: Not Given Trazodone HCl (Trazodone Hcl 50 Mg Tablet) 150 mg PO BEDTIME [facility] Last Admin: 02/04/23 21:12 Dose: 150 mg Allergies Allergies Allergy/AdvReac Type Severity Reaction Status Date / Time amoxicillin [Amoxicillin] Allergy Mild RASH & Verified 05/10/22 10:46 DIZZINESS, Dizziness Assessment & Plan Assessment & Plan (1) Bipolar I disorder with priscila: Status: Acute Code(s): F31.10 - Bipolar disorder, current episode manic without psychotic features, unspecified (2) PTSD (post-traumatic stress disorder): Status: Acute Code(s): F43.10 - Post-traumatic stress disorder, unspecified (3) Opioid use disorder: Status: Acute Code(s): F11.99 - Opioid use, unspecified with unspecified opioid-induced disorder Plan Patient is a 57 year-old woman with hx of Bipolar Disorder, opioid use disorder in remission on methadone who is [place] [facility] [place], most recently 12[place]22, and is currently admitted due to erratic behavior. Patient has been medication compliant through visiting nurses. Continue home medication regimen. Will continue to monitor patient for over sedation. Plan: CV 5 minute safety checks Continue home medications Obtain collateral Possibly refer to substance abuse program if patient is willing to obtain treatment Change Depakote from morning to bedtime d/t patient c/o drowiness. 01/31: Patient presents alert today. Patient making some paranoid statements; believes phones are tapped here . Continue home medications. Patient is requesting to be discharged soon. Continue current medication regimen. 02/01: Patient reports feeling hopeful about the future today. Medication compliant with staff encouragement. If patient is able to remain in behavioral control and mediation compliant, plan will be to discharge on Saturday. 02/02: Continue treatment plan. 02/03: Check labs in AM. Depakote level, Ammonia, CMP. If normal, consider decrease medications that are causing excessive sedation. 02/04: Patient reports feeling calm today. Remorseful about her behavior over the weekend. Pt was taken off 1:1 and placed on 5 minute checks; walker was returned to patient with the understanding that she will not throw it at staff or peers. 02/05: Patient requested to stop taking depakote d/t sedating effects. Dose changed to night time. Patient would like to increase lamictal and decrease depakote. She reported not taking her medications daily when at home. Did not have any behavioral outburts yesterday. Patient educated on: diagnosis, medication risk/benefits and therapeutic strategies Informed Consent: understands Reason for continued inpatient stay Substantial Risk for: med/psych decompensation Time Spent With Patient Time: Total time managing care of this patient today ____ minutes. Documented by User: Sincere Romero MD 02/09/23 12:21 Subjective Subjective Reason For Visit: manic psychosis Mental Status Exam Mental Status Exam Narrative: Pt is alert and oriented; behavior is cooperative; patient is not in distress; dressed in casual attire; mood is described as emotional ; eye contact appropriate; Speech is normal rate, volume and prosody and not pressured; no psychomotor agitation/retardation present; thought process is organized; Thought content is on being discharged; some paranoid thoughts; denies any SI/HI. There is no evidence of perceptual disturbance. Patients insight and judgment is impaired but improving. Diagnostics Labs 01/28/23 18:33 02/04/23 07:17 Assessment & Plan Assessment & Plan (1) Bipolar I disorder with priscila: Status: Acute Code(s): F31.10 - Bipolar disorder, current episode manic without psychotic features, unspecified (2) PTSD (post-traumatic stress disorder): Status: Acute Code(s): F43.10 - Post-traumatic stress disorder, unspecified (3) Opioid use disorder: Status: Acute Code(s): F11.99 - Opioid use, unspecified with unspecified opioid-induced disorder
[2023-02-05] MEDS: Acetaminophen 325 MG TABLET 650 MG PO (13:39)
[2023-02-05 18:00] VITALS: BP 123/65; PULSE 96; RESP 18; TEMP 36.1; O2SAT 96
[2023-02-05] MEDS: ARIPiprazole 20 MG TABLET PO (21:22)
[2023-02-05] MEDS: traZODone HCL 50 MG TABLET 150 MG PO (21:23)
[2023-02-05] MEDS: Divalproex Sodium ER 250 MG TAB.ER.24H 750 MG PO (21:23)
[2023-02-06] MEDS: Omeprazole 20 MG CAPSULE.DR PO (05:17)
[2023-02-06 06:00] VITALS: BP 139/69; PULSE 77; RESP 16; TEMP 36.5; O2SAT 99
[2023-02-06] MEDS: lamoTRIgine 25 MG TABLET PO (09:23)
[2023-02-06] MEDS: Ibuprofen 800 MG TABLET PO ×3 (09:23→20:38)
[2023-02-06] MEDS: Folic Acid 1 MG TABLET PO (09:23)
[2023-02-06] MEDS: Acamprosate Calcium 333 MG TABLET.DR 666 MG PO ×3 (09:23→20:38)
[2023-02-06] MEDS: Baclofen 10 MG TABLET PO ×3 (09:23→20:38)
[2023-02-06] MEDS: Multivitamin TABLET 1 TAB PO (09:24)
[2023-02-06] MEDS: methADONE HCl 20 MG/2 ML ORAL.CONC 75 MG PO (09:24)
[2023-02-06] MEDS: Nicotine 14 MG PATCH.TD24 TRANSDERMA (09:25)
--- NOTE | 2023-02-06 12:01 | P.PNPSI_ITS ---
Documented by User: Jasmin Santana NP 02/07/23 14:51 Subjective Subjective Date of Service: 02/06/23 Reason For Visit: manic psychosis Subjective Notes: Conditional Voluntary Interim History: Reviewed in team and with Dr. Romero. Patient reports feeling okay today. Patient stated, I'm having a lot less anxiety today. I feel peaceful today. Patient continues to present with some paranoid thought content. Patient reports she would like to start a long acting injectable medication. Risks/benefits were discussed. Patient reports she would like to attend a substance abuse program after discharge. Medication Compliance: Yes Side effects from medications: No Attending Groups: Yes Review of Systems Review of Systems pysch decompensation Yes all other systems are reviewed and are negative Constitutional: Reports as per HPI Eyes: Reports as per HPI Reports as per HPI Cardiovascular: Reports as per HPI Respiratory: Reports as per HPI Gastrointestinal: Reports as per HPI Genitourinary: Reports as per HPI Musculoskeletal: Reports as per HPI Skin/Breast: Reports as per HPI Reports as per HPI Psychiatric: Reports as per HPI Endocrine: Reports as per HPI Hematologic/Lymphatic: Reports as per HPI Allergic/Immunologic: Reports as per HPI Mental Status Exam Mental Status Exam Narrative: Pt is alert and oriented; behavior is cooperative; patient is not in distress; dressed in casual attire; mood is described as okay ; eye contact appropriate; Speech is normal rate, volume and prosody and not pressured; no psychomotor agitation/retardation present; thought process is organized; Thought content is on being discharged; some paranoid thoughts; denies any SI/HI. There is no evidence of perceptual disturbance. Patients insight and judgment is fair. Diagnostics Vital Signs (24Hr): Vital Signs - 24 hr 02/05/23 18:00 02/06/23 06:00 Temperature 96.9 F 97.7 F Pulse Rate 96 77 Respiratory Rate 18 16 Blood Pressure 123/65 139/69 Pulse Oximetry 96 99 Oxygen Delivery Method Room Air Room Air BMI result Body Mass Index 32.2 Labs 01/28/23 18:33 02/04/23 07:17 Medications Medications Current Medications Acamprosate (Acamprosate Calcium 333 Mg Tablet.) 666 mg PO TID NIR Last Admin: 02/06/23 09:23 Dose: 666 mg Acetaminophen (Acetaminophen 325 Mg Tablet) 650 mg PO Q6H PRN PRN Reason: Headache/Pain Mild Scale (1-3) Last Admin: 02/05/23 13:39 Dose: 650 mg Al Hydroxide/Mg Hydroxide (Magnesium Hydrox/Alum Hydrox 30 Ml Oral.Susp) 30 ml PO Q6H PRN PRN Reason: Heartburn/Nausea Last Admin: 02/04/23 06:46 Dose: 30 ml Aripiprazole (Aripiprazole 20 Mg Tablet) 20 mg PO BEDTIME [facility] Last Admin: 02/05/23 21:22 Dose: 20 mg Baclofen (Baclofen 10 Mg Tablet) 10 mg PO TID [facility] Last Admin: 02/06/23 09:23 Dose: 10 mg Divalproex Sodium (Divalproex Sodium Er 250 Mg Tab.Er.24h) 750 mg PO BEDTIME [facility] Last Admin: 02/05/23 21:23 Dose: 750 mg Folic Acid (Folic Acid 1 Mg Tablet) 1 mg PO DAILY [facility] Last Admin: 02/06/23 09:23 Dose: 1 mg Ibuprofen (Ibuprofen 800 Mg Tablet) 800 mg PO TID [facility] Last Admin: 02/06/23 09:23 Dose: 800 mg Lamotrigine (Lamotrigine 25 Mg Tablet) 25 mg PO DAILY [facility] Last Admin: 02/06/23 09:23 Dose: 25 mg Loperamide HCl (Loperamide Hcl 2 Mg Capsule) 4 mg PO Q6H PRN PRN Reason: Diarrhea Last Admin: 01/30/23 18:55 Dose: 4 mg Magnesium Hydroxide (Milk Of Magnesia 30 Ml Oral.Susp) 30 ml PO DAILY PRN PRN Reason: Constipation Methadone HCl (Methadone Hcl 20 Mg/2 Ml Oral.Conc) 75 mg PO DAILY [facility] Last Admin: 02/06/23 09:24 Dose: 75 mg Multivitamins/Vitamin C (Multivitamin Tablet) 1 tab PO DAILY [facility] Last Admin: 02/06/23 09:24 Dose: 1 tab Nicotine (Nicotine 14 Mg Patch.Td24) 14 mg TRANSDERMA DAILY [facility] Last Admin: 02/06/23 09:25 Dose: 14 mg Nicotine Polacrilex (Nicotine Polacrilex 2 Mg Gum) 2 mg BUCCAL Q2H PRN PRN Reason: Nicotine Cravings Last Admin: 02/04/23 19:47 Dose: 2 mg Olanzapine (Olanzapine Odt 10 Mg Tab.Rapdis) 10 mg TRANSLINGU Q6H PRN PRN Reason: agitation Omeprazole (Omeprazole 20 Mg Capsule.) 20 mg PO DAILY@0630 [facility] Last Admin: 02/06/23 05:17 Dose: 20 mg Potassium Chloride (Potassium Chloride Packet 20 Meq Packet) 40 meq PO 0600 [facility] Last Admin: 02/06/23 05:16 Dose: Not Given Trazodone HCl (Trazodone Hcl 50 Mg Tablet) 150 mg PO BEDTIME [facility] Last Admin: 02/05/23 21:23 Dose: 150 mg Allergies Allergies Allergy/AdvReac Type Severity Reaction Status Date / Time amoxicillin [Amoxicillin] Allergy Mild RASH & Verified 05/10/22 10:46 DIZZINESS, Dizziness Assessment & Plan Assessment & Plan (1) Bipolar I disorder with priscila: Status: Acute Code(s): F31.10 - Bipolar disorder, current episode manic without psychotic features, unspecified (2) PTSD (post-traumatic stress disorder): Status: Acute Code(s): F43.10 - Post-traumatic stress disorder, unspecified (3) Opioid use disorder: Status: Acute Code(s): F11.99 - Opioid use, unspecified with unspecified opioid-induced disorder Plan Patient is a 57 year-old woman with hx of Bipolar Disorder, opioid use disorder in remission on methadone who is known to [facility] through previous admission, most recently 12/2022, and is currently admitted due to erratic behavior. Patient has been medication compliant through visiting nurses. Continue home medication regimen. Will continue to monitor patient for over sedation. Plan: CV 5 minute safety checks Continue home medications Obtain collateral Possibly refer to substance abuse program if patient is willing to obtain treatment Acamprosate 666 mg PO TID Aripiprazole 20 mg PO BEDTIME Baclofen 10 mg PO TID Divalproex Sodium 750 mg PO BEDTIME Folic Acid 1 mg PO DAILY Lamotrigine 25 mg PO DAILY Methadone 75 mg PO DAILY Multivitamin 1 tab PO DAILY Omeprazole 20 mg PO DAILY Trazodone 150 mg PO BEDTIME Ordered EKG to determine if any abnormalities before starting injectable medication. 01/31: Patient presents alert today. Patient making some paranoid statements; believes phones are tapped here . Continue home medications. Patient is requesting to be discharged soon. Continue current medication regimen. 02/01: Patient reports feeling hopeful about the future today. Medication compl iant with staff encouragement. If patient is able to remain in behavioral control and mediation compliant, plan will be to discharge on Saturday. 02/02: Continue treatment plan. 02/03: Check labs in AM. Depakote level, Ammonia, CMP. If normal, consider decrease medications that are causing excessive sedation. 02/04: Patient reports feeling calm today. Remorseful about her behavior over the weekend. Pt was taken off 1:1 and placed on 5 minute checks; walker was returned to patient with the understanding that she will not throw it at staff or peers. 02/05: Patient requested to stop taking depakote d/t sedating effects. Dose changed to night time. Patient would like to increase lamictal and decrease depakote. She reported not taking her medications daily when at home. Did not have any behavioral outburts yesterday. 02/06: Pt reports feeling peaceful today. Denies feeling sedated. Pt reports she would like to start a long acting injectable medication. Risks/benefits were discussed. Patient reports she would like to attend a substance abuse program after discharge. Will obtain EKG to determine if any abnormalities before starting injectable medication. Patient educated on: diagnosis, medication risk/benefits and therapeutic strategies Informed Consent: understands Reason for continued inpatient stay Substantial Risk for: med/psych decompensation Time Spent With Patient Time: Total time managing care of this patient today ____ minutes. Documented by User: Sincere Romero MD 02/09/23 12:23 Subjective Subjective Reason For Visit: manic psychosis Mental Status Exam Mental Status Exam Narrative: Pt is alert and oriented; behavior is cooperative; patient is not in distress; dressed in casual attire; mood is described as okay ; eye contact appropriate; Speech is normal rate, volume and prosody and not pressured; no psychomotor agitation/retardation present; thought process is organized; Thought content is on being discharged; some paranoid thoughts; denies any SI/HI. There is no evidence of perceptual disturbance. Patients insight and judgment is impaired but improving and approaching baseline. Diagnostics Labs 01/28/23 18:33 02/04/23 07:17 Assessment & Plan Assessment & Plan (1) Bipolar I disorder with priscila: Status: Acute Code(s): F31.10 - Bipolar disorder, current episode manic without psychotic features, unspecified (2) PTSD (post-traumatic stress disorder): Status: Acute Code(s): F43.10 - Post-traumatic stress disorder, unspecified (3) Opioid use disorder: Status: Acute Code(s): F11.99 - Opioid use, unspecified with unspecified opioid-induced disorder Plan Patient is a 57 year-old woman with hx of Bipolar Disorder, opioid use disorder in remission on methadone who is known to [facility] through previous admission, most recently 12/2022, and is currently admitted due to erratic behavior. Patient has been medication compliant through visiting nurses. Continue home medication regimen. Will continue to monitor patient for over sedation. Plan: CV 5 minute safety checks Continue home medications Obtain collateral Possibly refer to substance abuse program if patient is willing to obtain treatment Acamprosate 666 mg PO TID Aripiprazole 20 mg PO BEDTIME Baclofen 10 mg PO TID Divalproex Sodium 750 mg PO BEDTIME Folic Acid 1 mg PO DAILY Lamotrigine 25 mg PO DAILY Methadone 75 mg PO DAILY Multivitamin 1 tab PO DAILY Omeprazole 20 mg PO DAILY Trazodone 150 mg PO BEDTIME Ordered EKG to determine if any abnormalities before starting injectable medication. 01/31: Patient presents alert today. Patient making some paranoid statements; believes phones are tapped here . Continue home medications. Patient is requesting to be discharged soon. Continue current medication regimen. 02/01: Patient reports feeling hopeful about the future today. Medication compliant with staff encouragement. If patient is able to remain in behavioral control and mediation compliant, plan will be to discharge on Saturday. 02/02: Continue treatment plan. 02/03: Check labs in AM. Depakote level, Ammonia, CMP. If normal, consider decrease medications that are causing excessive sedation. 02/04: Patient reports feeling calm today. Remorseful about her behavior over the weekend. Pt was taken off 1:1 and placed on 5 minute checks; walker was returned to patient with the understanding that she will not throw it at staff or peers. 02/05: Patient requested to stop taking depakote d/t sedating effects. Dose changed to night time. Patient would like to increase lamictal and decrease depakote. She reported not taking her medications daily when at home. Did not have any behavioral outburts yesterday. 02/06: Pt reports feeling peaceful today. Denies feeling sedated. Pt reports she would like to start a long acting injectable medication which may significantly increased stability post discharge. Risks/benefits were discussed. Patient reports she would like to attend a substance abuse program after discharge. Will obtain EKG to determine if any abnormalities before starting injectable medication. Reason for continued inpatient stay Substantial Risk for: rapid decompensation
[2023-02-06] MEDS: Nicotine Polacrilex 2 MG GUM BUCCAL ×2 (16:19→20:41)
[2023-02-06 16:30] VITALS: BP 117/90; PULSE 96; TEMP 36.2; O2SAT 95
[2023-02-06] MEDS: ARIPiprazole 20 MG TABLET PO (20:38)
[2023-02-06] MEDS: Divalproex Sodium ER 250 MG TAB.ER.24H 750 MG PO (20:38)
[2023-02-06] MEDS: traZODone HCL 50 MG TABLET 150 MG PO (20:38)
[2023-02-07 06:00] VITALS: BP 114/69; PULSE 81; RESP 16; TEMP 36.4; O2SAT 97
[2023-02-07] MEDS: Omeprazole 20 MG CAPSULE.DR PO (06:03)
[2023-02-07] MEDS: Nicotine 14 MG PATCH.TD24 TRANSDERMA (06:17)
[2023-02-07] MEDS: Magnesium Hydrox/Alum Hydrox 30 ML ORAL.SUSP PO (06:18)
--- NOTE | 2023-02-07 08:00 | ECG_ITS ---
Test Reason : CHECK QT PROLONGATION Blood Pressure : / mmHG Vent. Rate : 073 BPM Atrial Rate : 073 BPM P-R Int : 128 ms QRS Dur : 078 ms QT Int : 380 ms P-R-T Axes : 042 073 055 degrees QTc Int : 418 ms Normal sinus rhythm Normal ECG When compared with ECG of 29-JAN-2023 04:02, Nonspecific T wave abnormality no longer evident in Inferior leads Nonspecific T wave abnormality no longer evident in Lateral leads Referred By: Jasmin Santana Electronically Signed By:WILFREDO GOMEZ MD
[2023-02-07] MEDS: Acamprosate Calcium 333 MG TABLET.DR 666 MG PO ×3 (08:09→22:58)
[2023-02-07] MEDS: Multivitamin TABLET 1 TAB PO (08:09)
[2023-02-07] MEDS: Folic Acid 1 MG TABLET PO (08:09)
[2023-02-07] MEDS: methADONE HCl 20 MG/2 ML ORAL.CONC 75 MG PO (08:10)
[2023-02-07] MEDS: lamoTRIgine 25 MG TABLET PO (08:10)
[2023-02-07] MEDS: Baclofen 10 MG TABLET PO ×3 (08:10→22:58)
[2023-02-07] MEDS: Ibuprofen 800 MG TABLET PO ×3 (08:10→22:57)
--- NOTE | 2023-02-07 11:50 | P.PNPSI_ITS ---
Documented by User: Jasmin Santana NP 02/07/23 14:59 Subjective Subjective Date of Service: 02/07/23 Reason For Visit: manic psychosis Subjective Notes: Conditional Voluntary Interim History: Reviewed in team and with Dr. Romero. Patient reports feeling good today. Patient stated, I'm feeling more hopeful today. Patient continues to present with some paranoid thought content. Discussed the risks/benefits of Abilify Maintena IM. Patient reports she is happy about getting the injection so I don't have to worry about taking the medication every day . Medication Compliance: Yes Side effects from medications: No Attending Groups: Yes Review of Systems Constitutional: Reports as per HPI Eyes: Reports as per HPI Reports as per HPI Cardiovascular: Reports as per HPI Respiratory: Reports as per HPI Gastrointestinal: Reports as per HPI Genitourinary: Reports as per HPI Musculoskeletal: Reports as per HPI Skin/Breast: Reports as per HPI Reports as per HPI Psychiatric: Reports as per HPI Endocrine: Reports as per HPI Hematologic/Lymphatic: Reports as per HPI Allergic/Immunologic: Reports as per HPI Mental Status Exam Mental Status Exam Narrative: Pt is alert and oriented; behavior is cooperative; patient is not in distress; dressed in casual attire; mood is described as good ; eye contact appropriate; Speech is normal rate, volume and prosody and not pressured; no psychomotor agitation/retardation present; thought process is organized; Thought content is on being discharged; some paranoid thoughts; denies any SI/HI. There is no evidence of perceptual disturbance. Patients insight and judgment is fair. Diagnostics Vital Signs (24Hr): Vital Signs - 24 hr 02/06/23 16:30 02/07/23 06:00 Temperature 97.1 F 97.6 F Pulse Rate 96 81 Respiratory Rate 16 Blood Pressure 117/90 H 114/69 Pulse Oximetry 95 97 Oxygen Delivery Method Room Air BMI result Body Mass Index 32.2 Labs 01/28/23 18:33 02/04/23 07:17 Medications Medications Current Medications Acamprosate (Acamprosate Calcium 333 Mg Tablet.) 666 mg PO TID [facility] Last Admin: 02/07/23 08:09 Dose: 666 mg Acetaminophen (Acetaminophen 325 Mg Tablet) 650 mg PO Q6H PRN PRN Reason: Headache/Pain Mild Scale (1-3) Last Admin: 02/05/23 13:39 Dose: 650 mg Al Hydroxide/Mg Hydroxide (Magnesium Hydrox/Alum Hydrox 30 Ml Oral.Susp) 30 ml PO Q6H PRN PRN Reason: Heartburn/Nausea Last Admin: 02/07/23 06:18 Dose: 30 ml Aripiprazole (Aripiprazole 20 Mg Tablet) 20 mg PO BEDTIME [facility] Last Admin: 02/06/23 20:38 Dose: 20 mg Baclofen (Baclofen 10 Mg Tablet) 10 mg PO TID [facility] Last Admin: 02/07/23 08:10 Dose: 10 mg Divalproex Sodium (Divalproex Sodium Er 250 Mg Tab.Er.24h) 750 mg PO BEDTIME [facility] Last Admin: 02/06/23 20:38 Dose: 750 mg Folic Acid (Folic Acid 1 Mg Tablet) 1 mg PO DAILY [facility] Last Admin: 02/07/23 08:09 Dose: 1 mg Ibuprofen (Ibuprofen 800 Mg Tablet) 800 mg PO TID [facility] Last Admin: 02/07/23 08:10 Dose: 800 mg Lamotrigine (Lamotrigine 25 Mg Tablet) 25 mg PO DAILY [facility] Last Admin: 02/07/23 08:10 Dose: 25 mg Loperamide HCl (Loperamide Hcl 2 Mg Capsule) 4 mg PO Q6H PRN PRN Reason: Diarrhea Last Admin: 01/30/23 18:55 Dose: 4 mg Magnesium Hydroxide (Milk Of Magnesia 30 Ml Oral.Susp) 30 ml PO DAILY PRN PRN Reason: Constipation Methadone HCl (Methadone Hcl 20 Mg/2 Ml Oral.Conc) 75 mg PO DAILY [facility] Last Admin: 02/07/23 08:10 Dose: 75 mg Multivitamins/Vitamin C (Multivitamin Tablet) 1 tab PO DAILY [facility] Last Admin: 02/07/23 08:09 Dose: 1 tab Nicotine (Nicotine 14 Mg Patch.Td24) 14 mg TRANSDERMA DAILY [facility] Last Admin: 02/07/23 06:17 Dose: 14 mg Nicotine Polacrilex (Nicotine Polacrilex 2 Mg Gum) 2 mg BUCCAL Q2H PRN PRN Reason: Nicotine Cravings Last Admin: 02/06/23 20:41 Dose: 2 mg Omeprazole (Omeprazole 20 Mg Capsule.Dr) 20 mg PO DAILY@0630 [facility] Last Admin: 02/07/23 06:03 Dose: 20 mg Trazodone HCl (Trazodone Hcl 50 Mg Tablet) 150 mg PO BEDTIME [facility] Last Admin: 02/06/23 20:38 Dose: 150 mg Allergies Allergies Allergy/AdvReac Type Severity Reaction Status Date / Time amoxicillin [Amoxicillin] Allergy Mild RASH & Verified 05/10/22 10:46 DIZZINESS, Dizziness Assessment & Plan Assessment & Plan (1) Bipolar I disorder with priscila: Status: Acute Code(s): F31.10 - Bipolar disorder, current episode manic without psychotic features, unspecified (2) PTSD (post-traumatic stress disorder): Status: Acute Code(s): F43.10 - Post-traumatic stress disorder, unspecified (3) Opioid use disorder: Status: Acute Code(s): F11.99 - Opioid use, unspecified with unspecified opioid-induced disorder Plan Patient is a 57 year-old woman with hx of Bipolar Disorder, opioid use disorder in remission on methadone who is known to [facility] through previous admission, most recently 12/2022, and is currently admitted due to erratic behavior. Patient has been medication compliant through visiting nurses. Continue home medication regimen. Will continue to monitor patient for over sedation. Plan: CV 5 minute safety checks Continue home medications Obtain collateral Possibly refer to substance abuse program if patient is willing to obtain treatment Acamprosate 666 mg PO TID Aripiprazole 20 mg PO BEDTIME Baclofen 10 mg PO TID Divalproex Sodium 750 mg PO BEDTIME Folic Acid 1 mg PO DAILY Lamotrigine 25 mg PO DAILY Methadone 75 mg PO DAILY Multivitamin 1 tab PO DAILY Omeprazole 20 mg PO DAILY Trazodone 150 mg PO BEDTIME Start: Abilify Maintana 400mg IM once (pt requested long acting injectable medication d/t forgetting to take her medications when home). 01/31: Patient presents alert today. Patient making some paranoid statements; believes phones are tapped here . Continue home medications. Patient is requesting to be discharged soon. Continue current medication regimen. 02/01: Patient reports feeling hopeful about the future today. Medication compliant with staff encouragement. If patient is able to remain in behavioral control and mediation compliant, plan will be to discharge on Saturday. 02/02: Continue treatment plan. 02/03: Check labs in AM. Depakote level, Ammonia, CMP. If normal, consider decrease medications that are causing excessive sedation. 02/04: Patient reports feeling calm today. Remorseful about her behavior over the weekend. Pt was taken off 1:1 and placed on 5 minute checks; walker was returned to patient with the understanding that she will not throw it at staff or peers. 02/05: Patient requested to stop taking depakote d/t sedating effects. Dose changed to night time. Patient would like to increase lamictal and decrease depakote. She reported not taking her medications daily when at home. Did not fisher ve any behavioral outburts yesterday. 02/06: Pt reports feeling peaceful today. Denies feeling sedated. Pt reports she would like to start a long acting injectable medication. Risks/benefits were discussed. Patient reports she would like to attend a substance abuse program after discharge. Will obtain EKG to determine if any abnormalities before starting injectable medication. 02/07: Patient to receive Abilify Maintena IM today. Discussed risks/benefits of medication. Patient looking forward to getting monthly injection as opposed to remembering to take oral medication. Will continue to monitor. Patient educated on: diagnosis, medication risk/benefits, substance abuse and therapeutic strategies Informed Consent: further education needed Reason for continued inpatient stay Substantial Risk for: med/psych decompensation Time Spent With Patient Time: Total time managing care of this patient today ____ minutes. Documented by User: Sincere Romero MD 02/09/23 12:23 Subjective Subjective Reason For Visit: manic psychosis Mental Status Exam Mental Status Exam Narrative: Pt is alert and oriented; behavior is cooperative; patient is not in distress; dressed in casual attire; mood is described as good ; eye contact appropriate; Speech is normal rate, volume and prosody and not pressured; no psychomotor agitation/retardation present; thought process is organized; Thought content is on being discharged; some paranoid thoughts; denies any SI/HI. There is no tanvir dence of perceptual disturbance. Patients insight and judgment is impaired but improving and approaching baseline. Diagnostics Labs 01/28/23 18:33 02/04/23 07:17 Assessment & Plan Assessment & Plan (1) Bipolar I disorder with priscila: Status: Acute Code(s): F31.10 - Bipolar disorder, current episode manic without psychotic features, unspecified (2) PTSD (post-traumatic stress disorder): Status: Acute Code(s): F43.10 - Post-traumatic stress disorder, unspecified (3) Opioid use disorder: Status: Acute Code(s): F11.99 - Opioid use, unspecified with unspecified opioid-induced disorder Reason for continued inpatient stay Substantial Risk for: rapid decompensation
[2023-02-07 12:25] VITALS: BMI 40.9
[2023-02-07] MEDS: Nicotine Polacrilex 2 MG GUM BUCCAL ×2 (13:35→16:21)
[2023-02-07] MEDS: Acetaminophen 325 MG TABLET 650 MG PO (13:35)
[2023-02-07] MEDS: ARIPiprazole ER 400 MG SUSER.SYR IM (16:32)
[2023-02-07 17:41] VITALS: BP 116/67; PULSE 72; TEMP 36.7; O2SAT 96
[2023-02-07] MEDS: Divalproex Sodium ER 250 MG TAB.ER.24H 750 MG PO (22:57)
[2023-02-07] MEDS: ARIPiprazole 20 MG TABLET PO (22:58)
[2023-02-07] MEDS: traZODone HCL 50 MG TABLET 150 MG PO (22:58)
[2023-02-08] MEDS: Omeprazole 20 MG CAPSULE.DR PO (06:32)
[2023-02-08 07:50] VITALS: BP 127/60; PULSE 78; RESP 18; TEMP 36.2; O2SAT 99
[2023-02-08] MEDS: Nicotine 14 MG PATCH.TD24 TRANSDERMA (08:14)
[2023-02-08] MEDS: lamoTRIgine 25 MG TABLET PO (08:15)
[2023-02-08] MEDS: Acamprosate Calcium 333 MG TABLET.DR 666 MG PO ×3 (08:15→21:24)
[2023-02-08] MEDS: Multivitamin TABLET 1 TAB PO (08:16)
[2023-02-08] MEDS: Ibuprofen 800 MG TABLET PO ×3 (08:16→21:25)
[2023-02-08] MEDS: Folic Acid 1 MG TABLET PO (08:16)
[2023-02-08] MEDS: Baclofen 10 MG TABLET PO ×3 (08:16→21:24)
[2023-02-08] MEDS: methADONE HCl 20 MG/2 ML ORAL.CONC 75 MG PO (08:17)
--- NOTE | 2023-02-08 11:54 | P.PNPSI_ITS ---
Documented by User: Jasmin Santana NP 02/08/23 12:06 Subjective Subjective Date of Service: 02/08/23 Reason For Visit: manic psychosis Subjective Notes: Conditional Voluntary Interim History: Reviewed in team and with Dr. Romero. Patient reports feeling good today. Patient stated, I feel great after the injection yesterday. I'm feeling hopeful and alive. Patient continues to present with some paranoid thought content. Patient is looking forward to discharging early next week. Patient denies SI/HI/VH/AH at this time. Medication Compliance: Yes Side effects from medications: No Attending Groups: Yes Review of Systems Review of Systems pysch decompensation Constitutional: Reports as per HPI Eyes: Reports as per HPI Reports as per HPI Cardiovascular: Reports as per HPI Respiratory: Reports as per HPI Gastrointestinal: Reports as per HPI Genitourinary: Reports as per HPI Musculoskeletal: Reports as per HPI Skin/Breast: Reports as per HPI Reports as per HPI Psychiatric: Reports as per HPI Endocrine: Reports as per HPI Hematologic/Lymphatic: Reports as per HPI Allergic/Immunologic: Reports as per HPI Mental Status Exam Mental Status Exam Narrative: Pt is alert and oriented; behavior is cooperative; patient is not in distress; dressed in casual attire; mood is described as good ; eye contact appropriate; Speech is normal rate, volume and prosody and not pressured; no psychomotor agitation/retardation present; thought process is organized; Thought content is on being discharged; some paranoid thoughts; denies any SI/HI. There is no evidence of perceptual disturbance. Patients insight and judgment is fair. Diagnostics Vital Signs (24Hr): Vital Signs - 24 hr 02/07/23 17:41 02/08/23 07:50 Temperature 98.1 F 97.1 F Pulse Rate 72 78 Respiratory Rate 18 Blood Pressure 116/67 127/60 Pulse Oximetry 96 99 Oxygen Delivery Method Room Air Room Air BMI result Body Mass Index 40.9 Labs 01/28/23 18:33 02/04/23 07:17 Medications Medications Current Medications Acamprosate (Acamprosate Calcium 333 Mg Tablet.) 666 mg PO TID [facility] Last Admin: 02/08/23 08:15 Dose: 666 mg Acetaminophen (Acetaminophen 325 Mg Tablet) 650 mg PO Q6H PRN PRN Reason: Headache/Pain Mild Scale (1-3) Last Admin: 02/07/23 13:35 Dose: 650 mg Al Hydroxide/Mg Hydroxide (Magnesium Hydrox/Alum Hydrox 30 Ml Oral.Susp) 30 ml PO Q6H PRN PRN Reason: Heartburn/Nausea Last Admin: 02/07/23 06:18 Dose: 30 ml Aripiprazole (Aripiprazole 20 Mg Tablet) 20 mg PO BEDTIME [facility] Last Admin: 02/07/23 22:58 Dose: 20 mg Baclofen (Baclofen 10 Mg Tablet) 10 mg PO TID [facility] Last Admin: 02/08/23 08:16 Dose: 10 mg Divalproex Sodium (Divalproex Sodium Er 250 Mg Tab.Er.24h) 750 mg PO BEDTIME [facility] Last Admin: 02/07/23 22:57 Dose: 750 mg Folic Acid (Folic Acid 1 Mg Tablet) 1 mg PO DAILY [facility] Last Admin: 02/08/23 08:16 Dose: 1 mg Ibuprofen (Ibuprofen 800 Mg Tablet) 800 mg PO TID [facility] Last Admin: 02/08/23 08:16 Dose: 800 mg Lamotrigine (Lamotrigine 25 Mg Tablet) 25 mg PO DAILY [facility] Last Admin: 02/08/23 08:15 Dose: 25 mg Loperamide HCl (Loperamide Hcl 2 Mg Capsule) 4 mg PO Q6H PRN PRN Reason: Diarrhea Last Admin: 01/30/23 18:55 Dose: 4 mg Magnesium Hydroxide (Milk Of Magnesia 30 Ml Oral.Susp) 30 ml PO DAILY PRN PRN Reason: Constipation Methadone HCl (Methadone Hcl 20 Mg/2 Ml Oral.Conc) 75 mg PO DAILY [facility] Last Admin: 02/08/23 08:17 Dose: 75 mg Multivitamins/Vitamin C (Multivitamin Tablet) 1 tab PO DAILY [facility] Last Admin: 02/08/23 08:16 Dose: 1 tab Nicotine (Nicotine 14 Mg Patch.Td24) 14 mg TRANSDERMA DAILY [facility] Last Admin: 02/08/23 08:14 Dose: 14 mg Nicotine Polacrilex (Nicotine Polacrilex 2 Mg Gum) 2 mg BUCCAL Q2H PRN PRN Reason: Nicotine Cravings Last Admin: 02/07/23 16:21 Dose: 2 mg Omeprazole (Omeprazole 20 Mg Capsule.Dr) 20 mg PO DAILY@0630 [facility] Last Admin: 02/08/23 06:32 Dose: 20 mg Trazodone HCl (Trazodone Hcl 50 Mg Tablet) 150 mg PO BEDTIME [facility] Last Admin: 02/07/23 22:58 Dose: 150 mg Allergies Allergies Allergy/AdvReac Type Severity Reaction Status Date / Time amoxicillin [Amoxicillin] Allergy Mild RASH & Verified 05/10/22 10:46 DIZZINESS, Dizziness Assessment & Plan Assessment & Plan (1) Bipolar I disorder with priscila: Status: Acute Code(s): F31.10 - Bipolar disorder, current episode manic without psychotic features, unspecified (2) PTSD (post-traumatic stress disorder): Status: Acute Code(s): F43.10 - Post-traumatic stress disorder, unspecified (3) Opioid use disorder: Status: Acute Code(s): F11.99 - Opioid use, unspecified with unspecified opioid-induced disorder Plan Patient is a 57 year-old woman with hx of Bipolar Disorder, opioid use disorder in remission on methadone who is known to [facility] through previous admission, most recently 12/2022, and is currently admitted due to erratic behavior. Patient has been medication compliant through visiting nurses. Continue home medication regimen. Will continue to monitor patient for over sedation. Plan: CV 5 minute safety checks Continue home medications Obtain collateral Possibly refer to substance abuse program if patient is willing to obtain treatment Acamprosate 666 mg PO TID Aripiprazole 20 mg PO BEDTIME Baclofen 10 mg PO TID Divalproex Sodium 750 mg PO BEDTIME Folic Acid 1 mg PO DAILY Lamotrigine 25 mg PO DAILY Methadone 75 mg PO DAILY Multivitamin 1 tab PO DAILY Omeprazole 20 mg PO DAILY Trazodone 150 mg PO BEDTIME Recevied Abilify Maintana 400mg IM 02/07/2023. 01/31: Patient presents alert today. Patient making some paranoid statements; believes phones are tapped here . Continue home medications. Patient is requesting to be discharged soon. Continue current medication regimen. 02/01: Patient reports feeling hopeful about the future today. Medication compliant with staff encouragement. If patient is able to remain in behavioral control and mediation compliant, plan will be to discharge on Saturday. 02/02: Continue treatment plan. 02/03: Check labs in AM. Depakote level, Ammonia, CMP. If normal, consider decrease medications that are causing excessive sedation. 02/04: Patient reports feeling calm today. Remorseful about her behavior over the weekend. Pt was taken off 1:1 and placed on 5 minute checks; walker was returned to patient with the understanding that she will not throw it at staff or peers. 02/05: Patient requested to stop taking depakote d/t sedating effects. Dose changed to night time. Patient would like to increase lamictal and decrease depakote. She reported not taking her medications daily when at home. Did not have any behavioral outburts yesterday. 02/06: Pt reports feeling peaceful today. Denies feeling sedated. Pt reports she would like to start a long acting injectable medication. Risks/benefits were discussed. Patient reports she would like to attend a substance abuse program after discharge. Will obtain EKG to determine if any abnormalities before starting injectable medication. 02/07: Patient to receive Abilify Maintena IM today. Discussed risks/benefits of medication. Patient looking forward to getting monthly injection as opposed to remembering to take oral medication. Will continue to monitor. 02/08: Pt recevied Abilify Maintana 400mg IM yesterday. Patient reports feeling hopeful and live today. Plan for discharge early next week. Patient educated on: diagnosis, medication risk/benefits and therapeutic strategies Informed Consent: understands Reason for continued inpatient stay Substantial Risk for: med/psych decompensation Time Spent With Patient Time: Total time managing care of this patient today ____ minutes. Documented by User: Sincere Romero MD 02/09/23 12:26 Subjective Subjective Reason For Visit: manic psychosis Mental Status Exam Mental Status Exam Narrative: Pt is alert and oriented; behavior is cooperative; patient is not in distress; dressed in casual attire; mood is described as good ; eye contact appropriate; Speech is normal rate, volume and prosody and not pressured; no psychomotor agitation/retardation present; thought process is organized; Thought content is on being discharged; some paranoid thoughts; denies any SI/HI. There is no evidence of perceptual disturbance. Patients insight and judgment is impaired but improving and close or at baseline. Diagnostics Labs 01/28/23 18:33 02/04/23 07:17 Assessment & Plan Assessment & Plan (1) Bipolar I disorder with priscila: Status: Acute Code(s): F31.10 - Bipolar disorder, current episode manic without psychotic features, unspecified (2) PTSD (post-traumatic stress disorder): Status: Acute Code(s): F43.10 - Post-traumatic stress disorder, unspecified (3) Opioid use disorder: Status: Acute Code(s): F11.99 - Opioid use, unspecified with unspecified opioid-induced disorder Plan Patient is a 57 year-old woman with hx of Bipolar Disorder, opioid use disorder in remission on methadone who is known to [facility] through previous admission, most recently 12/2022, and is currently admitted due to erratic behavior. Patient has been medication compliant through visiting nurses. Continue home medication regimen. Will continue to monitor patient for over sedation. Plan: CV 5 minute safety checks Continue home medications Obtain collateral Possibly refer to substance abuse program if patient is willing to obtain treatment Acamprosate 666 mg PO TID Aripiprazole 20 mg PO BEDTIME Baclofen 10 mg PO TID Divalproex Sodium 750 mg PO BEDTIME Folic Acid 1 mg PO DAILY Lamotrigine 25 mg PO DAILY Methadone 75 mg PO DAILY Multivitamin 1 tab PO DAILY Omeprazole 20 mg PO DAILY Trazodone 150 mg PO BEDTIME Recevied Abilify Maintana 400mg IM 02/07/2023. 01/31: Patient presents alert today. Patient making some paranoid statements; believes phones are tapped here . Continue home medications. Patient is requesting to be discharged soon. Continue current medication regimen. 02/01: Patient reports feeling hopeful about the future today. Medication compliant with staff encouragement. If patient is able to remain in behavioral control and mediation compliant, plan will be to discharge on Saturday. 02/02: Continue treatment plan. 02/03: Check labs in AM. Depakote level, Ammonia, CMP. If normal, consider decrease medications that are causing excessive sedation. 02/04: Patient reports feeling calm today. Remorseful about her behavior over the weekend. Pt was taken off 1:1 and placed on 5 minute checks; walker was returned to patient with the understanding that she will not throw it at staff or peers. 02/05: Patient requested to stop taking depakote d/t sedating effects. Dose changed to night time. Patient would like to increase lamictal and decrease depakote. She reported not taking her medications daily when at home. Did not have any behavioral outburts yesterday. 02/06: Pt reports feeling peaceful today. Denies feeling sedated. Pt reports she would like to start a long acting injectable medication. Risks/benefits were discussed. Patient reports she would like to attend a substance abuse program after discharge. Will obtain EKG to determine if any abnormalities before starting injectable medication. 02/07: Patient to receive Abilify Maintena IM today. Discussed risks/benefits of medication. Patient looking forward to getting monthly injection as opposed to remembering to take oral medication. Will continue to monitor. 02/08: Pt recevied Abilify Maintana 400mg IM yesterday. Hopefully this will improve stability post discharge; typically patients take p.o. Abilify to overlap Maintena for about 2 weeks; although patient has a history of poor medication adherence, patient will at least have part of overlap achieved. Patient reports feeling hopeful and live today. Plan for discharge early next week. If remains stable and in good behavioral control will proceed with discharge plans. Reason for continued inpatient stay Substantial Risk for: rapid decompensation
[2023-02-08 15:14] LABS: Valproate 49.5 mcg/mL (50.0-100.0)
[2023-02-08 15:17] LABS: Alanine Aminotransferase 61 U/L (0-31); Albumin Level 3.9 g/dL (3.5-5.0); Alkaline Phosphatase 150 U/L (39-117); Aspartate Amino Transferase 66 U/L (5-31); Bilirubin Direct 0.1 mg/dL (0.0-0.5); Bilirubin Total 0.4 mg/dL (0.0-1.0); Total Protein 7.9 g/dL (6.5-8.0)
[2023-02-08 15:56] LABS: Ammonia 44 umol/L (13-55)
[2023-02-08] MEDS: Nicotine Polacrilex 2 MG GUM BUCCAL ×2 (16:13→21:09)
[2023-02-08 21:15] VITALS: BP 130/60; PULSE 75; TEMP 35.7
[2023-02-08] MEDS: traZODone HCL 50 MG TABLET 150 MG PO (21:23)
[2023-02-08] MEDS: ARIPiprazole 20 MG TABLET PO (21:24)
[2023-02-09] MEDS: Omeprazole 20 MG CAPSULE.DR PO (05:54)
[2023-02-09] MEDS: Nicotine Polacrilex 2 MG GUM BUCCAL ×2 (05:54→15:57)
[2023-02-09 06:00] VITALS: BP 115/54; PULSE 78; RESP 18; TEMP 36.7; O2SAT 93
[2023-02-09] MEDS: Folic Acid 1 MG TABLET PO (08:30)
[2023-02-09] MEDS: methADONE HCl 20 MG/2 ML ORAL.CONC 75 MG PO (08:31)
[2023-02-09] MEDS: Baclofen 10 MG TABLET PO ×3 (08:31→21:09)
[2023-02-09] MEDS: Multivitamin TABLET 1 TAB PO (08:31)
[2023-02-09] MEDS: Ibuprofen 800 MG TABLET PO ×3 (08:31→21:08)
[2023-02-09] MEDS: Acamprosate Calcium 333 MG TABLET.DR 666 MG PO ×3 (08:31→21:08)
[2023-02-09] MEDS: lamoTRIgine 25 MG TABLET PO (08:31)
--- NOTE | 2023-02-09 09:39 | HO.PSYCHPN ---
Subjective Subjective Date of Service: 02/09/23 Reason For Visit: manic psychosis Interim History: met with patient; discussed with team Last night patient refused Depakote saying she was on Lamictal; however she has remained in improved behavioral control. Discussed with patient today and explained that Lamictal is far from therapeutic dose and that Depakote remains part of her stabilizing regimen; patient agreed to take some Depakote this morning and continue taking it at bedtime. LFTs mildly elevated but pretty close to baseline. Mental Status Exam Mental Status Exam Narrative: Pt is alert and oriented; behavior is cooperative; patient is not in distress; dressed in casual attire; mood is described as good ; eye contact appropriate; Speech is normal rate, volume and prosody and not pressured; no psychomotor agitation/retardation present; thought process is organized; Thought content is on being discharged; some paranoid thoughts; denies any SI/HI. There is no evidence of perceptual disturbance. Patients insight and judgment are impaired but approaching baseline Diagnostics Vital Signs (24Hr): Vital Signs - 24 hr 02/08/23 21:15 02/09/23 06:00 Temperature 96.3 F L 98.1 F Pulse Rate 75 78 Respiratory Rate 18 Blood Pressure 130/60 115/54 L Pulse Oximetry 93 Oxygen Delivery Method Room Air BMI result Body Mass Index 40.9 Labs 01/28/23 18:33 02/04/23 07:17 Labs: Laboratory Results - last 48 hr 02/08/23 02/08/23 02/08/23 14:40 14:40 14:40 Total Bilirubin 0.4 Direct Bilirubin 0.1 AST 66 H ALT 61 H Alkaline Phosphatase 150 H Ammonia 44 Total Protein 7.9 Albumin 3.9 Valproic Acid 49.5 L Medications Medications Current Medications Acamprosate (Acamprosate Calcium 333 Mg Tablet.) 666 mg PO TID [facility] Last Admin: 02/09/23 08:31 Dose: 666 mg Acetaminophen (Acetaminophen 325 Mg Tablet) 650 mg PO Q6H PRN PRN Reason: Headache/Pain Mild Scale (1-3) Last Admin: 02/07/23 13:35 Dose: 650 mg Al Hydroxide/Mg Hydroxide (Magnesium Hydrox/Alum Hydrox 30 Ml Oral.Susp) 30 ml PO Q6H PRN PRN Reason: Heartburn/Nausea Last Admin: 02/07/23 06:18 Dose: 30 ml Aripiprazole (Aripiprazole 20 Mg Tablet) 20 mg PO BEDTIME [facility] Last Admin: 02/08/23 21:24 Dose: 20 mg Baclofen (Baclofen 10 Mg Tablet) 10 mg PO TID [facility] Last Admin: 02/09/23 08:31 Dose: 10 mg Divalproex Sodium (Divalproex Sodium Er 250 Mg Tab.Er.24h) 750 mg PO BEDTIME [facility] Last Admin: 02/08/23 21:44 Dose: Not Given Folic Acid (Folic Acid 1 Mg Tablet) 1 mg PO DAILY [facility] Last Admin: 02/09/23 08:30 Dose: 1 mg Ibuprofen (Ibuprofen 800 Mg Tablet) 800 mg PO TID [facility] Last Admin: 02/09/23 08:31 Dose: 800 mg Lamotrigine (Lamotrigine 25 Mg Tablet) 25 mg PO DAILY [facility] Last Admin: 02/09/23 08:31 Dose: 25 mg Loperamide HCl (Loperamide Hcl 2 Mg Capsule) 4 mg PO Q6H PRN PRN Reason: Diarrhea Last Admin: 01/30/23 18:55 Dose: 4 mg Magnesium Hydroxide (Milk Of Magnesia 30 Ml Oral.Susp) 30 ml PO DAILY PRN PRN Reason: Constipation Methadone HCl (Methadone Hcl 20 Mg/2 Ml Oral.Conc) 75 mg PO DAILY [facility] Last Admin: 02/09/23 08:31 Dose: 75 mg Multivitamins/Vitamin C (Multivitamin Tablet) 1 tab PO DAILY [facility] Last Admin: 02/09/23 08:31 Dose: 1 tab Nicotine (Nicotine 14 Mg Patch.Td24) 14 mg TRANSDERMA DAILY [facility] Last Admin: 02/08/23 08:14 Dose: 14 mg Nicotine Polacrilex (Nicotine Polacrilex 2 Mg Gum) 2 mg BUCCAL Q2H PRN PRN Reason: Nicotine Cravings Last Admin: 02/09/23 05:54 Dose: 2 mg Omeprazole (Omeprazole 20 Mg Capsule.Dr) 20 mg PO DAILY@0630 [facility] Last Admin: 02/09/23 05:54 Dose: 20 mg Trazodone HCl (Trazodone Hcl 50 Mg Tablet) 150 mg PO BEDTIME [facility] Last Admin: 02/08/23 21:23 Dose: 150 mg Allergies Allergies Allergy/AdvReac Type Severity Reaction Status Date / Time amoxicillin [Amoxicillin] Allergy Mild RASH & Verified 05/10/22 10:46 DIZZINESS, Dizziness Assessment & Plan Assessment & Plan (1) Bipolar I disorder with priscila: Status: Acute Code(s): F31.10 - Bipolar disorder, current episode manic without psychotic features, unspecified (2) PTSD (post-traumatic stress disorder): Status: Acute Code(s): F43.10 - Post-traumatic stress disorder, unspecified (3) Opioid use disorder: Status: Acute Code(s): F11.99 - Opioid use, unspecified with unspecified opioid-induced disorder Plan Patient is a 57 year-old woman with hx of Bipolar Disorder, opioid use disorder in remission on methadone who is known to [facility] through previous admission, most recently 12/2022, and is currently admitted due to erratic behavior. Patient has been medication compliant through visiting nurses. Continue home medication regimen. Will continue to monitor patient for over sedation. Plan: CV 5 minute safety checks Continue home medications Obtain collateral Possibly refer to substance abuse program if patient is willing to obtain treatment Acamprosate 666 mg PO TID Aripiprazole 20 mg PO BEDTIME Baclofen 10 mg PO TID Divalproex Sodium 750 mg PO BEDTIME Folic Acid 1 mg PO DAILY Lamotrigine 25 mg PO DAILY Methadone 75 mg PO DAILY Multivitamin 1 tab PO DAILY Omeprazole 20 mg PO DAILY Trazodone 150 mg PO BEDTIME Recevied Abilify Maintana 400mg IM 02/07/2023. 01/31: Patient presents alert today. Patient making some paranoid statements; believes phones are tapped here . Continue home medications. Patient is requesting to be discharged soon. Continue current medication regimen. 02/01: Patient reports feeling hopeful about the future today. Medication compliant with staff encouragement. If patient is able to remain in behavioral control and mediation compliant, plan will be to discharge on Saturday. 02/02: Continue treatment plan. 02/03: Check labs in AM. Depakote level, Ammonia, CMP. If normal, consider decrease medications that are causing excessive sedation. 02/04: Patient reports feeling calm today. Remorseful about her behavior over the weekend. Pt was taken off 1:1 and placed on 5 minute checks; walker was returned to patient with the understanding that she will not throw it at staff or peers. 02/05: Patient requested to stop taking depakote d/t sedating effects. Dose changed to night time. Patient would like to increase lamictal and decrease depakote. She reported not taking her medications daily when at home. Did not have any behavioral outburts yesterday. 02/06: Pt reports feeling peaceful today. Denies feeling sedated. Pt reports she would like to start a long acting injectable medication. Risks/benefits were discussed. Patient reports she would like to attend a substance abuse program after discharge. Will obtain EKG to determine if any abnormalities before starting injectable medication. 02/07: Patient to receive Abilify Maintena IM today. Discussed risks/benefits of medication. Patient looking forward to getting monthly injection as opposed to remembering to take oral medication. Will continue to monitor. 02/08: Pt recevied Abilify Maintana 400mg IM yesterday. Patient reports feeling hopeful and live today. Plan for discharge early next week. 02/09: Patient refused Depakote last night but accepted medication education and was willing to take Depakote 500 mg 1 time dose today and resume taking medication at bedtime. Otherwise behaviors have improved and patient seems to be able eat now demonstrate good behavioral and impulse control; will continue to monitor. Patient educated on: diagnosis and medication risk/benefits Informed Consent: understands Reason for continued inpatient stay Substantial Risk for: rapid decompensation and med/psych decompensation Time Spent With Patient Time: Total time managing care of this patient today ____ minutes.
[2023-02-09] MEDS: Divalproex Sodium ER 500 MG TAB.ER.24H PO (10:43)
[2023-02-09 18:00] VITALS: BP 131/75; PULSE 77; RESP 18; TEMP 36.5; O2SAT 98
[2023-02-09] MEDS: Divalproex Sodium ER 250 MG TAB.ER.24H 750 MG PO (21:08)
[2023-02-09] MEDS: ARIPiprazole 20 MG TABLET PO (21:08)
[2023-02-09] MEDS: traZODone HCL 50 MG TABLET 150 MG PO (21:09)
[2023-02-10] MEDS: Omeprazole 20 MG CAPSULE.DR PO (06:13)
[2023-02-10 08:00] VITALS: BP 117/58; PULSE 79; RESP 16; TEMP 36.6; O2SAT 99
[2023-02-10] MEDS: Ibuprofen 800 MG TABLET PO ×3 (08:13→22:48)
[2023-02-10] MEDS: Acamprosate Calcium 333 MG TABLET.DR 666 MG PO ×3 (08:13→22:47)
[2023-02-10] MEDS: lamoTRIgine 25 MG TABLET PO (08:13)
[2023-02-10] MEDS: Baclofen 10 MG TABLET PO ×3 (08:13→22:47)
[2023-02-10] MEDS: Folic Acid 1 MG TABLET PO (08:14)
[2023-02-10] MEDS: Multivitamin TABLET 1 TAB PO (08:14)
[2023-02-10] MEDS: methADONE HCl 20 MG/2 ML ORAL.CONC 75 MG PO (08:15)
[2023-02-10] MEDS: Nicotine 14 MG PATCH.TD24 TRANSDERMA (08:18)
--- NOTE | 2023-02-10 11:58 | P.PNPSI_ITS ---
Subjective Subjective Date of Service: 02/10/23 Reason For Visit: manic psychosis Interim History: Met with patient; discussed with team Remains in good behavioral and impulse control. Asked about getting help with addiction and if a consult could be placed; also discussed about getting a disaster recovery analyst. Mental Status Exam Mental Status Exam Narrative: Pt is alert and oriented; behavior is cooperative; patient is not in distress; dressed in casual attire; mood is described as good ; eye contact appropriate; Speech is normal rate, volume and prosody and not pressured; no psychomotor agitation/retardation present; thought process is organized; Thought content is on being discharged; some paranoid thoughts; denies any SI/HI. There is no evidence of perceptual disturbance, though at baseline some AH. Patients insight and judgment are impaired but at baseline Diagnostics Vital Signs (24Hr): Vital Signs - 24 hr 02/09/23 18:00 02/10/23 08:00 Temperature 97.7 F 97.9 F Pulse Rate 77 79 Respiratory Rate 18 16 Blood Pressure 131/75 117/58 L Pulse Oximetry 98 99 Oxygen Delivery Method Room Air Room Air BMI result Body Mass Index 40.9 Labs 01/28/23 18:33 02/04/23 07:17 Labs: Laboratory Results - last 48 hr 02/08/23 02/08/23 02/08/23 14:40 14:40 14:40 Total Bilirubin 0.4 Direct Bilirubin 0.1 AST 66 H ALT 61 H Alkaline Phosphatase 150 H Ammonia 44 Total Protein 7.9 Albumin 3.9 Valproic Acid 49.5 L Medications Medications Current Medications Acamprosate (Acamprosate Calcium 333 Mg Tablet.) 666 mg PO TID [facility] Last Admin: 02/10/23 08:13 Dose: 666 mg Acetaminophen (Acetaminophen 325 Mg Tablet) 650 mg PO Q6H PRN PRN Reason: Headache/Pain Mild Scale (1-3) Last Admin: 02/07/23 13:35 Dose: 650 mg Al Hydroxide/Mg Hydroxide (Magnesium Hydrox/Alum Hydrox 30 Ml Oral.Susp) 30 ml PO Q6H PRN PRN Reason: Heartburn/Nausea Last Admin: 02/07/23 06:18 Dose: 30 ml Aripiprazole (Aripiprazole 20 Mg Tablet) 20 mg PO BEDTIME [facility] Last Admin: 02/09/23 21:08 Dose: 20 mg Baclofen (Baclofen 10 Mg Tablet) 10 mg PO TID [facility] Last Admin: 02/10/23 08:13 Dose: 10 mg Divalproex Sodium (Divalproex Sodium Er 250 Mg Tab.Er.24h) 750 mg PO BEDTIME [facility] Last Admin: 02/09/23 21:08 Dose: 750 mg Folic Acid (Folic Acid 1 Mg Tablet) 1 mg PO DAILY [facility] Last Admin: 02/10/23 08:14 Dose: 1 mg Ibuprofen (Ibuprofen 800 Mg Tablet) 800 mg PO TID [facility] Last Admin: 02/10/23 08:13 Dose: 800 mg Lamotrigine (Lamotrigine 25 Mg Tablet) 25 mg PO DAILY [facility] Last Admin: 02/10/23 08:13 Dose: 25 mg Loperamide HCl (Loperamide Hcl 2 Mg Capsule) 4 mg PO Q6H PRN PRN Reason: Diarrhea Last Admin: 01/30/23 18:55 Dose: 4 mg Magnesium Hydroxide (Milk Of Magnesia 30 Ml Oral.Susp) 30 ml PO DAILY PRN PRN Reason: Constipation Methadone HCl (Methadone Hcl 20 Mg/2 Ml Oral.Conc) 75 mg PO DAILY [facility] Last Admin: 02/10/23 08:15 Dose: 75 mg Multivitamins/Vitamin C (Multivitamin Tablet) 1 tab PO DAILY [facility] Last Admin: 02/10/23 08:14 Dose: 1 tab Nicotine (Nicotine 14 Mg Patch.Td24) 14 mg TRANSDERMA DAILY [facility] Last Admin: 02/10/23 08:18 Dose: 14 mg Nicotine Polacrilex (Nicotine Polacrilex 2 Mg Gum) 2 mg BUCCAL Q2H PRN PRN Reason: Nicotine Cravings Last Admin: 02/09/23 15:57 Dose: 2 mg Omeprazole (Omeprazole 20 Mg Capsule.Dr) 20 mg PO DAILY@0630 [facility] Last Admin: 02/10/23 06:13 Dose: 20 mg Trazodone HCl (Trazodone Hcl 50 Mg Tablet) 150 mg PO BEDTIME [facility] Last Admin: 02/09/23 21:09 Dose: 150 mg Allergies Allergies Allergy/AdvReac Type Severity Reaction Status Date / Time amoxicillin [Amoxicillin] Allergy Mild RASH & Verified 05/10/22 10:46 DIZZINESS, Dizziness Assessment & Plan Assessment & Plan (1) Bipolar I disorder with priscila: Status: Acute Code(s): F31.10 - Bipolar disorder, current episode manic without psychotic features, unspecified (2) PTSD (post-traumatic stress disorder): Status: Acute Code(s): F43.10 - Post-traumatic stress disorder, unspecified (3) Opioid use disorder: Status: Acute Code(s): F11.99 - Opioid use, unspecified with unspecified opioid-induced disorder Plan Patient is a 57 year-old woman with hx of Bipolar Disorder, opioid use disorder in remission on methadone who is known to [facility] through previous admission, most recently 12/2022, and is currently admitted due to erratic behavior. Patient has been medication compliant through visiting nurses. Continue home medication regimen. Will continue to monitor patient for over sedation. Plan: CV 5 minute safety checks Continue home medications Obtain collateral Possibly refer to substance abuse program if patient is willing to obtain treatment Acamprosate 666 mg PO TID Aripiprazole 20 mg PO BEDTIME Baclofen 10 mg PO TID Divalproex Sodium 750 mg PO BEDTIME Folic Acid 1 mg PO DAILY Lamotrigine 25 mg PO DAILY Methadone 75 mg PO DAILY Multivitamin 1 tab PO DAILY Omeprazole 20 mg PO DAILY Trazodone 150 mg PO BEDTIME Recevied Abilify Maintana 400mg IM 02/07/2023. 01/31: Patient presents alert today. Patient making some paranoid statements; believes phones are tapped here . Continue home medications. Patient is requesting to be discharged soon. Continue current medication regimen. 02/01: Patient reports feeling hopeful about the future today. Medication compliant with staff encouragement. If patient is able to remain in behavioral control and mediation compliant, plan will be to discharge on Saturday. 02/02: Continue treatment plan. 02/03: Check labs in AM. Depakote level, Ammonia, CMP. If normal, consider decrease medications that are causing excessive sedation. 02/04: Patient reports feeling calm today. Remorseful about her behavior over the weekend. Pt was taken off 1:1 and placed on 5 minute checks; walker was returned to patient with the understanding that she will not throw it at staff or peers. 02/05: Patient requested to stop taking depakote d/t sedating effects. Dose changed to night time. Patient would like to increase lamictal and decrease depakote. She reported not taking her medications daily when at home. Did not have any behavioral outburts yesterday. 02/06: Pt reports feeling peaceful today. Denies feeling sedated. Pt reports she would like to start a long acting injectable medication. Risks/benefits were discussed. Patient reports she would like to attend a substance abuse program after discharge. Will obtain EKG to determine if any abnormalities before starting injectable medication. 02/07: Patient to receive Abilify Maintena IM today. Discussed risks/benefits of medication. Patient looking forward to getting monthly injection as opposed to remembering to take oral medication. Will continue to monitor. 02/08: Pt recevied Abilify Maintana 400mg IM yesterday. Hopefully this will improve stability post discharge; typically patients take p.o. Abilify to overlap Maintena for about 2 weeks; although patient has a history of poor medication adherence, patient will at least have part of overlap achieved. Patient reports feeling hopeful and live today. Plan for discharge early next week. If remains stable and in good behavioral control will proceed with discharge plans. 02/10 patient remains in good behavioral and impulse control; improved judgment and insight; patient appears to be at baseline which does include some d elusional thinking (patient was talking about time traveling with staff); will repeat labs just to make sure liver enzymes remained stable; recently very mildly hyperkalemic. Patient educated on: diagnosis and substance abuse Informed Consent: understands, does not understand and further education needed Reason for continued inpatient stay Substantial Risk for: stable for discharge Time Spent With Patient Time: Total time managing care of this patient today ____ minutes.
[2023-02-10] MEDS: Nicotine Polacrilex 2 MG GUM BUCCAL (15:28)
[2023-02-10 18:00] VITALS: BP 152/79; PULSE 86; TEMP 36.7; O2SAT 98
[2023-02-10] MEDS: traZODone HCL 50 MG TABLET 150 MG PO (22:47)
[2023-02-10] MEDS: Divalproex Sodium ER 250 MG TAB.ER.24H 750 MG PO (22:47)
[2023-02-10] MEDS: ARIPiprazole 20 MG TABLET PO (22:47)
[2023-02-11] MEDS: Acetaminophen 325 MG TABLET 650 MG PO (02:58)
[2023-02-11] MEDS: Omeprazole 20 MG CAPSULE.DR PO (05:53)
[2023-02-11 08:00] VITALS: BP 136/69; PULSE 87; RESP 16; TEMP 36.5; O2SAT 99
[2023-02-11] MEDS: methADONE HCl 20 MG/2 ML ORAL.CONC 75 MG PO (08:26)
[2023-02-11] MEDS: Acamprosate Calcium 333 MG TABLET.DR 666 MG PO ×3 (08:27→20:48)
[2023-02-11] MEDS: Nicotine 14 MG PATCH.TD24 TRANSDERMA (08:27)
[2023-02-11] MEDS: Multivitamin TABLET 1 TAB PO (08:27)
[2023-02-11] MEDS: Folic Acid 1 MG TABLET PO (08:27)
[2023-02-11] MEDS: Baclofen 10 MG TABLET PO ×3 (08:27→20:48)
[2023-02-11] MEDS: Ibuprofen 800 MG TABLET PO ×3 (08:27→20:49)
[2023-02-11] MEDS: lamoTRIgine 25 MG TABLET PO (08:27)
[2023-02-11 09:48] LABS: Alanine Aminotransferase 59 U/L (0-31); Albumin Level 3.8 g/dL (3.5-5.0); Alkaline Phosphatase 140 U/L (39-117); Anion Gap 13 (12-20); Aspartate Amino Transferase 62 U/L (5-31); Bilirubin Total 0.5 mg/dL (0.0-1.0); Blood Urea Nitrogen 18 mg/dL (9-16); Carbon Dioxide 28 mmol/L (22-29); Chloride 98 mmol/L (96-108); Creatinine Clr Calc Pharmacy 96.9; Estimated Glomerular Filt Rate > 60; Glucose Random 82 mg/dL (60-115); Potassium 4.3 mmol/L (3.3-5.1); Sodium 135 mmol/L (135-145); Total Protein 7.9 g/dL (6.5-8.0)
--- NOTE | 2023-02-11 10:24 | HO.PSYCHPN ---
Subjective Subjective Date of Service: 02/11/23 Reason For Visit: manic psychosis Subjective Notes: Conditional Voluntary Interim History: Reviewed in team and with Dr. Romero. Patient reports feeling good today. Patient presents pleasant, social with peers and staff, joking and laughing. Patient stated, You guys have been so good to me . Patient looking forward to discharge tomorrow. Medication Compliance: Yes Side effects from medications: No Attending Groups: Yes Review of Systems Review of Systems pysch decompensation Constitutional: Reports as per HPI Eyes: Reports as per HPI Reports as per HPI Cardiovascular: Reports as per HPI Respiratory: Reports as per HPI Gastrointestinal: Reports as per HPI Genitourinary: Reports as per HPI Musculoskeletal: Reports as per HPI Skin/Breast: Reports as per HPI Reports as per HPI Psychiatric: Reports as per HPI Endocrine: Reports as per HPI Hematologic/Lymphatic: Reports as per HPI Allergic/Immunologic: Reports as per HPI Mental Status Exam Mental Status Exam Narrative: Pt is alert and oriented; behavior is cooperative; patient is not in distress; dressed in casual attire; mood is described as good ; eye contact appropriate; Speech is normal rate, volume and prosody and not pressured; no psychomotor agitation/retardation present; thought process is organized; Thought content is on being discharged; some paranoid thoughts; denies any SI/HI. There is no evidence of perceptual disturbance, though at baseline some AH. Patients insight and judgment are impaired but at baseline. Diagnostics Vital Signs (24Hr): Vital Signs - 24 hr 02/10/23 18:00 Temperature 98.1 F Pulse Rate 86 Blood Pressure 152/79 H Pulse Oximetry 98 Oxygen Delivery Method Room Air BMI result Body Mass Index 40.9 Labs 01/28/23 18:33 02/11/23 08:45 Labs: Laboratory Results - last 48 hr 02/11/23 08:45 Sodium 135 Potassium 4.3 Chloride 98 Carbon Dioxide 28 Anion Gap 13 BUN 18 H Creatinine 0.66 Estim Creat Clear Calc 96.9 Estimated GFR > 60 Random Glucose 82 Calcium 10.0 Total Bilirubin 0.5 AST 62 H ALT 59 H Alkaline Phosphatase 140 H Total Protein 7.9 Albumin 3.8 Medications Medications Current Medications Acamprosate (Acamprosate Calcium 333 Mg Tablet.) 666 mg PO TID [facility] Last Admin: 02/11/23 08:27 Dose: 666 mg Acetaminophen (Acetaminophen 325 Mg Tablet) 650 mg PO Q6H PRN PRN Reason: Headache/Pain Mild Scale (1-3) Last Admin: 02/11/23 02:58 Dose: 650 mg Al Hydroxide/Mg Hydroxide (Magnesium Hydrox/Alum Hydrox 30 Ml Oral.Susp) 30 ml PO Q6H PRN PRN Reason: Heartburn/Nausea Last Admin: 02/07/23 06:18 Dose: 30 ml Aripiprazole (Aripiprazole 20 Mg Tablet) 20 mg PO BEDTIME [facility] Last Admin: 02/10/23 22:47 Dose: 20 mg Baclofen (Baclofen 10 Mg Tablet) 10 mg PO TID [facility] Last Admin: 02/11/23 08:27 Dose: 10 mg Divalproex Sodium (Divalproex Sodium Er 250 Mg Tab.Er.24h) 750 mg PO BEDTIME [facility] Last Admin: 02/10/23 22:47 Dose: 750 mg Folic Acid (Folic Acid 1 Mg Tablet) 1 mg PO DAILY [facility] Last Admin: 02/11/23 08:27 Dose: 1 mg Ibuprofen (Ibuprofen 800 Mg Tablet) 800 mg PO TID [facility] Last Admin: 02/11/23 08:27 Dose: 800 mg Lamotrigine (Lamotrigine 25 Mg Tablet) 25 mg PO DAILY [facility] Last Admin: 02/11/23 08:27 Dose: 25 mg Loperamide HCl (Loperamide Hcl 2 Mg Capsule) 4 mg PO Q6H PRN PRN Reason: Diarrhea Last Admin: 01/30/23 18:55 Dose: 4 mg Magnesium Hydroxide (Milk Of Magnesia 30 Ml Oral.Susp) 30 ml PO DAILY PRN PRN Reason: Constipation Methadone HCl (Methadone Hcl 20 Mg/2 Ml Oral.Conc) 75 mg PO DAILY [facility] Last Admin: 02/11/23 08:26 Dose: 75 mg Multivitamins/Vitamin C (Multivitamin Tablet) 1 tab PO DAILY [facility] Last Admin: 02/11/23 08:27 Dose: 1 tab Nicotine (Nicotine 14 Mg Patch.Td24) 14 mg TRANSDERMA DAILY [facility] Last Admin: 02/11/23 08:27 Dose: 14 mg Nicotine Polacrilex (Nicotine Polacrilex 2 Mg Gum) 2 mg BUCCAL Q2H PRN PRN Reason: Nicotine Cravings Last Admin: 02/10/23 15:28 Dose: 2 mg Omeprazole (Omeprazole 20 Mg Capsule.Dr) 20 mg PO DAILY@0630 [facility] Last Admin: 02/11/23 05:53 Dose: 20 mg Trazodone HCl (Trazodone Hcl 50 Mg Tablet) 150 mg PO BEDTIME [facility] Last Admin: 02/10/23 22:47 Dose: 150 mg Allergies Allergies Allergy/AdvReac Type Severity Reaction Status Date / Time amoxicillin [Amoxicillin] Allergy Mild RASH & Verified 05/10/22 10:46 DIZZINESS, Dizziness Assessment & Plan Assessment & Plan (1) Bipolar I disorder with priscila: Status: Acute Code(s): F31.10 - Bipolar disorder, current episode manic without psychotic features, unspecified (2) PTSD (post-traumatic stress disorder): Status: Acute Code(s): F43.10 - Post-traumatic stress disorder, unspecified (3) Opioid use disorder: Status: Acute Code(s): F11.99 - Opioid use, unspecified with unspecified opioid-induced disorder Plan Patient is a 57 year-old woman with hx of Bipolar Disorder, opioid use disorder in remission on methadone who is known to [facility] through previous admission, most recently 12/2022, and is currently admitted due to erratic behavior. Patient has been medication compliant through visiting nurses. Continue home medication regimen. Will continue to monitor patient for over sedation. Plan: CV 5 minute safety checks Continue home medications Obtain collateral Possibly refer to substance abuse program if patient is willing to obtain treatment Acamprosate 666 mg PO TID Aripiprazole 20 mg PO BEDTIME Baclofen 10 mg PO TID Divalproex Sodium 750 mg PO BEDTIME Folic Acid 1 mg PO DAILY Lamotrigine 25 mg PO DAILY Methadone 75 mg PO DAILY Multivitamin 1 tab PO DAILY Omeprazole 20 mg PO DAILY Trazodone 150 mg PO BEDTIME Recevied Abilify Maintana 400mg IM 02/07/2023. 01/31: Patient presents alert today. Patient making some paranoid statements; believes phones are tapped here . Continue home medications. Patient is requesting to be discharged soon. Continue current medication regimen. 02/01: Patient reports feeling hopeful about the future today. Medication compliant with staff encouragement. If patient is able to remain in behavioral control and mediation compliant, plan will be to discharge on Saturday. 02/02: Continue treatment plan. 02/03: Check labs in AM. Depakote level, Ammonia, CMP. If normal, consider decrease medications that are causing excessive sedation. 02/04: Patient reports feeling calm today. Remorseful about her behavior over the weekend. Pt was taken off 1:1 and placed on 5 minute checks; walker was returned to patient with the understanding that she will not throw it at staff or peers. 02/05: Patient requested to stop taking depakote d/t sedating effects. Dose changed to night time. Patient would like to increase lamictal and decrease depakote. She reported not taking her medications daily when at home. Did not have any behavioral outburts yesterday. 02/06: Pt reports feeling peaceful today. Denies feeling sedated. Pt reports she would like to start a long acting injectable medication. Risks/benefits were discussed. Patient reports she would like to attend a substance abuse program after discharge. Will obtain EKG to determine if any abnormalities before starting injectable medication. 02/07: Patient to receive Abilify Maintena IM today. Discussed risks/benefits of medication. Patient looking forward to getting monthly injection as opposed to remembering to take oral medication. Will continue to monitor. 02/08: Pt recevied Abilify Maintana 400mg IM yesterday. Hopefully this will improve stability post discharge; typically patients take p.o. Abilify to overlap Maintena for about 2 weeks; although patient has a history of poor medication adherence, patient will at least have part of overlap achieved. Patient reports feeling hopeful and live today. Plan for discharge early next week. If remains stable and in good behavioral control will proceed with discharge plans. 02/09: Patient refused Depakote last night but accepted medication education and was willing to take Depakote 500 mg 1 time dose today and resume taking medication at bedtime. Otherwise behaviors have improved and patient seems to be able eat now demonstrate good behavioral and impulse control; will continue to monitor. 02/10 patient remains in good behavioral and impulse control; improved judgment and insight; patient appears to be at baseline which does include some delusional thinking (patient was talking about time traveling with staff); will repeat labs just to make sure liver enzymes remained stable; recently very mildly hyperkalemic. 02/11: Patient presents pleasant and social with peers and staff today. She is looking forward to discharge. Plans on following up with outpatient providers. Patient educated on: diagnosis, medication risk/benefits and therapeutic strategies Informed Consent: understands Reason for continued inpatient stay Substantial Risk for: stable for discharge Time Spent With Patient Time: Total time managing care of this patient today ____ minutes.
--- NOTE | 2023-02-11 11:05 | PM.PSYDC ---
DS: Providers Provider Date of Service: 02/12/23 Date of admission: 01/29/23 22:08 Date of discharge: 02/12/23 Primary care physician: Unknown Physician Admitting clinician: Jasmin Santana Attending physician on admission: Sincere Romero Consults: 02/10/23 15:11 Addiction Medicine Routine Consulting Provider: Addiction Covering Reason for consultation: patient asked for consult to discuss options; not sure necessary Has provider been notified: No Attending physician on discharge: Sincere Romero Discharging clinician: Jasmin Santana DS: Diagnosis Discharge Diagnosis (1) Bipolar I disorder with priscila: Status: Acute (2) PTSD (post-traumatic stress disorder): Status: Acute (3) Opioid use disorder: Status: Acute DS: Medications Discharge Medications Home Medications: Home Medications Medication Instructions Recorded Confirmed acamprosate 333 mg tablet,delayed 666 mg PO TID 01/28/23 01/28/23 release aripiprazole 20 mg tablet 20 mg PO BEDTIME 01/28/23 01/28/23 baclofen 10 mg tablet 10 mg PO TID 01/28/23 01/28/23 carbamazepine 200 mg 200 mg PO BID 01/28/23 01/28/23 tablet,extended release,12 hr divalproex 250 mg tablet,extended 750 mg PO DAILY 01/28/23 01/28/23 release 24 hr (Depakote ER) folic acid 1 mg tablet 1 mg PO DAILY 01/28/23 01/28/23 hydroxyzine HCl 50 mg tablet 50 mg PO BID PRN anxiety 01/28/23 01/28/23 ibuprofen 800 mg tablet 800 mg PO TID 01/28/23 01/28/23 lamotrigine 25 mg tablet 25 mg PO DAILY 01/28/23 01/28/23 methadone 40 mg soluble tablet 75 mg PO DAILY 01/28/23 01/29/23 multivitamin with folic acid 400 1 tab PO DAILY 01/28/23 01/28/23 mcg tablet (Daily-Alexis (with folic acid)) omeprazole 20 mg capsule,delayed 20 mg PO DAILY 01/28/23 01/28/23 release trazodone 150 mg tablet 150 mg PO BEDTIME 01/28/23 01/28/23 Mental Status Exam Mental Status Exam Narrative: Pt is alert and oriented; behavior is cooperative; patient is not in distress; dressed in casual attire; mood is described as good ; eye contact appropriate; Speech is normal rate, volume and prosody and not pressured; no psychomotor agitation/retardation present; thought process is organized; Thought content is on being discharged; some paranoid thoughts; denies any SI/HI. There is no evidence of perceptual disturbance, though at baseline some AH. Patients insight and judgment are impaired but at baseline. Data Data Completed and Pending Completed studies during hospitalization [Text1]: 02/08/23 02/08/23 02/08/23 14:40 14:40 14:40 Sodium Potassium Chloride Carbon Dioxide Anion Gap BUN Creatinine Estim Creat Clear Calc Estimated GFR Random Glucose Calcium Total Bilirubin 0.4 Direct Bilirubin 0.1 AST 66 H ALT 61 H Alkaline Phosphatase 150 H Ammonia 44 Total Protein 7.9 Albumin 3.9 Valproic Acid 49.5 L 02/11/23 08:45 Sodium 135 Potassium 4.3 Chloride 98 Carbon Dioxide 28 Anion Gap 13 BUN 18 H Creatinine 0.66 Estim Creat Clear Calc 96.9 Estimated GFR > 60 Random Glucose 82 Calcium 10.0 Total Bilirubin 0.5 Direct Bilirubin AST 62 H ALT 59 H Alkaline Phosphatase 140 H Ammonia Total Protein 7.9 Albumin 3.8 Valproic Acid DS: Summary Hospital Course Hospital Course: Patient is a 57 year-old woman with hx of Bipolar Disorder, opioid use disorder in remission on methadone who [place] [facility] [place], most recently 12/2022, and is currently admitted due to erratic behavior. Patient has been medication compliant through visiting nurses. Continue home medication regimen. Will continue to monitor patient for over sedation. Patient making some paranoid statements throughout admission; believes phones are tapped here . Medication compliant with staff encouragement. Patient had one outburst during this admission where she threw her walker and was yelling at peers and staff; was place on 1:1. Patient was remorseful about her behavior. Pt was taken off 1:1 and placed on 5 minute checks; walker was returned to patient with the understanding that she will not throw it at staff or peers. Patient requested to stop taking depakote d/t sedating effects. Dose changed to night time; denies feeling sedated since depakote was changed to bedtime. Pt reports she would like to start a long acting injectable medication. Risks/benefits were discussed, patient understood and consented to having monthly injections. [facility]. Patient looking forward to getting monthly injection as opposed to remembering to take oral medication. Patient reports feeling hopeful and live ; behaviors have improved and patient seems to be able to demonstrate good behavioral and impulse control; improved judgment and insight; patient appears to be at baseline which does include some delusional thinking (patient was talking about time traveling with staff). Patient presents pleasant and social with peers and staff. Patient did state that it will be difficult for her to maintain her sobriety. Patient stated, I can't promise that I won't use again. I know I will. But I'll come back if I need help . Patient reports she plans on following up with outpatient providers and taking medications as prescribed. Patient pleasant on discharge and looking forward to returning home. Time spent discussing smoking cessation with patient: 3 to 10 minutes Status at Discharge Cognitive/behavioral status at discharge: Patient was interviewed prior to discharge and found to be fully oriented and without any SI or HI. Patient has insight and demonstrates good judgment in terms of wanting to pursue treatment. Patient is not in imminent risk of harm to self or others and has a safety plan that includes presenting to the closest ER or calling 911 if feeling unsafe. Patient has been observed closely by nursing and unit staff throughout admission; patient has not engaged in any behaviors that suggest dangerousness to self or others and has demonstrated appropriate behaviors and impulse control Functional status at discharge: uses cane/walker Overall status at discharge: patient is back to baseline Time Spent with Patient Time attestation: Total time managing care of this patient today ____ minutes. Time spent: Less than 30 minutes Discharge Plan Discharge Anticipated Discharge Date/Time: 02/12/23 11:45 Patient Disposition: Home, Self-Care Discharge Diagnosis: Bipolar d/o, PTSD, polysubstance use Referrals: GINA SALAZAR RN [Other] - 02/13/23 7:00 am (The nurse will arrive to your home to start services between 7-8am on 02/13/23. Please be sure to be home and open your door for the nurse. ) [facility] [Other] - 1 Week (LEFT MESSAGE FOR A CALL BACK OR CALL PT BACK FOR F/U APPT.) Vice President And Portfolio Manager: [facility] [Other] - 02/15/23 9:30 am (Call Nini as needed and expect her to visit you at home on Saturday, 02/15, at 9:30am. ) Discharge Medications: New divalproex 250 mg Tablet Extended Release 24 Hr 750 mg PO BEDTIME 30 Days Qty: 90 0RF Abilifmarleni Maintena 400 mg suspension,extended rel recon 400 mg IM QMONTH Qty: 1 0RF Continued multivitamin with folic acid [Daily-Alexis (with folic acid)] 400 mcg tablet 1 tab PO DAILY methadone 40 mg Tablet,Soluble 75 mg PO DAILY Patient Comments: Verified from [facility] [place]- [phone] ibuprofen 800 mg tablet 800 mg PO TID 30 Days Qty: 90 0RF lamotrigine 25 mg Tablet 25 mg PO DAILY 30 Days Qty: 30 0RF baclofen 10 mg Tablet 10 mg PO TID 30 Days Qty: 90 0RF trazodone 150 mg tablet 150 mg PO BEDTIME 30 Days Qty: 30 0RF omeprazole 20 mg Capsule,Delayed Release(Dr/Ec) 20 mg PO DAILY 30 Days Qty: 30 0RF aripiprazole 20 mg tablet 20 mg PO BEDTIME 10 Days Qty: 10 0RF acamprosate 333 mg tablet,delayed release (DR/EC) 666 mg PO TID 30 Days Qty: 180 0RF Discontinued hydroxyzine HCl 50 mg tablet 50 mg PO BID PRN (Reason: anxiety) carbamazepine 200 mg tablet extended release 12 hr 200 mg PO BID folic acid 1 mg tablet 1 mg PO DAILY divalproex [Depakote ER] 250 mg Tablet Extended Release 24 Hr 750 mg PO DAILY Discharge Orders: Discharge Order (Routine); Ordered 02/11/23 Ordered By: Jasmin Santana Diet: Regular diet Activity on Discharge: As tolerated Stand Alone Forms: Patient Portal Discharge page, Community Support Care Plan Goals: Maintain mood and safe behaviors Take medications as prescribed Continue to pursue sobriety Practice coping skills Continue with outpatient providers and reach out to them as needed Health Concerns: Mood stability and behaviors Sobriety Plan of Treatment: Follow up with your PCP, psychiatric provider and other outpatient providers regarding above concerns Take medications as prescribed Assessment: Patient was interviewed prior to discharge and found to be fully oriented and without any SI or HI. Patient has insight and demonstrates good judgment in terms of wanting to pursue treatment. Patient is not in imminent risk of harm to self or others and has a safety plan that includes presenting to the closest ER or calling 911 if feeling unsafe. Patient has been observed closely by nursing and unit staff throughout admission; patient has not engaged in any behaviors that suggest dangerousness to self or others and has demonstrated appropriate behaviors and impulse control. Patient Instructions: Bipolar Disorder (ED), Polysubstance Abuse (ED) Discharge Date/Time: 02/12/23 11:34
--- NOTE | 2023-02-11 11:43 | MHC.RECOVRN ---
Briefly met with pt after consult placed to Addiction Medicine. Pt wanted to share ideas for the unstably housed population, specifically people with [place]. Pt would like to get people new tents, back packs, blue hair dye, and bounce houses. When asked about pts methadone dose, pt states it's not therapeutic yet. Pt appears comfortable, does not appear to be experiencing withdrawal. Pt quickly changes conversation back to plans for when discharged and helping people in the community. Pt denies other questions or concerns for t/w. Discussed with Viky Amin APRN.
[2023-02-11] MEDS: Nicotine Polacrilex 2 MG GUM BUCCAL ×2 (12:37→20:49)
[2023-02-11 17:05] VITALS: BP 157/67; PULSE 75; TEMP 23.8
[2023-02-11] MEDS: Divalproex Sodium ER 250 MG TAB.ER.24H 750 MG PO (20:48)
[2023-02-11] MEDS: ARIPiprazole 20 MG TABLET PO (20:49)
[2023-02-11] MEDS: traZODone HCL 50 MG TABLET 150 MG PO (20:49)
[2023-02-12] MEDS: Omeprazole 20 MG CAPSULE.DR PO (05:32)
[2023-02-12 06:00] VITALS: BP 135/69; PULSE 72; RESP 18; O2SAT 98
[2023-02-12] MEDS: Ibuprofen 800 MG TABLET PO (08:31)
[2023-02-12] MEDS: Naloxone HCl Nasal TAKE HOME 4 MG SPRAY 8 MG NOSTRILALT (08:31)
[2023-02-12] MEDS: lamoTRIgine 25 MG TABLET PO (08:32)
[2023-02-12] MEDS: Folic Acid 1 MG TABLET PO (08:32)
[2023-02-12] MEDS: Baclofen 10 MG TABLET PO (08:32)
[2023-02-12] MEDS: Nicotine 14 MG PATCH.TD24 TRANSDERMA (08:32)
[2023-02-12] MEDS: Multivitamin TABLET 1 TAB PO (08:32)
[2023-02-12] MEDS: Acamprosate Calcium 333 MG TABLET.DR 666 MG PO (08:32)
[2023-02-12] MEDS: methADONE HCl 20 MG/2 ML ORAL.CONC 75 MG PO (08:34)
== END 2023-02-12 11:34 | disposition home or self-care (01) | DRG 885 ==
LOC: HO.ED 01-29 01:32 → HO.PM5 01-29 22:11
PROVIDERS: Physician Assistant; Psychiatry & Neurology Psychiatry; Admitting Provider Psychiatry & Neurology Psychiatry; Emergency Provider Internal Medicine; Visit Provider Registered Nurse
DX: F31.10 Bipolar disorder, current episode manic without psychotic features, unspecified (principal); F11.20 Opioid dependence, uncomplicated; F43.10 Post-traumatic stress disorder, unspecified; F17.210 Nicotine dependence, cigarettes, uncomplicated; M19.90 Unspecified osteoarthritis, unspecified site; Z20.822 Contact with and (suspected) exposure to COVID-19; Z71.6 Tobacco abuse counseling; Z79.899 Other long term (current) drug therapy
CPT/HCPCS: 36415; 80053; 80061; 80076; 80143; 80164; 80179; 80307; 81003; 82140; 85025; 87635; 93005; 99285; J0401; J1200; J2060

== ENCOUNTER → 2023-01-29 22:08 | Outpatient (BNV) | payer MEDICARE, MEDICAID, SELFPAY | PROVIDERS: Admitting Provider Psychiatry & Neurology Psychiatry; Emergency Provider Internal Medicine; Visit Provider Registered Nurse | DX: F31.10 Bipolar disorder, current episode manic without psychotic features, unspecified (principal); F43.11 Post-traumatic stress disorder, acute; F11.90 Opioid use, unspecified, uncomplicated | CPT/HCPCS: 90792; 99231; 99232; 99238 ==

== ENCOUNTER 2023-08-01 12:38 | Outpatient (REF) | payer MEDICARE, MEDICAID, SELFPAY ==
--- NOTE | ~2023-08-01 | XR_ITS ---
EXAMINATION: XR PELVIS CLINICAL INFORMATION: Pain and unspecified hip. COMPARISON: 06/02/2021 TECHNIQUE: AP view of the pelvis. FINDINGS: Degenerative changes in the imaged lower lumbar spine. The bones are diffusely demineralized. Multiple rounded pelvic calcifications are likely vascular. Mild degenerative changes in the right hip. Redemonstration of severe destructive changes at the left hip with multiple erosive and sclerotic changes at the femoral acetabular articulation, flattening and deformity of subjacent articular surfaces and lateral placement of the femoral head. XR/XR pelvis 1-2V IMPRESSION: 1. Redemonstration of severe destructive changes at the left hip. MRI should be considered for further evaluation. 2. Mild degenerative changes in the right hip.
== END 2023-08-01 12:39 | disposition home or self-care (01) ==
LOC: HO.HOSX 12:38
PROVIDERS: Visit Provider Orthopaedic Surgery
DX: M16.52 Unilateral post-traumatic osteoarthritis, left hip (principal)
CPT/HCPCS: 72170; 99212

== ENCOUNTER 2023-08-01 13:49 | Outpatient (AMB) | payer MEDICARE, MEDICAID, SELFPAY ==
--- NOTE | 2023-08-01 14:18 | MHC.OFFVIS ---
Intake Vital Signs 08/01/23 14:20 Height 5 ft 6 in Weight 185 lb BMI 29.9 Intake Visit Reasons: ov- Lt Hip OA Intake Note: Cristina is a 58 year old female who presents today for a follow up of her left hip OA. Previously booked for LT SAGE on 01/24/22 but was cancelled. Allergies amoxicillin [Amoxicillin] Allergy (Mild, Verified 08/01/23 14:22) RASH & DIZZINESS, Dizziness HPI ov- Lt Hip OA HPI Details Cristina is a 58 year old woman who returns to discuss her severe left hip OA. She was initially scheduled for a SAGE on 01/24/22 but this was cancelled as she was in Detox. She is a known Methadone user, drinker, and was a smoker but she quit several months ago. She has a hx of Polysubstance abuse, Schizophrenia, and Bipolar disorder. She was [facility] 01/[facility]/23 for some time. She has pain with daily activity which is debilitating for her. She can barely walk. She has difficulty walking or moving around and cannot function. She cannot perform daily tasks out of the house due to her symptoms. She would like to discuss surgery again. [facility] Medical History (Updated 02/20/23 @ 00:15 by David Pink) Schizoaffective disorder, bipolar type Osteoarthritis Polysubstance use disorder Bipolar I disorder with priscila Acute post-traumatic stress disorder Social History Household Members: Unknown / Unable to assess Housing: Apartment Do you presently have visiting nurse or other home services: Yes Unable to assess alcohol history related to: Unable to respond Alcohol intake: never Comment: Pt utilizes walker Patient Tobacco Use Status: Current everyday Tobacco user Tobacco use type: Cigarette Cigarette Packs Per Day: 1 Cigarettes Per Day: 20.0 e-Cigarette/Vaping Use: Currently Using Second Hand Smoke Exposure: No Substance Use Type: Marijuana service: No Sexual orientation: Bisexual Review of Systems Const All systems reviewed & are unremarkable except as noted in HPI and below Physical Exam Vital Signs: BMI result Body Mass Index 29.9 Const General: no acute distress, alert and awake Orientation/consciousness: patient oriented x3 HEENT Head: Yes normocephalic and Yes atraumatic Eyes EOM: EOMs intact bilaterally Resp Effort & Inspection: normal respiratory effort and able to speak in complete sentences Cardio Jugular venous distension: no JVD Skin General skin exam: turgor normal Rashes: no rashes Neuro General: patient oriented x3 Extrem Other: severe gait antalgia minimal rotation 70 deg flexion Psych Appearance: grossly normal Affect: normal affect Attitude: cooperative Results Reviewed Results Reviewed: I personally reviewed relevant radiographs. Severe left hip OA with loss of femoral head architecture and proximal migration/subluxation Assessment & Plan Assessment & Plan (1) Post-traumatic osteoarthritis of left hip: Code(s): M16.52 - Unilateral post-traumatic osteoarthritis, left hip Plan: 58 yo F ~ 10 years after traumatic hip dislocation and acetabular fracture. She has severe left hip OA and there is no femoral head and her limb is short. We have discussed arthroplasty on several occasions. She feels she is now ready. Substance abuse has not been an issue for years and hetr mental health issues have been stable. She needs an arthroplasty. I discussed the risks benefits and alternatives including but not limited to the risk of pain, infection, stiffness, need for further surgery as well as potential medical complications such as blood clots, pulmonary embolism and cardiac complications. We will proceed forward with clearance and pre operative coordination. Plan Scribed for Geovani Renee MD by Sincere Torres, medical records director, on 08/01/23 at 2:45 PM, EST. Orders: Orders XR pelvis 1-2V 08/01/23 M25.559 - Pain in unspecified hip Coding Level of Care Code Est Pt Level 4 (86858) Diagnoses Post-traumatic osteoarthritis of left hip M16.52
[2023-08-01 14:20] VITALS: BMI 29.9
== END 2023-08-01 15:50 | disposition home or self-care (01) ==
PROVIDERS: Visit Provider Orthopaedic Surgery
DX: M16.52 Unilateral post-traumatic osteoarthritis, left hip (principal)
CPT/HCPCS: 99214

== ENCOUNTER → 2023-11-04 10:32 | Outpatient (BNVA) | payer MEDICARE, MEDICAID, SELFPAY | PROVIDERS: PCP Family Medicine; Visit Provider Orthopaedic Surgery ==

== ENCOUNTER → 2023-11-19 13:52 | Outpatient (BNV) | payer MEDICARE, MEDICAID, SELFPAY | PROVIDERS: Admitting Provider Orthopaedic Surgery; PCP Family Medicine; Visit Provider Internal Medicine Cardiovascular Disease | DX: Z01.818 Encounter for other preprocedural examination (principal) | CPT/HCPCS: 93010 ==

== ENCOUNTER 2023-11-28 06:35 | Outpatient (REF) | payer MEDICARE, MEDICAID, SELFPAY ==
--- NOTE | ~2023-11-28 | XR_ITS ---
EXAMINATION: XR HIP, LEFT CLINICAL INFORMATION: Hip pain. COMPARISON: Pelvic radiographs dated 08/01/2023. TECHNIQUE: AP and frog-leg lateral views of the left hip are submitted, together with an AP view of the pelvis. FINDINGS: There is bony demineralization. The right acetabular joint space is well-maintained. The right femoral head remains smooth. The left acetabular joint space shows severe narrowing, and there is marked subchondral sclerosis, cyst formation and peripheral osteophyte formation of the articular surfaces of the left hip. Some flattening is noted of the left femoral head. There is no fracture or dislocation. The sacroiliac joints are symmetric and well-maintained. The pubic symphysis is intact. There are pelvic phleboliths. No foreign body is seen. XR/XR hip LT min 2V IMPRESSION: There are marked osteoarthritic changes of the left hip, and no unusual degenerative change is seen of the right hip. No fracture or dislocation is seen.
== END 2023-11-28 06:36 | disposition home or self-care (01) ==
LOC: HO.HOSX 06:35
PROVIDERS: Visit Provider Physician Assistant
DX: M16.52 Unilateral post-traumatic osteoarthritis, left hip (principal)
CPT/HCPCS: 73502; 99212

== ENCOUNTER 2023-11-28 12:52 | Outpatient (AMB) | payer MEDICARE, MEDICAID, SELFPAY ==
--- NOTE | 2023-11-28 06:36 | A.OFFVIS_ITS ---
Intake Intake Visit Reasons: Pre Op LT SAGE 12/03/23 NE Intake Note: Cristina fernandez 58 year old female presents today for a pre operative left SAGE on 12/03/23. Pain management agreement reviewed and signed. Allergies amoxicillin [Amoxicillin] Allergy (Mild, Verified 11/28/23 13:27) RASH & DIZZINESS, Dizziness Medication List - Last Reconciled 11/28/23 by Francis Tejeda PA-C acamprosate 666 mg (2 x 333 mg) PO TID 30 days acetaminophen 500 mg PO TID aripiprazole 20 mg PO BEDTIME 10 days aripiprazole ER (Abilify Maintena) 400 mg IM QMONTH baclofen 10 mg PO TID 30 days ciclopirox 8% 1 appl topical BEDTIME clotrimazole-betamethasone 1-0.05 % 1 appl topical BID divalproex ER 750 mg (3 x 250 mg) PO BEDTIME 30 days folic acid 1 mg PO DAILY furosemide 40 mg PO BID gabapentin 100 mg PO TID lamotrigine 25 mg PO DAILY 30 days melatonin 10 mg PO BEDTIME PRN multivitamin with folic acid 400 mcg (Daily-Alexis (with folic acid)) 1 tab PO DAILY nicotine 1 patch topical DAILY omeprazole 20 mg PO DAILY 30 days thiamine HCl (vitamin B1) 100 mg PO DAILY trazodone 150 mg PO BEDTIME 30 days HPI HPI Comments History of Present Illness Details Ms Larsen presents to the office today for preop visit. She is scheduled for left total hip arthroplasty with Dr. Renee. She continues to have ongoing pain and difficulty with ambulation in the left hip, which is affecting her quality of life; therefore, she has elected to move forward with surgery. She has an extensive IVDU hx with Cocaine and has been in remission since December 2022. She has also quit smoking tobaccos 12/2022. She has a support nurse who helps administer her home medications. PCP clearance performed. [facility] Medical History Right foot drop DJD (degenerative joint disease) Primary insomnia Anxiety Heroin use disorder, moderate, in early remission Tobacco use disorder, moderate, in early remission Alcohol use disorder in remission Allergic rhinitis Gastric ulcer Herpes genitalia Bipolar affective disorder Dissociative disorder Back pain Arthritis Difficulty swallowing Hepatitis C Neuropathy Sleep apnea GERD (gastroesophageal reflux disease) Schizoaffective disorder, bipolar type Osteoarthritis Polysubstance use disorder Bipolar I disorder with priscila Acute post-traumatic stress disorder Surgical History History of esophagogastroduodenoscopy (EGD) Hx of knee surgery History of bilateral carpal tunnel release History of surgery on lower extremity Social History (Updated 11/28/23 @ 13:54 by Francis Tejeda PA-C) Household Members: Unknown / Unable to assess Housing: Apartment Are you a primary point of care specialist to a significant other at home: No Do you presently have visiting nurse or other home services: Yes (nursing) Unable to assess alcohol history related to: Unable to respond Alcohol intake: never Comment: Pt utilizes walker Patient Tobacco Use Status: Former Tobacco user Quit Date: 01/22/23 Tobacco use type: Cigarette Cigarette Packs Per Day: 1 Cigarettes Per Day: 20.0 e-Cigarette/Vaping Use: Currently Using Second Hand Smoke Exposure: No Substance Use Type: Crack/Cocaine Substance Use Type Other:: last used 12/2022 service: No Sexual orientation: Bisexual Review of Systems Const All systems reviewed & are unremarkable except as noted in HPI and below Physical Exam Const General: cooperative and no acute distress Orientation/consciousness: patient oriented x3 HEENT Head: Yes normal to inspection, Yes normocephalic and Yes atraumatic Eyes General: appearance normal, both eyes and all related structures Neck Neck: Yes normal visual inspection and Yes no lymphadenopathy Resp Effort & Inspection: normal respiratory effort and able to speak in complete sentences Cardio Rate: regular rate Peripheral pulses: Peripheral pulses 2+ throughout GI Inspection: Yes normal to inspection Palpation (GI): Soft to palpation Skin General skin exam: no rashes or lesions noted Neuro General: patient oriented x3 Extrem Other: Left hip: Normal to inspection. No open wound or abrasion. She has pain with ROM and hip flexion. NVI. Psych Appearance: grossly normal Mental Status: mental status grossly normal Results Reviewed Results Reviewed: Xrays were obtained in the office today and personally reviewed by me of the left hip for pre op planning show severe end stage oa Assessment & Plan Assessment & Plan (1) Post-traumatic osteoarthritis of left hip: Code(s): M16.52 - Unilateral post-traumatic osteoarthritis, left hip Plan: I discussed in detail the procedure and what to expect pre and post operatively. We discussed the risks, benefits and alternatives to the surgery as well as the rehabilitation course. The risks; which include, but are not limited to infection, bleeding, nerve injury, ongoing pain, swelling, and stiffness, perioperative risk of injury to bones and soft tissues, and blood clots. I?ve answered all questions and with their understanding they have consented to move forward with Left total hip arthroplasty with Dr. Renee She does have a walker. She lives alone. Patient Instructions: Scribed for Francis Tejeda PA-C, by Kelton Traore territory sales manager medical, on 11/28/2023 at 1:15 PM EST. I, Francis Tejeda PA-C, have personally reviewed and agree with the information entered by the scribe. Coding Level of Care Code Est Pt Level 3 (74500) Diagnoses Post-traumatic osteoarthritis of left hip M16.52
== END 2023-11-28 15:00 | disposition home or self-care (01) ==
PROVIDERS: PCP Family Medicine; Visit Provider Physician Assistant
DX: M16.52 Unilateral post-traumatic osteoarthritis, left hip (principal)
CPT/HCPCS: 99024

== ENCOUNTER 2023-12-03 10:01 | Inpatient (IN) | payer MEDICARE, MEDICAID, SELFPAY ==
[2023-11-19 13:18] VITALS: BP 115/71; PULSE 82; RESP 16; O2SAT 96; BMI 31.6
--- NOTE | 2023-11-19 13:52 | ECG_ITS ---
Test Reason : preop Blood Pressure : / mmHG Vent. Rate : 077 BPM Atrial Rate : 077 BPM P-R Int : 134 ms QRS Dur : 076 ms QT Int : 400 ms P-R-T Axes : 061 073 061 degrees QTc Int : 452 ms Normal sinus rhythm Normal ECG When compared with ECG of 07-FEB-2023 09:39, No significant change was found Referred By: Aaliyah Ramos Electronically Signed By:Julio Cesar Zuniga
[2023-11-19 14:37] LABS: Hematocrit 44.8 % (37.0-47.0); Hemoglobin 15.8 g/dl (12.0-16.0); Mean Corpuscular HGB Conc 35.3 g/dl (31.0-35.0); Mean Corpuscular Hemoglobin 32.8 pg (27.0-33.0); Mean Corpuscular Volume 92.9 fL (80.0-98.0); Mean Platelet Volume 10.8 fL (9.4-12.3); Platelet Count 192 X10*3/uL (160-400); Red Blood Count 4.82 X10*6/uL (4.20-5.50); Red Cell Distribution Width 11.4 % (11.0-16.0); White Blood Count 5.3 X10*3/uL (4.8-10.8)
[2023-11-19 15:01] LABS: Anion Gap 15 (12-20); Blood Urea Nitrogen 19 mg/dL (9-16); Calcium 10.3 mg/dL (8.4-10.2); Carbon Dioxide 29 mmol/L (22-29); Chloride 99 mmol/L (96-108); Creatinine Clr Calc Pharmacy 90.5; Estimated Glomerular Filt Rate > 60; Glucose Random 90 mg/dL (60-115); Sodium 139 mmol/L (135-145)
[2023-11-19 15:14] LABS: MRSA Nasal PCR NEGATIVE (Negative); SA Nasal PCR NEGATIVE (Negative)
--- NOTE | 2023-12-02 09:15 | P.CONAN_ITS ---
Documented by User: Viv Cai NP 12/02/23 09:37 HPI - Anesthesia Eval Consult details Narrative: 58yo F for Left Hip Total Replacement PAT with Dr Ramos 11/19/23 Medically cleared PMFSH Active Problems Active Problems: All Active Problems Swelling of both lower extremities (Acute) Post-traumatic osteoarthritis of left hip (Acute) GERD (gastroesophageal reflux disease) (Acute) Opioid use disorder (Acute) PTSD (post-traumatic stress disorder) (Acute) Bipolar I disorder with priscila (Acute) Polysubstance use disorder (Acute) Past Medical History Medical History Right foot drop DJD (degenerative joint disease) Primary insomnia Anxiety Heroin use disorder, moderate, in early remission Tobacco use disorder, moderate, in early remission Alcohol use disorder in remission Allergic rhinitis Gastric ulcer Herpes genitalia Bipolar affective disorder Dissociative disorder Back pain Arthritis Difficulty swallowing Hepatitis C Neuropathy Sleep apnea GERD (gastroesophageal reflux disease) Schizoaffective disorder, bipolar type Osteoarthritis Polysubstance use disorder Bipolar I disorder with priscila Acute post-traumatic stress disorder Surgical History Surgical History History of esophagogastroduodenoscopy (EGD) Hx of knee surgery History of bilateral carpal tunnel release History of surgery on lower extremity Social History Social History Household Members: Unknown / Unable to assess Housing: Apartment Are you a primary healthcare risk control consultant to a significant other at home: No Do you presently have visiting nurse or other home services: Yes (nursing) Unable to assess alcohol history related to: Unable to respond Alcohol intake: never Comment: Pt utilizes walker Patient Tobacco Use Status: Former Tobacco user Quit Date: 01/22/23 Tobacco use type: Cigarette Cigarette Packs Per Day: 1 Cigarettes Per Day: 20.0 e-Cigarette/Vaping Use: Currently Using Second Hand Smoke Exposure: No Use of substances other than those prescribed or required for medical reasons: No Substance Use Type: Crack/Cocaine Have you been hit, kicked, punched, or otherwise hurt by someone within the past year? If so, by whom?: No Advance Directives: No Advance Directives Information Provided: No Advance Directives on File: No Recently lost weight without trying: No Eating poorly because of decreased appetite: No Nutrition Risks: No Nutritional Risk Patient : No : No service: No Sexual orientation: Bisexual Meds Allergies Allergy/AdvReac Type Severity Reaction Status Date / Time amoxicillin [Amoxicillin] Allergy Mild RASH & Verified 12/03/23 10:07 DIZZINESS, Dizziness Home Medications ?Medication ?Instructions ?Recorded ?Confirmed ?Last Taken ?Type multivitamin with folic acid 400 1 tab PO DAILY 01/28/23 12/03/23 Unknown History mcg tablet (Daily-Alexis (with folic acid)) acetaminophen 500 mg tablet 500 mg PO TID 11/22/23 12/03/23 Unknown History ciclopirox 8 % topical solution 1 appl topical BEDTIME 11/22/23 12/03/23 Unknown History clotrimazole-betamethasone 1 1 appl topical BID 11/22/23 12/03/23 Unknown History %-0.05 % topical cream folic acid 1 mg tablet 1 mg PO DAILY 11/22/23 12/03/23 Unknown History furosemide 40 mg tablet 40 mg PO BID 11/22/23 12/03/23 Unknown History gabapentin 100 mg capsule 100 mg PO TID 11/22/23 12/03/23 Unknown History melatonin 10 mg tablet 10 mg PO BEDTIME PRN Insomnia 11/22/23 12/03/23 Unknown History nicotine 21 mg/24 hr daily 1 patch topical DAILY 11/22/23 12/03/23 Unknown History transdermal patch thiamine HCl (vitamin B1) 100 mg 100 mg PO DAILY 11/22/23 12/03/23 Unknown History tablet divalproex 250 mg tablet,delayed 750 mg PO BEDTIME 12/03/23 12/03/23 Unknown History release Exam Height,Weight and Vital Signs: Height 5 ft 6 in Weight 88.904 kg Last Vital Signs Pulse 82 11/19/23 13:18 Resp 16 11/19/23 13:18 BP 115/71 11/19/23 13:18 Pulse Ox 96 11/19/23 13:18 O2 Del Method Room Air 11/19/23 13:18 Pertinent Lab Results Pertinent Lab Results: Laboratory Tests 11/19/23 11/19/23 13:30 14:10 WBC 5.3 RBC 4.82 Hgb 15.8 D Hct 44.8 D MCV 92.9 MCH 32.8 MCHC 35.3 H RDW 11.4 Plt Count 192 D MPV 10.8 Absolute Nucleated RBC 0.000 Nucleated RBC % (auto) 0.0 Sodium 139 Potassium 4.0 Chloride 99 Carbon Dioxide 29 Anion Gap 15 BUN 19 H Creatinine 0.77 Estim Creat Clear Calc 90.5 Estimated GFR > 60 Random Glucose 90 Calcium 10.3 H Nasal Screen MRSA (PCR) NEGATIVE Nasal S. aureus Screen NEGATIVE Nasal MRSA/S.aureus Interp SEE NOTE Blood Type A Positive Antibody Screen NEGATIVE Narrative Narrative: EKG 10/2023 Vent. Rate : 077 BPM Atrial Rate : 077 BPM P-R Int : 134 ms QRS Dur : 076 ms QT Int : 400 ms P-R-T Axes : 061 073 061 degrees QTc Int : 452 ms Normal sinus rhythm Normal ECG When compared with ECG of 07-FEB-2023 09:39, No significant change was found Assessment and Plan Assessment Anesthesia Assessment: Chart Reviewed Documented by User: Aaliyah Ramos MD 12/03/23 10:30 [facility] Past Medical History Medical History Right foot drop DJD (degenerative joint disease) Primary insomnia Anxiety Heroin use disorder, moderate, in early remission Tobacco use disorder, moderate, in early remission Alcohol use disorder in remission Allergic rhinitis Gastric ulcer Herpes genitalia Bipolar affective disorder Dissociative disorder Back pain Arthritis Difficulty swallowing Hepatitis C Neuropathy Sleep apnea GERD (gastroesophageal reflux disease) Schizoaffective disorder, bipolar type Osteoarthritis Polysubstance use disorder Bipolar I disorder with priscila Acute post-traumatic stress disorder Family History Family history of problems with anesthesia: No Surgical History Surgical History History of esophagogastroduodenoscopy (EGD) Hx of knee surgery History of bilateral carpal tunnel release History of surgery on lower extremity History of Problems with Anesthesia: No Social History Social History Household Members: Unknown / Unable to assess Housing: Apartment Are you a primary healthcare risk control consultant to a significant other at home: No Do you presently have visiting nurse or other home services: Yes (nursing) Unable to assess alcohol history related to: Unable to respond Alcohol intake: never Comment: Pt utilizes walker Patient Tobacco Use Status: Former Tobacco user Quit Date: 01/22/23 Tobacco use type: Cigarette Cigarette Packs Per Day: 1 Cigarettes Per Day: 20.0 e-Cigarette/Vaping Use: Currently Using Second Hand Smoke Exposure: No Use of substances other than those prescribed or required for medical reasons: No Substance Use Type: Crack/Cocaine Have you been hit, kicked, punched, or otherwise hurt by someone within the past year? If so, by whom?: No Advance Directives: No Advance Directives Information Provided: No Advance Directives on File: No Recently lost weight without trying: No Eating poorly because of decreased appetite: No Nutrition Risks: No Nutritional Risk Patient : No : No service: No Sexual orientation: Bisexual Meds Allergies Allergy/AdvReac Type Severity Reaction Status Date / Time amoxicillin [Amoxicillin] Allergy Mild RASH & Verified 12/03/23 10:07 DIZZINESS, Dizziness Home Medications ?Medication ?Instructions ?Recorded ?Confirmed ?Last Taken ?Type multivitamin with folic acid 400 1 tab PO DAILY 01/28/23 12/03/23 Unknown History mcg tablet (Daily-Alexis (with folic acid)) acetaminophen 500 mg tablet 500 mg PO TID 11/22/23 12/03/23 Unknown History ciclopirox 8 % topical solution 1 appl topical BEDTIME 11/22/23 12/03/23 Unknown History clotrimazole-betamethasone 1 1 appl topical BID 11/22/23 12/03/23 Unknown Hi story %-0.05 % topical cream folic acid 1 mg tablet 1 mg PO DAILY 11/22/23 12/03/23 Unknown History furosemide 40 mg tablet 40 mg PO BID 11/22/23 12/03/23 Unknown History gabapentin 100 mg capsule 100 mg PO TID 11/22/23 12/03/23 Unknown History melatonin 10 mg tablet 10 mg PO BEDTIME PRN Insomnia 11/22/23 12/03/23 Unknown History nicotine 21 mg/24 hr daily 1 patch topical DAILY 11/22/23 12/03/23 Unknown History transdermal patch thiamine HCl (vitamin B1) 100 mg 100 mg PO DAILY 11/22/23 12/03/23 Unknown History tablet divalproex 250 mg tablet,delayed 750 mg PO BEDTIME 12/03/23 12/03/23 Unknown History release Exam Airway Mallampati Class: III TM Dist: <=3cm Neck ROM: Limited Heart: rrr Lungs: cta Assessment and Plan Assessment Anesthesia Assessment: Anesthesia Plan Discussed Final Anesthetic Review Family History of Problems with Anesthesia: No History of Problems with Anesthesia: No NPO: Yes ASA Class: III Final Preanesthetic Review: No Changes in Pt Med Stat, Meds/Allgs Chart Reviewed, Consent Obtained/Reviewed and Anes Risks/Benef Reviewed Patient Risk: Intermediate Procedure Risk: Intermediate Anesthetic Plan Anesthetic Plan: GA Disposition: Standard PACU
[2023-12-03] VITALS (18 sets, daily range): BP systolic 106–152; BP diastolic 57–91; PULSE 51–106; RESP 14–27; TEMP 36.1–37; O2SAT 94–100; BMI 32.2
--- NOTE | ~2023-12-03 | XR_ITS ---
EXAMINATION: XR PELVIS CLINICAL INFORMATION: Left hip replacement COMPARISON: Previous x-ray November 28, 2023 TECHNIQUE: AP view of the pelvis. FINDINGS: There is a new left hip replacement in satisfactory position. No fracture or dislocation. There are postoperative changes to the soft tissues. Bones of the pelvis and right hip are unremarkable. XR/XR pelvis 1-2V IMPRESSION: Satisfactory appearance of left hip replacement.
--- NOTE | 2023-12-03 09:49 | MHC.SHP ---
Pre-Procedural Eval Section A - 24 Hr Update-Section A only Date of Service: 12/03/23 The patient is an INPATIENT: No Changes since office visit: No Cold of Flu in the past 2 weeks, No New Medical Problems, No Changes in Medication and No Patient answered all questions The patient has been examined within 24 hours of the surgical procedure. The History & Physical has been completed within 30 days and I have reviewed it.: Yes Section B - Complete if H&P > 30 days Chief Complaint: Unilateral primary osteoarthritis, left hip Allergies: Allergies Allergy/AdvReac Type Severity Reaction Status Date / Time amoxicillin [Amoxicillin] Allergy Mild RASH & Verified 11/28/23 13:27 DIZZINESS, Dizziness Plan I have reviewed the history and physical and performed a pertinent physical examination on my patient. No changes have occurred unless specified. Time Spent With Patient Time: Total time managing care of this patient today ____ minutes.
--- NOTE | 2023-12-03 10:24 | PHA.MEDREC ---
Pharmacy Consult ? Medication Reconciliation Pharmacy has completed the medication reconciliation. Reviewed med rec done by nursing
[2023-12-03] MEDS: oxyCODONE HCl ER 10 MG TAB.ER.12H PO ×2 (10:42→20:57)
[2023-12-03 11:41] LABS: Amphetamine Screen Urine Not Detected (Not Detect); Barbiturates, Urine Not Detected (Not Detect); Benzodiazepines Screen Urine Not Detected (Not Detect); Cannabinoid Screen Urine Not Detected (Not Detect); Cocaine Screen Urine POSITIVE (Not Detect); Fentanyl, urine POSITIVE (Not Detect); Opiate Screen Urine POSITIVE (Not Detect); Phencyclidine Screen Urine Not Detected (Not Detect)
--- NOTE | 2023-12-03 13:58 | P.BOP_ITS ---
Brief Operative Note Date of Service: 12/03/23 Pre-op diagnosis: Left hip post traumatic OA Post-op diagnosis: same Procedure: Left SAGE Implants: Eduar Trident2 multi hole 60 with 20 deg lipped liner [place] Accolade2 #8 132 deg with +5 36 Ceramic Surgeon: Geovani Renee MD Anesthesia: GETA and local Was an Dimension Quarry Supervisor used for this Procedure?: Yes Dimension Quarry Supervisor: Francis Tejeda Estimated blood loss (mL): 300 IV fluids (mL): 1,200 Pathology: other Condition: stable Disposition: PACU
[2023-12-03] MEDS: HYDROmorphone HCl 0.5 MG/0.5 ML SYRINGE 0.25 MG IVPUSH ×4 (14:20→14:35)
--- NOTE | 2023-12-03 14:39 | PM.DS ---
DS: Providers Provider Date of admission: 12/03/23 10:01 Primary care physician: Patricia Becker MD DS: Summary Hospital Course Hospital Course: The patient underwent a successful left total hip arthroplasty, they were transferred to PACU and then to the floor to recover. During their stay, their vitals were stable, afebrile at ( ). Labs were unremarkable, H/H ( ). POD 1 they were started on Aspirin 325mg po bid for DVT ppx, they also received Physical Therapy services twice a day. Prior to discharge, their dressing was changed, incision clean dry and intact, new Aquacel dressing applied and the plan was to be discharged home with VNA services. Time Attestation Discharge Coordination Time (in mins): 30 Quality: Safe Use of Opioids Does Pt have an Active Cancer Diagnosis on the Problem List?: No Quality: Stroke Does the patient have a stroke diagnosis?: No Physical Exam Vital Signs: Vital Signs: Last Vital Signs Temp 97 F 12/03/23 14:17 Pulse 89 12/03/23 14:35 Resp 25 H 12/03/23 14:35 BP 123/72 12/03/23 14:35 Pulse Ox 100 12/03/23 14:35 O2 Del Method Nasal Cannula 12/03/23 14:35 O2 Flow Rate 2 12/03/23 14:35 BMI result Body Mass Index 31.6 Const: General: cooperative, healthy appearing and no acute distress Resp: Effort & Inspection: normal respiratory effort and able to speak in complete sentences Cardio: Rate: regular rate Peripheral pulses: Peripheral pulses 2+ throughout GI: Palpation (GI): Soft to palpation Skin: Lesions: no lesions Rashes: no rashes Extrem: Other: left hip dressing is c/d/i. Able to dorsi/plantar flex. Calf is supple and nontender. Sensation intact. Pedal pulse intact. DS: Data Data Completed and Pending Pending studies at discharge: Pending at discharge 12/03/23 12:27 Surgical [PTH] Routine Labs on day of discharge: Laboratory Results - last 24 hr 12/03/23 09:55 Urine Opiates Screen POSITIVE H Urine Fentanyl Screen POSITIVE H Ur Barbiturates Screen Not Detected Ur Phencyclidine Scrn Not Detected Ur Amphetamines Screen Not Detected U Benzodiazepines Scrn Not Detected Urine Cocaine Screen POSITIVE H U Marijuana (THC) Screen Not Detected Discharge Plan Discharge Anticipated Discharge Date/Time: 12/04/23 15:38 Patient Disposition: Home Health Service Discharge Diagnosis: s/p LTHA Referrals: Francis Tjeeda PA-C [Physician Appliance Technician] - 12/19/23 12:30 pm Discharge Medications: No Action furosemide 40 mg tablet 40 mg PO BID thiamine HCl (vitamin B1) 100 mg Tablet 100 mg PO DAILY acetaminophen 500 mg Tablet 500 mg PO TID ciclopirox 8 % Solution 1 appl TOPICAL BEDTIME clotrimazole-betamethasone 1-0.05 % cream 1 appl topical BID nicotine 21 mg/24 hr patch 24 hour 1 patch topical DAILY folic acid 1 mg tablet 1 mg PO DAILY gabapentin 100 mg capsule 100 mg PO TID melatonin 10 mg Tablet 10 mg PO BEDTIME PRN (Reason: Insomnia) divalproex 250 mg tablet,delayed release (DR/EC) 750 mg PO BEDTIME multivitamin with folic acid [Daily-Alexis (with folic acid)] 400 mcg tablet 1 tab PO DAILY lamotrigine 25 mg Tablet 25 mg PO DAILY 30 Days Qty: 30 0RF baclofen 10 mg Tablet 10 mg PO TID 30 Days Qty: 90 0RF trazodone 150 mg tablet 150 mg PO BEDTIME 30 Days Qty: 30 0RF omeprazole 20 mg Capsule,Delayed Release(Dr/Ec) 20 mg PO DAILY 30 Days Qty: 30 0RF aripiprazole 20 mg tablet 20 mg PO BEDTIME 10 Days Qty: 10 0RF acamprosate 333 mg tablet,delayed release (DR/EC) 666 mg PO TID 30 Days Qty: 180 0RF Abilify Maintena 400 mg suspension,extended rel recon 400 mg IM QMONTH Qty: 1 0RF Diet: Advance to usual diet Activity on Discharge: Use cane or walker Stand Alone Forms: Patient Portal Discharge page Print Language: Yakut Care Plan Goals: restore fxn to left hip Health Concerns: none Plan of Treatment: Physical Therapy for total hip arthroplasty: posterior precautions, gait training, ROM, strength Limit stair climbing No showering, no tub bath-keep dressing clean, dry and intact No driving x 6 weeks Continue anticoagulant x 6 weeks Follow up with [facility] in 2 weeks Assessment: stable for discharge
--- NOTE | 2023-12-03 14:41 | W.MHC.F2F ---
Service Date Service Date: 12/03/23 Encounter Date of encounter: 12/04/23 Reasons for Services Signs and symptoms assessed: s/p LTHA Pt. is considered homebound due to recent surgery. Unable to drive, poor balance, poor gait mechanics. Reason for physical therapy: home safety and mobility, therapeutic exercises, restore joint function, gait/transfer training, assess need for DME and ADL training Reason for occupational therapy: home safety and mobility, therapeutic exercises, restore joint function, gait/transfer training, assess need for DME and ADL training Homebound: Leaving the home is medically contraindicated at this time without the asist of a device and/or another person due th the listed conditions above and below. Reason homebound: unsteady gait / fall risk, leg weakness, pain with ambulation, pain with transfers, poor balance / fall risk and unable to drive Certification: Based on the above findings, I certify that this patient is confined to the home and needs intermittent assisted care, physical therapy and/or speech therapy, or continues to need occupational therapy. The patient is under my care, and I have initiated the establishment of the plan of care. The patient will be followed by a physician who will periodically review the plan of care. Time Spent With Patient Time: Total time managing care of this patient today ____ minutes.
[2023-12-03] MEDS: HYDROmorphone HCl 0.5 MG/0.5 ML SYRINGE IVPUSH (14:55)
--- NOTE | 2023-12-03 16:21 | HO.PM.IMCN ---
History of Present Illness Data of Consult Service Date: 12/03/23 Requesting physician: Francis Tejeda Primary Care Provider: Patricia Becker MD [facility] Reason for consult: medical management, ongoing substance use 58 year old female with history of bipolar disorder, ptsd, and ongoing polysubstance use admitted to orthopedic surgery with consult placed to hospitalist service for medical management of ongoing polysubstance abuse. There is concern that patient used drugs this morning given positive urine drug screen with opiates, fentanyl and cocaine. Pt reports last use long age but then advised of positive drug test she reports use last week. States use inhaled heroin and cocaine. Reports remote history of IVDA and history of hepatitis C that was not treated. She has no complaints at this time. no cigarette smoking or etoh use. Review of Systems Review of Systems: General: No fevers, malaise, unintentional weight loss HEENT: No blurred vision, diplopia. No sore throat, nasal congestion, rhinorrhea, sinus pain, ear pain Cardiovascular: No chest pain, palpitations, or leg edema Respiratory: No shortness of breath, wheezing, cough GI: No abdominal pain, nausea, vomiting, diarrhea, constipation, melena, hematochezia : No dysuria, hematuria, increased urinary frequency, decreased urinary output MSK: No myalgia, back pain Neuro: No headaches, weakness, paresthesias Skin: No rashes or lesions [facility] Medical History Right foot drop DJD (degenerative joint disease) Primary insomnia Anxiety Heroin use disorder, moderate, in early remission Tobacco use disorder, moderate, in early remission Alcohol use disorder in remission Allergic rhinitis Gastric ulcer Herpes genitalia Bipolar affective disorder Dissociative disorder Back pain Arthritis Difficulty swallowing Hepatitis C Neuropathy Sleep apnea GERD (gastroesophageal reflux disease) Schizoaffective disorder, bipolar type Osteoarthritis Polysubstance use disorder Bipolar I disorder with priscila Acute post-traumatic stress disorder Surgical History History of esophagogastroduodenoscopy (EGD) Hx of knee surgery History of bilateral carpal tunnel release History of surgery on lower extremity Social History Household Members: None Housing: Apartment Are you a primary laboratory animal caretaker to a significant other at home: No Do you presently have visiting nurse or other home services: Yes Unable to assess alcohol history related to: Unable to respond Alcohol intake: never Comment: Pt michael schmidt Patient Tobacco Use Status: Former Tobacco user Quit Date: 01/22/23 Tobacco use type: Cigarette Cigarette Packs Per Day: 1 Cigarettes Per Day: 20.0 e-Cigarette/Vaping Use: Currently Using Second Hand Smoke Exposure: No Use of substances other than those prescribed or required for medical reasons: No Substance Use Type: Crack/Cocaine Have you been hit, kicked, punched, or otherwise hurt by someone within the past year? If so, by whom?: No Do you feel safe in your current relationship?: No Current Relationship Is there a partner from a previous relationship who is making you feel unsafe now?: No Are you made to feel afraid or neglected: No Advance Directives: No Advance Directives Information Provided: No Advance Directives on File: No Do you have thoughts of harming others: None Do you have a plan to hurt others: No Plan Recently lost weight without trying: No Eating poorly because of decreased appetite: No Nutrition Risks: No Nutritional Risk Patient : No : No service: No Sexual orientation: Bisexual Meds Allergies Allergy/AdvReac Type Severity Reaction Status Date / Time amoxicillin [Amoxicillin] Allergy Mild RASH & Verified 12/03/23 10:07 DIZZINESS, Dizziness Active Medications: Current Medications Acamprosate (Acamprosate Calcium 333 Mg Tablet.) 666 mg PO TID NIR Acetaminophen (Acetaminophen 325 Mg Tablet) 650 mg PO Q6H PRN PRN Reason: Pain, Mild (Pain Scale 1-3) Aripiprazole (Aripiprazole 20 Mg Tablet) 20 mg PO BEDTIME NIR Aspirin (Aspirin 325 Mg Tablet) 325 mg PO BID NIR Celecoxib (Celecoxib 200 Mg Capsule) 200 mg PO BID NIR Divalproex Sodium (Divalproex Sodium 250 Mg Tablet.) 750 mg PO BEDTIME NIR Docusate Sodium (Docusate Sodium 100 Mg Capsule) 100 mg PO BID NIR Folic Acid (Folic Acid 1 Mg Tablet) 1 mg PO DAILY NIR Gabapentin (Gabapentin 100 Mg Capsule) 100 mg PO TID NIR Hydromorphone HCl (Hydromorphone Hcl 0.5 Mg/0.5 Ml Syringe) 0.5 mg IVPUSH Q10M PRN; Protocol PRN Reason: Pain, Severe (Pain Scale 7-10) Last Admin: 12/03/23 14:55 Dose: 0.5 mg Hydromorphone HCl (Hydromorphone Hcl 0.5 Mg/0.5 Ml Syringe) 0.25 mg IVPUSH Q4H PRN; Protocol PRN Reason: Pain, Severe (Pain Scale 7-10) Lactated Ringer's (Lr) 1,000 mls @ 100 mls/hr IVCONT .Q10H NIR Stop: 12/04/23 14:18 Cefazolin Sodium/Dextrose (Ancef) 2 gm in 50 mls @ 100 mls/hr IV POSTOP ONE Stop: 12/03/23 18:29 Lamotrigine (Lamotrigine 25 Mg Tablet) 25 mg PO DAILY [facility] Melatonin (Melatonin 3 Mg Tablet) 9 mg PO BEDTIME PRN PRN Reason: Insomnia Nicotine (Nicotine 21 Mg Patch.Td24) 21 mg TRANSDERMA DAILY [facility] Non-Formulary Medication (Aripiprazole [Abilify Maintena]) 400 mg IM Q30D [facility] Nystatin/Triamcinolone Acetonide (Nystatin/Triamcinolone Cream 15 Gm Tube) 1 appl TOPICAL BID [facility] Omeprazole (Omeprazole 20 Mg Capsule.Dr) 20 mg PO DAILY@0630 [facility] Ondansetron HCl (Ondansetron Hcl 4 Mg/2 Ml Vial) 4 mg IVPUSH Q8H PRN PRN Reason: Nausea and Vomiting Oxycodone HCl (Oxycodone Hcl Immed Release 5 Mg Tablet) 10 mg PO Q4H PRN PRN Reason: Pain, Moderate(Pain Scale 4-6) Oxycodone HCl (Oxycodone Hcl Er 10 Mg Tab.Er.12h) 10 mg PO BID [facility] Sodium Chloride (0.9 % Sodium Chloride Flush 3 Ml Syringe) 3 ml IVFLUSH QSHIFT [facility] Thiamine HCl (Thiamine Hcl 100 Mg Tablet) 100 mg PO DAILY [facility] Trazodone HCl (Trazodone Hcl 50 Mg Tablet) 150 mg PO BEDTIME [facility] Home Medications ?Medication ?Instructions ?Recorded ?Confirmed ?Last Taken ?Type multivitamin with folic acid 400 1 tab PO DAILY 01/28/23 12/03/23 Unknown History mcg tablet (Daily-Alexis (with folic acid)) acetaminophen 500 mg tablet 500 mg PO TID 11/22/23 12/03/23 Unknown History ciclopirox 8 % topical solution 1 appl topical BEDTIME 11/22/23 12/03/23 Unknown History clotrimazole-betamethasone 1 1 appl topical BID 11/22/23 12/03/23 Unknown History %-0.05 % topical cream folic acid 1 mg tablet 1 mg PO DAILY 11/22/23 12/03/23 Unknown History furosemide 40 mg tablet 40 mg PO BID 11/22/23 12/03/23 Unknown History gabapentin 100 mg capsule 100 mg PO TID 11/22/23 12/03/23 Unknown History melatonin 10 mg tablet 10 mg PO BEDTIME PRN Insomnia 11/22/23 12/03/23 Unknown History nicotine 21 mg/24 hr daily 1 patch topical DAILY 11/22/23 12/03/23 Unknown History transdermal patch thiamine HCl (vitamin B1) 100 mg 100 mg PO DAILY 11/22/23 12/03/23 Unknown History tablet divalproex 250 mg tablet,delayed 750 mg PO BEDTIME 12/03/23 12/03/23 Unknown History release Physical Exam Vital Signs and Narrative: Vital Signs: Last Vital Signs Temp 98.6 F 12/03/23 16:04 Pulse 51 12/03/23 16:04 Resp 16 12/03/23 16:04 BP 134/64 12/03/23 16:04 Pulse Ox 94 12/03/23 16:04 O2 Del Method Room Air 12/03/23 16:04 O2 Flow Rate 2 12/03/23 16:02 BMI result Body Mass Index 32.2 Constitutional - Awake and Alert, No apparent distress Eyes - PERRLA, EOMI Cardiovascular - S1S2, RRR, No edema Respiratory - Normal lung expansion, Normal respiratory effort, No respiratory distress, CTA bilaterally Gastrointestinal - NT / ND; +BS; No rebound or guarding Extremities - no calf tenderness bilaterally, no swelling Skin - Warm/Dry Neurological - Alert & oriented x3 Psychological - Appropriate affect Results Labs 11/19/23 14:10 11/19/23 14:10 Labs: Laboratory Results - last 24 hr 12/03/23 09:55 Urine Opiates Screen POSITIVE H Urine Fentanyl Screen POSITIVE H Ur Barbiturates Screen Not Detected Ur Phencyclidine Scrn Not Detected Ur Amphetamines Screen Not Detected U Benzodiazepines Scrn Not Detected Urine Cocaine Screen POSITIVE H U Marijuana (THC) Screen Not Detected Assessment and Plan (1) Post-traumatic osteoarthritis of left hip: Status: Acute Plan 58 year old female with history of bipolar disorder, ptsd, and ongoing polysubstance use admitted to orthopedic surgery with consult placed to hospitalist service for medical management of ongoing polysubstance abuse. #OA L hip s/p SAGE POD0 -plan per ortho surgery #Ongoing polysubstance abuse -urine drug screen positive for opiates, fentanyl, and cocaine -monitor on cows. concern for drug use this morning though patient denies -check hiv and hep c viral load (has known history hep c). Will require outpt positive if positive -addiction med consult #GERD -ppi #Mood disorder -continue home meds Thank you for allowing me to participate in this consult. Will continue following to monitor for opiate withdrawal
[2023-12-03] MEDS: oxyCODONE HCl Immed Release 5 MG TABLET 10 MG PO (16:47)
[2023-12-03] MEDS: Acamprosate Calcium 333 MG TABLET.DR 666 MG PO ×2 (16:47→20:58)
[2023-12-03] MEDS: Gabapentin 100 MG CAPSULE PO ×2 (16:47→20:56)
[2023-12-03] MEDS: Lactated Ringers 1,000 ML 100 ML IVCONT (16:48)
[2023-12-03] MEDS: ceFAZolin Sodium/Dextrose,Iso 2 GM/50 ML PIGGYBACK IV (16:55)
[2023-12-03] MEDS: 0.9 % Sodium Chloride Flush 3 ML SYRINGE IVFLUSH (16:55)
--- NOTE | 2023-12-03 17:06 | W.PM.OPN ---
Operative Note Operative Note Date of Service: 12/03/23 Narrative: Date of Service: 12/03/23 Pre-op diagnosis: Left hip post traumatic OA Post-op diagnosis: same Procedure: Left SAGE Implants: Thorndike Trident2 multi hole 60 with 20 deg lipped liner Eduar Accolade2 #8 132 deg with +5 36 Ceramic Surgeon: Geovani Renee MD Anesthesia: GETA and local Was an Forest Pathology Associate Professor used for this Procedure?: Yes Forest Pathology Associate Professor: Francis Tejeda Estimated blood loss (mL): 300 IV fluids (mL): 1,200 Pathology: other Condition: stable Disposition: PACU Procedure in detail: Patient was brought into the operating room and placed in the right lateral decubitus position. All bony prominences were well padded and the limb was prepped and draped in standard sterile fashion. A time-out was called to identify proper site procedure proper surgeon IV antibiotics and 1 g of transaxemic acid were administered. I began by making a curvilinear incision over the posterolateral aspect of the greater trochanter. Dissection was taken down to the tensor fascia which was incised in line with the incision and a Charnley retractor was placed. Cautery was used to maintain hemostasis. The hip was internally rotated and the external rotators were identified. The vessels were cauterized and a full-thickness capsular/external rotator layer was developed starting just proximal to the piriformis. This layer was tagged and a dull Hohmann retractor was placed underneath the neck in the hip was dislocated. A neck cut was made 1 cm proximal to the lesser trochanter and the head and neck were removed and measured 56mm on the back table. The head was eburnated with extensive osteophytes. I started with a 44 reamer and medialized to the inner table. The acetabulum was very large and had been eroded superiorly. In order to obtain adequate stability a rim fit was required and I reamed to a 59 and placed a 60 mm multi hole revision cup in approximately 45 degrees of inclination and 30 degrees of anteversion. 235 mm acetabular screws were placed superiorly using standard AO technique. I then placed a 20 deg posterior lipped liner and turned my attention to the femur. I then turned my attention to the femur. I identified the piriformis insertion and used this as a starting point for my celeste cutter. The medius tendon was protected with a Hibs retractor. A Charnley awl was inserted in the canal and a curved curette used to remove the lateral bone. I irrigated copiously. I then sequentially broached in the patient's natural version to a size 8 and placed my trial implants. I used a #8/132/+0 . Using a trail head I took the hip through range of motion. I was satisfied with the stability. She has a LLD with the right leg approximately 2 cm longer than the left. This had been present for years. I trialed a +5 and felt only mildly tight in extension. Given her longstanding flexion contracture and short left leg I elected to place the + 5 head to give her length. I removed all instrumentation and copiously irrigated. I placed my final femoral implant and again took the hip through range of motion and was satisfied with the stability and length. The final +5 implant was impacted in place and the hip reduced. I then irrigated copiously and placed 1 g of local transaxemic acid. I performed a capsular closure with 2.0 fiberwire, Vero's fascia with 0 Vicryl, subcuticular with 2-0 Vicryl and the skin with jesús. Patient was placed into a sterile dressing. Patient was extubated brought to the recovery room in stable condition. There were no known complications.
[2023-12-03] MEDS: Nystatin/Triamcinolone Cream 15 GM TUBE 1 APPL TOPICAL (20:56)
[2023-12-03] MEDS: ARIPiprazole 20 MG TABLET PO (20:57)
[2023-12-03] MEDS: Divalproex Sodium 250 MG TABLET.DR 750 MG PO (20:57)
[2023-12-03] MEDS: traZODone HCL 50 MG TABLET 150 MG PO (20:57)
[2023-12-03] MEDS: Docusate Sodium 100 MG CAPSULE PO (20:57)
[2023-12-03] MEDS: Celecoxib 200 MG CAPSULE PO (20:58)
[2023-12-04] VITALS (8 sets, daily range): BP systolic 96–143; BP diastolic 51–83; PULSE 81–116; RESP 16–18; TEMP 36.1–36.9; O2SAT 94–98
[2023-12-04] MEDS: Lactated Ringers 1,000 ML 100 ML IVCONT ×2 (01:28→11:25)
[2023-12-04] MEDS: HYDROmorphone HCl 0.5 MG/0.5 ML SYRINGE 0.25 MG IVPUSH (03:33)
[2023-12-04] MEDS: Omeprazole 20 MG CAPSULE.DR PO (07:06)
[2023-12-04] MEDS: oxyCODONE HCl Immed Release 5 MG TABLET 10 MG PO ×3 (07:07→20:52)
[2023-12-04] MEDS: Thiamine HCL 100 MG TABLET PO (07:07)
[2023-12-04] MEDS: oxyCODONE HCl ER 10 MG TAB.ER.12H PO ×2 (07:07→20:40)
[2023-12-04] MEDS: Folic Acid 1 MG TABLET PO (07:07)
[2023-12-04] MEDS: Nicotine 21 MG PATCH.TD24 TRANSDERMA (07:07)
[2023-12-04] MEDS: Gabapentin 100 MG CAPSULE PO (07:07)
[2023-12-04] MEDS: Acamprosate Calcium 333 MG TABLET.DR 666 MG PO ×3 (07:07→20:42)
[2023-12-04] MEDS: Celecoxib 200 MG CAPSULE PO ×2 (07:07→20:42)
[2023-12-04] MEDS: lamoTRIgine 25 MG TABLET PO (07:07)
[2023-12-04] MEDS: Docusate Sodium 100 MG CAPSULE PO ×2 (07:07→20:40)
--- NOTE | 2023-12-04 09:05 | MHC.CM.PN ---
Addendum entered by Jaja Jasso 12/04/23 09:26: [facility] HAS ACCEPTED PT PENDING BED AVAILABILITY AND GUEST DOSING BEING ARRANGED AT [facility] IN [place] IF PT IS STARTED ON MAT Original Note: PT REPORTS SHE LIVES ALONE AND IS INDEPENDENT WITH CARE SHE REPORTS SHE HAS [facility] SERVICES BUT SAYS THEY DO NOT DO ANYTHING FOR HER PT IS ALSO ACTIVE WITH [facility] FOR DAILY MED VISITS SHE DOES NOT HAVE A HCP, BUT WILL THINK ABOUT WHO TO NAME, SHE IS AWARE IT WILL BE REQUIRED TO GO TO [facility] PCP: ABEL LOTT [facility]MM DELIVERED PT REPORTS BEING INTERESTED IN METHADONE TREATMENT, MESSAGE WILL BE RELAYED TO ELECTRICIAN'S ASSISTANT DCP: STR, REFERRAL MADE TO [facility] TRAN[facility]ORT
--- NOTE | 2023-12-04 09:43 | PM.PNORT ---
Subjective Subjective Date of Service: 12/04/23 Interval history: POD1 s/p LTHA Patient is resting in bed comfortably No overnight events Reports uncontrolled pain No additional complaints Physical Exam Vital Signs: Vital Signs: Last Vital Signs Temp 98.4 F 12/04/23 07:00 Pulse 116 H 12/04/23 08:03 Resp 18 12/04/23 07:00 BP 143/83 H 12/04/23 08:03 Pulse Ox 94 12/04/23 08:03 O2 Del Method Room Air 12/04/23 07:00 O2 Flow Rate 3 12/03/23 19:30 BMI result Body Mass Index 32.2 Const: General: cooperative, healthy appearing and no acute distress Resp: Effort & Inspection: normal respiratory effort and able to speak in complete sentences Cardio: Rate: regular rate Peripheral pulses: Peripheral pulses 2+ throughout GI: Palpation (GI): Soft to palpation Skin: Lesions: no lesions Rashes: no rashes Extrem: Other: left hip dressing is c/d/i. Able to dorsi/plantar flex. Calf is supple and nontender. Sensation intact. Pedal pulse intact. Procedures Date of Service Date of Service: 12/04/23 Progress Note: A&P Assessment and plan (1) Status post total replacement of left hip: Status: Acute Plan Continue pain mgmnt Begin ASA dvt ppx begin PT/OT for LTHA Dispo planning-Pending PT eval, pain mgmnt Time Spent With Patient Time: Total time managing care of this patient today ____ minutes. Quality Stroke Does the patient have a stroke diagnosis?: No VTE Prior VTE?: No VTE Risk Level:: Medical - moderate - high VTE Device Contraindication: N/A - Device Ordered VTE Drug Contraindication: N/A - Med Ordered
--- NOTE | 2023-12-04 10:39 | PC.NURSE ---
This RN went in to assess pt at 0830. Pt was difficult to rouse by name. Pt by RN had to be shaken in order get pt to wake. Pts eyes were pinned and speech was slurred. Pts vitals were obtained and were stable. Pt was able to converese, however pt was observed to be nodding off. Pt was last medicated by previous RN oxycodone 10 mg at 0707. Pt was fitted with monitoring coordinator due to concern of potential overdose. pt now seems to be more awake. This RN contacted the PA and is awaiting response.
[2023-12-04 11:05] LABS: MANUAL DIFF FLAG NO
[2023-12-04 11:31] LABS: Anion Gap 12 (12-20); Blood Urea Nitrogen 15 mg/dL (9-16); Calcium 8.7 mg/dL (8.4-10.2); Carbon Dioxide 29 mmol/L (22-29); Chloride 100 mmol/L (96-108); Creatinine Clr Calc Pharmacy 96.2; Estimated Glomerular Filt Rate > 60; Glucose Fasting 127 mg/dL (60-99); Potassium 4.3 mmol/L (3.3-5.1); Sodium 137 mmol/L (135-145)
[2023-12-04 11:50] LABS: HIV AB/AG Nonreactive (Nonreactive); HIV Num 1 0.05 S/CO (0.00-0.99)
[2023-12-04 11:53] LABS: Basophils Percent Auto 0.3 % (0-2); Eosinophils Percent Auto 0.1 % (0-4); Hematocrit 28.6 % (37.0-47.0); Imm Gran Abs Auto 0.03 X10*3/uL (0.00-0.03); Imm Gran Pct Auto 0.4 % (0.0-0.4); Lymphocytes Absolute Auto 2.3 X10*3/uL (1.2-4.9); Lymphocytes Percent Auto 32.1 % (20-40); Mean Corpuscular Hemoglobin 32.7 pg (27.0-33.0); Mean Corpuscular Volume 93.5 fL (80.0-98.0); Mean Platelet Volume 10.2 fL (9.4-12.3); Monocytes Percent Auto 13.6 % (2-11); Neutrophils Absolute Auto 3.8 x10*3/uL (2.0-8.3); Neutrophils Percent Auto 53.5 % (45-73); Platelet Count 172 X10*3/uL (160-400); Red Blood Count 3.06 X10*6/uL (4.20-5.50); White Blood Count 7.1 X10*3/uL (4.8-10.8)
[2023-12-04] MEDS: Aspirin 325 MG TABLET PO ×2 (12:02→20:41)
[2023-12-04] MEDS: Acetaminophen 325 MG TABLET 650 MG PO (12:02)
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
--- NOTE | 2023-12-04 13:58 | PM.EVENT ---
Event Note Date of Service: 12/04/23 Event Note: Pt does not appear to be exhibiting signs of acute opiate withdrawal. Recommend addiction med team evaluate patient given recent opiate use as evidenced by positive urine drug screen. Blood pressure soft, minimize use of narcotics if possible based on patient pain. Narcotic pain medication recommendations per orthopedic surgery. Thank you for allowing me to participate in this consult. Signing off at this time. Please do not hesitate to call for further questions or for any acute medical issues. Time Spent With Patient Time: Total time managing care of this patient today ____ minutes.
[2023-12-04] MEDS: 0.9 % Sodium Chloride Flush 3 ML SYRINGE IVFLUSH ×2 (16:24→23:48)
[2023-12-04] MEDS: Divalproex Sodium 250 MG TABLET.DR 750 MG PO (20:40)
[2023-12-04] MEDS: traZODone HCL 50 MG TABLET 150 MG PO (20:40)
[2023-12-04] MEDS: Furosemide 40 MG TABLET PO (20:41)
[2023-12-04] MEDS: ARIPiprazole 20 MG TABLET PO (20:42)
[2023-12-04] MEDS: Baclofen 10 MG TABLET PO (20:42)
[2023-12-04] MEDS: Nystatin/Triamcinolone Cream 15 GM TUBE 1 APPL TOPICAL (20:43)
[2023-12-05] VITALS (9 sets, daily range): BP systolic 102–124; BP diastolic 52–61; PULSE 88–111; RESP 16–20; TEMP 36.6–36.9; O2SAT 96–98
[2023-12-05] MEDS: Omeprazole 20 MG CAPSULE.DR PO (06:22)
[2023-12-05] MEDS: methADONE HCl 20 MG/2 ML ORAL.CONC PO (06:22)
[2023-12-05 06:56] LABS: MANUAL DIFF FLAG NO
[2023-12-05 07:06] LABS: Basophils Percent Auto 0.3 % (0-2); Eosinophils Absolute Auto 0.1 X10*3/uL (0.0-0.4); Eosinophils Percent Auto 0.7 % (0-4); Hematocrit 24.8 % (37.0-47.0); Hemoglobin 8.6 g/dl (12.0-16.0); Imm Gran Abs Auto 0.05 X10*3/uL (0.00-0.03); Imm Gran Pct Auto 0.7 % (0.0-0.4); Lymphocytes Absolute Auto 2.3 X10*3/uL (1.2-4.9); Lymphocytes Percent Auto 30.7 % (20-40); Mean Corpuscular HGB Conc 34.7 g/dl (31.0-35.0); Mean Corpuscular Hemoglobin 32.2 pg (27.0-33.0); Mean Corpuscular Volume 92.9 fL (80.0-98.0); Mean Platelet Volume 10.1 fL (9.4-12.3); Monocytes Absolute Auto 0.8 X10*3/uL (0.1-1.2); Monocytes Percent Auto 11.3 % (2-11); Neutrophils Absolute Auto 4.2 x10*3/uL (2.0-8.3); Neutrophils Percent Auto 56.3 % (45-73); Platelet Count 118 X10*3/uL (160-400); Red Blood Count 2.67 X10*6/uL (4.20-5.50); White Blood Count 7.4 X10*3/uL (4.8-10.8)
[2023-12-05 07:25] LABS: Anion Gap 9 (12-20); Blood Urea Nitrogen 11 mg/dL (9-16); Calcium 8.5 mg/dL (8.4-10.2); Carbon Dioxide 31 mmol/L (22-29); Chloride 103 mmol/L (96-108); Creatinine Clr Calc Pharmacy 111.5; Estimated Glomerular Filt Rate > 60; Glucose Fasting 106 mg/dL (60-99); Potassium 3.8 mmol/L (3.3-5.1); Sodium 139 mmol/L (135-145)
[2023-12-05] MEDS: Folic Acid 1 MG TABLET PO (08:24)
[2023-12-05] MEDS: Acamprosate Calcium 333 MG TABLET.DR 666 MG PO ×3 (08:24→21:15)
[2023-12-05] MEDS: lamoTRIgine 25 MG TABLET PO (08:24)
[2023-12-05] MEDS: oxyCODONE HCl ER 10 MG TAB.ER.12H PO ×2 (08:24→21:14)
[2023-12-05] MEDS: Celecoxib 200 MG CAPSULE PO ×2 (08:24→21:15)
[2023-12-05] MEDS: Thiamine HCL 100 MG TABLET PO (08:25)
[2023-12-05] MEDS: Nicotine 21 MG PATCH.TD24 TRANSDERMA (08:25)
[2023-12-05] MEDS: Furosemide 40 MG TABLET PO ×2 (08:25→21:15)
[2023-12-05] MEDS: Baclofen 10 MG TABLET PO ×3 (08:25→21:15)
[2023-12-05] MEDS: Aspirin 325 MG TABLET PO ×2 (08:25→21:15)
[2023-12-05] MEDS: 0.9 % Sodium Chloride Flush 3 ML SYRINGE IVFLUSH ×3 (08:26→23:45)
[2023-12-05] MEDS: Docusate Sodium 100 MG CAPSULE PO ×2 (08:26→21:13)
--- NOTE | 2023-12-05 10:56 | HO.ADDICTPRO ---
Subjective Subjective Date of Service: 12/05/23 Reason For Visit: LT SAGE Interim History: Patient seen in follow up Reciveved methadone 20mg this morning Appearing much more awake and alert, conversing clearly and on topic. Chart reviewed and per patient report she has been declining gabapentin doses. Denies any withdrawal sx and reports feeling much better . Concered that dose will not be adequate moving forward. Advised patient that dose ordered was based on presentation yesterday and concern for sedation. Dose will be titrated as necessary. Mental Status Exam Mental Status Exam Patient Appearance: Well Grooomed and Appropriate Level of Consciousness: Awake, Appropriate and Alert Patient Behavior: Appropriate and Talkative Mood Description: Calm Affect Description: Calm Speech Pattern: Clear Thought Process: Intact Diagnostics Vital Signs (24Hr): Vital Signs - 24 hr 12/04/23 12:51 12/04/23 13:43 12/04/23 15:13 Temperature 97.6 F 96.9 F Pulse Rate 92 92 81 Respiratory Rate 16 16 Blood Pressure 96/55 L 96/55 L 101/51 L Pulse Oximetry 96 96 97 Oxygen Delivery Method Room Air Room Air 12/04/23 19:16 12/04/23 23:45 12/05/23 03:31 Temperature 97.6 F 97.1 F 97.9 F Pulse Rate 93 93 92 Respiratory Rate 16 16 18 Blood Pressure 113/55 L 111/55 L 105/55 L Pulse Oximetry 98 97 98 Oxygen Delivery Method Room Air Room Air 12/05/23 08:00 12/05/23 08:26 Temperature 98.2 F Pulse Rate 111 H 92 Respiratory Rate 17 Blood Pressure 124/59 L 105/55 L Pulse Oximetry 97 98 Oxygen Delivery Method Room Air BMI result Body Mass Index 32.2 Labs 12/05/23 06:53 12/05/23 06:53 Labs: Laboratory Results - last 48 hr 12/03/23 12/04/23 12/05/23 09:55 10:36 06:53 WBC 7.1 7.4 RBC 3.06 L D 2.67 L Hgb 10.0 L D 8.6 L Hct 28.6 L D 24.8 L MCV 93.5 92.9 MCH 32.7 32.2 MCHC 35.0 34.7 RDW 12.0 12.0 Plt Count 172 118 L D MPV 10.2 10.1 Immature Gran % (Auto) 0.4 0.7 H Neut % (Auto) 53.5 56.3 Lymph % (Auto) 32.[address] % (Auto) 13.6 H 11.3 H Eos % (Auto) 0.1 0.7 Baso % (Auto) 0.3 0.3 Lymph # (Auto) 2.[address] # (Auto) 1.0 0.8 Eos # (Auto) 0.0 0.1 Baso # (Auto) 0.0 0.0 Abs Immat Gran (auto) 0.03 0.05 H Absolute Neuts (auto) 3.8 4.2 Absolute Nucleated RBC 0.000 0.000 Nucleated RBC % (auto) 0.0 0.0 Sodium 137 139 Potassium 4.3 3.8 Chloride 100 103 Carbon Dioxide 29 31 H Anion Gap 12 9 L BUN 15 11 Creatinine 0.73 0.63 Estim Creat Clear Calc 96.2 111.5 Estimated GFR > 60 > 60 Fasting Glucose 127 H 106 H Calcium 8.7 D 8.5 Urine Opiates Screen POSITIVE H Urine Fentanyl Screen POSITIVE H Ur Barbiturates Screen Not Detected Ur Phencyclidine Scrn Not Detected Ur Amphetamines Screen Not Detected U Benzodiazepines Scrn Not Detected Urine Cocaine Screen POSITIVE H U Marijuana (THC) Screen Not Detected HIV 1&2 Ab/P24 Ag 4thGn Nonreactive Imaging Radiology Impressions: ITS Impressions Pelvis X-Ray 12/03/23 14:40 IMPRESSION: Satisfactory appearance of left hip replacement. Medications Medications Current Medications Acamprosate (Acamprosate Calcium 333 Mg Tablet.) 666 mg PO TID [facility] Last Admin: 12/05/23 08:24 Dose: 666 mg Acetaminophen (Acetaminophen 325 Mg Tablet) 650 mg PO Q6H PRN PRN Reason: Pain, Mild (Pain Scale 1-3) Last Admin: 12/04/23 12:02 Dose: 650 mg Aripiprazole (Aripiprazole 20 Mg Tablet) 20 mg PO BEDTIME [facility] Last Admin: 12/04/23 20:42 Dose: 20 mg Aspirin (Aspirin 325 Mg Tablet) 325 mg PO BID [facility] Last Admin: 12/05/23 08:25 Dose: 325 mg Baclofen (Baclofen 10 Mg Tablet) 10 mg PO TID [facility] Last Admin: 12/05/23 08:25 Dose: 10 mg Celecoxib (Celecoxib 200 Mg Capsule) 200 mg PO BID [facility] Last Admin: 12/05/23 08:24 Dose: 200 mg Divalproex Sodium (Divalproex Sodium 250 Mg Tablet.) 750 mg PO BEDTIME [facility] Last Admin: 12/04/23 20:40 Dose: 750 mg Docusate Sodium (Docusate Sodium 100 Mg Capsule) 100 mg PO BID [facility] Last Admin: 12/05/23 08:26 Dose: 100 mg Folic Acid (Folic Acid 1 Mg Tablet) 1 mg PO DAILY [facility] Last Admin: 12/05/23 08:24 Dose: 1 mg Furosemide (Furosemide 40 Mg Tablet) 40 mg PO BID [facility]; Protocol Last Admin: 12/05/23 08:25 Dose: 40 mg Gabapentin (Gabapentin 100 Mg Capsule) 100 mg PO TID [facility] Last Admin: 12/05/23 08:25 Dose: Not Given Hydromorphone HCl (Hydromorphone Hcl 0.5 Mg/0.5 Ml Syringe) 0.5 mg IVPUSH Q10M PRN; Protocol PRN Reason: Pain, Severe (Pain Scale 7-10) Last Admin: 12/03/23 14:55 Dose: 0.5 mg Hydromorphone HCl (Hydromorphone Hcl 0.5 Mg/0.5 Ml Syringe) 0.25 mg IVPUSH Q4H PRN; Protocol PRN Reason: Pain, Severe (Pain Scale 7-10) Last Admin: 12/04/23 03:33 Dose: 0.25 mg Lamotrigine (Lamotrigine 25 Mg Tablet) 25 mg PO DAILY [facility] Last Admin: 12/05/23 08:24 Dose: 25 mg Melatonin (Melatonin 3 Mg Tablet) 9 mg PO BEDTIME PRN PRN Reason: Insomnia Nicotine (Nicotine 21 Mg Patch.Td24) 21 mg TRANSDERMA DAILY [facility] Last Admin: 12/05/23 08:25 Dose: 21 mg Non-Formulary Medication (Aripiprazole [Abilify Maintena]) 400 mg IM Q30D [facility] Nystatin/Triamcinolone Acetonide (Nystatin/Triamcinolone Cream 15 Gm Tube) 1 appl TOPICAL BID [facility] Last Admin: 12/04/23 20:43 Dose: 1 appl Omeprazole (Omeprazole 20 Mg Capsule.) 20 mg PO DAILY@0630 [facility] Last Admin: 12/05/23 06:22 Dose: 20 mg Ondansetron HCl (Ondansetron Hcl 4 Mg/2 Ml Vial) 4 mg IVPUSH Q8H PRN PRN Reason: Nausea and Vomiting Oxycodone HCl (Oxycodone Hcl Immed Release 5 Mg Tablet) 10 mg PO Q4H PRN PRN Reason: Pain, Moderate(Pain Scale 4-6) Last Admin: 12/04/23 20:52 Dose: 10 mg Oxycodone HCl (Oxycodone Hcl Er 10 Mg Tab.Er.12h) 10 mg PO BID [facility] Last Admin: 12/05/23 08:24 Dose: 10 mg Sodium Chloride (0.9 % Sodium Chloride Flush 3 Ml Syringe) 3 ml IVFLUSH QSHIFT [facility] Last Admin: 12/05/23 08:26 Dose: 3 ml Thiamine HCl (Thiamine Hcl 100 Mg Tablet) 100 mg PO DAILY [facility] Last Admin: 12/05/23 08:25 Dose: 100 mg Trazodone HCl (Trazodone Hcl 50 Mg Tablet) 150 mg PO BEDTIME [facility] Last Admin: 12/04/23 20:40 Dose: 150 mg Allergies Allergies Allergy/AdvReac Type Severity Reaction Status Date / Time amoxicillin [Amoxicillin] Allergy Mild RASH & Verified 12/03/23 10:07 DIZZINESS, Dizziness Assessment & Plan Assessment & Plan (1) Opioid use disorder: Status: Acute Code(s): F11.99 - Opioid use, unspecified with unspecified opioid-induced disorder Assessment and Plan: plan to increase dose to 30mg 12/05 will need referral to [facility] Total time managing care of this patient today __20__ minutes.
--- NOTE | 2023-12-05 11:27 | MHC.CM.PN ---
Addendum entered by Jaja Jasso 12/05/23 11:31: ONCE [facility] CONFIRMS DOSING ARRANGEMENTS AND PT IS READY TO DC, THE LAST DOSE LETTER AND DCS WILL NEED TO BE FAXED TO THEM AT THE NUMBER LISTED Original Note: PT MEDICALLY READY TO DC. [facility] IS OFFERING A STR BED DIRECT ADMIT REFERRAL MADE TO [facility] IN [place] FOR [place]TS METHADONE CM SPOKE TO MURIEL AT [facility], THEY WILL CALL BACK AFTER PTS INSURANCE IS VERIFIED METHADONE ARRANGEMENTS EXPECTED TO BE CONFIRMED BY TOMORROW PT WILL NEED BLS TRANSPORT AT DC [facility]: [phone] [facility] FAX: [phone] MURIEL [facility] RN: [phone] LEVEL ONE ALSO COMPLETE, PT DOES NOT REQUIRE A LEVEL 2. SHE WILL NEED A LESS THAN 30 IN HER DCS.
[2023-12-05] MEDS: Nystatin/Triamcinolone Cream 15 GM TUBE 1 APPL TOPICAL ×2 (11:58→21:17)
--- NOTE | 2023-12-05 13:41 | PM.PNORT ---
Subjective Subjective Date of Service: 12/05/23 Interval history: POD2 s/p LTHA Patient is resting in chair No overnight events Reports uncontrolled pain No additional complaints Physical Exam Vital Signs: Vital Signs: Last Vital Signs Temp 98.2 F 12/05/23 08:00 Pulse 92 12/05/23 08:26 Resp 17 12/05/23 08:00 BP 105/55 L 12/05/23 08:26 Pulse Ox 98 12/05/23 08:26 O2 Del Method Room Air 12/05/23 08:00 O2 Flow Rate 3 12/03/23 19:30 BMI result Body Mass Index 32.2 Const: General: cooperative, healthy appearing and no acute distress Resp: Effort & Inspection: normal respiratory effort and able to speak in complete sentences Cardio: Rate: regular rate Peripheral pulses: Peripheral pulses 2+ throughout GI: Palpation (GI): Soft to palpation Skin: Lesions: no lesions Rashes: no rashes Extrem: Other: left hip dressing is c/d/i. Able to dorsi/plantar flex. Calf is supple and nontender. Sensation intact. Pedal pulse intact. Procedures Date of Service Date of Service: 12/05/23 Progress Note: A&P Assessment and plan (1) Status post total replacement of left hip: Status: Acute Plan Continue pain mgmnt ASA dvt ppx PT/OT for LTHA Methadone Dispo planning-rehab Time Spent With Patient Time: Total time managing care of this patient today ____ minutes. Quality Stroke Does the patient have a stroke diagnosis?: No VTE Prior VTE?: No VTE Risk Level:: Medical - moderate - high VTE Device Contraindication: N/A - Device Ordered VTE Drug Contraindication: N/A - Med Ordered
--- NOTE | 2023-12-05 13:44 | PM.DS ---
DS: Providers Provider Date of Service: 12/05/23 Date of admission: 12/03/23 10:01 Primary care physician: Patricia Becker MD Consults: 12/03/23 15:57 Consult to Hospitalist Routine Comment: Consulting Provider: Hospitalist Reason For Exam: medical management, h/o ivdu drug abuse 12/03/23 16:04 Addiction Medicine Routine Consulting Provider: Addiction Covering Reason for consultation: ongoing substance use 12/04/23 11:36 Consult to Care Team Stat Comment: Reason for consultation: heroine use s/p total hip arthroplasty DS: Diagnosis Discharge Diagnosis (1) Status post total replacement of left hip: Status: Acute DS: Summary Hospital Course Hospital Course: The patient underwent a successful left total hip arthroplasty, they were transferred to PACU and then to the floor to recover. During their stay, their vitals were stable, afebrile at 98.2. Labs were unremarkable, H/H 8.6/24.8. POD 1 they were started on Aspirin 325mg po bid for DVT ppx, they also received Physical Therapy services twice a day. She was also started back on Methadone. Prior to discharge, their dressing was changed, incision clean dry and intact, new Aquacel dressing applied and the plan was to be discharged to [facility]. Physical therapy should include gait training, core and lumbar strength, glute strength. Posterior precautions intact. WBAT. The length of stay is less than 30 days Time Attestation Discharge Coordination Time (in mins): 30 mins Quality: Safe Use of Opioids Does Pt have an Active Cancer Diagnosis on the Problem List?: No Quality: Stroke Does the patient have a stroke diagnosis?: No Physical Exam Vital Signs: Vital Signs: Last Vital Signs Temp 98.2 F 12/05/23 08:00 Pulse 92 12/05/23 08:26 Resp 17 12/05/23 08:00 BP 105/55 L 12/05/23 08:26 Pulse Ox 98 12/05/23 08:26 O2 Del Method Room Air 12/05/23 08:00 O2 Flow Rate 3 12/03/23 19:30 BMI result Body Mass Index 32.2 DS: Data Data Completed and Pending Pending studies at discharge: Pending at discharge 12/03/23 12:27 Surgical [PTH] Routine Labs on day of discharge: Laboratory Results - last 24 hr 12/05/23 06:53 WBC 7.4 RBC 2.67 L Hgb 8.6 L Hct 24.8 L MCV 92.9 MCH 32.2 MCHC 34.7 RDW 12.0 Plt Count 118 L D MPV 10.1 Immature Gran % (Auto) 0.7 H Neut % (Auto) 56.3 Lymph % (Auto) 30.7 Branch % (Auto) 11.3 H Eos % (Auto) 0.7 Baso % (Auto) 0.3 Lymph # (Auto) 2.3 Branch # (Auto) 0.8 Eos # (Auto) 0.1 Baso # (Auto) 0.0 Abs Immat Gran (auto) 0.05 H Absolute Neuts (auto) 4.2 Absolute Nucleated RBC 0.000 Nucleated RBC % (auto) 0.0 Sodium 139 Potassium 3.8 Chloride 103 Carbon Dioxide 31 H Anion Gap 9 L BUN 11 Creatinine 0.63 Estim Creat Clear Calc 111.5 Estimated GFR > 60 Fasting Glucose 106 H Calcium 8.5 Discharge Plan Discharge Anticipated Discharge Date/Time: 12/05/23 09:00 Patient Disposition: Home Health Service Discharge Diagnosis: s/p LTHA Referrals: [facility] [Outside] Francis Tejeda PA-C [Physician [employer]] - 12/19/23 12:30 pm Discharge Medications: No Action furosemide 40 mg tablet 40 mg PO BID thiamine HCl (vitamin B1) 100 mg Tablet 100 mg PO DAILY acetaminophen 500 mg Tablet 500 mg PO TID ciclopirox 8 % Solution 1 appl TOPICAL BEDTIME clotrimazole-betamethasone 1-0.05 % cream 1 appl topical BID nicotine 21 mg/24 hr patch 24 hour 1 patch topical DAILY folic acid 1 mg tablet 1 mg PO DAILY gabapentin 100 mg capsule 100 mg PO TID melatonin 10 mg Tablet 10 mg PO BEDTIME PRN (Reason: Insomnia) divalproex 250 mg tablet,delayed release (DR/EC) 750 mg PO BEDTIME multivitamin with folic acid [Daily-Alexis (with folic acid)] 400 mcg tablet 1 tab PO DAILY lamotrigine 25 mg Tablet 25 mg PO DAILY 30 Days Qty: 30 0RF baclofen 10 mg Tablet 10 mg PO TID 30 Days Qty: 90 0RF trazodone 150 mg tablet 150 mg PO BEDTIME 30 Days Qty: 30 0RF omeprazole 20 mg Capsule,Delayed Release(Dr/Ec) 20 mg PO DAILY 30 Days Qty: 30 0RF aripiprazole 20 mg tablet 20 mg PO BEDTIME 10 Days Qty: 10 0RF acamprosate 333 mg tablet,delayed release (DR/EC) 666 mg PO TID 30 Days Qty: 180 0RF Abilify Maintena 400 mg suspension,extended rel recon 400 mg IM QMONTH Qty: 1 0RF Discharge Orders: Discharge Order (Routine); Ordered 12/06/23 Ordered By: Francis Tejeda Diet: Regular diet Activity on Discharge: Use cane or walker Stand Alone Forms: Patient Portal Discharge page Print Language: Portuguese Care Plan Goals: restore fxn to left hip Health Concerns: none Plan of Treatment: Physical Therapy for total hip arthroplasty: posterior precautions, gait training, ROM, strength Limit stair climbing No showering, no tub bath-keep dressing clean, dry and intact No driving x 6 weeks Continue anticoagulant x 6 weeks Follow up with [facility] in 2 weeks Assessment: stable for discharge
[2023-12-05 13:59] LABS: HCV Log PCR 6.74 Log IU/mL (NOT DETECTED); HepC Viral Load 5530000 IU/mL (NOT DETECTED)
[2023-12-05] MEDS: oxyCODONE HCl Immed Release 5 MG TABLET 10 MG PO (16:53)
[2023-12-05] MEDS: Gabapentin 100 MG CAPSULE PO (21:14)
[2023-12-05] MEDS: ARIPiprazole 20 MG TABLET PO (21:15)
[2023-12-05] MEDS: traZODone HCL 50 MG TABLET 150 MG PO (21:15)
[2023-12-05] MEDS: Divalproex Sodium 250 MG TABLET.DR 750 MG PO (21:16)
[2023-12-06] VITALS (14 sets, daily range): BP systolic 104–118; BP diastolic 52–64; PULSE 78–96; RESP 12–18; TEMP 36.1–37.2; O2SAT 95–98
[2023-12-06] MEDS: methADONE HCl 20 MG/2 ML ORAL.CONC 30 MG PO (05:33)
[2023-12-06] MEDS: Omeprazole 20 MG CAPSULE.DR PO (05:33)
[2023-12-06 05:48] LABS: MANUAL DIFF FLAG NO
[2023-12-06 05:59] LABS: Basophils Percent Auto 0.4 % (0-2); Eosinophils Absolute Auto 0.1 X10*3/uL (0.0-0.4); Hematocrit 22.9 % (37.0-47.0); Hemoglobin 7.9 g/dl (12.0-16.0); Imm Gran Abs Auto 0.05 X10*3/uL (0.00-0.03); Imm Gran Pct Auto 0.6 % (0.0-0.4); Lymphocytes Absolute Auto 2.6 X10*3/uL (1.2-4.9); Lymphocytes Percent Auto 32.7 % (20-40); Mean Corpuscular HGB Conc 34.5 g/dl (31.0-35.0); Mean Corpuscular Hemoglobin 32.4 pg (27.0-33.0); Mean Corpuscular Volume 93.9 fL (80.0-98.0); Mean Platelet Volume 9.9 fL (9.4-12.3); Monocytes Absolute Auto 0.8 X10*3/uL (0.1-1.2); Monocytes Percent Auto 10.6 % (2-11); Neutrophils Absolute Auto 4.3 x10*3/uL (2.0-8.3); Neutrophils Percent Auto 54.7 % (45-73); Platelet Count 125 X10*3/uL (160-400); Red Blood Count 2.44 X10*6/uL (4.20-5.50); White Blood Count 7.8 X10*3/uL (4.8-10.8)
[2023-12-06 06:15] LABS: Anion Gap 9 (12-20); Blood Urea Nitrogen 14 mg/dL (9-16); Calcium 8.6 mg/dL (8.4-10.2); Carbon Dioxide 31 mmol/L (22-29); Chloride 105 mmol/L (96-108); Creatinine Clr Calc Pharmacy 111.5; Estimated Glomerular Filt Rate > 60; Glucose Fasting 95 mg/dL (60-99); Potassium 3.9 mmol/L (3.3-5.1); Sodium 141 mmol/L (135-145)
[2023-12-06] MEDS: Celecoxib 200 MG CAPSULE PO (08:22)
[2023-12-06] MEDS: Acamprosate Calcium 333 MG TABLET.DR 666 MG PO ×2 (08:22→14:28)
[2023-12-06] MEDS: Docusate Sodium 100 MG CAPSULE PO (08:23)
[2023-12-06] MEDS: Thiamine HCL 100 MG TABLET PO (08:23)
[2023-12-06] MEDS: lamoTRIgine 25 MG TABLET PO (08:23)
[2023-12-06] MEDS: Folic Acid 1 MG TABLET PO (08:23)
[2023-12-06] MEDS: oxyCODONE HCl ER 10 MG TAB.ER.12H PO (08:23)
[2023-12-06] MEDS: Furosemide 40 MG TABLET PO (08:23)
[2023-12-06] MEDS: Baclofen 10 MG TABLET PO (08:23)
[2023-12-06] MEDS: Nicotine 21 MG PATCH.TD24 TRANSDERMA (08:24)
[2023-12-06] MEDS: Aspirin 325 MG TABLET PO (08:24)
[2023-12-06] MEDS: 0.9 % Sodium Chloride Flush 3 ML SYRINGE IVFLUSH (08:27)
--- NOTE | 2023-12-06 10:46 | MHC.CM.PN ---
pt going to [facility] today at 630 by corazon
[2023-12-06] MEDS: Nystatin/Triamcinolone Cream 15 GM TUBE 1 APPL TOPICAL (14:30)
== END 2023-12-06 20:45 | disposition skilled nursing facility (03) | DRG 470 ==
LOC: HO.SSSA 10:04 → HO.S3 14:18
PROVIDERS: Anesthesiology; Orthopaedic Surgery; Physician Assistant; Admitting Provider Physician Assistant; PCP Family Medicine; Visit Provider Physician Assistant
PROC: 0SRB03A Replacement of Left Hip Joint with Ceramic Synthetic Substitute, Uncemented, Open Approach (ICD-10-PCS; CPT 27130; principal; 2023-12-03 11:30)
DX: M16.52 Unilateral post-traumatic osteoarthritis, left hip (principal); F11.13 Opioid abuse with withdrawal; F19.90 Other psychoactive substance use, unspecified, uncomplicated; Z87.891 Personal history of nicotine dependence; Z79.899 Other long term (current) drug therapy
CPT/HCPCS: 36415; 72170; 80048; 80307; 85025; 85027; 86850; 86900; 86901; 86923; 87389; 87522; 87640; 87641; 88304; 88311; 93005; 97110; 97116; 97162; 97166; 97535; C1776; J0131; J0690; J1100; J1170; J2250; J2405; J2704; J2795; J3010; J7120; P9016

== ENCOUNTER → 2023-12-03 10:01 | Outpatient (BNV) | payer MEDICARE, MEDICAID, SELFPAY | PROVIDERS: Admitting Provider Physician Assistant; PCP Family Medicine; Visit Provider Orthopaedic Surgery | DX: Z47.1 Aftercare following joint replacement surgery (principal); Z96.642 Presence of left artificial hip joint | CPT/HCPCS: 27130; 99024 ==

== ENCOUNTER → 2023-12-03 10:01 | Outpatient (BNV) | payer MEDICARE, MEDICAID, SELFPAY | PROVIDERS: Admitting Provider Physician Assistant; PCP Family Medicine; Visit Provider Nurse Practitioner Psychiatric/Mental Health | DX: F11.90 Opioid use, unspecified, uncomplicated (principal) | CPT/HCPCS: 99222; 99231 ==

== ENCOUNTER → 2023-12-03 10:01 | Outpatient (BNV) | payer MEDICARE, MEDICAID, SELFPAY | PROVIDERS: Admitting Provider Physician Assistant; PCP Family Medicine; Visit Provider Physician Assistant | DX: M16.52 Unilateral post-traumatic osteoarthritis, left hip (principal); F19.10 Other psychoactive substance abuse, uncomplicated | CPT/HCPCS: 99222; 99499 ==

== ENCOUNTER 2023-12-27 11:56 | Outpatient (AMB) | payer MEDICARE, MEDICAID, SELFPAY ==
--- NOTE | 2023-12-27 11:59 | MHC.OFFVIS ---
Vital Signs 12/27/23 12:01 Height 5 ft 7 in Weight 214 lb BMI 33.5 Intake Visit Reasons: 2WK PO: L SAGE w/NE 12/02. Override per CS Intake Note: Cristina is a 58 year old female who presents for her post operative appointment s/p her left total hip arthroplasty on 12/03/2023 NE. Patient reports some discomfort in her hip mainly when she bends down. She states that she is concerned with the swelling in her feet. The swelling started on saturday and has only gotten worse, she is elevating and using ice. Allergies clonidine Allergy (Intermediate, Verified 12/27/23 12:07) itchy throat gabapentin Allergy (Intermediate, Verified 12/27/23 12:05) restless leg amoxicillin [Amoxicillin] Allergy (Mild, Verified 12/27/23 12:04) RASH & DIZZINESS, Dizziness Medication List - Last Reconciled 12/27/23 by Francis Tejeda PA-C acamprosate 666 mg (2 x 333 mg) PO TID 30 days acetaminophen 650 mg (2 x 325 mg) PO Q6H PRN aripiprazole 20 mg PO BEDTIME 10 days aripiprazole ER (Abilify Maintena) 400 mg IM QMONTH aspirin 325 mg PO BID 42 days baclofen 10 mg PO TID 30 days celecoxib 200 mg PO BID 30 days ciclopirox 8% 1 appl topical BEDTIME clotrimazole-betamethasone 1-0.05 % 1 appl topical BID divalproex 750 mg PO BEDTIME docusate sodium 100 mg PO BID 14 days folic acid 1 mg PO DAILY furosemide 40 mg PO BID gabapentin 100 mg PO TID lamotrigine 25 mg PO DAILY 30 days melatonin 10 mg PO BEDTIME PRN multivitamin with folic acid 400 mcg (Daily-Alexis (with folic acid)) 1 tab PO DAILY nicotine 1 patch topical DAILY omeprazole 20 mg PO DAILY 30 days oxycodone 10 mg PO Q4H PRN 7 days thiamine HCl (vitamin B1) 100 mg PO DAILY trazodone 150 mg PO BEDTIME 30 days HPI HPI 2WK PO: L SAGE w/NE 12/02. Override per CS: Details: 58-year-old female who returns to the office today for post-op left SAGE, 12/03/[address] Renee. She continues to have discomfort in her hip with bending down. She also c/o swelling in her feet since Saturday which has gotten worse. She uses ice and elevation for her swelling. She is doing well otherwise and has no concerns today. [facility] Medical History Right foot drop DJD (degenerative joint disease) Primary insomnia Anxiety Heroin use disorder, moderate, in early remission Tobacco use disorder, moderate, in early remission Alcohol use disorder in remission Allergic rhinitis Gastric ulcer Herpes genitalia Bipolar affective disorder Dissociative disorder Back pain Arthritis Difficulty swallowing Hepatitis C Neuropathy Sleep apnea GERD (gastroesophageal reflux disease) Schizoaffective disorder, bipolar type Osteoarthritis Polysubstance use disorder Bipolar I disorder with priscila Acute post-traumatic stress disorder Surgical History History of esophagogastroduodenoscopy (EGD) Hx of knee surgery History of bilateral carpal tunnel release History of surgery on lower extremity Social History Household Members: None Housing: Apartment Are you a primary technical healthcare consultant to a significant other at home: No Do you presently have visiting nurse or other home services: Yes Unable to assess alcohol history related to: Unable to respond Alcohol intake: never Comment: Pt utilizes walker Patient Tobacco Use Status: Former Tobacco user Quit Date: 01/22/23 Tobacco use type: Cigarette Cigarette Packs Per Day: 1 Cigarettes Per Day: 20.0 e-Cigarette/Vaping Use: Currently Using Second Hand Smoke Exposure: No Substance Use Type: Crack/Cocaine service: No Sexual orientation: Bisexual Review of Systems Const All systems reviewed & are unremarkable except as noted in HPI and below Physical Exam Vital Signs: BMI result Body Mass Index 33.5 Extrem Other: Left hip: Incision clean, dry and intact. No erythema or drainage around the incision. No pain with ROM of hip. She is able to perform hip flexion. She has significant LE bilateral pitting edema. Calf supple, nontender. NVI. Assessment & Plan Assessment & Plan (1) Status post total replacement of left hip: Code(s): Z96.642 - Presence of left artificial hip joint Category: Surgical Plan Salyer removed, steri strips applied. She will begin to transition to Outpatient PT to continue working on Gait training, ROM and quad strength. No driving for another 4 weeks. She will require ppx abx for dental procedures. She will f/u in 4 weeks, sooner if needed. Patient Instructions: Scribed for Francis Tejeda PA-C, by Kelton Traore medical office assistant, on 12/27/2023 at 11:45 AM EST. IFrancis PA-C, have personally reviewed and agree with the information entered by the scribe. Coding Level of Care Code Global (12363) Diagnoses Status post total replacement of left hip Z96.642
[2023-12-27 12:01] VITALS: BMI 33.5
== END 2023-12-27 12:43 | disposition home or self-care (01) ==
PROVIDERS: PCP Family Medicine; Visit Provider Physician Assistant
DX: Z96.642 Presence of left artificial hip joint (principal)
CPT/HCPCS: 99024

== ENCOUNTER → 2023-12-27 11:56 | Outpatient (BNVA) | payer MEDICARE, MEDICAID, SELFPAY | PROVIDERS: PCP Family Medicine; Visit Provider Physician Assistant | DX: Z47.1 Aftercare following joint replacement surgery (principal); Z96.642 Presence of left artificial hip joint | CPT/HCPCS: 99212 ==

== ENCOUNTER 2024-01-13 11:45 | Outpatient (REF) | payer MEDICARE, MEDICAID, SELFPAY ==
--- NOTE | ~2024-01-13 | XR_ITS ---
EXAMINATION: XR PELVIS CLINICAL INFORMATION: Pain in unspecified hip. COMPARISON: 12/03/2023, 11/28/2023, 08/01/2023. TECHNIQUE: 3 AP views of the pelvis. FINDINGS: Redemonstration of left total hip replacement. Hardware appears intact. Alignment maintained. Bilateral sacroiliac joints are symmetric. Pubic symphysis is maintained. Right hip joint space is maintained. XR/XR pelvis 1-2V IMPRESSION: Redemonstration of left total hip replacement. Hardware appears intact. Alignment maintained.
== END 2024-01-13 11:46 | disposition home or self-care (01) ==
LOC: HO.HOSX 11:45
PROVIDERS: Visit Provider Orthopaedic Surgery
DX: Z47.1 Aftercare following joint replacement surgery (principal); Z96.642 Presence of left artificial hip joint
CPT/HCPCS: 72170; 99212

== ENCOUNTER 2024-01-13 12:46 | Outpatient (AMB) | payer MEDICARE, MEDICAID, SELFPAY ==
--- NOTE | 2024-01-13 12:48 | MHC.OFFVIS ---
Intake Visit Reasons: PO 6 week LT SAGE 12/03/23 NE Intake Note: Cristina is a 58 year old female who presents for her post operative appointment s/p her left total hip arthroplasty on 12/03/2023 NE. Patient reports that she is doing well with no concerns. She has some pain when laying directly on the left hip and feeling tenderness to palptation. She has been to PT for one session and has another session booked today. Allergies clonidine Allergy (Intermediate, Verified 01/13/24 13:01) itchy throat gabapentin Allergy (Intermediate, Verified 01/13/24 13:01) restless leg amoxicillin [Amoxicillin] Allergy (Mild, Verified 01/13/24 13:01) RASH & DIZZINESS, Dizziness HPI HPI PO 6 week LT SAGE 12/03/23 NE: Details: Cristina is a 58 year old female who presents for her post operative appointment s/p her left total hip arthroplasty on 12/03/2023 NE. Patient reports that she is doing well with no concerns. She has some pain when laying directly on the left hip and feeling tenderness to palptation. She has been to PT for one session and has another session booked today. [facility] Medical History Post-traumatic osteoarthritis of left hip Opioid use disorder Right foot drop DJD (degenerative joint disease) Primary insomnia Anxiety Heroin use disorder, moderate, in early remission Tobacco use disorder, moderate, in early remission Alcohol use disorder in remission Allergic rhinitis Gastric ulcer Herpes genitalia Bipolar affective disorder Dissociative disorder Back pain Arthritis Difficulty swallowing Hepatitis C Neuropathy Sleep apnea GERD (gastroesophageal reflux disease) Schizoaffective disorder, bipolar type Osteoarthritis Polysubstance use disorder Bipolar I disorder with priscila Acute post-traumatic stress disorder Surgical History History of esophagogastroduodenoscopy (EGD) Hx of knee surgery History of bilateral carpal tunnel release History of surgery on lower extremity Social History Household Members: None Housing: Apartment Are you a primary post anesthesia care unit nurse to a significant other at home: No Do you presently have visiting nurse or other home services: Yes Unable to assess alcohol history related to: Unable to respond Alcohol intake: never Comment: Pt utilizes walker Patient Tobacco Use Status: Former Tobacco user Quit Date: 01/22/23 Tobacco use type: Cigarette Cigarette Packs Per Day: 1 Cigarettes Per Day: 20.0 e-Cigarette/Vaping Use: Currently Using Second Hand Smoke Exposure: No Substance Use Type: Crack/Cocaine service: No Sexual orientation: Bisexual Physical Exam Extrem Other: inc c/d/i no pain with hip ROM Trendelenberg gait Assessment & Plan Assessment & Plan (1) Status post total replacement of left hip: Code(s): Z96.642 - Presence of left artificial hip joint Category: Surgical Plan: continue PT f/u 4 weeks Orders: Orders XR pelvis 1-2V 01/13/24 M25.559 - Pain in unspecified hip Coding Level of Care Code Global (76088) Diagnoses Status post total replacement of left hip Z96.642
== END 2024-01-13 13:11 | disposition home or self-care (01) ==
PROVIDERS: PCP Family Medicine; Visit Provider Orthopaedic Surgery
DX: Z96.642 Presence of left artificial hip joint (principal)
CPT/HCPCS: 99024

== ENCOUNTER 2024-02-24 13:51 | Outpatient (AMB) | payer MEDICARE, MEDICAID, SELFPAY ==
--- NOTE | 2024-02-24 13:53 | MHC.OFFVIS ---
Vital Signs 02/24/24 13:55 Height 5 ft 7 in Weight 214 lb BMI 33.5 Intake Visit Reasons: PO 6 week LT SAGE 12/03/23 NE Intake Note: Cristina is a 59 year old female who presents today post operatively s/p Left SAGE 12/03/23 NE Allergies clonidine Allergy (Intermediate, Verified 02/24/24 13:55) itchy throat gabapentin Allergy (Intermediate, Verified 02/24/24 13:55) restless leg amoxicillin [Amoxicillin] Allergy (Mild, Verified 02/24/24 13:55) RASH & DIZZINESS, Dizziness HPI HPI PO 6 week LT SAGE 12/03/23 NE: Details: Cristina is a 59 year old female who presents today post operatively s/p Left SAGE 12/03/23 NE. SHe is doing well and working wiht PT an d has no complaints. [facility] Medical History Post-traumatic osteoarthritis of left hip Opioid use disorder Right foot drop DJD (degenerative joint disease) Primary insomnia Anxiety Heroin use disorder, moderate, in early remission Tobacco use disorder, moderate, in early remission Alcohol use disorder in remission Allergic rhinitis Gastric ulcer Herpes genitalia Bipolar affective disorder Dissociative disorder Back pain Arthritis Difficulty swallowing Hepatitis C Neuropathy Sleep apnea GERD (gastroesophageal reflux disease) Schizoaffective disorder, bipolar type Osteoarthritis Polysubstance use disorder Bipolar I disorder with priscila Acute post-traumatic stress disorder Surgical History History of esophagogastroduodenoscopy (EGD) Hx of knee surgery History of bilateral carpal tunnel release History of surgery on lower extremity Social History Household Members: None Housing: Apartment Are you a primary manager respiratory care to a significant other at home: No Do you presently have visiting nurse or other home services: Yes Unable to assess alcohol history related to: Unable to respond Alcohol intake: never Comment: Pt utilizes walker Patient Tobacco Use Status: Former Tobacco user Tobacco use type: Cigarette Cigarette Packs Per Day: 1 Cigarettes Per Day: 20.0 e-Cigarette/Vaping Use: Currently Using Second Hand Smoke Exposure: No Substance Use Type: Crack/Cocaine service: No Sexual orientation: Bisexual Physical Exam Vital Signs: BMI result Body Mass Index 33.5 Extrem Other: walking comfortably with continued trendelenberg gait. no hip pain with passive or active hip rom Assessment & Plan Assessment & Plan (1) Status post total replacement of left hip: Code(s): Z96.642 - Presence of left artificial hip joint Category: Surgical Plan: Continue PT and gait training Otherwise is doing well f/u 6 weeks Coding Level of Care Code Global (15544) Diagnoses Status post total replacement of left hip Z96.642
[2024-02-24 13:55] VITALS: BMI 33.5
== END 2024-02-24 14:00 | disposition home or self-care (01) ==
LOC: HO.HOS 13:51
PROVIDERS: PCP Family Medicine; Visit Provider Orthopaedic Surgery
DX: Z96.642 Presence of left artificial hip joint (principal)
CPT/HCPCS: 99024

== ENCOUNTER → 2024-02-24 13:51 | Outpatient (BNVA) | payer MEDICARE, MEDICAID, SELFPAY | PROVIDERS: PCP Family Medicine; Visit Provider Orthopaedic Surgery | DX: Z47.1 Aftercare following joint replacement surgery (principal); Z96.642 Presence of left artificial hip joint | CPT/HCPCS: 99212 ==

== ENCOUNTER 2024-06-01 11:45 | Outpatient (AMB) | payer MEDICARE, MEDICAID, SELFPAY ==
--- NOTE | 2024-06-01 11:47 | A.OFFVIS_ITS ---
Vital Signs 06/01/24 11:50 Height 5 ft 7 in Weight 214 lb BMI 33.5 Intake Visit Reasons: OV- 3 month f/u LT SAGE 12/03/23 NE Intake Note: Cristina a 59 year old female who presents today for a follow up of left SAGE on 12/03/23 NE. Patient reports that she feels her left leg is shorter than her right. She continues to have intermittent pain. Denies numbness or tingling. She uses a cane with ambulation. Allergies clonidine Allergy (Intermediate, Verified 06/01/24 11:49) itchy throat gabapentin Allergy (Intermediate, Verified 06/01/24 11:49) restless leg amoxicillin [Amoxicillin] Allergy (Mild, Verified 06/01/24 11:49) RASH & DIZZINESS, Dizziness Medication List - Last Reconciled 06/01/24 by Francis Tejeda PA-C acamprosate 666 mg (2 x 333 mg) PO TID 30 days acetaminophen 650 mg (2 x 325 mg) PO Q6H PRN aripiprazole 20 mg PO BEDTIME 10 days aripiprazole ER (Abilify Maintena) 400 mg IM QMONTH aspirin 325 mg PO BID 42 days baclofen 10 mg PO TID 30 days celecoxib 200 mg PO BID 30 days ciclopirox 8% 1 appl topical BEDTIME clotrimazole-betamethasone 1-0.05 % 1 appl topical BID divalproex 750 mg PO BEDTIME docusate sodium 100 mg PO BID 14 days folic acid 1 mg PO DAILY furosemide 40 mg PO BID gabapentin 100 mg PO TID lamotrigine 25 mg PO DAILY 30 days melatonin 10 mg PO BEDTIME PRN multivitamin with folic acid 400 mcg (Daily-Alexis (with folic acid)) 1 tab PO DAILY nicotine 1 patch topical DAILY omeprazole 20 mg PO DAILY 30 days thiamine HCl (vitamin B1) 100 mg PO DAILY trazodone 150 mg PO BEDTIME 30 days HPI HPI OV- 3 month f/u LT SAGE 12/03/23 NE: Details: 59-year-old female who returns to the office today for a follow-up of left SAGE, 12/03/[address] Renee. She continues to have intermittent pain in her leg and feels her left leg is shorter than her right. She cannot walk straight and ambulates with a limp. She denies any numbness or tingling. She uses a cane for ambulation. She has completed physical therapy for her hip. She is doing well otherwise and has no concerns today. [facility] Medical History Post-traumatic osteoarthritis of left hip Opioid use disorder Right foot drop DJD (degenerative joint disease) Primary insomnia Anxiety Heroin use disorder, moderate, in early remission Tobacco use disorder, moderate, in early remission Alcohol use disorder in remission Allergic rhinitis Gastric ulcer Herpes genitalia Bipolar affective disorder Dissociative disorder Back pain Arthritis Difficulty swallowing Hepatitis C Neuropathy Sleep apnea GERD (gastroesophageal reflux disease) Schizoaffective disorder, bipolar type Osteoarthritis Polysubstance use disorder Bipolar I disorder with priscila Acute post-traumatic stress disorder Surgical History History of esophagogastroduodenoscopy (EGD) Hx of knee surgery History of bilateral carpal tunnel release History of surgery on lower extremity Social History Household Members: None Housing: Apartment Are you a primary resident care technician to a significant other at home: No Do you presently have visiting nurse or other home services: Yes Unable to assess alcohol history related to: Unable to respond Alcohol intake: never Comment: Pt utilizes walker Patient Tobacco Use Status: Former Tobacco user Tobacco use type: Cigarette Cigarette Packs Per Day: 1 Cigarettes Per Day: 20.0 e-Cigarette/Vaping Use: Currently Using Second Hand Smoke Exposure: No Substance Use Type: Crack/Cocaine service: No Sexual orientation: Bisexual Review of Systems Const All systems reviewed & are unremarkable except as noted in HPI and below Physical Exam Vital Signs: BMI result Body Mass Index 33.5 Extrem Other: Left hip: Incision well healed. No erythema or drainage around the incision. No pain with ROM of hip. She is able to perform hip flexion. Calf supple, nontender. NVI. Assessment & Plan Assessment & Plan (1) Status post total replacement of left hip: Code(s): Z96.642 - Presence of left artificial hip joint Category: Surgical Plan Reassurance was given that her leg length is within appropriate measurement. We had a lengthy discussion about benefits of physical therapy and also discussed the benefits of shoe lift and I did provide her with an order today. If this goes well, we will see her back in 9 months for annual SAGE follow-up with x- rays. I also placed an order for antibiotics for dental procedures. She will follow-up as planned, sooner if needed. Orders: Orders PT Evaluation and Treatment Today Z96.642 - Presence of left artificial hip joint Medications: New amoxicillin take 4 capsules 1 hr prior to dental procedure 2,000 mg (4 x 500 mg) PO ONCE 4 tabs 3RF 1 day Patient Instructions: Scribed for Francis Teejda PA-C, by Kelton Traore medical record coder, on 06/01/2024 at 11:30 AM EST.? I, Francis Tejeda PA-C, have personally reviewed and agree with the information entered by the scribe. Coding Level of Care Code Est Pt Level 3 (40156) Complex EM visit Add On G2211 Diagnoses Status post total replacement of left hip Z96.642
[2024-06-01 11:50] VITALS: BMI 33.5
== END 2024-06-01 12:43 | disposition home or self-care (01) ==
PROVIDERS: PCP Family Medicine; Visit Provider Physician Assistant
DX: Z47.1 Aftercare following joint replacement surgery (principal); Z96.642 Presence of left artificial hip joint
CPT/HCPCS: 99213; G2211

== ENCOUNTER → 2024-06-01 11:45 | Outpatient (BNVA) | payer MEDICARE, MEDICAID, SELFPAY | PROVIDERS: PCP Family Medicine; Visit Provider Physician Assistant | DX: M21.70 Unequal limb length (acquired), unspecified site (principal); Z96.642 Presence of left artificial hip joint | CPT/HCPCS: 99212 ==

== ENCOUNTER 2025-03-10 12:21 | Outpatient (AMB) | payer MEDICARE, MEDICAID, SELFPAY ==
--- NOTE | 2025-03-10 12:35 | MHC.OFFVIS ---
Intake Visit Reasons: 3 month f/u Allergies clonidine Allergy (Intermediate, Verified 06/01/24 11:49) itchy throat gabapentin Allergy (Intermediate, Verified 06/01/24 11:49) restless leg amoxicillin (Amoxicillin) Allergy (Mild, Verified 06/01/24 11:49) RASH & DIZZINESS, Dizziness HPI Comments Details: 60 yo RH woman with h/o alcohol and polysubstance abuse, diagnoses of PTSD and antisocial behavior was here for burning sensation in feet for years. She was also getting feet and leg swelling now and then. Sometimes her whole body was jerking for a second or so. No loss of consciousness. She was not diabetic. She said that medicine was helping. She was prescribed pregabalin 50 mg twice a day. [facility] Medical History (Updated 03/10/25 @ 12:39 by Shahid Dawson MD) Seizure disorder Multifactorial gait disorder Peripheral neuropathy Post-traumatic osteoarthritis of left hip Opioid use disorder Right foot drop DJD (degenerative joint disease) Primary insomnia Anxiety Heroin use disorder, moderate, in early remission Tobacco use disorder, moderate, in early remission Alcohol use disorder in remission Allergic rhinitis Gastric ulcer Herpes genitalia Bipolar affective disorder Dissociative disorder Back pain Arthritis Difficulty swallowing Hepatitis C Neuropathy Sleep apnea GERD (gastroesophageal reflux disease) Schizoaffective disorder, bipolar type Osteoarthritis Polysubstance use disorder Bipolar I disorder with priscila Acute post-traumatic stress disorder Surgical History History of esophagogastroduodenoscopy (EGD) Hx of knee surgery History of bilateral carpal tunnel release History of surgery on lower extremity Social History Household Members: None Housing: Apartment Are you a primary health care facilities inspector to a significant other at home: No Do you presently have visiting nurse or other home services: Yes Unable to assess alcohol history related to: Unable to respond Alcohol intake: never Comment: Pt utilizes walker Patient Tobacco Use Status: Former Tobacco user Tobacco use type: Cigarette Cigarette Packs Per Day: 1 Cigarettes Per Day: 20.0 e-Cigarette/Vaping Use: Currently Using Second Hand Smoke Exposure: No Substance Use Type: Crack/Cocaine service: No Sexual orientation: Bisexual Review of Systems Const Details: Constitutional:?No fever, chills, fatigue, weight loss, or night sweats. HEENT:?No headache, vision changes, hearing loss, nasal congestion, sore throat. Neurological:? Complain of numbness and burning in feet Psychiatric:?No anxiety, depression, mood swings, sleep disturbance, or hallucinations. Endocrine:?No heat/cold intolerance, polydipsia, polyuria, or hair/skin changes. Hematologic/Lymphatic:?No easy bruising, bleeding, or lymphadenopathy. Integumentary (Skin):?No rash, lesions, itching, or color changes. ? Physical Exam Neuro Other: Mental Status: Alert and oriented to person, place, and time. Normal attention. Normal spontaneous speech, fluency, and comprehension. No obvious issues with mood and memory. Affect is appropriate. Cranial Nerves: CN II: Visual henriquez full to confrontation, visual acuity intact. CN III, IV, : Pupils equal, round, reactive to light and accommodation. Extraocular movements are normal. CN V: Facial sensation is normal. CN VII: Facial movements symmetrical. CN VIII: Hearing intact to bedside conversation is normal. CN IX, X: Palate elevates symmetrically. CN XI: Shoulder shrug and head turn symmetrical. CN XII: Tongue midline without atrophy or fasciculations. Extrapyramidal: Full facial expressions and blinking. No rigidity. Movements are appropriate with no tremor or abnormality. Speech: Normal; no dysarthria or tremor. Assessment & Plan Assessment & Plan (1) Peripheral neuropathy: Comment: Meds tried: Gabapentin, baclofen EEG at off in Nov 2024: [place] NCV/EMG LE (in office) Moderate to severe axonal sensory and motor peripheral neuropathy. 11/19/24. Code(s): G62.9 - Polyneuropathy, unspecified Category: Medical Qualifiers: Peripheral neuropathy type: polyneuropathy, unspecified Qualified Code(s): G62.9 - Polyneuropathy, unspecified Plan Impression: Peripheral neuropathy. Rec: a: Pregabilin 50mg twice a day b: Stop Baclofen c: Stop amitryptiline d: Please bring list of med you are taking at next visit Coding Level of Care Code Tele Est Pt Level 4 ([id number]) Diagnoses Peripheral polyneuropathy G62.9 Peripheral neuropathy type: polyneuropathy, unspecified
--- OUTSIDE RECORDS SUMMARY | 2025-03-10 13:20 | XMS_ITS | Clinical Summary ---
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 This study was performed without contrast and with lower thanstandard dose. These factors reduce the sensitivity for detection of small lesionsin the upper abdomen. Cholelithiasis is noted. Mild celiac axis lymphadenopathyis unchanged. Deformity of the distal ends of the bilateral scapula is noted, new fromthe previous study, possibly related to old fractures. Impression: No suspicious developing pulmonary nodule. No significant change. Lung RADS 2: Benign Appearance or Behavior - Continue annual screeningwith LDCT in 12 months. [id number] Dictating Physician: ALESHA ADAMS MD Electronically Signed by: ALESHA ADAMS MD Dic Date/Time: 03/12/24 1628 Sign date/Time: 03/12/24 1639 Result [facility] Imelda Paz MD IMG CT PROCEDURES Final Result * Hepatitis C Screening (05/25/2015) [facility] Hepatitis C Screening abstracted Result [facility] Jennifer [place] HEALTH MAINTENANCE Final Result * Cervical Cancer Screening: HPV (02/10/2013) [facility] Cervical Cancer Screening: HPV negative,a bstracted Result [facility] Shay Rodriguez MD HEALTH MAINTENANCE Final Result * HIV Screening (10/27/2008) [facility] HIV Screening abstracted Result [facility] Shay Rodriguez MD HEALTH MAINTENANCE Final Result from Last 3 Months or Most Recently Relevant to Health Maintenance Insurance [place]IC[place] Advance Directives Documents on File Type Date Recorded Patient Life Insurance Underwriter Expl anation Health Care Decision (hx) 06/19/2022 AD [place] DIRECTIVE Health Care Decision (hx) 06/19/2022 AD [place] DIRECTIVE Health Care Decision (hx) 06/19/2022 AD [place] DIRECTIVE Health Care Decision (hx) 06/19/2022 AD [place] DIRECTIVE Health Care Decision (hx) 06/19/2022 AD [place] DIRECTIVE Health Care Decision (hx) 06/19/2022 AD [place] DIRECTIVE Health Care Decision (hx) 06/19/2022 AD [place] DIRECTIVE Care Teams Business Office Associate Relationship Specialty Start Date End Date Patricia Becker MD [address] [place] [id number] PCP - General Internal Medicine 07/08/24
--- OUTSIDE RECORDS SUMMARY | 2025-03-10 13:20 | XMS_ITS | Clinical Summary ---
Author Organization [facility] Address [address] [place] [address] Care Team Providers Care Hot Box Operator Name Role Phone Greta Rubio MD Primary Care Provider [phone] Allergies Active Allergy Reactions Criticality Noted Date Comments Amoxicillin 07/12/2008 dizziness Medications Medication Sig Dispensed Refills Start Date End Date Status ibuprofen (ADVIL,MOTRIN) 400 MG tablet Take 400 mg by mouth every 6 (six) hours as needed for pain. 0 Active Active Problems Problem Noted Date Diagnosed Date Arthritis of left hip 06/16/2019 Family History Medical History Relation Name Comments Cancer Father Heart disease Father Cancer Mother Relation Name Status Comments Father Mother Social History Tobacco Use Types Packs/Day Years Used Date Smoking Tobacco: Every Day Cigarettes 1 Started: 1975 Smokeless Tobacco: Never Alcohol Use Standard Drinks/Week Comments Yes 0 (1 standard drink = 0.6 oz pur e alcohol) 1 pint of vodka per day Sex and Gender Information Value Date Recorded Sex Assigned at Not on file Gender Identity Not on file Sexual Orientation Not on file Job Start Date Occupation Industry Not on file Not on file Not on file Last Filed Vital Signs Vital Sign Reading Time Taken Comments Blood Pressure - - Pulse - - Temperature - - Respiratory Rate - - Oxygen Saturation - - Inhaled Oxygen Concentration - - Weight 90.7 kg (200 lb) 06/12/2019 2:58 PM EDT Height 170.2 cm (5' 7 ) 06/12/2019 2:58 PM EDT Body Mass Index 31.32 06/12/2019 2:58 PM EDT Plan of Treatment Health Maintenance Due Date Last Done Comments Hepatitis B Vaccines (1 of 3 - 3-dose series) 1965 Hepatitis C Screening 1965 Pneumococcal Vaccine (1 of 2 - PCV) 01/23/1972 Depression Screening 1978 BMI Counseling 01/23/1984 Preventative Health Evaluation 01/23/1984 Tobacco Cessation Counseling 01/23/1984 Cervical Cancer Screening (Pap Smear) 1987 Colon Cancer Screening (Colonoscopy) 2011 Breast Cancer Screening (Mammogram) 01/23/2016 DTap / Tdap / Td (2 - Td or Tdap) 11/11/2018 11/11/2008 COVID-19 Vaccine (2 - 2023-2 5 season) 2024 11/23/2021 Influenza Vaccine (#1) 2025 Shingrix-Zoster Vaccine Completed 05/17/20 22, 12/14/2021 RSV Ped < 20 months Aged Out No longe r eligible based on patient's age to complete this topic Care Teams Hot Box Operator Relationship Specialty Start Date End Date Greta Rubio MD PCP - General Internal Medicine 05/11/19
== END 2025-03-10 12:46 | disposition home or self-care (01) ==
LOC: HO.HSM 12:21
PROVIDERS: PCP Family Medicine; Visit Provider Psychiatry & Neurology Neurology
DX: G62.9 Polyneuropathy, unspecified (principal)
CPT/HCPCS: 99214

== ENCOUNTER → 2025-03-10 12:21 | Outpatient (BNVA) | payer MEDICARE, MEDICAID, SELFPAY | PROVIDERS: PCP Family Medicine; Visit Provider Psychiatry & Neurology Neurology | DX: G62.9 Polyneuropathy, unspecified (principal); Z79.899 Other long term (current) drug therapy | CPT/HCPCS: 99212 ==

== ENCOUNTER 2025-06-02 10:00 | Outpatient (REF) | payer MEDICARE, MEDICAID, SELFPAY | END 2025-06-02 10:01 | disposition home or self-care (01) | LOC: HO.HOSX 10:00 | PROVIDERS: Visit Provider Physician Assistant | DX: Z13.89 Encounter for screening for other disorder (principal) ==